=== PATIENT | female | born 1960 | race American Indian/Alaskan Native ===

== ENCOUNTER 2025-01-03 07:22 | Inpatient (IN) | payer MEDICARE, SELFPAY ==
[2025-01-03] VITALS (51 sets, daily range): BP systolic 116–164; BP diastolic 73–123; PULSE 60–128; RESP 6–26; TEMP 36.2–37.1; O2SAT 88–99; BMI 26.9; BMI 38.5
--- OUTSIDE RECORDS SUMMARY | 2025-01-03 07:29 | XMS_ITS | Encounter Summary ---
Author Organization [facility] Address [address] [place] [address] Care Team Providers Care Community Services Manager Name Role Phone Chema Padilla MD Primary Care Provider [phone] Encounter Details Date Type Department Care Team (Latest Contact Info) Description 09/11/2005 Outpatient Historical [facility] [address] [place] [address] Alexandro Cm MD [address] [place] [address] Pain in Joint, Lower Leg (Primary Dx); Pain in Joint, Upper Arm; Chondromalacia Patellae; Lateral Epicondylitis Social History Tobacco Use Types Packs/Day Years Used Date Smoking Tobacco: Never Assessed Comments Unknown Sex and Gender Information Value Date Recorded Sex Assigned at Not on file Legal Sex Female 3:22 AM SPINNER FRAME Gender Identity Not on file Sexual Orientation Not on file documented as of this encounter Plan of Treatment Not on file documented as of this encounter Visit Diagnoses Diagnosis Pain in joint, lower leg- Primary Pain in joint, upper arm Chondromalacia patellae Chondromalacia of patella Lateral epicondylitis Lateral epicondylitis of elbow documented in this encounter Care Teams Community Services Manager Relationship Specialty Start Date End Date Chema Padilla MD [address] [place] [phone] PCP - General Family Practice 03/24/19 documented as of this encounter
--- OUTSIDE RECORDS SUMMARY | 2025-01-03 07:29 | XMS_ITS | Encounter Summary ---
Author Organization [facility] Address [address] [place] [address] Care Team Providers Care Business Development Specialist Name Role Phone Chema Padilla MD Primary Care Provider [phone] Reason for Referral * Radiology Services (Routine) - Closed Specialty Diagnoses / Procedures Referred By Beau antony Referred To Contact Diagnoses Visit for screening mammogram Procedures MAMMO 3D SCREEN BILATERAL MOBILE Jazzy Zimmerman FNP Referral ID Status Reason Start Date Expiration Date Visits Re quested Visits Authorized [id number] Closed 09/03/2019 10/03/2020 1 1 Encounter Details Date Type Department Care Team (Latest Contact Info) Description 09/03/2019 [facility] [address] [facility] [address] [place] [id number] Jazzy Zimmerman FNP NO ADDRESS ON FILE Visit for screening mammogram Social History Tobacco Use Types Packs/Day Years Used Date Smoking Tobacco: Former Cigarettes 1 22 0 05/26/1976 - 05/26/1998 Smokeless Tobacco: Never Alcohol Use Standard Drinks/Week Comments No 0 (1 standard drink = 0.6 oz pur e alcohol) Comments No Sex and Gender Information Value Date Recorded Sex Assigned at Not on file Legal Sex Female 3:22 AM MEMBER OF PARLIAMENT Gender Identity Not on file Sexual Orientation Not on file Occupation Industry Job Start Date Job End Date Not on file Not on file Not on file Not on file Not on file Not on file Not on file Not on file documented as of this encounter Plan of Treatment Not on file documented as of this encounter Results * MAMMO 3D SCREEN BILATERAL MOBILE (03/31/2020 9:04 AM MEMBER OF PARLIAMENT) Anatomical Region Laterality Modality Breast Bilateral Mammography 03/31/2020 9:04 AM MEMBER OF PARLIAMENT Narrative 04/01/2020 3:47 PM MEMBER OF PARLIAMENT BILATERAL SCREENING MAMMOGRAM 03/31/2020 PATIENT COMPLAINT: No Concerns TISSUE DENSITY: Breast Density: The breasts are almost entirely fatty. COMPARISON EXAM(S): 08/31/2015 which is the most recent prior exam. Comparison is also made with prior exams of 04/11/2013, 03/21/2013, and 03/24/2011. IMAGES OBTAINED: Standard 4-view mammogram bilateral craniocaudal and oblique views. 2-D right craniocaudal and bilateral MLO views were obtained as well. FINDINGS: RIGHT BREAST: Prominent right axillary lymph nodes are identified which are stable. No suspicious calcifications are seen. However, a new mass is identified deep in the central aspect of the right breast. This will require further evaluation. LEFT BREAST: A surgical clip is identified in the left axilla. Two prominent left axillary lymph nodes are identified. A small nodular asymmetry is identified anteriorly on the left in the upper outer quadrant. 3D MLO and CC digital tomosynthesis images were acquired and synthesized 2D images (C view) were generated. This digital mammogram was also analyzed by the Computer Aided Detection System CAD). CONCLUSION: Patient needs to return for further evaluation. I would recommend the patient return for bilateral additional views and possible ultrasound. I would recommend a left 3-D axillary tail view as well. I would also recommend that the patient make an appointment with her physician for bilateral clinical breast examination as the patient states her last exam was five years ago. Patient will be contacted by the [facility] to schedule the recommended follow-up appointment. [id number] Jazzy Zimmerman PREFORMS LAMINATOR MAMMO ORDERABLES Final Res ult documented in this encounter Visit Diagnoses Diagnosis Visit for screening mammogram Other screening mammogram documented in this encounter Additional Health Concerns Assessment Noted Time PHQ-9 Depression Total Score: 1 06/04/19 20 1:00 PM MEMBER OF PARLIAMENT documented as of this encounter Care Teams Business Development Specialist Relationship Specialty Start Date End Date Chema Padilla MD [address] [place] [phone] PCP - General Family Practice 03/24/19 documented as of this encounter
--- OUTSIDE RECORDS SUMMARY | 2025-01-03 07:29 | XMS_ITS | Encounter Summary ---
Author Organization [facility] Address [address] [place] [address] Care Team Providers Care Rim Buster Name Role Phone Chema Padilla MD Primary Care Provider [phone] Reason for Referral * Outpatient Services (Routine) - Closed Specialty Diagnoses / Procedures Referred By Contac t Referred To Contact Radiology Diagnoses Other (abnormal) findings on radiological examination of breast Procedures MAMMO BREAST US RT Kayla Sung DO NO ADDRESS ON FILE [facility] [address] [place] [phone] Phone: tel: fax: Referral ID Status Reason Start Date Expiration Date Visits Requested Visits Authorized [id number] Closed Performing Department To Schedule (SGF) 03/27/2013 04/27/2014 1 1 LIANCE ANALYST * Outpatient Services (Routine) - Closed Specialty Diagnoses / Procedures Referred By Contac t Referred To Contact Radiology Diagnoses Other (abnormal) findings on radiological examination of breast Procedures MAMMO DIGITAL DIAG UNI RIGHT Kayla Sung DO NO ADDRESS ON FILE [facility] [address] [address] Phone: tel: fax: Referral ID Status Reason Start Date Expiration Date Visits Requested Visits Authorized [id number] Closed Ordering Department To Schedule 03/27/2013 04/27/2014 1 1 LIANCE ANALYST Encounter Details Date Type Department Care Team (Latest Contact Info) Description 03/27/2013 Ancillary Orders [facility] [place] [address] [place] [address] Kayla Sung DO NO ADDRESS ON FILE Other (abnormal) findings on radiological examination of breast (Primary Dx) Social History Tobacco Use Types Packs/Day Years Used Date Smoking Tobacco: Former Cigarettes 1 22 0 05/26/1976 - 05/26/1998 Smokeless Tobacco: Never Alcohol Use Standard Drinks/Week Comments No 0 (1 standard drink = 0.6 oz pur e alcohol) Comments No Sex and Gender Information Value Date Recorded Sex Assigned at Not on file Legal Sex Female 3:22 AM COMPLIANCE ANALYST Gender Identity Not on file Sexual Orientation Not on file Occupation Industry Job Start Date Job End Date Not on file Not on file Not on file Not on file Not on file Not on file Not on file Not on file documented as of this encounter Plan of Treatment Not on file documented as of this encounter Results * MAMMO DIGITAL DIAG UNI RIGHT (04/11/2013 9:59 AM COMPLIANCE ANALYST) Anatomical Region Laterality Modality Breast Right Mammography 04/11/2013 9:16 AM COMPLIANCE ANALYST Impressions 04/11/2013 12:10 PM COMPLIANCE ANALYST IMPRESSION: Large lymph node on the right is confirmed on additional images, and ultrasound reveals what appears to be a benign lymph node. This should be of no clinical significance. I would recommend routine annual screening mammogram. Patient received a result/recommendation letter. CASSI/lanny 0956 AM - uploaded from [employer] - Narrative 04/11/2013 12:10 PM COMPLIANCE ANALYST Right Digital Diagnostic Mammogram and Right Breast Ultrasound: Multiple additional digital mammographic images are presented, to better visualize the axillary area, because of possible large lymph node or nodes on recent screening mammogram 03/21/2013 compared with multiple previous dating back to 1998. The additional images show this large suspected lymph node, but there are other nodes superimposed, and I cannot actually evaluate whether the architecture appears benign, although I suspect it is. This digital mammogram was also analyzed by the Computer Aided Detection System (CAD), R2 ImageChecker, Version 8.3. Ultrasound shows this area to good advantage. There are several benign-appearing small lymph nodes noted. There is one larger lymph node 33 mm in greatest dimension, which should represent the nodule in question. This has a thin cortex which appears unremarkable. The fatty nidus is occupying most of the lymph node. This is a benign ultrasound appearance. Procedure Note Kenan Liao MD - 04/11/2013 Right Digital Diagnostic Mammogram and Right Breast Ultrasound: Multiple additional digital mammographic images are presented, to better visualize the axillary area, because of possible large lymph node or nodes on recent screening mammogram 03/21/2013 compared with multiple previous dating back to 1998. The additional images show this large suspected lymph node, but there are other nodes superimposed, and I cannot actually evaluate whether the architecture appears benign, although I suspect it is. This digital mammogram was also analyzed by the Computer Aided Detection System (CAD), R2 ImageChecker, Version 8.3. Ultrasound shows this area to good advantage. There are several benign-appearing small lymph nodes noted. There is one larger lymph node 33 mm in greatest dimension, which should represent the nodule in question. This has a thin cortex which appears unremarkable. The fatty nidus is occupying most of the lymph node. This is a benign ultrasound appearance. IMPRESSION IMPRESSION: Large lymph node on the right is confirmed on additional images, and ultrasound reveals what appears to be a benign lymph node. This should be of no clinical significance. I would recommend routine annual screening mammogram. Patient received a result/recommendation letter. CASSI/lanny 0956 AM - uploaded from [employer] - us Kayla Sung DO MAMMO ORDERABLES Kellie corral Result * MAMMO BREAST US RT (04/11/2013 9:58 AM COMPLIANCE ANALYST) Anatomical Region Laterality Modality Breast Right Ultrasound 04/11/2013 9:40 AM COMPLIANCE ANALYST Impressions 04/11/2013 12:10 PM COMPLIANCE ANALYST IMPRESSION: Large lymph node on the right is confirmed on additional images, and ultrasound reveals what appears to be a benign lymph node. This should be of no clinical significance. I would recommend routine annual screening mammogram. Patient received a result/recommendation letter. CASSI/lanny 0956 AM - uploaded from [employer] - Narrative 04/11/2013 12:10 PM COMPLIANCE ANALYST Right Digital Diagnostic Mammogram and Right Breast Ultrasound: Multiple additional digital mammographic images are presented, to better visualize the axillary area, because of possible large lymph node or nodes on recent screening mammogram 03/21/2013 compared with multiple previous dating back to 1998. The additional images show this large suspected lymph node, but there are other nodes superimposed, and I cannot actually evaluate whether the architecture appears benign, although I suspect it is. This digital mammogram was also analyzed by the Computer Aided Detection System (CAD), R2 ImageChecker, Version 8.3. Ultrasound shows this area to good advantage. There are several benign-appearing small lymph nodes noted. There is one larger lymph node 33 mm in greatest dimension, which should represent the nodule in question. This has a thin cortex which appears unremarkable. The fatty nidus is occupying most of the lymph node. This is a benign ultrasound appearance. Procedure Note Kenan Liao MD - 04/11/2013 Right Digital Diagnostic Mammogram and Right Breast Ultrasound: Multiple additional digital mammographic images are presented, to better visualize the axillary area, because of possible large lymph node or nodes on recent screening mammogram 03/21/2013 compared with multiple previous dating back to 1998. The additional images show this large suspected lymph node, but there are other nodes superimposed, and I cannot actually evaluate whether the architecture appears benign, although I suspect it is. This digital mammogram was also analyzed by the Computer Aided Detection System (CAD), R2 ImageChecker, Version 8.3. Ultrasound shows this area to good advantage. There are several benign-appearing small lymph nodes noted. There is one larger lymph node 33 mm in greatest dimension, which should represent the nodule in question. This has a thin cortex which appears unremarkable. The fatty nidus is occupying most of the lymph node. This is a benign ultrasound appearance. IMPRESSION IMPRESSION: Large lymph node on the right is confirmed on additional images, and ultrasound reveals what appears to be a benign lymph node. This should be of no clinical significance. I would recommend routine annual screening mammogram. Patient received a result/recommendation letter. CASSI/lanny 0956 AM - uploaded from [employer] - us Kayla Sung DO MAMMO ORDERABLES Kellie l Result documented in this encounter Visit Diagnoses Diagnosis Other (abnormal) findings on radiological examination of breast- Primary Other (abnormal) findings on radiological examination of breast Other (abnormal) findings on radiological examination of breast documented in this encounter Additional Health Concerns Assessment Noted Time PHQ-9 Depression Total Score: 2 03/05/20 13 8:00 AM COMPLIANCE ANALYST documented as of this encounter Care Teams Rim Buster Relationship Specialty Start Date End Date Chema Padilla MD [address] [place] [phone] PCP - General Family Practice 03/24/19 documented as of this encounter
--- OUTSIDE RECORDS SUMMARY | 2025-01-03 07:29 | XMS_ITS | Clinical Summary ---
Author Organization [facility] Address [address] [place] [address] Care Team Providers Care Hospital Coder Name Role Phone Chema Padilla MD Primary Care Provider [phone] Allergies Active Allergy Reactions Criticality Noted Date Comments Morphine Nausea and Vomiting Low 11/26/2009 Medications simvastatin (ZOCOR) 10 mg tabletIndications: Hyperlipidemia, unspecified hyperlipidemia type TAKE 1 TABLET BY MOUTH IN THE EVENING 90 Tablet 3 0 Active cyclobenzaprine (FLEXERIL) 10 mg tabletIndications: Fibromyalgia Take 1 Tablet (10 mg) by mouth 3 times daily as needed for Spasm. 270 Tablet 3 0 Active carvediloL (COREG) 25 mg tabletIndications: Essential hypertension Take 1 Tablet (25 mg) by mouth 2 times daily with meals. 180 Tablet 3 0 Active omeprazole (PriLOSEC) 20 mg Capsule, Delayed Release(E.C.)Indic ations:Gastroesoph ageal reflux disease, unspecified whether esophagitis present TAKE ONE CAPSULE BY MOUTH DAILY 90 Capsule 3 0 Active albuterol HFA 90 mcg inhalerIndications :Chronic obstructive pulmonary disease, unspecified COPD type (CMS/HCC) INHALE 2 PUFFS BY MOUTH EVERY 6 HOURS NEEDED FOR SHORTNESS OF BREATH 18 Gram 3 0 Active ipratropium-albute roL (DUONEB) 0.5 mg-3 mg(2.5 mg base)/3 mL Solution for NebulizationIndica tions:Chronic obstructive pulmonary disease, unspecified COPD type (CMS/HCC) USE 3 ML VIA NEBULIZER EVERY 6 HOURS NEEDED FOR SHORTNESS OF BREATH 30 Each 5 0 Active levothyroxine 75 mcg tabletIndications: Primary hypothyroidism Take 1 Tablet (75 mcg) by mouth daily in the morning. 90 Tablet 3 0 Active zolpidem (AMBIEN) 10 mg tabletIndications: Psychophysiologica l insomnia Take 1 Tablet (10 mg) by mouth daily at bedtime. 90 Tablet 1 1 Active sertraline (ZOLOFT) 50 mg tabletIndications: CAROL ANN (generalized anxiety disorder) Take 1 Tablet (50 mg) by mouth daily. TAKE 1 TABLET(50 MG) BY MOUTH DAILY 90 Tablet 3 1 Active meloxicam (MOBIC) 15 mg tabletIndications: Chronic pain of left knee Take 1 Tablet (15 mg) by mouth daily at bedtime. 90 Tablet 3 1 Active ergocalciferol (VITAMIN D2) 50,000 unit capsuleIndications :Vitamin D deficiency TAKE 1 CAPSULE BY MOUTH EVERY 2 WEEKS 6 Capsule 1 Active Hospital, Clinic, or Other Facility Administered Medication Ordered Dose Route Frequency Start Date End Date Status triamcinolone acetonide (KENALOG-40) injectable suspension 40 mgIndications:Chron ic pain of left knee 40 mg Intra-arTICu ONE TIME ONLY 08/15/2018 Active Active Problems Problem Noted Date Diagnosed Date Prediabetes 06/04/2019 Primary hypothyroidism 06/04/2019 Vitamin D deficiency 08/15/2018 Family history of breast cancer 01/29/2018 Chronic obstructive pulmonary disease 01/29/2018 Situational depression 03/01/2016 ARELLANO (nonalcoholic steatohepatitis) 10/25/2015 Obesity (BMI 30.0-34.9) 10/07/2015 Family history of chronic congestive heart failu re 08/17/2015 GERD (gastroesophageal reflux disease) 4 Former smoker 03/05/2013 History of hiatal hernia 03/05/2013 Hyperlipidemia 01/02/2012 Insomnia 12/21/2011 Chronic knee pain 02/14/2011 Left knee pain 02/14/2011 Right knee pain 02/14/2011 Essential hypertension 10/06/2009 Fibromyalgia 10/06/2009 CAROL ANN (generalized anxiety disorder) 10/06/2009 Resolved Problems Problem Noted Date Diagnosed Date Resolved Date Morbid (severe) obesity due to excess calories 08/15/2018 08/11/2020 Elevated LFTs 10/11/2015 11/16/2015 Axillary adenopathy 11/04/2013 12/10/19 14 Sleep disturbance 10/16/2013 04/05/2015 BMI 33.0-33.9,adult 03/05/2013 10/07/19 16 Heartburn 03/05/2013 10/16/2013 Elevated liver enzymes 01/02/201210/16 Obesity 06/20/2011 11/16/2015 Lipoma of other skin and subcutaneous tissue 0 03/05/2013 Escamilla cyst 03/05/2013 Immunizations Immunization Administration Dates Next Due (PNEUMOVAX 23)(50 YRS UP) PN EUMOCOCCAL POLYSACCHARIDE (PPV23) 0.5 ML, IM 06/04/2019 (PREVNAR 13)(6 WKS UP) PNEUM OCOCCAL CONJUGATE (PCV13) 0.5 ML, IM 11/27/2018 INFLUENZA VACCINE QUADRIVALE NT 3 YR UP PF IM 01/29/2018 INFLUENZA VACCINE QUADRIVALE NT 6 MOS UP IM 02/07/2019 INFLUENZA VACCINE QUADRIVALE NT 6 MOS UP PF IM 12/07/2012 Influenza Seasonal Unspecifi ed Formulation IM 01/01/2020,02/09/2017,11/13/2015,11/20,12/18/2013,12/07/2012,12/01/2010 Influenza Vaccine Quad Split 18 Yrs+ Im 02/07/2019 Influenza Vaccine Split 3+ Yrs IM 12/21/2011 Influenza Vaccine Tri Split 4+ Im 2016,11/13/2015,11/20/2014,12/18,12/07/2012,12/01/2010,01/06/2010 Influenza Vaccine Tri Split 4+ Pf Im 02/09/2017 Family History Medical History Relation Name Comments Heart Disease Father High Cholesterol Father Hypertension Father Heart Disease Mother High Cholesterol Mother Hypertension Mother Kidney Disease Mother Osteoporosis Mother Breast Cancer Sister 59 Colon Cancer Neg Hx Relation Name Status Comments Father Alive Mother Alive Sister Social History Tobacco Use Types Packs/Day Years Used Date Smoking Tobacco: Former Cigarettes 1 22 0 05/26/1976 - 05/26/1998 Smokeless Tobacco: Never Tobacco Cessation:Counseling Given: No Alcohol Use Standard Drinks/Week Comments No 0 (1 standard drink = 0.6 oz pur e alcohol) Social Connections Answer Date Recorded In a typical week, how many times do you talk on the phone with family, friends, or neighbors? More than three times a week 02/12/2020 How often do you get togethe r with friends or relatives? Never 02/12/2020 How often do you attend chur ch or religion services? Never 02/12/2020 Do you belong to any clubs o r organizations such as yazdanism groups, unions, fraternal or athletic groups, or school groups? Yes 02/12/2020 Attends Club or Organization Meetings Not on yo e 02/12/2020 Marital Status Not on file 02/12/2020 Financial Resource Strain Answer Date R ecorded How hard is it for you to pa y for the very basics like food, housing, medical care, and heating? Somewhat hard 08/11/2020 Food Insecurity Answer Date Recorded In the past 12 months, have you worried that your food would run out before you had money to buy more? Sometimes true 2020 In the past 12 months, did y ou run out of food and didn't have money to buy more? Never true 08/11/2020 Transportation Needs Answer Date Record ed In the past 12 months, has l ack of transportation kept you from medical appointments or from getting medications? Yes 08/11/2020 Lack of Transportation (Non-Medical) Not on file 08/11/2020 Education Answer Date Recorded What is the highest level of school you have completed or the highest degree you have received? 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 [employer] Gender Identity Not on file Sexual Orientation Not on file Occupation Industry Job Start Date Job End Date Not on file Not on file Not on file Not on file Not on file Not on file Not on file Not on file Last Filed Vital Signs Vital Sign Reading Time Taken Comments Blood Pressure 130/74 08/11/2020 8:59 AM CDT Pulse 87 08/11/2020 8:59 AM CDT Temperature 36.1 C (97 F) 08/11/2020 8:59 AM CDT Respiratory Rate 18 08/11/2020 8:59 AM CDT Oxygen Saturation 94% 08/11/2020 8:59 AM CDT Inhaled Oxygen Concentration - - Weight 84.8 kg (187 lb) 08/11/2020 8:59 AM CDT Height 157.5 cm (5' 2 ) 08/11/2020 8:59 AM CDT Body Mass Index 34.2 08/11/2020 8:59 AM CDT Plan of Treatment Health Maintenance Due Date Last Done Comments DTAP/TDAP/TD VACCINES (1 - Tdap) 1977 FIT/FOBT Q 1 year 06/26/2003 Flex Sig/CT Colonography Q 5 years 06/26/2003 ZOSTER VACCINE (1 of 2) 2008 COLORECTAL SCREENING 03/15/2016 03/15/2011, 03/15/20 11 RSV VACCINE (60+ or ) (1 - Risk 60-74 years 1-dose series) 2018 Colorectal Cancer Screening 09/23/2020 BREAST CANCER SCREENING 03/31/2021 03/31/20 20, 08/31/2015, 04/11/2013, Additional history exists OSTEOPOROSIS SCREENING 06/26/2023 Pre-Diabetes and Diabetes Screening 08/07/2023 08/06/2020, 01/14/2020, 05/26/2019, Additional history exists FIT-DNA Q 3 years 09/23/2023 09/22/2020 Medicare Advantage [place]) Preventative Visit/Annual Wellness Visit 04/02/2024 08/11/2020, 02/12/2020 PNEUMOCOCCAL VACCINE 50+ YEA RS (3 of 3 - PCV20 or PCV21) 06/03/2024 06/04/2019, 11/27/2018 INFLUENZA VACCINE (#1) 2024 0, 02/07/2019, 02/07/2019, Additional history exists Procedures Procedure Name Priority Date/Time Associated Diagnosis Comments COLON CANCER SCREEN, STOOL DNA Routine 09/22/2020 5:08 PM CDT Screening for colon cancer HEMOGLOBIN A1C Routine 08/06/2020 8:53 AM CDT Prediabetes MAMMO 3D TONY SCREEN BILATERAL MOBILE Routine 03/31/2020 9:04 AM 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 A negative Cologuard result indicates a low likelihood that a colorectal cancer (CRC) or advanced adenoma (adenomatous polyps with more advanced pre-malignant features) is present. The chance that a person with a negative Cologuard test has a colorectal cancer is less than 1 in 1500 (negative predictive value >99.9%) or has an advanced adenoma is less than 5.3% (negative predictive value 94.7%). These data are based on a prospective cross-sectional study of 10,000 individuals at average risk for colorectal cancer who were screened with both Cologuard and colonoscopy. (Christine Chang et al, N Engl J Med 2014;370(14):0441-5880) The normal value (reference range) for this assay is negative. COLOGUARD RE-SCREENING RECOMMENDATION: Periodic colorectal cancer screening is an important part of preventive healthcare for asymptomatic individuals at average risk for colorectal cancer. Following a negative Cologuard result, the [place] [employer] and U.S. Multi-Society Task Force screening guidelines recommend a Cologuard re-screening interval of 3 years. References: [place] [employer] Guideline for Colorectal Cancer Screening: https://www.cancer.org/cancer/veuwo-ncbbrk-dnjpns/ezdsgkvgs-pcxpmhikd-tornjof/ac s-rec ommendations.html.; Billy TRAN, Edwin CR, Alfa CotaK, Colorectal Cancer Screening: Recommendations for Physicians and Patients from the U.S. Multi-Society Task Force on Colorectal Cancer Screening , Am J Gastroenterology 2017; 112:9288-8739. TEST DESCRIPTION: Composite algorithmic analysis of stool DNA-biomarkers with hemoglobin immunoassay. Quantitative values of individual biomarkers are not reportable and are not associated with individual biomarker result reference ranges. Cologuard is intended for colorectal cancer screening of adults of either sex, 45 years or older, who are at average-risk for colorectal cancer (CRC). Cologuard has been approved for use by the U.S. FDA. The performance of Cologuard was established in a cross sectional study of average-risk adults aged 50-84. Cologuard performance in patients ages 45 to 49 years was estimated by sub-group analysis of near-age groups. Colonoscopies performed for a positive result may find as the most clinically significant lesion: colorectal cancer [4.0%], advanced adenoma (including sessile serrated polyps greater than or equal to 1cm diameter) [20%] or non- advanced adenoma [31%]; or no colorectal neoplasia [45%]. These estimates are derived from a prospective cross-sectional screening study of 10,000 individuals at average risk for colorectal cancer who were screened with both Cologuard and colonoscopy. (Christine Morris. et al, N Engl J Med 2014;370(14):3210-0997.) Cologuard may produce a false negative or false positive result (no colorectal cancer or precancerous polyp present at colonoscopy follow up). A negative Cologuard test result does not guarantee the absence of CRC or advanced adenoma (pre-cancer). The current Cologuard screening interval is every 3 years. ([place] [employer] and U.S. Multi-Society Task Force). Cologuard performance data in a 10,000 patient pivotal study using colonoscopy as the reference method can be accessed at the following location: www.[employer]results. Additional description of the Cologuard test process, warnings and precautions can be found at www.[employer].com. Stool STOOL SPECIMEN / Unknown 09/22/2020 5:08 PM CDT 09/24/2020 7:08 PM CDT us Jazzy Zimmerman SPORTS EQUIPMENT REPAIRER BODY FLUIDS AND STOOLS Fin al Result [employer] CLIA # [id number] [address], [address] [place] [address] * (ABNORMAL) HEMOGLOBIN A1C (08/06/2020 8:53 AM CDT) HEMOGLOBIN A1C 5.9(H) See Comment % 08/06/2020 8:31 PM CDT [facility] EST. AVG GLUCOSE, A1C 123 mg/dL 08/06/2020 8:31 PM CDT [facility] Blood Venipuncture / Unknown 08/06/2020 8:53 AM CDT 08/06/2020 7:58 PM CDT Narrative [facility] - 08/06/2020 8:31 PM CDT HGB A1C INTERPRETATION NORMAL: <5.7% PRE-DIABETES: 5.7 - 6.4% DIABETES: 6.5% OR GREATER Falsely low A1C measurements can occur when: 1. Anemia and/or hemolytic anemia is present. 2. Hemoglobin variants present. 3. Renal failure. 4. Transfusion of blood product in the last 120 days. We recommend ordering a fructosamine test([id number]) to more accurately assess glycemic status if any of the above conditions are present. Jazzy Zimmerman SPORTS EQUIPMENT REPAIRER CHEMISTRY ORDERABLES Final Result [facility] CLIA# [id number] [facility] [place] [address] * MAMMO 3D SCREEN BILATERAL MOBILE (03/31/2020 9:04 AM ASSISTANT PROFESSOR OF [employer]IN[employer]) Anatomical Region Laterality Modality Breast Bilateral Mammography 03/31/2020 9:04 AM ASSISTANT PROFESSOR [employer]IN[employer] Narrative 04/01/2020 3:47 PM ASSISTANT PROFESSOR OF [employer]INAL [employer]ICE BILATERAL SCREENING MAMMOGRAM 03/31/2020 PATIENT COMPLAINT: No [...] Center to schedule the recommended follow-up appointment. [id number] Jazzy Chapacayetano SPORTS EQUIPMENT REPAIRER MAMMO ORDERABLES Final Res ult from Last 3 Months or Most Recently Relevant to Health Maintenance Insurance [facility] Advance Directives For more information, please contact: [phone] * Full Code (Latest Code Status on File) Date Activated Date Inactivated Comments 11/24/2013 1:00 PM 11/24/2013 6:57 PM * Full Code Date Activated Date Inactivated Comments 11/24/2013 12:18 PM 11/24/2013 1:00 PM * Full Code Date Activated Date Inactivated Comments 03/15/2011 10:04 AM 03/15/2011 1:31 PM * Full Code Date Activated Date Inactivated Comments 11/26/2009 9:33 AM 11/26/2009 7:02 PM Care Teams Hospital Coder Relationship Specialty Start Date End Date Chema Padilla MD [address] [place] [phone] PCP - General Family Practice 03/24/19
--- OUTSIDE RECORDS SUMMARY | 2025-01-03 07:29 | XMS_ITS | Clinical Summary ---
Author Organization [facility] Address [address] [place] [address] Care Team Providers Care Automotive Machinist Name Role Phone Dennis Vines MD Primary Care Provider Allergies Active Allergy Reactions Criticality Noted Date Comments Morphine Nausea and Vomiting Low 11/26/2009 Medications triamcinolone acetonide (KENALOG-40) 40 mg/mL Suspension 40 mg by Intra-arTICular route one time only. 08/16/19 19 Active Nebulizer Accessories Kit Use 3-4 times daily with nebulized solution. Change tubing/mask every 2 weeks. 7 Kit 4 12/15/19 23 Active estradioL (ESTRACE) 0.01% (0.1 mg/g) vaginal cream Apply pea sized amount daily at bedtime intravaginally for 2 weeks. After that, apply a pea sized amount at bedtime every Sun, Sun and Sunday. 85 Gram 3 12/15/19 23 Active Additional Information Patient not taking.Reported on 10/29/2024 carvediloL (COREG) 25 mg tabletIndications: Essential hypertension Take 1 Tablet (25 mg) by mouth 2 times daily with meals. 200 Tablet 3 06/04/19 25 Active sertraline (ZOLOFT) 50 mg tabletIndications: CAROL ANN (generalized anxiety disorder) Take 1 Tablet (50 mg) by mouth daily. 100 Tablet 2 06/07/19 25 Active cyclobenzaprine (FLEXERIL) 10 mg tabletIndications: Fibromyalgia Take 1 Tablet (10 mg) by mouth 3 times daily as needed for Spasm. 270 Tablet 2 06/11/19 25 Active meloxicam (MOBIC) 15 mg tabletIndications: Chronic pain of left knee Take 1 Tablet (15 mg) by mouth daily at bedtime. PATIENT NEEDS AN APPOINTMENT FOR FUTURE REFILLS 100 Tablet 2 06/12/19 25 Active simvastatin (ZOCOR) 10 mg tabletIndications: Hyperlipidemia, unspecified hyperlipidemia type Take 1 Tablet (10 mg) by mouth daily at bedtime. PATIENT NEEDS AN APPOINTMENT FOR FUTURE REFILLS 100 Tablet 2 06/14/19 25 Active levothyroxine 75 mcg tabletIndications: Primary hypothyroidism Take 1 Tablet (75 mcg) by mouth daily. PATIENT NEEDS AN APPOINTMENT FOR FUTURE REFILLS. 100 Tablet 2 07/02/19 25 Active zolpidem (AMBIEN) 10 mg tabletIndications: Psychophysiologica l insomnia Take 1 Tablet (10 mg) by mouth daily at bedtime. 90 Tablet 08/22/19 25 Active albuterol sulfate HFA 90 mcg/actuation aerosol inhalerIndications :Chronic obstructive pulmonary disease, unspecified COPD type (CMS/HCC) Take 2 Puffs by inhalation every 6 hours as needed for Shortness of Breath. 18 Gram 08/22/19 25 Active ipratropium-albute roL (DUONEB) 0.5 mg-3 mg(2.5 mg base)/3 mL Solution for NebulizationIndica tions:Chronic obstructive pulmonary disease, unspecified COPD type (CMS/HCC) Take 3 mL by inhalation every 6 hours as needed for Shortness of Breath. 120 Each 09/19/19 25 Active omeprazole (PriLOSEC) 20 mg Capsule, Delayed Release(E.C.)Indic ations:Gastroesoph ageal reflux disease, unspecified whether esophagitis present Take 1 Capsule (20 mg) by mouth daily. PATIENT NEEDS AN APPOINTMENT FOR FUTURE REFILLS 100 Capsule 11/07/19 25 Active Active Problems Problem Noted Date Diagnosed Date Hip pain, chronic, left 02/17/2021 Prediabetes 06/04/2019 Primary hypothyroidism 06/04/2019 Vitamin D deficiency 08/15/2018 Family history of breast cancer 01/29/2018 Chronic obstructive pulmonary disease 01/29/2018 Situational depression 03/01/2016 ARELLANO (nonalcoholic steatohepatitis) 10/25/2015 Obesity (BMI 30.0-34.9) 10/07/2015 Family history of chronic congestive heart failu re 08/17/2015 GERD (gastroesophageal reflux disease) 4 Former smoker 03/05/2013 History of hiatal hernia 03/05/2013 Hypercholesterolemia 01/02/2012 Insomnia 12/21/2011 Chronic knee pain 02/14/2011 Left knee pain 02/14/2011 Right knee pain 02/14/2011 Fibromyalgia 10/06/2009 Essential hypertension 10/06/2009 CAROL ANN (generalized anxiety disorder) 10/06/2009 [...] subcutaneous tissue 0 03/05/2013 Escamilla cyst 03/05/2013 Encounters Date Type Department Care Team Description 12/16/2024 External Device Data [facility] ABSTRACTION Provider, Abstract 12/16/2024 External Device Data [facility] ABSTRACTION Provider, Abstract 11/06/[address] [phone] Dennis Vines MD Gastroesophageal reflux disease, unspecified whether esophagitis present 11/02/2024 Results Follow-Up [place] [address] [place] [address] Dennis Vines MD MICROALBUMIN/CREATININE RATIO, RANDOM UR, CBC WITH DIFFERENTIAL, COMPREHENSIVE METABOLIC PANEL, Additional followed-up results: 2 10/29/2024 4:00 PM CDT Office Visit [address] [place] [phone] Dennis Vines MD Medicare annual wellness visit, subsequent (Primary Dx); Essential hypertension; Hypercholesterolemia; Primary hypothyroidism; 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); Encounter for colorectal cancer screening; Screening mammogram, encounter for; Encounter for immunization 10/15/2024 External Device Data [facility] ABSTRACTION Provider, Abstract 10/14/2024 External Device Data [facility] ABSTRACTION Provider, Abstract from Last 3 Months Immunizations Immunization Administration Dates Next Due (PNEUMOVAX 23)(50 YRS UP) PN EUMOCOCCAL POLYSACCHARIDE (PPV23) 0.5 ML, IM 06/04/2019 (PREVNAR 13)(6 WKS UP) PNEUM OCOCCAL CONJUGATE (PCV13) 0.5 ML, IM 11/27/2018 (PREVNAR 20)(6 WKS UP) PNEUM OCOCCAL CONJUGATE VACCINE 20-VALENT (PCV20), POLYSACCHARIDE [id number] CONJUGATE, ADJUVANT 0.5 ML (PF) IM 10/29/2024 INFLUENZA VACCINE HIGH DOSE TRIVALENT SPLIT VIRUS, (65 YR UP), 0.5ML (PF), IM 01/21/2024 INFLUENZA VACCINE QUADRIVALE NT 3 YR UP PF IM 01/29/2018 INFLUENZA VACCINE QUADRIVALE NT 6 MOS UP IM 02/07/2019 INFLUENZA VACCINE QUADRIVALE NT 6 MOS UP PF IM 02/17/2021,12/07/2012 Influenza Seasonal Unspecifi ed Formulation IM 01/01/2020,02/09/2017,11/13/2015,11/20,12/18/2013,12/07/2012,12/01/2010 Influenza Vaccine Quad Split 18 Yrs+ Im 02/07/2019 Influenza Vaccine Split 3+ Yrs IM 12/21/2011 Influenza Vaccine Tri Split 4+ Im 2016,11/13/2015,11/20/2014,12/18,12/07/2012,12/01/2010,01/06/2010 Influenza Vaccine Tri Split 4+ Pf Im 02/09/2017 Novel [id number], All Formulations 02/12/2009 Family History Medical History Relation Name Comments Heart Disease Father High Cholesterol Father Hypertension Father Heart Disease Mother High Cholesterol Mother Hypertension Mother Kidney Disease Mother Osteoporosis Mother Breast Cancer Sister 59 Colon Cancer Neg Hx Relation Name Status Comments Father Alive Mother Alive Sister Social History Tobacco Use Types Packs/Day Years Used Date Smoking Tobacco: Former Cigarettes Q uit: 05/26/1998 Passive Smoke Exposure: Past Smokeless Tobacco: Never Tobacco Cessation:Counseling Given: Not Answered Alcohol Use Standard Drinks/Week Comments No 0 (1 standard drink = 0.6 oz pur e alcohol) Financial Resource Strain Answer Date R ecorded [...] of Transportation (Non-Medical) Not on file 08/11/2020 Comments No Sex and Gender Information Value Date Recorded Sex Assigned at Not on file Legal Sex 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 Gender Identity Not on file Sexual Orientation Not on file Last Filed Vital Signs Vital Sign Reading Time Taken Comments Blood Pressure 136/86 10/29/2024 4:02 PM CDT Pulse 111 10/29/2024 4:02 PM CDT Temperature 36.3 C (97.3 F) 10/29/2024 4:02 PM CDT Respiratory Rate 16 01/21/2024 3:09 PM CDT Oxygen Saturation 95% 10/29/2024 4:02 PM CDT Inhaled Oxygen Concentration - - Weight 71.7 kg (158 lb) 10/29/2024 4:02 PM CDT Height 157.5 cm (5' 2 ) 10/29/2024 4:02 PM CDT Body Mass Index 28.9 10/29/2024 4:02 PM CDT Plan of Treatment Health Maintenance Due Date Last Done Comments DTAP/TDAP/TD VACCINES (1 - Tdap) 1977 Flex Sig/CT Colonography Q 5 years 06/26/2003 ZOSTER VACCINE (1 of 2) 2008 COLORECTAL SCREENING 03/15/2016 03/15/2011 RSV VACCINE (60+ or ) (1 - Risk 60-74 years 1-dose series) 2018 BREAST CANCER SCREENING 03/31/2021 03/31/20 20, 03/31/2020, 08/31/2015, Additional history exists OSTEOPOROSIS SCREENING 06/26/2023 Colorectal Cancer Screening 07/24/2023 FIT-DNA Q 3 years 09/23/2023 09/22/2020 FIT/FOBT Q 1 year 07/22/2024 07/23/2023 Pre-Diabetes and Diabetes Screening 10/06/2024 10/06/2021, 02/14/2021, 08/06/2020, Additional history exists INFLUENZA VACCINE (#1) 2024 , 02/17/2021, 01/01/2020, Additional history exists Medicare Ad[place]age ([place]) Preventative Visit/Annual Wellness Visit Completed 10/29/2024, 06/21/2023, 12/14/2022 PNEUMOCOCCAL VACCINE 50+ YEARS Completed 0 10/29/2024, 06/04/2019, 11/27/2018 Procedures Procedure Name Priority Date/Time Associated Diagnosis Comments TSH REFLEXIVE Routine 10/29/2024 4:29 PM CDT Primary hypothyroidism LIPID PANEL Routine 10/29/2024 4:29 PM CDT Hypercholesterolemia COMPREHENSIVE METABOLIC PANEL Routine 10/29/2024 4:29 PM CDT Essential hypertension CBC WITH DIFFERENTIAL Routine 10/29/2024 4:29 PM CDT Essential hypertension MICROALBUMIN/CREATINI NE RATIO, RANDOM UR Routine 10/29/2024 4:29 PM CDT Essential hypertension OCCULT BLOOD IMMUNOASSAY, COLORECTAL SCREEN Routine 07/23/2023 12:00 AM CDT Encounter for colorectal cancer screening HEMOGLOBIN A1C Routine 10/06/2021 9:24 AM CDT Prediabetes COLON CANCER SCREEN, STOOL DNA Routine 09/22/2020 5:08 PM CDT MAMMO 3D TONY SCREEN BILATERAL MOBILE Routine 03/31/2020 9:04 AM DRAY TRUCK DRIVER Encounter for screening mammogram for malignant neoplasm of breast from Last 3 Months or Most Recently Relevant to Health Maintenance Results * TSH REFLEXIVE (10/29/2024 4:29 PM CDT) TSH 2.59 0.40 - 4.50 mIU/L [facility] Comment: Test Performed at: [facility] [place] [address] Hallie Peres MD Blood 10/29/2024 4:29 PM CDT 10/30/2024 2:40 AM CDT Dennis Vines MD CHEMISTRY ORDERABLES Final Resul t Performing Organization Address [facility]/ZIP Co de Phone Number [facility] [phone] [facility] [address] * (ABNORMAL) MICROALBUMIN/CREATININE RATIO, RANDOM UR (10/29/2024 4:29 PM CDT) CREATININE, URINE 149 20 - 275 mg/dL [facility] ALBUMIN, URINE 21.9 See Note: mg/dL [facility] Comment: Reference Range: Reference Range Not established ALB/CREAT RATIO, URINE 147(H) <30 mg/g creat [facility] Comment: The ADA defines abnormalities in albumin excretion as follows: Albuminuria Category Result (mg/g creatinine) Normal to Mildly increased <30 Moderately increased 30-299 Severely increased > OR = 300 The ADA recommends that at least two of three specimens collected within a 3-6 month period be abnormal before considering a patient to be within a diagnostic category. Test Performed at: [facility] [place] [address] Hallie Prees MD Urine URINE SPECIMEN OBTAINED BY CLEAN CATCH PROCEDURE / Unknown 10/29/2024 4:29 PM CDT 10/30/2024 2:40 AM CDT us Dennis Vines MD URINE ORDERABLES Final Result Performing Organization Address City/[facility]/ZIP Co de Phone Number [facility] [phone] [facility] [place] [address] * (ABNORMAL) CBC WITH DIFFERENTIAL (10/29/2024 4:29 PM CDT) WBC 11.3(H) 3.8 - 10.8 Thousand/u L [facility] RBC 4.97 3.80 - 5.10 Million/uL [facility] HEMOGLOBIN 12.5 11.7 - 15.5 g/dL [facility] HEMATOCRIT 42.4 35.0 - 45.0 % [facility] MCV 85.3 80.0 - 100.0 fL [facility] MCH 25.2(L) 27.0 - 33.0 pg [facility] MCHC 29.5(L) 32.0 - 36.0 g/dL [facility] Comment: For adults, a slight decrease in the calculated MCHC value (in the range of 30 to 32 g/dL) is most likely not clinically significant; however, it should be interpreted with caution in correlation with other red cell parameters and the patient's clinical condition. RDW 16.0(H) 11.0 - 15.0 % [facility] PLATELETS 266 140 - 400 Thousand/u L [facility] MPV 11.3 7.5 - 12.5 fL [facility] NEUTROPHIL ABSOLUTE 7,899(H) 1,500 - 7,800 cells/uL [facility] LYMPHOCYTE ABSOLUTE 2,396 850 - 3,900 cells/uL [facility] MONOCYTE ABSOLUTE 746 200 - 950 cells/uL [facility] EOSINOPHIL ABSOLUTE 192 15 - 500 cells/uL [facility] BASOPHILS ABSOLUTE 68 0 - 200 cells/uL [facility] NEUTROPHIL 69.9 % [facility] LYMPHOCYTES 21.2 % [facility] MONOCYTE 6.6 % [facility] EOSINOPHILS 1.7 % [facility] BASOPHILS 0.6 % [facility] Comment: Test Performed at: [facility] [address] [place] [address] Hallie Peres MD Blood 10/29/2024 4:29 PM CDT 10/30/2024 2:40 AM CDT us Dennis Vines MD HEMATOLOGY ORDERABLES Final Resu lt Performing Organization Address City/[facility]/ZIP Co de Phone Number [facility] [phone] [facility] [address] [place] [address] * (ABNORMAL) LIPID PANEL (10/29/2024 4:29 PM CDT) CHOLESTEROL 105 <200 mg/dL [facility] HDL 40(L) > OR = 50 mg/dL [facility] TRIGLYCERIDE 73 <150 mg/dL [facility] LDL CALCULATED 50 mg/dL (calc) [facility] Comment: Reference range: <100 Desirable range <100 mg/dL for primary prevention; <70 mg/dL for patients with CHD or diabetic patients with > or = 2 CHD risk factors. LDL-C is now calculated using the Waylon-Alisia calculation, which is a validated novel method providing better accuracy than the Friedewald equation in the estimation of LDL-C. Waylon SS et al. JOAO. 2013;310(19): 4508-4780 (http://education.AM Technology/faq/NUB274) CHOL/HDL RATIO 2.6 <5.0 (calc) [facility] NON-HDL CHOLESTEROL 65 <130 mg/dL (calc) [facility] Comment: For patients with diabetes plus 1 major ASCVD risk factor, treating to a non-HDL-C goal of <100 mg/dL (LDL-C of <70 mg/dL) is considered a therapeutic option. Test Performed at: [facility] [address] [facility] [place] [address] Hallie Peres MD Blood 10/29/2024 4:29 PM CDT 10/30/2024 2:40 AM CDT us Dennis Vines MD CHEMISTRY ORDERABLES Final Resul t Performing Organization Address City/[facility]/ZIP Co de Phone Number [facility] [phone] [facility] [address] [place] [address] * (ABNORMAL) COMPREHENSIVE METABOLIC PANEL (10/29/2024 4:29 PM CDT) GLUCOSE 98 65 - 99 mg/dL [facility] Comment: Fasting reference interval BUN 19 7 - 25 mg/dL [facility] CREATININE 1.04 0.50 - 1.05 mg/dL [facility] GFR 59(L) > OR = 60 mL/min/1. 73m2 [facility] BUN/CREAT RATIO SEE NOTE: 6 - 22 (calc) [facility] Comment: Not Reported: BUN and Creatinine are within reference range. SODIUM 138 135 - 146 mmol/L [facility] POTASSIUM 4.5 3.5 - 5.3 mmol/L [facility] CHLORIDE 99 98 - 110 mmol/L [facility] CO2 29 20 - 32 mmol/L [facility] CALCIUM 9.5 8.6 - 10.4 mg/dL [facility] TOTAL PROTEIN 7.5 6.1 - 8.1 g/dL [facility] ALBUMIN 4.1 3.6 - 5.1 g/dL [facility] GLOBULIN 3.4 1.9 - 3.7 g/dL (calc) [facility] ALBUMIN/GLOBULIN RATIO 1.2 1.0 - 2.5 (calc) [facility] BILIRUBIN TOTAL 0.7 0.2 - 1.2 mg/dL [facility] ALKALINE PHOSPHATASE 70 37 - 153 U/L [facility] AST 21 10 - 35 U/L [facility] ALT 17 6 - 29 U/L [facility] Comment: Test Performed at: [facility] [address] [address] [place], [place] [address] Hallie Peres MD Blood 10/29/2024 4:29 PM CDT 10/30/2024 2:40 AM CDT Dennis Vines MD CHEMISTRY ORDERABLES Final Resul t [facility] [phone] [facility] [address] [place] [address] * OCCULT BLOOD IMMUNOASSAY, COLORECTAL SCREEN (07/23/2023 12:00 AM CDT) FECAL GLOBIN SEE NOTE [facility] Comment: FECAL GLOBIN BY IMMUNOCHEMISTRY Micro Number: [id number] Test Status: Final Specimen Source: Stool Specimen Quality: Adequate Fecal Globin: Not Detected Test Performed at: [facility] [address] [place] [address] Hallie Peres MD Stool STOOL SPECIMEN / Unknown 07/23/2023 07/26/2023 11:19 AM CDT Jazzy Zimmerman [employer] STOOLS Fin al Result Performing Organization Address City/[facility]/ZIP Co de Phone Number [facility] [phone] [facility] [address] [place] [address] * HEMOGLOBIN A1C (10/06/2021 9:24 AM CDT) HEMOGLOBIN A1C 5.6 <5.7 % of total Hgb [facility] Comment: For the purpose of screening for the presence of diabetes: <5.7% Consistent with the absence of diabetes 5.7-6.4% Consistent with increased risk for diabetes (prediabetes) > or =6.5% Consistent with diabetes This assay result is consistent with a decreased risk of diabetes. Currently, no consensus exists regarding use of hemoglobin A1c for diagnosis of diabetes in children. According to [place] Diabetes Association (ADA) guidelines, hemoglobin A1c <7.0% represents optimal control in non- diabetic patients. Different metrics may apply to specific patient populations. Standards of Medical Care in Diabetes(ADA). ESTIMATED AVERAGE GLUCOSE (MG/DL) 114 mg/dL [facility] ESTIMATED AVERAGE GLUCOSE (MMOL/L) 6.3 mmol/L [facility] Comment: Test Performed at: [facility] [address] [address] [place] [address] Landry Pelayo D.O., MPH Blood 10/06/2021 9:24 AM CDT 10/07/2021 1:21 AM CDT Jazzy Zimmerman [facility] CHEMISTRY ORDERABLES Final Result [facility] [phone] [facility] [address] [facility] [place] [address] * COLON CANCER SCREEN, STOOL DNA (09/22/2020 5:08 PM CDT) COLOGUARD RESULT Negative Negative 09/29/19 9:35 AM CDT [facility] Comment: NEGATIVE TEST RESULT. A negative Cologuard [...] Chang et al, N Engl J Med 2014;370(14):1435-1393) The normal value (reference range) for this assay is negative. COLOGUARD RE-SCREENING RECOMMENDATION: Periodic colorectal cancer screening is an important part of preventive healthcare for asymptomatic individuals at average risk for colorectal cancer. Following a negative Cologuard result, the [place] Cancer Society and U.S. Multi-Society Task Force screening guidelines recommend a Cologuard re-screening interval of 3 years. References: [place] Cancer Society Guideline for Colorectal Cancer Screening: https://www.cancer.org/cancer/iwmxc-iaztsu-rsehas/axtfltvsc-tsnbdikoy-zpjgvrh/ac s-rec ommendations.html.; Billy DK, Edwin SAMUEL, Alfa JEONG, Colorectal Cancer Screening: Recommendations for Physicians and Patients from the U.S. Multi-Society Task Force on Colorectal Cancer Screening , Am J Gastroenterology 2017; 112:1841-6964. TEST DESCRIPTION: Composite algorithmic analysis of stool [...] Morris. et al, N Engl J Med 2014;370(14):1047-3481.) Cologuard may produce a false negative or false positive result (no colorectal cancer or precancerous polyp present at colonoscopy follow up). A negative Cologuard test result does not guarantee the absence of CRC or advanced adenoma (pre-cancer). The current Cologuard screening interval is every 3 years. ([place] Cancer Society and U.S. Multi-Society Task Force). Cologuard performance data in a 10,000 patient pivotal study using colonoscopy as the reference method can be accessed at the following location: www.Ch[employer].Knowrom/results. Additional description of the Cologuard test process, warnings and precautions can be found at www.FinancialForce.comogCorePower Yogard.com. Stool STOOL SPECIMEN / Unknown 09/22/2020 5:08 PM CDT 09/24/2020 7:08 PM CDT Jazzy Murphy Elsie [employer] STOOL[employer] Fin al Result [facility] CLIA # [id number] [address] , [address] [place] [address] * MAMMO 3D SCREEN BILATERAL MOBILE (03/31/2020 9:04 AM DRAY TRUCK DRIVER) Anatomical Region Laterality Modality Breast Bilateral Other Narrative 04/01/2020 3:47 PM DRAY TRUCK DRIVER BILATERAL SCREENING MAMMOGRAM 03/31/2020 PATIENT COMPLAINT: No [...] Center to schedule the recommended follow-up appointment. [id number] Procedure Note Nikia Escamilla MD - 09/01/2020 BILATERAL SCREENING MAMMOGRAM 03/31/2020 PATIENT COMPLAINT: No [...] Center to schedule the recommended follow-up appointment. [id number] Jazzy Zimmerman [facility] MAMMO ORDERABLES Final Res ult from Last 3 Months or Most Recently Relevant to Health Maintenance Insurance [facility] MEDICARE HMO Care Teams Automotive Machinist Relationship Specialty Start Date End Date Dennis Vines MD [address] [place] [phone] PCP - General Family Practice 10/23/24
--- OUTSIDE RECORDS SUMMARY | 2025-01-03 07:29 | XMS_ITS | Encounter Summary ---
Author Organization [facility] Address [address] [place] [address] Care Team Providers Care Head Of Mobile Name Role Phone Chema Padilla MD Primary Care Provider [phone] Encounter Details Date Type Department Care Team (Latest Contact Info) Description 05/09/2005 Outpatient [facility] Breast Center [facility] [address] [place] [address] Dewayne Fagan Jr., MD [address] [place] [address] [address] [place] [address] SCREENING MAMM-MAILG NEOPL NEC (Primary Dx) Social History Tobacco Use Types Packs/Day Years Used Date Smoking Tobacco: Never Assessed Comments Unknown Sex and Gender Information Value Date Recorded Sex Assigned at Not on file 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
--- OUTSIDE RECORDS SUMMARY | 2025-01-03 07:30 | XMS_ITS | Encounter Summary ---
Author Organization [facility] Address [address] [place] [address] Care Team Providers Care Serology Technician Name Role Phone Chema Padilla MD Primary Care Provider [phone] Encounter Details Date Type Department Care Team (Latest Contact Info) Description 08/09/2015 Ancillary Orders [facility] [address] [facility] [address] [place] [address] Kayla Sung DO NO ADDRESS ON FILE Encounter for screening mammogram for high-risk patient (Primary Dx) Social History Tobacco Use Types Packs/Day Years Used Date Smoking Tobacco: Former Cigarettes 1 22 0 05/26/1976 - 05/26/1998 Smokeless Tobacco: Never Alcohol Use Standard Drinks/Week Comments No 0 (1 standard drink = 0.6 oz pur e alcohol) Comments No Sex and Gender Information Value Date Recorded Sex Assigned at Not on file Legal Sex Female 3:22 AM KAIWHAKAHAERE Gender Identity Not on file Sexual Orientation Not on file Occupation Industry Job Start Date Job End Date Not on file Not on file Not on file Not on file Not on file Not on file Not on file Not on file documented as of this encounter Plan of Treatment Not on file documented as of this encounter Visit Diagnoses Diagnosis Encounter for screening mammogram for high-risk patient- Primary documented in this encounter Additional Health Concerns Assessment Noted Time PHQ-9 Depression Total Score: 2 03/05/20 13 8:00 AM KAIWHAKAHAERE documented as of this encounter Care Teams Serology Technician Relationship Specialty Start Date End Date Chema Padilla MD [address] [place] [address], [place] [phone] PCP - General Family Practice 03/24/19 documented as of this encounter
--- OUTSIDE RECORDS SUMMARY | 2025-01-03 07:30 | XMS_ITS | Encounter Summary ---
Author Organization [facility] Address [address] [place] [address] Care Team Providers Care Booth Manager Name Role Phone Chema Padilla MD Primary Care Provider [phone] Reason for Referral * Radiology Services (Routine) - Closed Specialty Diagnoses / Procedures Referred By Beau t Referred To Contact Diagnoses Visit for screening mammogram Procedures MAMMO SCRN BILAT 3D TONY W OR WO CAD MOBILE CHG SCREENING MAMMOGRAPHY BI 2-VIEW BREAST INC CAD CHG SCREENING DIGITAL BREAST TOMOSYNTHESIS BI Kayla Sung DO Referral ID Status Reason Start Date Expiration Date Visits Re quested Visits Authorized [id number] Closed 03/05/2018 04/05/2019 1 1 RMEDIATE DESIGNER Encounter Details Date Type Department Care Team (Latest Contact Info) Description 03/05/2018 Ancillary Orders [facility] [address] [facility] [address] [place] [phone] Kayla Sung DO NO ADDRESS ON FILE Visit for screening [...] on file Legal Sex Female 3:22 AM INTERMEDIATE DESIGNER Gender Identity Not on file Sexual Orientation Not on file Occupation Industry Job Start Date Job End Date Not on file Not on file Not on file Not on file Not on file Not on file Not on file Not on file documented as of this encounter Plan of Treatment Scheduled Orders Name Type Priority Associated Diagnoses Orde r Schedule MAMMO SCRN BILAT 3D TONY W OR WO CAD MOBILE Imaging Routine Visit for screening mammogram 1 Occurrences starting 03/05/2018 until 09/04/2019 documented as of this encounter Visit Diagnoses Diagnosis Visit for screening mammogram Other screening mammogram documented in this encounter Additional Health Concerns Assessment Noted Time PHQ-9 Depression Total Score: 2 03/05/20 13 8:00 AM INTERMEDIATE DESIGNER documented as of this encounter Care Teams Booth Manager Relationship Specialty Start Date End Date Chema Padilla MD [address] [place] [phone] PCP - General Family Practice 03/24/19 documented as of this encounter
--- OUTSIDE RECORDS SUMMARY | 2025-01-03 07:30 | XMS_ITS | Encounter Summary ---
Author Organization [facility] Address [address] [place] [address] Care Team Providers Care Mathematics Academic Chair Name Role Phone Chema Padilla MD Primary Care Provider [phone] Encounter Details Date Type Department Care Team (Late st Contact Info) Description 05/18/2004 Emergency 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
--- OUTSIDE RECORDS SUMMARY | 2025-01-03 07:30 | XMS_ITS | Encounter Summary ---
Author Organization [facility] Address [address] [place] [address] Care Team Providers Care Application Support Consultant Name Role Phone Chema Padilla MD Primary Care Provider [phone] Encounter Details Date Type Department Care Team (Late st Contact Info) Description 06/14/2010 Ancillary Orders [facility] [address] [facility] [address] [place] [phone] Kayla Sung DO NO ADDRESS ON FILE Other screening mammogram Social History Tobacco Use Types Packs/Day Years Used Date Smoking Tobacco: Former Cigarettes 22 Comments:quit 1998 Alcohol Use Standard Drinks/Week Comments No 0 (1 standard drink = 0.6 oz pur e alcohol) Comments No Sex and Gender Information Value Date Recorded Sex Assigned at Not on file 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
--- OUTSIDE RECORDS SUMMARY | 2025-01-03 07:30 | XMS_ITS | Encounter Summary ---
Author Organization [facility] Address [address] [place] [address] Care Team Providers Care Supervisor Counseling And Guidance Name Role Phone Chema Padilla MD Primary Care Provider [phone] Encounter Details Date Type Department Care Team (Latest Contact Info) Description 09/06/2005 Outpatient [facility] Family Medicine [place] [facility] [address] [phone] Dewayne Fagan Jr., MD [address] [place] [address] 248 [facility] [address] [place] [address] Benign Hypertension (Primary Dx) Social History Tobacco Use Types Packs/Day Years Used Date Smoking Tobacco: Never Assessed Comments Unknown Sex and Gender Information Value Date Recorded Sex Assigned at Not on file 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
--- OUTSIDE RECORDS SUMMARY | 2025-01-03 07:30 | XMS_ITS | Encounter Summary ---
Author Organization [facility] Address [address] [place] [address] Care Team Providers Care Hydroponics Worker Name Role Phone Chema Padilla MD Primary Care Provider [phone] Encounter Details Date Type Department Care Team (Late st Contact Info) Description 07/29/2005 Emergency [facility] Emergency Department [address] [place] [phone] Beata Gonzalez MD Headache (Primary Dx) Social History Tobacco Use Types Packs/Day Years Used Date Smoking Tobacco: Never Assessed Comments Unknown Sex and Gender Information Value Date Recorded Sex Assigned at Not on file 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 Gender Identity Not on file Sexual Orientation Not on file documented as of this encounter Plan of Treatment Not on file documented as of this encounter Procedures Procedure Name Priority Date/Time Associated Diagnosis Comments CBC WITH DIFFERENTIAL Routine 07/30/2005 12:25 AM CDT BASIC METABOLIC PANEL Routine 07/30/2005 12:[address] HEAD WO CONTRAST Routine 07/29/2005 1 0:00 PM CDT documented in this encounter Results * (ABNORMAL) BASIC METABOLIC PANEL (07/30/2005 12:25 AM CDT) GLUCOSE 103 70 - 110 mg/dL INTERFACE SYSTEM BUN 14 7 - 17 mg/dL INTERFACE SYSTEM CREATININE 0.8 0.7 - 1.2 mg/dL INTERFACE SYSTEM SODIUM 140 136 - 145 mEq/L INTERFACE SYSTEM POTASSIUM 4.1 3.5 - 5.0 mEq/L INTERFACE SYSTEM CHLORIDE 104 95 - 110 mEq/L INTERFACE SYSTEM CO2 32 22 - 32 mmol/l INTERFACE SYSTEM ANION GAP 8(L) 9 - 20 mEq/L INTERFACE SYSTEM OSMOLALITY, CALCULATED 289 275 - 295 mOsm/Kg INTERFACE SYSTEM CALCIUM 9.5 8.4 - 10.5 mg/dL INTERFACE SYSTEM 07/30/2005 12:2 5 AM CDT us J Finesse Gonzalez MD CHEMISTRY ORDERABLES Final Resu lt INTERFACE SYSTEM Refer to clinic/hospital department * CBC WITH DIFFERENTIAL (07/30/2005 12:25 AM CDT) WBC 7.7 4.5 - 11.0 K/ul INTERFACE SYSTEM RBC 4.44 4.20 - 5.40 Mil/ul INTERFACE SYSTEM HEMOGLOBIN 12.9 12.0 - 16.0 g/dL INTERFACE SYSTEM HEMATOCRIT 38.2 36.0 - 46.0 % INTERFACE SYSTEM MCV 86.0 84.0 - 103.0 Fl INTERFACE SYSTEM MCH 29.1 27.0 - 34.0 pg INTERFACE SYSTEM MCHC 33.8 30.0 - 35.0 g/dL INTERFACE SYSTEM RDW 14.5 11.0 - 14.5 % INTERFACE SYSTEM PLATELETS 245 140 - 440 K/ul INTERFACE SYSTEM MPV 11.5 8.9 - 12.8 Fl INTERFACE SYSTEM NEUTROPHILS 50.5 42.2 - 75.2 % INTERFACE SYSTEM LYMPHOCYTES 38.0 24.0 - 44.0 % INTERFACE SYSTEM MONOCYTES 7.0 2.0 - 10.0 % INTERFACE SYSTEM EOSINOPHILS 4.2 0.0 - 7.0 % INTERFACE SYSTEM BASOPHILS 0.3 0.0 - 1.0 % INTERFACE SYSTEM NEUTROPHIL ABSOLUTE 3.9 2.0 - 8.0 K/uL INTERFACE SYSTEM LYMPHOCYTE ABSOLUTE 2.9 1.2 - 4.0 K/ul INTERFACE SYSTEM MONOCYTE ABSOLUTE 0.5 0.1 - 0.6 K/ul INTERFACE SYSTEM EOSINOPHIL ABSOLUTE 0.3 0.0 - 0.7 K/ul INTERFACE SYSTEM BASOPHILS ABSOLUTE 0.0 0.0 - 0.2 K/ul INTERFACE SYSTEM 07/30/2005 12:2 5 AM CDT us Beata Gonzalez MD HEMATOLOGY ORDERABLES Final Res ult INTERFACE SYSTEM Refer to clinic/hospital department * CT HEAD WO CONTRAST (07/29/2005 10:00 PM CDT) Anatomical Region Laterality Modality Head Other 07/29/2005 10:0 0 PM CDT Narrative 12/24/2008 7:[address] HEAD WITHOUT CONTRAST DATE: 07/29/05. HISTORY: Dizziness and headache. Noncontrast axial images were obtained through the brain. No comparison study is available. Ventricles are normal in size. No mass, hemorrhage, or abnormal extra-axial fluid collection is seen. Mild bilateral ethmoid sinus disease is present. IMPRESSION: Mild bilateral ethmoid sinus disease. No intracranial abnormality seen. gb Dictated By: Cody Rod M.D. Electronically Signed By: Cody Rod M.D. Date Signed: 07/30/05 [facility] Procedure Note Provider, Historical - 02/17/2009 CT HEAD WITHOUT CONTRAST DATE: 07/29/05. HISTORY: Dizziness and headache. Noncontrast axial images were obtained through the brain. No comparisonstudy is available. Ventricles are normal in size. No mass, hemorrhage, or abnormalextra-axial fluid collection is seen. Mild bilateral ethmoid sinus disease is present. IMPRESSION: Mild bilateral ethmoid sinus disease. No intracranial abnormality seen. gb Dictated By: Cody Rod M.D. Electronically Signed By: Cody Rod M.D. Date Signed: 07/30/05 GRB us Beata Gonzalez MD CT ORDERABLES Final Result documented in this encounter Visit Diagnoses Diagnosis Headache(784.0)- Primary Headache documented in this encounter Care Teams Hydroponics Worker Relationship Specialty Start Date End Date Chema Padilla MD [address] [address] [place] [phone] PCP - General Family Practice 03/24/19 documented as of this encounter
--- OUTSIDE RECORDS SUMMARY | 2025-01-03 07:30 | XMS_ITS | Encounter Summary ---
Author Organization [facility] Address [address] [place] [address] Care Team Providers Care Apprentice Architect Name Role Phone Chema Padilla MD Primary Care Provider [phone] Encounter Details Date Type Department Care Team (Latest Contact Info) Description 05/10/2005 Outpatient [facility] Family Medicine [place] [facility] [address] [phone] Dewayne Fagan Jr., MD [address] [place] [address] 248 [facility] [address] [place] [address] Benign hypertension (Primary Dx) Social History Tobacco Use Types Packs/Day Years Used Date Smoking Tobacco: Never Assessed Comments Unknown Sex and Gender Information Value Date Recorded Sex Assigned at Not on file 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
--- OUTSIDE RECORDS SUMMARY | 2025-01-03 07:30 | XMS_ITS | Encounter Summary ---
Author Organization [facility] Address [address] [place] [address] Care Team Providers Care Air Moving Technician Name Role Phone Chema Padilla MD Primary Care Provider [phone] Encounter Details Date Type Department Care Team (Latest Contact Info) Description 04/06/2020 Ancillary Orders [facility] [address] [facility] [address] [place] [address] Jazzy Zimmerman FNP NO ADDRESS ON FILE Inconclusive mammography Social History Tobacco Use Types Packs/Day Years [...] often do you attend chur ch or episcopalian services? Never 02/12/2020 Do you belong to any clubs o r organizations such as adventist groups, unions, fraternal or athletic groups, or school groups? Yes 02/12/2020 Attends Club or Organization Meetings Not on yo e 02/12/2020 Marital Status Not on file 02/12/2020 Financial Resource Strain Answer Date R ecorded How hard is it for you to pa y for the very basics like food, housing, medical care, and heating? Hard 02/12/2020 Food Insecurity Answer Date Recorded Within the past 12 months, y ou worried that your food would run out before you got the money to buy more. Often true 02/12/20 20 Within the past 12 months, t he food you bought just didn't last and you didn't have money to get more. Often true 02/12/2020 Transportation Needs Answer Date Record ed In the past 12 months, has l ack of transportation kept you from medical appointments or from getting medications? Yes 01/31 In the past 12 months, has l ack of transportation kept you from meetings, work, or from getting things needed for daily living? Yes 02/12/2020 Education Answer Date Recorded What is the highest level of school you have completed or the highest degree you have received? 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 No / Unsure 03/31/2020 8:58 AM FOREST ECOLOGIST documented as of this encounter Plan of Treatment Not on file documented as of this encounter Visit Diagnoses Diagnosis Inconclusive mammography Inconclusive mammogram documented in this encounter Care Teams Air Moving Technician Relationship Specialty Start Date End Date Chema Padilla MD [address] [place] [phone] PCP - General Family Practice 03/24/19 documented as of this encounter
--- OUTSIDE RECORDS SUMMARY | 2025-01-03 07:30 | XMS_ITS | Encounter Summary ---
Author Organization [facility] Address [address] [place] [address] Care Team Providers Care Contribution Solicitor Name Role Phone Chema Padilla MD Primary Care Provider [phone] Encounter Details Date Type Department Care Team (Latest Contact Info) Description 04/19/2005 Outpatient [facility] Family Medicine [place] [id number] [address] Dewayne Fagan Jr., MD [address] [place] [address] 248 [facility] [address] [place] [address] MYALGIA AND MYOSITIS NOS (Primary Dx); Benign hypertension; SYNOVIAL CYST NOS Social History Tobacco Use Types Packs/Day Years Used Date Smoking Tobacco: Never Assessed Comments Unknown Sex and Gender Information Value Date Recorded Sex Assigned at Not on file 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
--- NOTE | 2025-01-03 07:34 | CTR_ITS ---
PROCEDURE INFORMATION: Exam: CT Head Without Contrast Exam date and time: 01/03/2025 8:04 AM Age: 64 years old Clinical indication: Injury or trauma; Fall; Blunt trauma (contusions or hematomas) and concussion/head injury; Consciousness not specified TECHNIQUE: Imaging protocol: Computed tomography of the head without contrast. Radiation optimization: All CT scans at this facility use at least one of these dose optimization techniques: automated exposure control; mA and/or kV adjustment per patient size (includes targeted exams where dose is matched to clinical indication); or iterative reconstruction. COMPARISON: No relevant prior studies available. RADIATION DOSE METRICS: Total DLP (mGy-cm): 996.08 FINDINGS: Brain: No acute intracranial hemorrhage or abnormal intracranial mass effect is seen. Chronic appearing small-vessel ischemic changes are present in bilateral cerebral white matter. No subdural collections are identified. Cerebral ventricles: Size within normal range for age. No midline shift. Paranasal sinuses: Visualized portions of paranasal sinuses are well aerated. Mastoid air cells: Visualized portions of mastoid sinuses are not opacified. Bones: No fracture of the cranium identified. Soft tissues: Right frontal scalp hematoma and soft tissue gas compatible with penetrating injury/laceration are present. CT/CT head wo con* [id number] IMPRESSION: No acute intracranial hemorrhage or mass effect.
--- NOTE | 2025-01-03 07:34 | XRR_ITS ---
PROCEDURE INFORMATION: Exam: XR Chest Exam date and time: 01/03/2025 7:37 AM Age: 64 years old Clinical indication: Shortness of breath; Additional info: SOB TECHNIQUE: Imaging protocol: Radiologic exam of the chest. Views: 1 view. COMPARISON: No relevant prior studies available. FINDINGS: Patient is moderately rotated towards the right. [id number] right pleural effusion could obscure atelectasis or other pathology in the right lower lobe. Possibility of right hilar mass is not excluded, though this could represent accentuation of hilar pulmonary vessels by patient rotation. No pulmonary vascular congestion is seen. Pleural-based density at the left base laterally versus superimposed soft tissue artifact related to the patient's arm. CTA chest is currently pending. Please refer to that report for additional details. XR/XR chest 1V portable [id number] IMPRESSION: As above.
--- NOTE | 2025-01-03 07:44 | W.ED.FALL ---
HPI - Fall General: Chief Complaint: Fall Stated Complaint: Fall (large lac forehead) Time Seen by Provider: 01/03/25 07:32 Source: patient Mode of arrival: ambulatory Limitations: no limitations History of Present Illness: 64-year-old female who has a history of COPD states that she had fell this morning at 3 AM tripped and fell. She states that she did hit her head she does have a laceration to her forehead. She states she been also having some increased weakness along with shortness of breath over the last week. States she has been using her nebulizer more she denies any chest pain cough or fever. Patient is hypoxic here. She denies any other pain currently besides her head denies any neck pain Associated symptoms-after fall: Reports headache(s) Related Data Home Medications ?Medication ?Instructions ?Recorded ?Confirmed albuterol sulfate 90 mcg/actuation 1 puff inhalation Q6H PRN 01/03/25 01/03/25 aerosol inhaler Shortness Of Breath carvedilol 25 mg tablet 25 mg PO BID 01/03/25 01/03/25 cyclobenzaprine 10 mg tablet 10 mg PO TID PRN muscle spasms 01/03/25 01/03/25 ipratropium 0.5 mg-albuterol 3 mg 3 ml inhalation QID PRN Shortness 01/03/25 01/03/25 (2.5 mg base)/3 mL nebulization Of Breath soln levothyroxine 75 mcg tablet 75 mcg PO QAM 01/03/25 01/03/25 (Synthroid) meloxicam 15 mg tablet 15 mg PO DAILY 01/03/25 01/03/25 omeprazole 20 mg capsule,delayed 20 mg PO DAILY 01/03/25 01/03/25 release sertraline 50 mg tablet 50 mg PO DAILY 01/03/25 01/03/25 simvastatin 10 mg tablet 10 mg PO QPM 01/03/25 01/03/25 zolpidem 10 mg tablet 10 mg PO BEDTIME 01/03/25 01/03/25 Review of Systems Resp: Reports: dyspnea Neuro: Reports: headache(s) Physical Exam Const: COMMON NORMALS: patient oriented x3 HENMT: COMMON NORMALS: normocephalic HEAD & SCALP: normocephalic OTHER: 7 cm lacertion to forehead Eye: COMMON NORMALS: Equal, round and reactive pupils present and EOMs intact bilaterally PUPIL: Yes Equal, round and reactive pupils present Neck/C-Spine: COMMON NORMALS: full ROM and supple CERVICAL SPINE: No pain with cervical ROM and No Cervical spine tenderness Chest: COMMONS NORMALS: normal inspection of the chest and normal palpation of entire chest wall Resp: COMMON NORMALS: No retractions and No use of accessory muscles EFFORT & INSPECTION: Yes audible wheezes Cardio: COMMON NORMALS: regular rhythm and No murmurs present (Cardio) RATE: tachycardic RHYTHM: regular rhythm GI: COMMON NORMALS: Normal to inspection, nondistended, normoactive bowel sounds present, Soft to palpation, non-tender and no masses PALPATION: Yes Soft to palpation Extremity: COMMON NORMALS: normal to inspection and full ROM Neuro: COMMON NORMALS: patient oriented x3, moves all extremities and no focal motor deficits Psych: COMMON NORMALS: mental status grossly normal, Normal thought process present and cooperative THOUGHT PROCESS: Normal thought process present Skin: COMMON NORMALS: no rashes or lesions noted and no wounds GENERAL SKIN EXAM: no rashes or lesions noted Procedures Laceration Laceration 1: Site: other (forehead) Side (If applicable): right Size (cm): 7 Description: linear Depth: simple, single layer Local Anesthetic: lidocaine 1% Amount of anesthesia used (mL): 10 Pre-repair: wound explored, irrigated extensively and deep structures intact Skin layer closed with: nylon Size (cm): 5-0 Number of sutures: 7 Technique: running Course Vital Signs: Vital signs: Vital Signs Temperature 98.7 F 01/03/25 07:36 Pulse Rate 128 H 01/03/25 08:10 Respiratory Rate 18 01/03/25 07:44 Blood Pressure 157/123 01/03/25 08:10 Pulse Oximetry 98 01/03/25 08:10 Oxygen Delivery Me thod Nasal Cannula 01/03/25 08:10 Oxygen Flow Rate 3 01/03/25 08:10 MDM - Fall Medical Decision Making Patient presents after a fall with head laceration patient also was found to have new onset A-fib with RVR along with hypoxia. Patient was started on Cardizem here for her A-fib her heart rate has improved did repair her laceration her head CT showed no signs of any head injury she had no neck pain or any other injuries from the fall I did evaluate her chest x-ray was concerning for lung mass did do a CTA of her chest that showed a mass versus pneumonia on the CT. Patient is requiring 3 L of oxygen here as well did give her breathing treatment as well. She is a longtime smoker. I did review labs with no significant abnormalities besides an elevated BNP. I did speak to the hospitalist and will admit to cardiac stepdown on the Cardizem drip at this time and oxygen. Patient's diagnosis is pneumonia versus lung mass new onset A-fib with RVR fall with a head laceration along with respiratory failure with hypoxia. I went over patient's imaging and labs finding with her and her and informed and has and admit them and they agreed with the plan Medical Records I reviewed the patient's medical records. Lab Data I reviewed the patient's lab results. 01/03/25 07:47 01/03/25 07:47 Radiology Impressions Chest X-Ray 01/03/25 07:34 IMPRESSION: As above. Head CT 01/03/25 07:34 IMPRESSION: No acute intracranial hemorrhage or mass effect. Chest CTA 01/03/25 07:48 IMPRESSION: 1. No detectable pulmonary embolus. 2a. Diffuse but heterogeneous pulmonary ground-glass attenuation is nonspecific. More common diagnostic considerations are mentioned above. 2b. There also a few more confluent opacities in the right middle lobe, lingula, and posterior left lower lobe that could represent organizing pneumonia, neoplasm, or a combination. 3. Mediastinal and bilateral hilar adenopathy and mild axillary adenopathy. Tissue sampling would be required for definitive diagnosis. 4. Pymt-ju-uwcoyojm right pleural effusion. 5. Nonspecific asymmetric breast density; see above comments. 6. Additional findings that are incidental and/or nonacute as reported above. Laboratory Results WBC 9.56 10^3/uL (3.29-11.43) 01/03/25 07:47 RBC 5.16 10^6/uL (3.85-5.65) 01/03/25 07:47 Hgb 11.40 g/dL (11.27-16.99) 01/03/25 07:47 Hct 38.8 % (36-47) 01/03/25 07:47 MCV 75.2 fl (85-98) L 01/03/25 07:47 MCH 22.1 pg (27-33) L 01/03/25 07:47 MCHC 29.4 g/dL (30-55) L 01/03/25 07:47 RDW 18.5 % (12.1-15.1) H 01/03/25 07:47 Plt Count 206 10^3/cmm (157-399) 01/03/25 07:47 MPV 10.3 fL (7.4-10.4) 01/03/25 07:47 Neut % (Auto) 84.9 % 01/03/25 07:47 Lymph % (Auto) 9.3 % 01/03/25 07:47 [place] % (Auto) 4.6 % 01/03/25 07:47 Eos % (Auto) 0.3 % 01/03/25 07:47 Baso % (Auto) 0.4 % 01/03/25 07:47 Neut # (Auto) 8.11 10^3/uL (1.8-7.7) H 01/03/25 07:47 Lymph # (Auto) 0.9 10^3/uL (0.8-4.8) 01/03/25 07:47 [place] # (Auto) 0.4 10^3/uL (0.2-0.9) 01/03/25 07:47 Eos # (Auto) 0.0 10^3/uL (0.0-0.8) 01/03/25 07:47 Baso # (Auto) 0.0 10^3/uL (0.0-0.1) 01/03/25 07:47 Nucleated RBC % (auto) 0 % 01/03/25 07:47 Nucleated RBCs # 0.0 /100WBC 01/03/25 07:47 Specimen Type Arterial 01/03/25 07:41 Sample Site Radial, left 01/03/25 07:41 ABG pH 7.40 (7.35-7.45) 01/03/25 07:41 ABG pCO2 49.5 mmHg (35-45) H 01/03/25 07:41 ABG pO2 108.0 mmHg (80.0-100.0) H 01/03/25 07:41 ABG HCO3 30.2 mmol/L (22-26) H 01/03/25 07:41 ABG Base Excess 4.5 mmol/L (-2.0-2.0) H 01/03/25 07:41 Garret Test Pos 01/03/25 07:41 Hematocrit 34.7 % (37-47) L 01/03/25 07:41 Hgb O2 Saturation 95.8 % (95-100) 01/03/25 07:41 Carboxyhemoglobin 2.1 %THgb (0.4-20.1) 01/03/25 07:41 Methemoglobin 0.8 % (0.4-1.5) 01/03/25 07:41 Total Hemoglobin 11.3 g/dL (12-16) L 01/03/25 07:41 O2 Delivery Device Nc 01/03/25 07:41 O2 Liters/Min 3.0 % 01/03/25 07:41 Transport Truck Driver ID Walci 01/03/25 07:41 Sodium 133 mmol/L (136-145) L 01/03/25 07:47 Potassium 3.7 mmol/L (3.5-5.1) 01/03/25 07:47 Chloride 94 mmol/L (98-107) L 01/03/25 07:47 Carbon Dioxide 30 mmol/L (22-29) H 01/03/25 07:47 Anion Gap 12.7 (5-19) 01/03/25 07:47 BUN 22 mg/dL (8-23) 01/03/25 07:47 Creatinine 1.0 mg/dL (0.5-0.9) H 01/03/25 07:47 GFR Calculation 55.5 mL/min (90-130) L 01/03/25 07:47 Glucose 140 mg/dL (65-115) H 01/03/25 07:47 Calculated Osmolality 282 mOsm/kg (285-295) L 01/03/25 07:47 Calcium 9.0 mg/dL (8.5-10.5) 01/03/25 07:47 Total Bilirubin 1.8 mg/dL (0.15-1.2) H 01/03/25 07:47 AST 24 U/L (0-32) 01/03/25 07:47 ALT 37 U/L (0-33) H 01/03/25 07:47 Alkaline Phosphatase 90 U/L (35-105) 01/03/25 07:47 NT-Pro-B Natriuret Pep 49839 pg/mL (0-125) H 01/03/25 07:47 Total Protein 7.4 g/dL (6.6-8.7) 01/03/25 07:47 Albumin 3.7 g/dL (3.5-5.2) 01/03/25 07:47 Globulin 3.7 g/dL (1.3-4.6) 01/03/25 07:47 All radiology interpretation(s) finalized by discharge EKG Data EKG 1: I personally reviewed and interpreted this EKG as follows: EKG interpretation date: 01/03/25 EKG interpretation time: 07:51 Interpretation: afib hr [address] elevation qrs 87 qtc 359 Critical Care Time Critical Care Time: Critical Care Time: Yes Total Critical Care Time: 45 Attestation: The high probability of a clinically significant, sudden or life threatening deterioration of the patient's cv/resp system(s) required my full and direct attention, intervention and personal management. The critical care time is as shown. This time is in addition to time spent performing any reported procedures but includes the following: [x] Data and vital sign review and interpretation [x] Patient assessment, examination and intervention [x] Documentation [x] Medication orders and management Discharge Plan Discharge Patient Disposition: Admitted As Inpatient Clinical Impression: Atrial fibrillation with RVR, Fall, Laceration of head, Acute respiratory failure with hypoxia, Lung mass, Pneumonia Condition: Stable Coding Level of Care Code ED K[employer] Picker [employer] for Deven Sanders
--- NOTE | 2025-01-03 07:48 | CTR_ITS ---
PROCEDURE INFORMATION: Exam: CTA Chest With Contrast Exam date and time: 01/03/2025 8:09 AM Age: 64 years old Clinical indication: Injury or trauma and abnormal findings; Fall; Abnormal radiologic exam of lung or chest; Shortness of breath; Blunt trauma (contusions or hematomas); Additional info: Sob/mass. A history of cancer is not reported. TECHNIQUE: Imaging protocol: Computed tomographic angiography of the chest with contrast. Exam focused on the arteries. 3D rendering (Not supervised by radiologist): MIP and/or 3D reconstructed images were created by the technologist. Radiation optimization: All CT scans at this facility use at least one of these dose optimization techniques: automated exposure control; mA and/or kV adjustment per patient size (includes targeted exams where dose is matched to clinical indication); or iterative reconstruction. Contrast material: OMNIPAQUE 350; Contrast volume: 79 ml; Contrast route: INTRAVENOUS (IV); COMPARISON: CR (CHEST, ) 01/03/2025 7:37 AM RADIATION DOSE METRICS: Total DLP (mGy-cm): 386.47 FINDINGS: Pulmonary arteries: No detectable pulmonary embolus. Aorta: Thoracic aorta has normal caliber. Lungs: Multifocal regions of ground-glass attenuation in both lungs are nonspecific. Diagnostic considerations include patchy alveolar edema, viral or atypical infection, or noninfectious inflammation, etc.. Parenchymal opacity in the subpleural right middle lobe could relate solid atelectasis. Organizing pneumonia or other pathology not excluded. Small opacities in the lingula (series 4, image 39) appear more masslike, but are nonspecific. Pleural spaces: Hoie-us-wkqvgxal right pleural effusion. Trace pleural fluid on the left. Heart: Mild cardiomegaly. No significant pericardial fluid. No evidence of right heart strain. Lymph nodes: Mild bilateral axillary, mediastinal, and bilateral hilar lymphadenopathy. Adrenal glands: Diffuse low attenuation enlargement of left adrenal gland may represent diffuse hyperplasia. Bones/joints: No aggressive osseous destructive lesions are identified. Lucency in the proximal left humeral shaft, incompletely imaged, has benign appearance. Soft tissues: There is asymmetric greater parenchymal density in the left breast as compared to the right, but a discrete mass is not apparent on this exam. However, deference is made to clinical breast exam and mammography. CT/CT angio chest PE protcl [id number] IMPRESSION: 1. No detectable pulmonary embolus. 2a. Diffuse but heterogeneous pulmonary ground-glass attenuation is nonspecific. More common diagnostic considerations are mentioned above. 2b. There also a few more confluent opacities in the right middle lobe, lingula, and posterior left lower lobe that could represent organizing pneumonia, neoplasm, or a combination. 3. Mediastinal and bilateral hilar adenopathy and mild axillary adenopathy. Tissue sampling would be required for definitive diagnosis. 4. Owbg-dr-uhmcbfzw right pleural effusion. 5. Nonspecific asymmetric breast density; see above comments. 6. Additional findings that are incidental and/or nonacute as reported above.
--- NOTE | 2025-01-03 07:51 | ECG_ITS ---
[facility] Test Date: 2025-01-03 Pat Name: Marie Vann Department: Room: Gender: Female Professor Of Architecture: : 1960 Requested By: Giuseppe Toussaint Order Number: [id number] Grazyna MD: Mary Cam M.D. Measurements Intervals [place] Rate: 127 P: 0 [place]: 0 QRS: 72 QRSD: 87 T: 0 QT: 284 QTc: 414 Interpretive Statements ATRIAL FIBRILLATION WITH RAPID VENTRICULAR RESPONSE NONSPECIFIC ST & T-WAVE ABNORMALITY ABNORMAL RHYTHM ECG No previous ECG available for comparison Electronically Signed On 01-03-2025 14:25:47 CDT by Mary Cam M.D. [email or web address] [id number]
[2025-01-03 07:52] LABS: Hematocrit 38.8 % (36-47); Hemoglobin 11.40 g/dL (11.27-16.99); Mean Corpuscular HGB Conc 29.4 g/dL (30-55); Mean Corpuscular Hemoglobin 22.1 pg (27-33); Mean Corpuscular Volume 75.2 fl (85-98); Nucleated Red Blood Cells % 0 %; Platelet Count 206 10^3/cmm (157-399); Red Blood Count 5.16 10^6/uL (3.85-5.65); White Blood Count 9.56 10^3/uL (3.29-11.43)
[2025-01-03 07:52] LABS: ABG PCO2 49.5 mmHg (35-45); ABG PH Result 7.40 (7.35-7.45); Arterial Blood Gas Hematocrit 34.7 % (37-47); Blood Gas Allen Test Pos; Blood Gas LPM 3.0 %; Blood Gas Operator Identificat WALCI; Blood Gas Sample Site Radial, left; Blood Gas Sample Type Arterial; Carboxyhemoglobin 2.1 %THgb (0.4-20.1); HCO3 ABG 30.2 mmol/L (22-26); Methemoglobin 0.8 % (0.4-1.5); PO2 ABG 108.0 mmHg (80.0-100.0)
[2025-01-03] MEDS: dilTIAZem 5 mg/mL SDV 5 mL 10 MG IVP (08:09)
[2025-01-03] MEDS: iohexol 350 mg/mL 500 mL Btl (per mL) IV (08:13)
[2025-01-03 08:17] LABS: Alanine Aminotransferase 37 U/L (0-33); Albumin Level 3.7 g/dL (3.5-5.2); Alkaline Phosphatase 90 U/L (35-105); Anion Gap 12.7 (5-19); Aspartate Amino Transferase 24 U/L (0-32); Blood Urea Nitrogen 22 mg/dL (8-23); Calcium 9.0 mg/dL (8.5-10.5); Carbon Dioxide 30 mmol/L (22-29); Chloride 94 mmol/L (98-107); Creatinine Clr Calc Pharmacy 51.5591; Globulin 3.7 g/dL (1.3-4.6); Glucose 140 mg/dL (65-115); NT Pro B Type Natriuretic Pept 10014 pg/mL (0-125); Osmolality Calculated 282 mOsm/kg (285-295); Potassium 3.7 mmol/L (3.5-5.1); Sodium 133 mmol/L (136-145); Total Protein 7.4 g/dL (6.6-8.7)
--- NOTE | 2025-01-03 08:42 | PC.PHAR ---
pt gets her medications through [facility] mail order. Immediate use medications need sent to [facility]
[2025-01-03] MEDS: DILTIAZEM HCL/D5W 125 MG/125 ML BAG IV (08:44)
[2025-01-03 09:22] LABS: Respiratory Syncytial Virus Ce NEGATIVE (Negative); SARS-CoV-2 PCR NEGATIVE (Negative)
[2025-01-03] MEDS: cefTRIAXone 1,000 mg SDV 1000 MG IVP ×2 (09:37→13:02)
--- NOTE | 2025-01-03 12:26 | ECG_ITS ---
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 Measurements Intervals [place] Rate: 90 P: 0 [place]: 0 QRS: 67 QRSD: 88 T: 156 QT: 371 QTc: 456 Interpretive Statements ATRIAL FIBRILLATION ST DEVIATION AND MODERATE T-WAVE ABNORMALITY, CONSIDER LATERAL ISCHEMIA [-0.1+ mV T-WAVE IN I/aVL/V5/V6] Compared to ECG 01/03/2025 07:51:17 Possible ischemia now present T-wave abnormality still present Electronically Signed On 01-03-2025 14:25:26 CDT by Mary Cam M.D. [email or web address] [id number]
--- NOTE | 2025-01-03 12:32 | PM.HP ---
Providers/Chief Complaint Admitting Physician: Selena Santiago MD Primary Care Provider: Pino Gutiérrez MD Chief Complaint: Fall (large lac forehead) History of Present Illness Marie Vann is a 64 year old female with PMH COPD who presneted to the ER today after having sustained a fall last night and suffering a lacertaion which was sutured in the ER. She has a hematoma over this site. She was additionally complaining of ALVAREZ over the past week and was found to be hypoxic with new onset A fib with HR 130s, started on cardizem drip. CT Anegative for PE however showing diffuse B/L GGOs with differentials including atypical infection vs malignancy. She denies any hemoptysis. Review of Systems General: Reports: 10 or more systems reviewed and unremarkable except in HPI and below Const: Denies: fever(s), chills or body aches Eyes: Denies: change in vision, blurry vision or photophobia ENMT: Reports: hoarseness; Denies: throat pain, enlarged tonsils, odynophagia or nasal congestion Card: Denies: chest pain, palpitations, irregular heart rhythm, edema, swelling of feet/ankles, lightheadedness, pre-syncope, dyspnea on exertion or orthopnea Resp: Denies: dyspnea, productive cough, non-productive cough, wheezing, stridor, pain on inspiration, change in phlegm color, hemoptysis or chest congestion GI: Denies: abdominal pain, nausea, vomiting, hematemesis, coffee ground emesis, dysphagia, heartburn, diarrhea, constipation, GI cramping, change in stool character, hematochezia or melena : Denies: flank pain, difficulty voiding, dysuria, urinary frequency, urinary urgency, urinary hesitancy or hematuria Musc: Denies: neck pain, back pain, extremity pain, joint swelling, joint warmth or deformity Neuro: Denies: headache(s), numbness in extremities, weakness in extremities, sensory changes, difficulty walking, frequent falls, dizziness, vertigo, behavioral changes, Slurred speech present or seizure-like activity Psych: Denies: anxiety, depression, suicidal ideation or homicidal ideation Endo: Denies: polyuria, polydipsia, tired all the time, cold intolerance or hot flashes Kvng/Lymph: Denies: easy bruising or easy bleeding Medications/Allergies Home Medications ?Medication ?Instructions ?Recorded ?Confirmed ?Last Taken ?Type albuterol sulfate 90 mcg/actuation 1 puff inhalation Q6H PRN 01/03/25 01/03/25 Unknown History aerosol inhaler Shortness Of Breath carvedilol 25 mg tablet 25 mg PO BID 01/03/25 01/03/25 01/02/25 History cyclobenzaprine 10 mg tablet 10 mg PO TID PRN muscle spasms 01/03/25 01/03/25 Unknown History ipratropium 0.5 mg-albuterol 3 mg 3 ml inhalation QID PRN Shortness 01/03/25 01/03/25 Unknown History (2.5 mg base)/3 mL nebulization Of Breath soln levothyroxine 75 mcg tablet 75 mcg PO QAM 01/03/25 01/03/25 01/02/25 History (Synthroid) meloxicam 15 mg tablet 15 mg PO DAILY 01/03/25 01/03/25 01/02/25 History omeprazole 20 mg capsule,delayed 20 mg PO DAILY 01/03/25 01/03/25 01/02/25 History release sertraline 50 mg tablet 50 mg PO DAILY 01/03/25 01/03/25 01/02/25 History simvastatin 10 mg tablet 10 mg PO QPM 01/03/25 01/03/25 01/02/25 History zolpidem 10 mg tablet 10 mg PO BEDTIME 01/03/25 01/03/25 01/02/25 History Vitals/I&O/Wt Last Vital Signs Temp 97.1 F L 01/03/25 10:45 Pulse 75 01/03/25 11:23 Resp 10 L 01/03/25 11:15 BP 137/86 01/03/25 11:15 Pulse Ox 93 01/03/25 11:23 O2 Del Method Nasal Cannula 01/03/25 11:23 O2 Flow Rate 2 01/03/25 11:23 01/02/25 01/03/25 01/03/25 22:59 06:59 14:59 Intake Total 1000 / 1000 Balance 1000 / 1000 Weight last 48 hrs Weight 98.5 kg Weight 68.946 kg Physical Exam Narrative: General: No acute distress, AO x3 HEENT: PERRLA, pupils bilaterally equal and reactive, pallors not present Chest: Normal vesicular breath sounds, no added sounds, equal good air entry bilaterally CVS: S1-S2 regular, no murmurs, no tachycardia, no gallops, no rubs Abdomen: Soft, nontender, no organomegaly, bowel sounds present Neuro: No focal deficits, no facial deformity, AO x3, power 5/5 in all limbs Data 01/03/25 07:47 01/03/25 07:47 Micro: Microbiology 01/03/25 09:18 Blood Culture - Preliminary Blood SPECIMEN COLLECTED 01/03/25 09:19 Blood Culture - Preliminary Blood SPECIMEN COLLECTED Other data: Radiology Impressions Chest X-Ray 01/03/25 07:34 IMPRESSION: As above. Head CT 01/03/25 07:34 IMPRESSION: No acute intracranial hemorrhage or mass effect. Chest CTA 01/03/25 07:48 IMPRESSION: 1. No detectable pulmonary embolus. 2a. Diffuse but heterogeneous pulmonary ground-glass attenuation is nonspecific. More common diagnostic considerations are mentioned above. 2b. There also a few more confluent opacities in the right middle lobe, lingula, and posterior left lower lobe that could represent organizing pneumonia, neoplasm, or a combination. 3. Mediastinal and bilateral hilar adenopathy and mild axillary adenopathy. Tissue sampling would be required for definitive diagnosis. 4. Rpdv-cm-etxmfrhr right pleural effusion. 5. Nonspecific asymmetric breast density; see above comments. 6. Additional findings that are incidental and/or nonacute as reported above. Laboratory Results WBC 9.56 10^3/uL (3.29-11.43) 01/03/25 07:47 RBC 5.16 10^6/uL (3.85-5.65) 01/03/25 07:47 Hgb 11.40 g/dL (11.27-16.99) 01/03/25 07:47 Hct 38.8 % (36-47) 01/03/25 07:47 MCV 75.2 fl (85-98) L 01/03/25 07:47 MCH 22.1 pg (27-33) L 01/03/25 07:47 MCHC 29.4 g/dL (30-55) L 01/03/25 07:47 RDW 18.5 % (12.1-15.1) H 01/03/25 07:47 Plt Count 206 10^3/cmm (157-399) 01/03/25 07:47 MPV 10.3 fL (7.4-10.4) 01/03/25 07:47 Neut % (Auto) 84.9 % 01/03/25 07:47 Lymph % (Auto) 9.3 % 01/03/25 07:47 [place] % (Auto) 4.6 % 01/03/25 07:47 Eos % (Auto) 0.3 % 01/03/25 07:47 Baso % (Auto) 0.4 % 01/03/25 07:47 Neut # (Auto) 8.11 10^3/uL (1.8-7.7) H 01/03/25 07:47 Lymph # (Auto) 0.9 10^3/uL (0.8-4.8) 01/03/25 07:47 [place] # (Auto) 0.4 10^3/uL (0.2-0.9) 01/03/25 07:47 Eos # (Auto) 0.0 10^3/uL (0.0-0.8) 01/03/25 07:47 Baso # (Auto) 0.0 10^3/uL (0.0-0.1) 01/03/25 07:47 Nucleated RBC % (auto) 0 % 01/03/25 07:47 Nucleated RBCs # 0.0 /100WBC 01/03/25 07:47 Specimen Type Arterial 01/03/25 07:41 Sample Site Radial, left 01/03/25 07:41 ABG pH 7.40 (7.35-7.45) 01/03/25 07:41 ABG pCO2 49.5 mmHg (35-45) H 01/03/25 07:41 ABG pO2 108.0 mmHg (80.0-100.0) H 01/03/25 07:41 ABG HCO3 30.2 mmol/L (22-26) H 01/03/25 07:41 ABG Base Excess 4.5 mmol/L (-2.0-2.0) H 01/03/25 07:41 Garret Test Pos 01/03/25 07:41 Hematocrit 34.7 % (37-47) L 01/03/25 07:41 Hgb O2 Saturation 95.8 % (95-100) 01/03/25 07:41 Carboxyhemoglobin 2.1 %THgb (0.4-20.1) 01/03/25 07:41 Methemoglobin 0.8 % (0.4-1.5) 01/03/25 07:41 Total Hemoglobin 11.3 g/dL (12-16) L 01/03/25 07:41 O2 Delivery Device Nc 01/03/25 07:41 O2 Liters/Min 3.0 % 01/03/25 07:41 Art Supervisor ID [place]ci 01/03/25 07:41 Sodium 133 mmol/L (136-145) L 01/03/25 07:47 Potassium 3.7 mmol/L (3.5-5.1) 01/03/25 07:47 Chloride 94 mmol/L (98-107) L 01/03/25 07:47 Carbon Dioxide 30 mmol/L (22-29) H 01/03/25 07:47 Anion Gap 12.7 (5-19) 01/03/25 07:47 BUN 22 mg/dL (8-23) 01/03/25 07:47 Creatinine 1.0 mg/dL (0.5-0.9) H 01/03/25 07:47 GFR Calculation 55.5 mL/min (90-130) L 01/03/25 07:47 Glucose 140 mg/dL (65-115) H 01/03/25 07:47 Calculated Osmolality 282 mOsm/kg (285-295) L 01/03/25 07:47 Calcium 9.0 mg/dL (8.5-10.5) 01/03/25 07:47 Total Bilirubin 1.8 mg/dL (0.15-1.2) H 01/03/25 07:47 AST 24 U/L (0-32) 01/03/25 07:47 ALT 37 U/L (0-33) H 01/03/25 07:47 Alkaline Phosphatase 90 U/L (35-105) 01/03/25 07:47 NT-Pro-B Natriuret Pep 42803 pg/mL (0-125) H 01/03/25 07:47 Total Protein 7.4 g/dL (6.6-8.7) 01/03/25 07:47 Albumin 3.7 g/dL (3.5-5.2) 01/03/25 07:47 Globulin 3.7 g/dL (1.3-4.6) 01/03/25 07:47 Influenza A (PCR) Negative (Negative) 01/03/25 08:29 Influenza Type B (PCR) Negative (Negative) 01/03/25 08:29 RSV (PCR) Negative (Negative) 01/03/25 08:29 SARS-CoV-2 (PCR) Negative (Negative) 01/03/25 08:29 ;;kj A&P Assessment and plan 1. Atrial fibrillation with RVR: new onset on cardizem drip start po metoprolol 25mg BID and attempt to titare off the cardizem gtt Holding off a/c for now pending resolution of scalp hematoma after recent trauma check EKG and trop series 2. Fall: fall precautions resulted in lacertaion 3. Laceration of head: sutured in ER hold off a/c for now while hematoma associated with resolution resolved 4. Acute respiratory failure with hypoxia: under evlautaion b/L diffuse infiltrates noted, undergoing evaluation for pulm edema vs atypical infection 5. Lung mass: with LAD - may obtain lymph node biopsy if accessible on sunday 6. Pneumonia: suspected diagnosis atypical PNA resp panel negative for FLu, RSV, COVID check procal ceftriaxone and levaquin for empiric therapy check MRSA nasal screen 7. Pulmonary edema: per personal interpretation of CTA + clinical picture with elevated BNP check echocardiogram to asess for CHF Plan: dvt ppx: to start full dose a/c once laceration and hematoma stop bleeding Full code PDMP PDMP Reviewed: Not Reviewed Attestations Medical Necessity Statement*: > 2 mindight stay anticipated Coding Level of Care Code Acute Code for Chg Fwd High MDM includes number and complexity of problems actively addressed during encounter, amount and/or complexity of data reviewed/ordered and described risk of complication, morbidity or mortality of management as documented Diagnoses Atrial fibrillation with RVR I48.91 Fall W19.XXXA Laceration of head S01.91XA Acute respiratory failure with hypoxia J96.01 Lung mass R91.8 Pneumonia J18.9 Pulmonary edema J81.1
[2025-01-03] MEDS: FUROsemide 10 mg/mL SDV 4mL 40 MG IVP (13:01)
[2025-01-03] MEDS: methylPREDNISolone sod succ 40 mg/mL INJ IVP ×2 (13:01→19:34)
[2025-01-03] MEDS: heparin 5,000 unit/mL INJ 1 mL 5000 UNIT SUBCUT ×2 (13:02→19:33)
[2025-01-03] MEDS: water for injection-sterile 10 ML 1000 ML (13:03)
[2025-01-03 13:21] LABS: Troponin(5th) Baseline 17 ng/L (0-10)
[2025-01-03 13:26] LABS: Alcohol Level < 10 mg/dL (0-10)
[2025-01-03 14:09] LABS: PCP Screen Urine Negative (Negative)
[2025-01-03 15:23] LABS: Troponin 5 2HR 13.20 ng/L (0-10)
[2025-01-03 15:24] LABS: Troponin 5 2HR Delta -3.80 ABS# (0-10)
--- NOTE | 2025-01-03 15:29 | ECG_ITS ---
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 Measurements Intervals [place] Rate: 71 P: 0 ID: 0 QRS: 69 QRSD: 89 T: 181 QT: 419 QTc: 456 Interpretive Statements ATRIAL FIBRILLATION ST DEVIATION AND MODERATE T-WAVE ABNORMALITY, CONSIDER ANTEROLATERAL ISCHEMIA [-0.1+ mV T-WAVE IN V3-V6] Compared to ECG 01/03/2025 13:21:42 No significant changes Electronically Signed On 01-04-2025 21:31:19 CDT by Mary Cam M.D. [email or web address]
[2025-01-03 16:04] LABS: MRSA PCR OZH (swab) NOT DETECTED (Not Detecte)
[2025-01-03] MEDS: ATORVASTATIN 20 MG TABLET PO (17:17)
--- NOTE | 2025-01-03 17:57 | ECG_ITS ---
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 Measurements Intervals [place] Rate: 83 P: 0 WI: 0 QRS: 65 QRSD: 92 T: 164 QT: 411 QTc: 485 Interpretive Statements ATRIAL FIBRILLATION ST DEVIATION AND MODERATE T-WAVE ABNORMALITY, CONSIDER ANTEROLATERAL ISCHEMIA [-0.1+ mV T-WAVE IN V3-V6] Compared to ECG 01/03/2025 15:29:00 No significant changes Electronically Signed On 01-04-2025 21:31:13 CDT by Mary Cam M.D. [email or web address]
--- NOTE | 2025-01-03 18:18 | PC.NURSE ---
very impulsive refusing to wait on staff attempt to get out of bed by self , up out chair by self almost fell, at bedside remains on cardizem gtt monitor afib
[2025-01-03 18:25] LABS: Troponin 5 6HR 12.72 ng/L (0-10)
[2025-01-03 18:31] LABS: Troponin 5 6HR Delta -4.28 ng/L (0-12)
--- NOTE | 2025-01-03 20:16 | PC.NURSE ---
Cardizem running at 10 mg/hr at start of shift. Cardizem titrated in MAR to reflect this. New bag hung at 2009.
[2025-01-04] VITALS (38 sets, daily range): BP systolic 107–184; BP diastolic 73–126; PULSE 75–115; RESP 15–32; TEMP 36.6–37; O2SAT 85–96
--- NOTE | 2025-01-04 04:00 | XRR_ITS ---
PROCEDURE INFORMATION: Exam: XR Chest Exam date and time: 01/04/2025 06:25 AM Age: 64 years old Clinical indication: Other: F/u edema/pneumonia; F/u for pulmonary edema/pneumonia; Additional info: F/up pulm edema TECHNIQUE: Imaging protocol: Radiologic exam of the chest. Views: 1 view. COMPARISON: CT angio chest PE protcl [id number] 01/03/2025 08:09 AM FINDINGS: Lungs: Right confluence basilar airspace disease with right pleural effusion. Pleural spaces: See Lungs finding. Heart/Mediastinum: Prominent cardiac size and configuration is stable. Bones/joints: Degenerative changes of the spine. Other findings: Patient rotation to the right. XR/XR chest 1V portable [id number] IMPRESSION: Right confluent basilar airspace disease with right pleural effusion.
[2025-01-04 04:31] LABS: Hematocrit 36.7 % (36-47); Hemoglobin 10.90 g/dL (11.27-16.99); Mean Corpuscular HGB Conc 29.7 g/dL (30-55); Mean Corpuscular Hemoglobin 22.0 pg (27-33); Mean Corpuscular Volume 74.1 fl (85-98); Nucleated Red Blood Cells % 0 %; Platelet Count 208 10^3/cmm (157-399); Red Blood Count 4.95 10^6/uL (3.85-5.65); White Blood Count 7.87 10^3/uL (3.29-11.43)
[2025-01-04 04:58] LABS: Alanine Aminotransferase 33 U/L (0-33); Albumin Level 3.4 g/dL (3.5-5.2); Alkaline Phosphatase 76 U/L (35-105); Anion Gap 14.3 (5-19); Aspartate Amino Transferase 22 U/L (0-32); Blood Urea Nitrogen 19 mg/dL (8-23); Calcium 8.6 mg/dL (8.5-10.5); Carbon Dioxide 32 mmol/L (22-29); Chloride 97 mmol/L (98-107); Creatinine Clr Calc Pharmacy 68.7629; Globulin 3.1 g/dL (1.3-4.6); Glucose 138 mg/dL (65-115); Magnesium 1.6 mg/dL (1.7-2.3); Osmolality Calculated 294 mOsm/kg (285-295); Potassium 3.3 mmol/L (3.5-5.1); Sodium 140 mmol/L (136-145); Total Protein 6.5 g/dL (6.6-8.7)
[2025-01-04 05:01] LABS: Add RBC Morph Yes; RBC Morph Comp No; Slide Review Slide Review Perform
[2025-01-04 05:02] LABS: Hypochromasia 2+; Procalcitonin 0.12 ng/mL (0-0.5); Thyroid Stimulating Hormone 1.01 uIU/mL (0.27-4.20)
[2025-01-04 05:03] LABS: Anisocytosis 1+; Microcytosis 2+; Ovalocytes Trace; Target Cells Trace
[2025-01-04] MEDS: heparin 5,000 unit/mL INJ 1 mL 5000 UNIT SUBCUT ×2 (05:05→12:06)
[2025-01-04] MEDS: methylPREDNISolone sod succ 40 mg/mL INJ IVP ×3 (05:06→19:46)
[2025-01-04] MEDS: cefTRIAXone 1,000 mg SDV 1000 MG IVP (12:03)
[2025-01-04] MEDS: FUROsemide 10 mg/mL SDV 4mL 40 MG IVP (12:06)
--- NOTE | 2025-01-04 12:23 | USCV_ITS ---
Marie Vann Age: 64 Gender: F : 1960 Exam Date: 01/04/2025 07:28 Ordering Phys: Selena Santiago MD Technologist: Darian Bailey Exam Location: [facility] [place] Indication: new onset afib BP: 137 / 86 HR: 86 Rhythm: Atrial fibrillation Technical Quality: Adequate MEASUREMENTS (Male / Female) Normal Values 2D ECHO LV Diastolic Diameter PLAX 4.2 cm 4.2 - 5.9 / 3.9 - 5.3 cm IVS Diastolic Thickness 1.1 cm 0.6 - 1.0 / 0.6 - 0.9 cm IVS Systolic Thickness 1.6 cm LVPW Diastolic Thickness 1.2 cm 0.6 - 1.0 / 0.6 - 0.9 cm LVPW Systolic Thickness 1.8 cm LVOT Diameter 2.0 cm LV Ejection Fraction 2D Teich 63.7 % LV Ejection Fraction MOD 4C 56.7 % LV Ejection Fraction MOD 2C 60.4 % LV Ejection Fraction 2C AL 61.1 % LA Diameter 4.1 cm RA Systolic Volume 4C AL 51.2 ml RA Systolic Volume 4C MOD 48.8 ml LA Sys Volume AL 51.9 cm cubed LA Sys Volume Index AL 24.3 cm cubed/m squared Aorta at Sinotubular Diameter 2.1 cm IVC Diameter 1.6 cm M-MODE LA Ao Ratio MM 1.7 AV Cusp Separation MM 1.6 cm DOPPLER AV Peak Velocity 110.7 cm/s LVOT Peak Velocity 70.0 cm/s AV Area Cont Eq vti 1.6 cm squared AV Area Cont Eq pk 2.1 cm squared MV Area PHT 6.2 cm squared Mitral E to A Ratio 3.2 TR Peak Velocity 395.0 cm/s TR Peak Gradient 62.4 mmHg TR Mean Velocity 293.0 cm/s TR Mean Gradient 37.7 mmHg TR Velocity Time Integral 101.7 cm PV Peak Velocity 84.3 cm/s RV Ejection Time 0.3 s FINDINGS Left Ventricle Mild diffuse hypokinesis of the left ventricle with an ejection fraction of around 50% (visual) Right Ventricle Possible normal right ventricular size and systolic function. Right Atrium Linear mobile echodensity in the right atrium, suggesting prominent eustachian valve or chiari network.moderately increased right atrial size. Left Atrium Moderately increased left atrial size. IA Septum Normal appearance of the interatrial septum. Mitral Valve Trace mitral valve regurgitation. Aortic Valve No gross abnormalities noted Tricuspid Valve Mild tricuspid valve regurgitation. Estimated pulmonary artery peak systolic pressure 65 mmHg the mean PA pressure was 41 mmHg Pulmonic Valve Trace pulmonary valve regurgitation. Pericardium No pericardial effusion. Aorta Normal aortic annulus size. IVC Normal inferior vena cava. CONCLUSIONS Mild diffuse hypokinesis of the left ventricle with an ejection fraction of around 50% (visual). Possible normal right ventricular size and systolic function. Moderate biatrial enlargementL Linear mobile echodensity in the right atrium, suggesting prominent eustachian valve or chiari network. Mild tricuspid valve regurgitation. Moderate pulmonary hypertension. Estimated pulmonary artery peak systolic pressure 65 mmHg the mean PA pressure was 41 mmHg. Trace pulmonary valve regurgitation. There is no pericardial effusion. No similar previous studies are available for comparison Dr Mary Cam MD [facility] (Electronically Signed) Final Date: 04 January 2025 10:16 S
[2025-01-04 12:54] LABS: Add Urine Microscopic? YES; Glucose Urine UA Trace (Normal); Nitrate Urine Negative (Negative); Specific Gravity, Urine 1.020 (1.005-1.030); UA Manual Slide Review YES
--- NOTE | 2025-01-04 16:22 | PM.PN ---
Subjective Subjective: Continues to be in A-fib with heart rate 90-100. Currently on Cardizem at 5 mg/h. Supplemental O2 at 1 L/min today. Medications: Reviewed: Yes Vitals/I&O/Wt Last Vital Signs Temp 97.8 F 01/04/25 16:00 Pulse 99 01/04/25 16:00 Resp 18 01/04/25 16:00 BP 162/93 01/04/25 16:00 Pulse Ox 94 01/04/25 16:00 O2 Del Method Nasal Cannula 01/04/25 16:00 O2 Flow Rate 1 01/04/25 16:00 01/04/25 01/04/25 01/04/25 06:59 14:59 22:59 Intake Total 0 / 1925.333 600 / 600 600 / 1200 Output Total 1000 / 1000 550 / 1550 Balance 0 / 900.333 -400 / -400 50 / -350 Weight last 48 hrs Weight 78.5 kg Weight 98.5 kg Weight 68.946 kg Physical Exam Narrative: General: No acute distress, AO x3 HEENT: PERRLA, pupils bilaterally equal and reactive, pallors not present Chest: Normal vesicular breath sounds, no added sounds, equal good air entry bilaterally CVS: S1-S2 regular, no murmurs, no tachycardia, no gallops, no rubs Abdomen: Soft, nontender, no organomegaly, bowel sounds present Neuro: No focal deficits, no facial deformity, AO x3, power 5/5 in all limbs Data 01/04/25 04:04 01/04/25 04:04 Micro: Microbiology 01/03/25 09:18 Blood Culture - Preliminary Blood Micrococcus species 01/03/25 09:19 Blood Culture - Preliminary Blood NEGATIVE TO DATE 01/03/25 13:30 Bacterial Antigens - Final Urine,Voided 01/03/25 13:30 Legionella Urinary Antigen - Final Urine,Voided A&P Assessment and plan 1. Atrial fibrillation with RVR: new onset on cardizem drip start po metoprolol 25mg BID and attempt to titare off the cardizem gtt Holding off a/c for now pending resolution of scalp hematoma after recent trauma check EKG and trop series 2. Fall: fall precautions resulted in lacertaion 3. Laceration of head: sutured in ER hold off a/c for now while hematoma associated with resolution resolved 4. Acute respiratory failure with hypoxia: under evlautaion b/L diffuse infiltrates noted, undergoing evaluation for pulm edema vs atypical infection 5. Lung mass: with LAD - may obtain lymph node biopsy if accessible on sunday 6. Pneumonia: suspected diagnosis atypical PNA resp panel negative for FLu, RSV, COVID check procal ceftriaxone and levaquin for empiric therapy check MRSA nasal screen 7. Pulmonary edema: per personal interpretation of CTA + clinical picture with elevated BNP check echocardiogram to [facility] for CHF Plan: dvt ppx: to start full dose a/c once laceration and hematoma stop bleeding Full code January 04, 2025 Continues to be in A-fib. Heart rate between 90-100. Currently on Cardizem 5 mg/h. Increase metoprolol today to 50 mg p.o. every 12 hours. Ordered p.o. Cardizem 30 mg every 6 hours. Echocardiogram shows an LVEF of 50%. Mild diffuse hypokinesia of the left ventricle. Moderate biatrial enlargement. Linear mobile echodensity in the right atrium suggestive of a prominent eustachian valve or chiari network. Estimated pulmonary artery pressure 65 mmHg. Chest x-ray taken this morning appearing to be unchanged overall. 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 Blood culture positive for micrococcus species. Typically would consider this to be a contaminant, however with pulmonary disease, may be the true pathogen. Ceftriaxone will adequately cover. Continue ceftriaxone and levofloxacin for treatment of community-acquired pneumonia. Noted to have lymphadenopathy affecting the hilar, mediastinal and axillary regions. Will attempt for lymph node needle biopsy tomorrow with radiology. Holding off on starting full dose anticoagulation as anticipate needle biopsy tomorrow. Additionally will need outpatient mammogram pulmonology follow-up, likely as outpatient dependent on clinical course. PDMP PDMP Reviewed: Not Reviewed Attestations Medical Necessity Statement*: IV antibiotic, IV diuretics, ongoing Cardizem drip waiting to be weaned off planned needle biopsy tomorrow. Transfer from ICU to CSU Coding Level of Care Code Acute Code for Chg Fwd High MDM includes number and complexity of problems actively addressed during encounter, amount and/or complexity of data reviewed/ordered and described risk of complication, morbidity or mortality of management as documented Diagnoses Atrial fibrillation with RVR I48.91 Fall W19.XXXA Encounter type: initial encounter Laceration of head S01.91XA Encounter type: initial encounter Acute respiratory failure with hypoxia J96.01 Lung mass R91.8 Pneumonia J18.9 Laterality: right Pneumonia type: due to unspecified organism Pulmonary edema J81.1
[2025-01-04] MEDS: ATORVASTATIN 20 MG TABLET PO (16:29)
[2025-01-04] MEDS: magnesium sulfate premix 1 GM/100 ML PIGGYBACK IV (16:30)
--- NOTE | 2025-01-04 17:54 | PC.NURSE ---
Attempted to call patients Deniz Vann at home phone number and the phone was answered by someone who states that he was . Obtained patients husbands cell phone number from patient. Called number to notify of patients room number, no answer.
--- NOTE | 2025-01-04 18:39 | PC.NURSE ---
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
--- NOTE | 2025-01-04 21:47 | PC.NURSE ---
Report called to [facility] on [facility].
--- NOTE | 2025-01-04 22:33 | PC.NURSE ---
Patient transfered via bed with all belongings. Handed over to Ainla
[2025-01-05] VITALS (10 sets, daily range): BP systolic 140–169; BP diastolic 89–116; PULSE 104–125; RESP 14–23; TEMP 36.4–37.1; O2SAT 90–98
[2025-01-05 03:10] LABS: Hematocrit 36.7 % (36-47); Hemoglobin 10.90 g/dL (11.27-16.99); Mean Corpuscular HGB Conc 29.7 g/dL (30-55); Mean Corpuscular Hemoglobin 22.2 pg (27-33); Mean Corpuscular Volume 74.9 fl (85-98); Nucleated Red Blood Cells % 0 %; Platelet Count 257 10^3/cmm (157-399); Red Blood Count 4.90 10^6/uL (3.85-5.65); White Blood Count 19.08 10^3/uL (3.29-11.43)
[2025-01-05 03:33] LABS: INR 1.13 (0.8-1.2); Prothrombin Time 15.30 SECONDS (12.1-14.9)
[2025-01-05 03:37] LABS: Alanine Aminotransferase 41 U/L (0-33); Albumin Level 3.3 g/dL (3.5-5.2); Alkaline Phosphatase 73 U/L (35-105); Anion Gap 14.3 (5-19); Aspartate Amino Transferase 27 U/L (0-32); Blood Urea Nitrogen 20 mg/dL (8-23); Calcium 8.9 mg/dL (8.5-10.5); Carbon Dioxide 33 mmol/L (22-29); Chloride 94 mmol/L (98-107); Creatinine Clr Calc Pharmacy 60.9975; Globulin 3.5 g/dL (1.3-4.6); Glucose 151 mg/dL (65-115); Osmolality Calculated 292 mOsm/kg (285-295); Potassium 3.3 mmol/L (3.5-5.1); Sodium 138 mmol/L (136-145); Total Protein 6.8 g/dL (6.6-8.7)
[2025-01-05] MEDS: methylPREDNISolone sod succ 40 mg/mL INJ IVP ×3 (04:53→20:49)
--- NOTE | 2025-01-05 07:31 | PC.NURSE ---
Nurse notified of high bp.
[2025-01-05] MEDS: cefTRIAXone 1,000 mg SDV 1000 MG IVP (11:52)
[2025-01-05] MEDS: FUROsemide 10 mg/mL SDV 4mL 40 MG IVP (11:53)
--- NOTE | 2025-01-05 17:14 | P.PN_ITS ---
Subjective 2 Subjective: Feeling better Vitals/I&O/Wt Last Vital Signs Temp 98.7 F 01/05/25 15:32 Pulse 108 H 01/05/25 15:32 Resp 14 01/05/25 15:32 BP 146/106 01/05/25 15:32 Pulse Ox 90 01/05/25 15:32 O2 Del Method Nasal Cannula 01/05/25 15:32 O2 Flow Rate 2 01/05/25 15:32 01/05/25 01/05/25 01/05/25 06:59 14:59 22:59 Intake Total 240 / 240 Output Total 400 / 2250 200 / 200 Balance -400 / -510.333 40 / 40 Weight last 48 hrs Weight 80 kg Weight 78.5 kg Physical Exam 2 Narrative: General: No acute distress, AO x3 HEENT: forehead lac with stitches, no bleeding or discharge. Eyes: PERRLA Chest: Clear to auscultation bilaterally CVS: S1-S2 regular, no murmurs, no tachycardia, no gallops, no rubs Abdomen: Soft, nontender, no organomegaly, bowel sounds present Neuro: No focal deficits, no facial deformity, AO x3, power 5/5 in all limbs Data 01/05/25 01:10 01/05/25 01:10 Micro: Microbiology 01/04/25 12:30 Urine Culture - Preliminary Urine,Clean Catch 01/03/25 09:18 Blood Culture - Preliminary Blood Micrococcus species A&P Assessment and plan 1. Atrial fibrillation with RVR: 2. Pulmonary edema: 3. Pneumonia: Plan: 1. Atrial fibrillation with RVR: new onset - wean off cardizem drip, start oral cardizem, increase to 60 q6h - cont. po metoprolol 25mg BID and attempt to titare off the cardizem gtt Holding off a/c for now pending resolution of scalp hematoma after recent trauma check EKG - troponins mildly elevated, decreasing. Not indicative of ACS 2. Fall: fall precautions resulted in lacertaion 3. Laceration of head: sutured in ER hold off a/c for now while hematoma associated with resolution resolved - will need outpatient follow up after discharge in about 2 weeks for removal of sutures. 4. Acute respiratory failure with hypoxia: under evlautaion b/L diffuse infiltrates noted, undergoing evaluation for pulm edema vs atypical infection 5. Lung mass: - she had excisional biopsy about 5 years ago that was bening - now s/p bening-appearing lymph node biopsy of right axilla 6. Pneumonia: suspected diagnosis atypical PNA resp panel negative for FLu, RSV, COVID check procal ceftriaxone and levaquin for empiric therapy check MRSA nasal screen - wean off O2. 7. Pulmonary edema: per personal interpretation of CTA + clinical picture with elevated BNP [facility] Plan: dvt ppx: to start full dose a/c once laceration and hematoma stop bleeding Full code PDMP PDMP Reviewed: Not Reviewed Attestations 2 Medical Necessity Statement*: ongoing inpatient for pneumonia, fall with laceration Time Spent in Patient Care: 16 - 35 minutes (>than 50% of time sp ent in counselling and/or direct pt care on unit) . Coding Level of Care Code Acute Code for [facility] Fwd Diagnoses Atrial fibrillation with RVR I48.91 Pulmonary edema J81.1 Pneumonia J18.9
[2025-01-05] MEDS: ATORVASTATIN 20 MG TABLET PO (18:17)
--- NOTE | 2025-01-05 18:35 | US_ITS ---
NOTE: Report was unsigned for reason: Order was edited. Original Signature date and time was: 01/05/25 @ 1234 WS: [id number] Ultrasound RIGHT axilla. Evaluate RIGHT axilla for lymphadenopathy. Small lymph nodes were noted on the CT chest from 01/03/2025. Ultrasound is performed of the RIGHT axilla. There are several benign-appearing lymph nodes. Normal fatty hilum with a thin cortical rim. There is one lymph node with cortex measuring up to 3 mm but no displacement of the fatty hilum. Indeterminate for neoplastic. This is a very small lymph node. [facility]extrem[facility] [id number] IMPRESSION: 1. Benign-appearing lymph nodes in the RIGHT axilla. None of the lymph nodes ar e definitely abnormal. There is one lymph node with very mild thickening of the cortex but indeterminate. This is a very small lymph node.
[2025-01-05] MEDS: dilTIAZem 5 mg/mL SDV 5 mL 10 MG IVP (20:49)
[2025-01-06] VITALS (7 sets, daily range): BP systolic 153–165; BP diastolic 80–111; PULSE 96–101; RESP 16–26; TEMP 36.4; O2SAT 90–95
--- NOTE | 2025-01-06 00:03 | PC.NURSE ---
At shift change patient HR sustaining in the 120-140's. Per day shift team cardizem PO was increased from 30 to 60 mg and she received a dose at 1800. At 1999 patient still sustaining in 120-140's, notified Dr. Gayle and received orders for 10 mg IVP cardizem once. Follow up with MD after 30 minutes of administration.
[2025-01-06 03:23] LABS: Hematocrit 34.9 % (36-47); Hemoglobin 10.30 g/dL (11.27-16.99); Mean Corpuscular HGB Conc 29.5 g/dL (30-55); Mean Corpuscular Hemoglobin 22.0 pg (27-33); Mean Corpuscular Volume 74.4 fl (85-98); Nucleated Red Blood Cells % 0 %; Platelet Count 218 10^3/cmm (157-399); Red Blood Count 4.69 10^6/uL (3.85-5.65); White Blood Count 14.55 10^3/uL (3.29-11.43)
[2025-01-06 03:51] LABS: Anion Gap 12.1 (5-19); Blood Urea Nitrogen 25 mg/dL (8-23); Calcium 8.5 mg/dL (8.5-10.5); Carbon Dioxide 36 mmol/L (22-29); Chloride 94 mmol/L (98-107); Creatinine Clr Calc Pharmacy 61.5799; Glucose 153 mg/dL (65-115); Osmolality Calculated 295 mOsm/kg (285-295); Potassium 3.1 mmol/L (3.5-5.1); Sodium 139 mmol/L (136-145)
[2025-01-06] MEDS: methylPREDNISolone sod succ 40 mg/mL INJ IVP ×2 (05:14→11:54)
--- NOTE | 2025-01-06 06:21 | PC.NURSE ---
Notified Dr. Gayle that patient BP has been in the 160/100 the last couple hours even after cardizem administration. Current BP is 165/104. Discussed patient BP since admission and medications. Received orders for hydralazine 50mg PO once.
[2025-01-06] MEDS: FUROsemide 10 mg/mL SDV 4mL 40 MG IVP (11:54)
[2025-01-06] MEDS: cefTRIAXone 1,000 mg SDV 1000 MG IVP (11:54)
--- NOTE | 2025-01-06 12:07 | PM.DCS ---
Discharge Providers Date of Admission: 01/03/25 09:15 Date of Discharge: January 06, 2025 Attending Provider at Admission: Selena Santiago MD Attending Provider at Discharge: Hill Hurd MD Primary Care Provider: Pino Gutiérrez MD Diagnoses at Discharge Discharge Diagnosis 1. Atrial fibrillation with RVR: 2. Pulmonary edema: 3. Pneumonia: Reason for Visit Reason for Visit: Fall (large lac forehead) Brief History: 64 year old female with PMH COPD who presneted to the ER after having sustained a fall the night before and suffering a lacertaion which was sutured in the ER. She was additionally complaining of ALVAREZ over the past week and was found to be hypoxic with new onset A fib with HR 130s. Hospital Course Hospital Course 1. Atrial fibrillation with RVR: new onset - wean off cardizem drip, start oral cardizem, increase to 60 q6h - transition to long acting prior to discharge. - cont. po metoprolol 25mg BID, titrate off the cardizem gtt Holding off a/c for now pending resolution of scalp hematoma after recent trauma, restart on D/C - troponins mildly elevated, decreasing. Not indicative of ACS 2. Fall: fall precautions resulted in lacertaion 3. Laceration of head: sutured in ER hold off a/c for now while hematoma associated with resolution resolved - will need outpatient follow up after discharge in about 2 weeks for removal of sutures. 4. Acute respiratory failure with hypoxia: under evlautaion b/L diffuse infiltrates noted, undergoing evaluation for pulm edema vs atypical infection 5. Lung mass: - she had excisional biopsy about 5 years ago that was benign - now s/p benign-appearing lymph node biopsy of right axilla 6. Pneumonia: suspected diagnosis atypical PNA resp panel negative for FLu, RSV, COVID - procal not elevated. ceftriaxone and levaquin for empiric therapy - complete oral abx on discharge - burst dose steroids. check MRSA nasal screen - wean off O2, exercise oximetry prior to discharge. - blood cultures on admission with micrococcus species in one vial, likely contaminant. 7. Pulmonary edema: - CTA negative for PE, GG attentuation noted diffusely. - echocardiogram with normal EF, normal RV function. Hypokalemia - given 40 meq this AM. Plan: dvt ppx: to start full dose a/c on D/C Disposition - Full code - discharge planning for today. - will need follow up with PCP in 1-2 weeks for suture removal. Physical Exam Narrative: Physical Exam Narrative: General: No acute distress, AO x3 H EENT: forehead lac with stitches, no bleeding, edema o r discharge. Eyes: PERRLA Chest: Scott ar to auscultation bilaterally CVS: S1-S2 regular, no murmurs, no tachyc ardia, no gallops, no rubs Abdomen: Soft, nontender, n o organomegaly, abner wel sounds present Neuro: No focal d eficits, no facial deformity, AO x3, power 5/5 in all limbs Discharge Data Studies Completed and Pending Completed Studies During Hospitalization Category Date Time Status CT head wo con* [id number] Stat Cat Scan 01/03/25 07:34 Completed CTA chest [CT angio chest PE protcl [id number]] Stat Cat Scan 01/03/25 07:48 Completed XR chest 1V portable [id number] AM LABS Exams 01/04/25 04:00 Completed XR chest 1V portable [id number] Stat Exams 01/03/25 07:34 Completed CV. echo complete* [id number] Routine Ultrasound 01/04/25 12:23 Completed US soft tissue/extremity [id number] Routine Ultrasound 01/05/25 18:35 Completed Pending at discharge Category Date Time Status Blood Culture Stat Lab 01/03/25 09:18 Results Sputum Culture and Gram Stain Routine Lab 01/03/25 12:28 Ordered Radiology Impressions Head CT 01/03/25 07:34 IMPRESSION: No acute intracranial hemorrhage or mass effect. Chest CTA 01/03/25 07:48 IMPRESSION: 1. No detectable pulmonary embolus. 2a. Diffuse but heterogeneous pulmonary ground-glass attenuation is nonspecific. More common diagnostic considerations are mentioned above. 2b. There also a few more confluent opacities in the right middle lobe, lingula, and posterior left lower lobe that could represent organizing pneumonia, neoplasm, or a combination. 3. Mediastinal and bilateral hilar adenopathy and mild axillary adenopathy. Tissue sampling would be required for definitive diagnosis. 4. Zsqk-if-exixgmhc right pleural effusion. 5. Nonspecific asymmetric breast density; see above comments. 6. Additional findings that are incidental and/or nonacute as reported above. Chest X-Ray 01/04/25 04:00 IMPRESSION: Right confluent basilar airspace disease with right pleural effusion. Soft Tissue Ultrasound 01/05/25 18:35 IMPRESSION: 1. Benign-appearing lymph nodes in the RIGHT axilla. None of the lymph nodes are definitely abnormal. There is one lymph node with very mild thickening of the cortex but indeterminate. This is a very small lymph node. Laboratory Results WBC 14.55 10^3/uL (3.29-11.43) H 01/06/25 03:15 RBC 4.69 10^6/uL (3.85-5.65) 01/06/25 03:15 Hgb 10.30 g/dL (11.27-16.99) L 01/06/25 03:15 Hct 34.9 % (36-47) L 01/06/25 03:15 MCV 74.4 fl (85-98) L 01/06/25 03:15 MCH 22.0 pg (27-33) L 01/06/25 03:15 MCHC 29.5 g/dL (30-55) L 01/06/25 03:15 RDW 18.4 % (12.1-15.1) H 01/06/25 03:15 Plt Count 218 10^3/cmm (157-399) 01/06/25 03:15 MPV 11.2 fL (7.4-10.4) H 01/06/25 03:15 Neut % (Auto) 91.4 % 01/06/25 03:15 Lymph % (Auto) 3.2 % 01/06/25 03:15 [place] % (Auto) 4.7 % 01/06/25 03:15 Eos % (Auto) 0.0 % 01/06/25 03:15 Baso % (Auto) 0.1 % 01/06/25 03:15 Neut # (Auto) 13.29 10^3/uL (1.8-7.7) H 01/06/25 03:15 Lymph # (Auto) 0.5 10^3/uL (0.8-4.8) L 01/06/25 03:15 [place] # (Auto) 0.7 10^3/uL (0.2-0.9) 01/06/25 03:15 Eos # (Auto) 0.0 10^3/uL (0.0-0.8) 01/06/25 03:15 Baso # (Auto) 0.0 10^3/uL (0.0-0.1) 01/06/25 03:15 Nucleated RBC % (auto) 0 % 01/06/25 03:15 Nucleated RBCs # 0.0 /100WBC 01/06/25 03:15 Hypochromasia 2+ H 01/04/25 04:04 Anisocytosis 1+ H 01/04/25 04:04 Microcytosis 2+ H 01/04/25 04:04 Target Cells Trace 01/04/25 04:04 Ovalocytes Trace 01/04/25 04:04 PT 15.30 SECONDS (12.1-14.9) H 01/05/25 01:10 INR 1.13 (0.8-1.2) 01/05/25 01:10 Specimen Type Arterial 01/03/25 07:41 Sample Site Radial, left 01/03/25 07:41 ABG pH 7.40 (7.35-7.45) 01/03/25 07:41 ABG pCO2 49.5 mmHg (35-45) H 01/03/25 07:41 ABG pO2 108.0 mmHg (80.0-100.0) H 01/03/25 07:41 ABG HCO3 30.2 mmol/L (22-26) H 01/03/25 07:41 ABG Base Excess 4.5 mmol/L (-2.0-2.0) H 01/03/25 07:41 Garret Test Pos 01/03/25 07:41 Hematocrit 34.7 % (37-47) L 01/03/25 07:41 Hgb O2 Saturation 95.8 % (95-100) 01/03/25 07:41 Carboxyhemoglobin 2.1 %THgb (0.4-20.1) 01/03/25 07:41 Methemoglobin 0.8 % (0.4-1.5) 01/03/25 07:41 Total Hemoglobin 11.3 g/dL (12-16) L 01/03/25 07:41 O2 Delivery Device Nc 01/03/25 07:41 O2 Liters/Min 3.0 % 01/03/25 07:41 Central Processing Tech ID Walci 01/03/25 07:41 Sodium 139 mmol/L (136-145) 01/06/25 03:15 Potassium 3.1 mmol/L (3.5-5.1) L 01/06/25 03:15 Chloride 94 mmol/L (98-107) L 01/06/25 03:15 Carbon Dioxide 36 mmol/L (22-29) H 01/06/25 03:15 Anion Gap 12.1 (5-19) 01/06/25 03:15 BUN 25 mg/dL (8-23) H 01/06/25 03:15 Creatinine 0.9 mg/dL (0.5-0.9) 01/06/25 03:15 GFR Calculation 62.6 mL/min (90-130) L 01/06/25 03:15 Glucose 153 mg/dL (65-115) H 01/06/25 03:15 Calculated Osmolality 295 mOsm/kg (285-295) 01/06/25 03:15 Calcium 8.5 mg/dL (8.5-10.5) 01/06/25 03:15 Magnesium 1.6 mg/dL (1.7-2.3) L 01/04/25 04:04 Total Bilirubin 0.8 mg/dL (0.15-1.2) 01/05/25 01:10 AST 27 U/L (0-32) 01/05/25 01:10 ALT 41 U/L (0-33) H 01/05/25 01:10 Alkaline Phosphatase 73 U/L (35-105) 01/05/25 01:10 Lactate Dehydrogenase 361 U/L (135-214) H 01/04/25 04:04 Troponin T Baseline 17 ng/L (0-10) H 01/03/25 12:46 Troponin T 120 Minute 13.20 ng/L (0-10) H 01/03/25 14:37 Delta Troponin T -3.80 ABS# (0-10) L 01/03/25 14:37 Troponin T Hi Sens 6Hr 12.72 ng/L (0-10) H 01/03/25 18:00 Troponin T Hi Sens 6Hr Delta -4.28 ng/L (0-12) L 01/03/25 18:00 NT-Pro-B Natriuret Pep 87475 pg/mL (0-125) H 01/03/25 07:47 Total Protein 6.8 g/dL (6.6-8.7) 01/05/25 01:10 Albumin 3.3 g/dL (3.5-5.2) L 01/05/25 01:10 Globulin 3.5 g/dL (1.3-4.6) 01/05/25 01:10 Procalcitonin 0.12 ng/mL (0-0.5) 01/04/25 04:04 TSH 1.01 uIU/mL (0.27-4.20) 01/04/25 04:04 Urine Color Yellow (Yellow) 01/04/25 12:30 Urine Appearance Cloudy (CLEAR) A 01/04/25 12:30 Urine pH 6 (5-7) 01/04/25 12:30 Ur Specific Motley 1.020 (1.005-1.030) 01/04/25 12:30 Urine Protein Trace (Negative) 01/04/25 12:30 Urine Glucose (UA) Trace (Normal) H 01/04/25 12:30 Urine Ketones Negative (Negative) 01/04/25 12:30 Urine Blood Neg (Negative) 01/04/25 12:30 Urine Nitrate Negative (Negative) 01/04/25 12:30 Urine Bilirubin Neg (Negative) 01/04/25 12:30 Urine Urobilinogen 1 mg/dL (Negative) H 01/04/25 12:30 Ur Leukocyte Esterase Trace (Negative) H 01/04/25 12:30 Urine RBC 0-4 /hpf (0-2) H 01/04/25 12:30 Urine WBC 10-15 /hpf (0-5) H 01/04/25 12:30 Ur Squamous Epith Cells 5-10 /hpf (0-5) H 01/04/25 12:30 Calcium Oxalate Crystal 0-4 /hpf H 01/04/25 12:30 Amorphous Sediment Not Reportable 01/04/25 12:30 Urine Bacteria 2+ /hpf (NONE) H 01/04/25 12:30 Hyaline Casts 5-10 /lpf H 01/04/25 12:30 Nasal MRSA (PCR) Not detected (Not Detecte) 01/03/25 14:15 Urine Opiates Screen Negative ng/mL (Negative) 01/03/25 13:30 Ur Barbiturates Screen Negative ng/mL (Negative) 01/03/25 13:30 Ur Phencyclidine Scrn Negative ng/mL (Negative) 01/03/25 13:30 Ur Amphetamines Screen Negative ng/mL (Negative) 01/03/25 13:30 U Benzodiazepines Scrn Negative ng/mL (Negative) 01/03/25 13:30 Urine Cocaine Screen Negative ng/mL (Negative) 01/03/25 13:30 U Marijuana (THC) Screen Positive ng/mL (Negative) H 01/03/25 13:30 Ethyl Alcohol < 10 mg/dL (0-10) 01/03/25 12:46 Influenza A (PCR) Negative (Negative) 01/03/25 08:29 Influenza Type B (PCR) Negative (Negative) 01/03/25 08:29 RSV (PCR) Negative (Negative) 01/03/25 08:29 SARS-CoV-2 (PCR) Negative (Negative) 01/03/25 08:29 Vitals Last Vital Signs Temp 97.6 F 01/06/25 07:44 Pulse 97 01/06/25 08:29 Resp 16 01/06/25 08:29 BP 153/80 01/06/25 07:44 Pulse Ox 93 01/06/25 08:29 O2 Del Method Room Air 01/06/25 08:29 O2 Flow Rate 2 01/05/25 23:56 Discharge Plan Discharge Patient Disposition: Home Condition: Stable Prescriptions: New levofloxacin 750 mg Tablet 750 mg PO DAILY Qty: 7 0RF cefdinir 300 mg capsule 300 mg PO BID 5 Days Qty: 10 0RF diltiazem HCl [Cardizem CD] 240 mg capsule,extended release 24hr 240 mg PO Q24H Qty: 30 2RF prednisone 50 mg tablet 25 mg PO DAILY 5 Days Qty: 5 0RF Continued cyclobenzaprine 10 mg tablet 10 mg PO TID PRN (Reason: muscle spasms) carvedilol 25 mg tablet 25 mg PO BID ipratropium-albuterol 0.5 mg-3 mg(2.5 mg base)/3 mL solution for nebulization 3 ml INHALATION QID PRN (Reason: Shortness Of Breath) meloxicam 15 mg tablet 15 mg PO DAILY simvastatin 10 mg tablet 10 mg PO QPM levothyroxine [Synthroid] 75 mcg tablet 75 mcg PO QAM omeprazole 20 mg capsule,delayed release(DR/EC) 20 mg PO DAILY zolpidem 10 mg tablet 10 mg PO BEDTIME albuterol sulfate 90 mcg/actuation HFA aerosol inhaler 1 puff INHALATION Q6H PRN (Reason: Shortness Of Breath) sertraline 50 mg tablet 50 mg PO DAILY Discharge Order = DC NOW: Discharge Order (Routine); Ordered 01/06/25 Ordered By: Hill Hurd Referrals: Pino Gutiérrez MD [Primary Care Provider, [facility]] - 01/08/25 10:20 am Referral Note: This appointment is scheduled with Racquel Cunningham, thank you! Discharge Diet: Advance as tolerated Discharge Activity: Increase activity as tolerated Patient Instructions: Pulmonary Edema (DC), Fall Prevention (DC), Acute Respiratory Failure (GEN), Opioid Safety, Pneumonia Stoplight, Patient Portal & Nestor Instructions Discharge Attestations Time Spent in Discharge Care*: greater than 30 min Specific Discharge Activities: educating patient, educating and/or supporting family/caregiver, discussing with pcp/other providers, discussing with therapeutic case manager/social workers/dc planners, documenting/other paperwork and evaluating patient/reviewing data Quality Metrics Clinical Quality Measures [ No reported AMI, CVA or VTE this stay] Coding Level of Care Code Acute Code for Chg Fwd Diagnoses Atrial fibrillation with RVR I48.91 Pulmonary edema J81.1 Pneumonia J18.9 Laterality: right Pneumonia type: due to unspecified organism
[2025-01-06 13:54] LABS: Lymphoma Profile (BBPL) See Report
== END 2025-01-06 14:53 | disposition home or self-care (01) | DRG 987 ==
LOC: ER 09:49 → ICU 10:04 → CSU 01-04 22:27
PROVIDERS: Admitting Provider Student in an Organized Health Care Education/Training Program; Emergency Provider Emergency Medicine; Visit Provider Internal Medicine
DX: J18.9 Pneumonia, unspecified organism (principal); J96.01 Acute respiratory failure with hypoxia; J91.8 Pleural effusion in other conditions classified elsewhere; S01.81XA Laceration without foreign body of other part of head, initial encounter; W19.XXXA Unspecified fall, initial encounter; I48.91 Unspecified atrial fibrillation; J44.9 Chronic obstructive pulmonary disease, unspecified; R59.0 Localized enlarged lymph nodes; E87.6 Hypokalemia
CPT/HCPCS: 36415; 36600; 38505; 70450; 71045; 71275; 76882; 76942; 80048; 80053; 80306; 80307; 81001; 82805; 83615; 83735; 83880; 84145; 84443; 84484; 85025; 85610; 86403; 87040; 87086; 87150; 87205; 87449; 87637; 88184; 88185; 93005; 93306; 94640; 96365; 96366; 96367; 96372; 96375; 99285; J0456; J0696; J1644; J1938; J2919; J3475; J3490; J7030; J7050; J7613; J7614; J7626; J7644; J9999

== ENCOUNTER 2025-02-07 20:53 | Inpatient (IN) | payer MEDICARE, SELFPAY ==
--- NOTE | 2025-02-07 20:59 | ECG_ITS ---
[facility] Date: 2025-02-07 Pat Name: Marie Vann Department: Room: 104 Gender: Female District Wildlife Manager: : 1960 Requested By: Jaret Rubio Order Number: [id number] Grazyna MD: Mary Cam M.D. Measurements Intervals [place] Rate: 126 P: 0 MI: 0 QRS: 90 QRSD: 81 T: 0 QT: 301 QTc: 437 Interpretive Statements ATRIAL FIBRILLATION WITH RAPID VENTRICULAR RESPONSE NONSPECIFIC ST & T-WAVE ABNORMALITY ABNORMAL RHYTHM ECG Compared to ECG 01/03/2025 17:57:06 Possible ischemia no longer present T-wave abnormality still present Electronically Signed On 02-08-2025 20:20:30 [employer]UTE [employer] WINDER by Mary Cam M.D. [id number]
[2025-02-07 21:02] VITALS: BP 129/99; PULSE 142; RESP 18; TEMP 37.1; O2SAT 95; BMI 24.7
--- OUTSIDE RECORDS SUMMARY | 2025-02-07 21:03 | XMS_ITS | Clinical Summary ---
Author Organization [facility] Address [address] [place] [address] Care Team Providers Care Sports Management Intern Name Role Phone Chema Padilla MD Primary Care Provider [phone] Allergies Active Allergy Reactions Criticality Noted Date [...] often do you attend chur ch or zoroastrian services? 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 Gender Identity Not on file Sexual Orientation [...] Flex Sig/CT Colonography Q 5 years 06/26/2003 RSV VACCINE (60+ or ) (1 - Risk 50-74 years 1-dose series) 2008 ZOSTER VACCINE (1 of 2) 2008 COLORECTAL SCREENING 03/15/2016 03/15/2011, 03/15/20 11 Colorectal Cancer Screening 09/23/2020 BREAST CANCER SCREENING 03/31/2021 03/31/20 20, 08/31/2015, 04/11/2013, Additional history exists OSTEOPOROSIS SCREENING 06/26/2023 Pre-Diabetes and Diabetes Screening 08/07/2023 08/06/2020, 01/14/2020, 05/26/2019, Additional history exists FIT-DNA Q 3 years 09/23/2023 09/22/2020 Medicare Advantage ([place]) Preventative Visit/Annual Wellness Visit 04/02/2024 08/11/2020, 02/12/2020 [...] SCREEN BILATERAL MOBILE Routine 03/31/2020 9:04 AM INSURANCE UNDERWRITER SALES Visit for screening mammogram ENDOSCOPY, COLON, SCREENING Routine 03/15/2011 10:04 AM INSURANCE UNDERWRITER SALES Screen for colon cancer from Last 3 Months or Most Recently Relevant to Health Maintenance Results * COLON CANCER SCREEN, STOOL DNA (09/22/2020 5:08 PM CDT) COLOGUARD RESULT Negative Negative [employer] Comment: NEGATIVE TEST RESULT. A negative Cologuard [...] Chang et al, N Engl J Med 2014;370(14):1259-3256) The normal value (reference range) for this assay is negative. COLOGUARD RE-SCREENING RECOMMENDATION: Periodic colorectal cancer screening is an important part of preventive healthcare for asymptomatic individuals at average risk for colorectal cancer. Following a negative Cologuard result, the [place] Cancer Society and U.S. Multi-Society Task Force screening guidelines recommend a Cologuard re-screening interval of 3 years. References: [place] [employer] Society Guideline for Colorectal Cancer Screening: https://www.cancer.org/cancer/cjcqi-nqgudt-hqtayo/buhileumb-kxgytnnbz-znjmuzc/ac s-rec ommendations.html.; Billy TRAN, Edwin CR, Alfa CotaK, Colorectal Cancer Screening: Recommendations for Physicians and Patients from the U.S. Multi-Society Task Force on Colorectal Cancer Screening , Am J Gastroenterology 2017; 112:9912-4561. TEST DESCRIPTION: Composite algorithmic analysis of stool [...] Morris. et al, N Engl J Med 2014;370(14):4289-2303.) Cologuard may produce a false negative or false positive result (no colorectal cancer or precancerous polyp present at colonoscopy follow up). A negative Cologuard test result does not guarantee the absence of CRC or advanced adenoma (pre-cancer). The current Cologuard screening interval is every 3 years. ([place] Cancer Society and U.S. Multi-Society Task Force). Cologuard performance data in a 10,000 patient pivotal study using colonoscopy as the reference method can be accessed at the following location: www.Mechio/results. Additional description of the Cologuard test process, warnings and precautions can be found at www.[employer]X Technologiesoguard.com. Stool STOOL SPECIMEN / Unknown 09/22/2020 5:08 PM CDT 09/24/2020 7:08 PM CDT us Jazzy Zimmerman CARDBOARD INSERTER BODY FLUIDS AND STOOLS Fin al Result [employer] CLIA # [id number] [address], [address] [place] [address] * (ABNORMAL) HEMOGLOBIN A1C (08/06/2020 8:53 AM CDT) HEMOGLOBIN A1C 5.9(H) See Comment % 08/06/2020 8:[address] [facility] EST. AVG GLUCOSE, A1C 123 mg/dL 08/06/2020 8:[address] [facility] Blood Venipuncture / Unknown 08/06/2020 8:53 AM CDT 08/06/2020 7:[address] [facility] - 08/06/2020 8:31 PM CDT HGB A1C INTERPRETATION NORMAL: <5.7% PRE-DIABETES: 5.7 - 6.4% DIABETES: 6.5% OR GREATER Falsely low A1C measurements can occur when: 1. Anemia and/or hemolytic anemia is present. 2. Hemoglobin variants present. 3. Renal failure. 4. Transfusion of blood product in the last 120 days. We recommend ordering a fructosamine test([id number]) to more accurately assess glycemic status if any of the above conditions are present. Jazzy Zimmerman CARDBOARD INSERTER CHEMISTRY ORDERABLES Final Result [facility] CLIA# [id number] [facility] [place] [address] * MAMMO 3D SCREEN BILATERAL MOBILE (03/31/2020 9:04 AM INSURANCE UNDERWRITER SALES) Anatomical Region Laterality Modality Breast Bilateral Mammography 03/31/2020 9:04 AM INSURANCE UNDERWRITER SALES Narrative 04/01/2020 3:47 PM INSURANCE UNDERWRITER SALES BILATERAL SCREENING MAMMOGRAM 03/31/2020 PATIENT COMPLAINT: No [...] Center to schedule the recommended follow-up appointment. [id number] Jazzy Chapacayetano CARDBOARD INSERTER MAMMO ORDERABLES Final Res ult from Last 3 Months or Most Recently Relevant to Health Maintenance Insurance [facility] Advance Directives For more information, please contact: [phone] * Full Code (Latest Code Status on File) Date Activated Date Inactivated Comments 11/24/2013 1:00 PM 11/24/2013 6:57 PM * Full Code Date Activated Date Inactivated Comments 11/24/2013 12:18 PM 11/24/2013 1:00 PM * Full Code Date Activated Date Inactivated Comments 03/15/2011 10:04 AM 03/15/2011 1:31 PM * Full Code Date Activated Date Inactivated Comments 11/26/2009 9:33 AM 11/26/2009 7:02 PM Care Teams Sports Management Intern Relationship Specialty Start Date End Date Chema Padilla MD [address] [place] [phone] PCP - General Family Practice 03/24/19
--- OUTSIDE RECORDS SUMMARY | 2025-02-07 21:03 | XMS_ITS | Encounter Summary ---
Author Organization [facility] Address [address] [place] [address] Care Team Providers Care Chief Data Officer Name Role Phone Chema Padilla MD Primary Care Provider [phone] Encounter Details Date Type Department Care Team (Latest Contact Info) Description 05/09/[address] 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
--- OUTSIDE RECORDS SUMMARY | 2025-02-07 21:03 | XMS_ITS | Encounter Summary ---
Author Organization [facility] Address [address] [place] [address] Care Team Providers Care Furniture Associate Name Role Phone Chema Padilla MD Primary Care Provider [phone] Encounter Details Date Type Department Care Team (Latest Contact Info) Description 04/19/2005 Outpatient [facility] Family Medicine [place] [id number] [phone] Dweayne Fagan Jr., MD [address] [place] [address] 248 [facility] 140 [place] [address] MYALGIA AND MYOSITIS NOS (Primary Dx); Benign hypertension; SYNOVIAL CYST NOS Social History Tobacco Use Types Packs/Day Years Used Date Smoking Tobacco: Never Assessed Comments Unknown Sex and Gender Information Value Date Recorded Sex Assigned at Not on file 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
--- OUTSIDE RECORDS SUMMARY | 2025-02-07 21:03 | XMS_ITS | Encounter Summary ---
Author Organization [employer] Address [address] [place] [address] Care Team Providers Care Excel Analyst Name Role Phone Chema Padilla MD Primary Care Provider [phone] Reason for Referral * Radiology Services (Routine) - Closed Specialty Diagnoses / Procedures Referred By Beau antony Referred To Contact Diagnoses Visit for screening mammogram Procedures MAMMO 3D SCREEN BILATERAL MOBILE Jazzy Zimmerman FNP Referral ID Status Reason Start Date Expiration Date Visits Re quested Visits Authorized [id number] Closed 09/03/2019 10/03/2020 1 1 Encounter Details Date Type Department Care Team (Latest Contact Info) Description 09/03[facility] [place] [address] [facility] [address] [place] [phone] Jazzy Zimmerman FNP NO ADDRESS ON FILE [...] on file Legal Sex Female 3:22 AM MEDICAL 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 [id number] Jazzy Zimmerman FORGESMITH MAMMO ORDERABLES Final Res ult documented in this encounter Visit Diagnoses Diagnosis Visit for screening mammogram Other screening mammogram documented in this encounter Additional Health Concerns Assessment Noted Time PHQ-9 Depression Total Score: 1 06/04/19 20 1:00 PM MEDICAL SECRETARY documented as of this encounter Care Teams Excel Analyst Relationship Specialty Start Date End Date Chema Padilla MD [address] [place] [phone] PCP - General Family Practice 03/24/19 documented as of this encounter
--- OUTSIDE RECORDS SUMMARY | 2025-02-07 21:03 | XMS_ITS | Encounter Summary ---
Author Organization [facility] Address [address] [place] [address] Care Team Providers Care Bridge Rigger Name Role Phone Chema Padilla MD Primary Care Provider [phone] Reason for Referral * Outpatient Services (Routine) - Closed Specialty Diagnoses / Procedures Referred By Contac t Referred To Contact Radiology Diagnoses Other (abnormal) findings on radiological examination of breast Procedures MAMMO BREAST US RT Kayla Sung DO NO ADDRESS ON FILE [facility] [address] [place] [phone] Phone: tel: fax: Referral ID Status Reason Start Date Expiration Date Visits Requested Visits Authorized [id number] Closed Performing Department To Schedule (SGF) 03/27/2013 04/27/2014 1 1 COAT SPRAYER * Outpatient Services (Routine) - Closed Specialty Diagnoses / Procedures Referred By Contac t Referred To Contact Radiology Diagnoses Other (abnormal) findings on radiological examination of breast Procedures MAMMO DIGITAL DIAG UNI RIGHT Kayla Sung DO NO ADDRESS ON FILE [facility] [address] [address] Phone: tel: fax: Referral ID Status Reason Start Date Expiration Date Visits Requested Visits Authorized [id number] Closed Ordering Department To Schedule 03/27/2013 04/27/2014 1 1 COAT SPRAYER Encounter Details Date Type Department Care Team (Latest Contact Info) Description 03/27/2013 Ancillary Orders [facility] [place] [address] [facility] [address] [place] [address] Kayla Sung DO NO ADDRESS ON FILE [...] on file Legal Sex Female 3:22 AM GEL COAT SPRAYER Gender Identity Not on file Sexual Orientation [...] DIGITAL DIAG UNI RIGHT (04/11/2013 9:59 AM GEL COAT SPRAYER) Anatomical Region Laterality Modality Breast Right Mammography 04/11/2013 9:16 AM GEL COAT SPRAYER Impressions 04/11/2013 12:10 PM GEL COAT SPRAYER IMPRESSION: Large lymph node on the right is confirmed on additional images, and ultrasound reveals what appears to be a benign lymph node. This should be of no clinical significance. I would recommend routine annual screening mammogram. Patient received a result/recommendation letter. CASSI/lanny 0956 AM - uploaded from [employer] - Narrative 04/11/2013 12:10 PM GEL COAT SPRAYER Right Digital Diagnostic Mammogram and Right Breast [...] letter. CASSI/lanny 0956 AM - uploaded from [employer] - us Kayla Sung DO MAMMO ORDERABLES Kellie corral Result * MAMMO BREAST US RT (04/11/2013 9:58 AM GEL COAT SPRAYER) Anatomical Region Laterality Modality Breast Right Ultrasound 04/11/2013 9:40 AM GEL COAT SPRAYER Impressions 04/11/2013 12:10 PM GEL COAT SPRAYER IMPRESSION: Large lymph node on the right is confirmed on additional images, and ultrasound reveals what appears to be a benign lymph node. This should be of no clinical significance. I would recommend routine annual screening mammogram. Patient received a result/recommendation letter. CASSI/lanny 0956 AM - uploaded from [employer] - Narrative 04/11/2013 12:10 PM GEL COAT SPRAYER Right Digital Diagnostic Mammogram and Right Breast [...] letter. CASSI/lanny 0956 AM - uploaded from [employer] - us Kayla Sung DO MAMMO ORDERABLES Kellie l Result documented in this encounter Visit Diagnoses Diagnosis Other (abnormal) findings on radiological examination of breast- Primary Other (abnormal) findings on radiological examination of breast Other (abnormal) findings on radiological examination of breast documented in this encounter Additional Health Concerns Assessment Noted Time PHQ-9 Depression Total Score: 2 03/05/20 13 8:00 AM GEL COAT SPRAYER documented as of this encounter Care Teams Bridge Rigger Relationship Specialty Start Date End Date Chema Padilla MD [address] [place] [phone] PCP - General Family Practice 03/24/19 documented as of this encounter
--- OUTSIDE RECORDS SUMMARY | 2025-02-07 21:03 | XMS_ITS | Encounter Summary ---
Author Organization [facility] Address [address] [place] [address] Care Team Providers Care Ui Developer Designer Name Role Phone Chema Padilla MD Primary Care Provider [phone] Encounter Details Date Type Department Care Team (Late st Contact Info) Description 07/29/2005 Emergency [facility] Emergency Department [address] [place] [phone] Beata Gonzalez MD Headache (Primary Dx) Social History Tobacco Use Types Packs/Day Years Used Date Smoking Tobacco: Never Assessed Comments Unknown Sex and Gender Information Value Date Recorded Sex Assigned at Not on file 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
--- OUTSIDE RECORDS SUMMARY | 2025-02-07 21:03 | XMS_ITS | Encounter Summary ---
Author Organization [facility] Address [address] [place] [address] Care Team Providers Care Bridge Tender Name Role Phone Chema Padilla MD Primary Care Provider [phone] Reason for Referral * Radiology Services (Routine) [...] Expiration Date Visits Re quested Visits Authorized [id number] Closed 03/05/2018 04/05/2019 1 1 ICAL ADMINISTRATIVE ASSISTANT Encounter Details Date Type Department Care Team (Latest Contact Info) Description 03/05/2018 Ancillary Orders [facility] [address] [facility] [address] [place] [phone] Kayla Sung DO NO ADDRESS ON FILE [...] on file Legal Sex Female 3:22 AM CLERICAL ADMINISTRATIVE ASSISTANT Gender Identity Not on file Sexual [...] Total Score: 2 03/05/20 13 8:00 AM CLERICAL ADMINISTRATIVE ASSISTANT documented as of this encounter Care Teams Bridge Tender Relationship Specialty Start Date End Date Chema Padilla MD [address] [place] [phone] PCP - General Family Practice 03/24/19 documented as of this encounter
--- OUTSIDE RECORDS SUMMARY | 2025-02-07 21:03 | XMS_ITS | Encounter Summary ---
Author Organization [facility] Address [address] [place] [address] Care Team Providers Care Public Health Clinical Nurse Specialist Name Role Phone Chema Padilla MD Primary Care Provider [phone] Encounter Details Date Type Department Care Team (Latest Contact Info) Description 05/10/2005 Outpatient [facility] Family Medicine [place] [facility] [address] [phone] Dewayne Fagan Jr., MD [address] [place] [address] 248 [facility] [address] [place] [address] Benign hypertension (Primary Dx) Social History Tobacco Use Types Packs/Day Years Used Date Smoking Tobacco: Never Assessed Comments Unknown Sex and Gender Information Value Date Recorded Sex Assigned at Not on file Legal Sex Female 3:22 AM SOCIAL WORKER CLINICAL Gender Identity Not on file Sexual Orientation Not on file documented as of this encounter Plan of Treatment Not on file documented as of this encounter Visit Diagnoses Diagnosis Benign hypertension- Primary Essential hypertension, benign documented in this encounter Care Teams Public Health Clinical Nurse Specialist Relationship Specialty Start Date End Date Chema Padilla MD [address] [place] [phone] PCP - General Family Practice 03/24/19 documented as of this encounter
--- OUTSIDE RECORDS SUMMARY | 2025-02-07 21:03 | XMS_ITS | Encounter Summary ---
Author Organization [facility] Address [address] [place] [address] Care Team Providers Care Controller Instructor Name Role Phone Chema Padilla MD Primary Care Provider [phone] Encounter Details Date Type Department Care Team (Latest Contact Info) Description 09/06/2005 Outpatient [facility] Family Medicine [place] [facility] [address] [phone] Dewayne Fagan Jr., MD [address] [place] [address] 248 [facility] [address] [place] [address] Benign Hypertension (Primary Dx) Social History Tobacco Use Types Packs/Day Years Used Date Smoking Tobacco: Never Assessed Comments Unknown Sex and Gender Information Value Date Recorded Sex Assigned at Not on file 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
--- OUTSIDE RECORDS SUMMARY | 2025-02-07 21:03 | XMS_ITS | Encounter Summary ---
Author Organization [facility] Address [address] [place] [address] Care Team Providers Care Jewel Stringer Name Role Phone Chema Padilla MD Primary Care Provider Encounter Details Date Type Department Care Team (Late st Contact Info) Description 05/18/2004 Emergency [facility] Emergency Department [address] [place] [phone] Senia Angel NP NO ADDRESS ON FILE SPR[place] THORAC[place] REGION (Primary Dx) Social History Tobacco Use Types Packs/Day Years Used Date Smoking Tobacco: Never Assessed Comments Unknown Sex and Gender Information Value Date Recorded Sex Assigned at Not on file 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
--- OUTSIDE RECORDS SUMMARY | 2025-02-07 21:03 | XMS_ITS | Clinical Summary ---
Author Organization [facility] Address [address] [place] [address] Care Team Providers Care Home Planning Consultant Salesperson Name Role Phone Dennis Vines MD Primary Care Provider [phone] Allergies Active Allergy Reactions Criticality Noted Date Comments Morphine Nausea and Vomiting Low 11/26/2009 Medications triamcinolone acetonide (KENALOG-40) 40 mg/mL Suspension 40 mg by Intra-arTICula r route one time only. 019 Active Nebulizer Accessories Kit Use 3-4 times daily with nebulized solution. Change tubing/mask every 2 weeks. 7 Kit 4 023 Active carvediloL (COREG) 25 mg tabletIndications :Essential hypertension Take 1 Tablet (25 mg) by mouth 2 times daily with meals. 200 Tablet 3 025 Active cyclobenzaprine (FLEXERIL) 10 mg tabletIndications :Fibromyalgia Take 1 Tablet (10 mg) by mouth 3 times daily as needed for Spasm. 270 Tablet 2 025 Active meloxicam (MOBIC) 15 mg tabletIndications :Chronic pain of left knee Take 1 Tablet (15 mg) by mouth daily at bedtime. PATIENT NEEDS AN APPOINTMENT FOR FUTURE REFILLS 100 Tablet 2 025 Active simvastatin (ZOCOR) 10 mg tabletIndications :Hyperlipidemia, unspecified hyperlipidemia type Take 1 Tablet (10 mg) by mouth daily at bedtime. PATIENT NEEDS AN APPOINTMENT FOR FUTURE REFILLS 100 Tablet 2 025 Active levothyroxine 75 mcg tabletIndications :Primary hypothyroidism Take 1 Tablet (75 mcg) by mouth daily. PATIENT NEEDS AN APPOINTMENT FOR FUTURE REFILLS. 100 Tablet 2 025 Active albuterol sulfate HFA 90 mcg/actuation aerosol inhalerIndication s:Chronic obstructive pulmonary disease, unspecified COPD type (CMS/HCC) Take 2 Puffs by inhalation every 6 hours as needed for Shortness of Breath. 18 Gram 025 Active ipratropium-albut Ranulfo (DUONEB) 0.5 mg-3 mg(2.5 mg base)/3 mL Solution for NebulizationIndic ations:Chronic obstructive pulmonary disease, unspecified COPD type (CMS/HCC) Take 3 mL by inhalation every 6 hours as needed for Shortness of Breath. 120 Each 025 Active omeprazole (PriLOSEC) 20 mg Capsule, Delayed Release(E.C.)Margarita cations:Gastroeso phageal reflux disease, unspecified whether esophagitis present Take 1 Capsule (20 mg) by mouth daily. PATIENT NEEDS AN APPOINTMENT FOR FUTURE REFILLS 100 Capsule 025 Active cefdinir (OMNICEF) 300 mg capsule Take 300 mg by mouth every 12 hours. Active levoFLOXacin (LEVAQUIN) 750 mg tablet Take 750 mg by mouth daily. Take daily for 7 days Active predniSONE (DELTASONE) 50 mg tablet Take 50 mg by mouth daily with breakfast. Take 1/2 tablet by mouth daily for 5 days Active dilTIAZem (CARDIZEM CD, CARTIA XT) 240 mg Controlled Delivery 24 hour capsule Take 240 mg by mouth daily. 025 Active traZODone (DESYREL) 50 mg tabletIndications :Primary insomnia Take 1 Tablet (50 mg) by mouth daily at bedtime. 30 Tablet 025 Active sertraline (ZOLOFT) 50 mg tabletIndications :CAROL ANN (generalized anxiety disorder) Take 1 Tablet (50 mg) by mouth daily. 100 Tablet 1 025 Active sertraline (ZOLOFT) 50 mg tabletIndications :CAROL ANN (generalized anxiety disorder) Take 1 Tablet (50 mg) by mouth daily. 100 Tablet 2 025 2024 Discontinued Active Problems Problem Noted Date Diagnosed Date [...] Encounters Date Type Department Care Team Description 01/26/2025 Refill [facility] Medicine [place] [address] [facility] [address] [place] [phone] Krishna Padilla DO CAROL ANN (generalized anxiety disorder) 01/19/2025 1:00 PM CDT Office Visit [facility] Medicine [place] [address] [facility] [address] [place] [phone] Racquel Reynolds FNP Laceration of other part of head without foreign body, sequela (Primary Dx); Visit for suture removal; Primary insomnia 01/16/2025 Orders Only [facility] Medicine [place] [address] [facility] [address] [place] [phone] Racquel Reynolds FNP Primary insomnia (Primary Dx) 01/16/2025 Telephone [facility] [place] [address] [address] [place] [phone] Racquel Reynolds FNP Remote Monitoring 01/10/2025 Refill [facility] [place] [address] [facility] [address] [place] [phone] Krishna Padilla DO Fibromyalgia 01/08/2025 10:20 AM CDT Office Visit [facility] [place] [address] [address] [place] [phone] Racquel Reynolds FNP Hospital discharge follow-up (Primary Dx); New onset a-fib (CMS/HCC); Pneumonia of left lower lobe due to infectious organism; Laceration of other part of head without foreign body, sequela; ACP (advance care planning); Encounter for colorectal cancer screening; Full code status 01/08/2025 Abstract [facility] [address] [address] Dennis Vines MD 01/08/2025 Orders Only [facility] [address] [place] [address] Provider, Abstract 12/16/2024 External Device Data STL ABSTRACTION Provider, Abstract 12/16/2024 External Device Data STL ABSTRACTION Provider, Abstract from Last 3 Months Immunizations Immunization Administration Dates Next Due (PNEUMOVAX 23)(50 YRS UP) PN EUMOCOCCAL POLYSACCHARIDE (PPV23) 0.5 ML, IM 06/04/2019 (PREVNAR 13)(6 WKS UP) PNEUM OCOCCAL CONJUGATE (PCV13) 0.5 ML, IM 11/27/2018 (PREVNAR 20)(6 WKS UP) PNEUM OCOCCAL CONJUGATE VACCINE 20-VALENT (PCV20), POLYSACCHARIDE [id number] CONJUGATE, ADJUVANT 0.5 ML (PF) IM 10/29/2024 [...] Tri Split 4+ Pf Im 02/09/2017 Novel [id number], All Formulations 02/12/2009 Family History Medical History [...] on file Legal Sex Female 10:01 AM ORACLE ANALYST Gender Identity Not on file Sexual Orientation Not on file Last Filed Vital Signs Vital Sign Reading Time Taken Comments Blood Pressure 134/78 01/19/2025 1:06 PM CDT Pulse 70 01/19/2025 1:06 PM CDT Temperature 36.4 C (97.5 F) 01/19/2025 1:06 PM CDT Respiratory Rate 18 01/19/2025 1:06 PM CDT Oxygen Saturation 96% 01/19/2025 1:06 PM CDT Inhaled Oxygen Concentration - - Weight 66 kg (145 lb 9.6 oz) 01/19/2025 1:06 PM CDT Height 157.5 cm (5' 2 ) 01/19/2025 1:06 PM CDT Body Mass Index 26.63 01/19/2025 1:06 PM CDT Plan of Treatment Upcoming Encounters Date Type Department Care Team (Late st Contact Info) Description 05/01/2025 9:20 AM ORACLE ANALYST Office Visit [address] [phone] Racquel Reynolds [address] [address] 07/09/2025 10:40 AM CDT Office Visit [address] [address] Dennis Vines MD [address] [place] [phone] Health Maintenance Due Date Last Done Comments DTAP/TDAP/TD VACCINES (1 - Tdap) 1977 Flex Sig/CT Colonography Q 5 years 06/26/2003 RSV VACCINE (60+ or ) (1 - Risk 50-74 years 1-dose series) 2008 ZOSTER VACCINE (1 of 2) 2008 COLORECTAL SCREENING 03/15/2016 03/15/2011 BREAST CANCER SCREENING 03/31/2021 03/31/20 20, 03/31/2020, [...] Procedure Name Priority Date/Time Associated Diagnosis Comments [place] REMOVAL OF SUTURES Routine 01/19/2025 1:00 PM CDT Laceration of other part of head without foreign body, sequela Visit for suture removal COMPREHENSIVE METABOLIC PANEL Routine 01/06/2025 3:56 PM CDT PROTIME-INR Routine 01/05/2025 ECHO COMPLETE Routine 01/04/2025 3:57 PM CDT COMPREHENSIVE METABOLIC PANEL Routine 01/03/2025 3:54 PM CDT OCCULT BLOOD IMMUNOASSAY, COLORECTAL SCREEN Routine 07/23/2023 12:00 AM CDT Encounter for colorectal cancer screening HEMOGLOBIN A1C Routine 10/06/2021 9:24 AM CDT Prediabetes COLON CANCER SCREEN, STOOL DNA Routine 09/22/2020 5:08 PM CDT MAMMO 3D TONY SCREEN BILATERAL MOBILE Routine 03/31/2020 9:04 AM ORACLE ANALYST Encounter for screening mammogram for malignant neoplasm of breast from Last 3 Months or Most Recently Relevant to Health Maintenance Results * W[place] REMOVAL OF SUTURES (01/19/2025 1:00 PM CDT) [facility] MEDICINE- [place] - 01/19/2025 1:00 PM CDT Racquel Reynolds FNP 01/20/2025 1:06 PM Suture Removal Date/Time: 01/19/2025 1:00 PM Performed by: Racquel Reynolds FNP Authorized by: Racquel Reynolds FNP Body area: head/neck Location details: forehead Wound Appearance: clean Sutures Removed: 4 Post-removal: antibiotic ointment applied Patient tolerance: patient tolerated the procedure well with no immediate complications Comments: Suture removal. Objective: Appears well. Injury exam: Wound is healing well, without evidence of infection. Assessment: Wound healing well, ready for suture removal. Plan: Sutures removed. Use triple antibiotic ointment. Discussed scaring. Discussed activity. Discussed safety. Return PRN. us Racquel CONTRERAS PROCEDURE/MINOR SURGI CLARISSA ORDERABLES Final Result [facility] CLIA# [id number] [address] [place] [address] * COMPREHENSIVE METABOLIC PANEL (01/06/2025 3:56 PM CDT) Only the most recent of2 resultswithin the time period is included. Blood us Abstract Provider CHEMISTRY ORDERABLES Final Res ult * PROTIME-INR (01/05/2025) ABSTRACTED PROTIME 15.3 ABSTRACTED INR 1.13 Blood 01/05/2025 us Abstract Provider HEMATOLOGY ORDERABLES Final Re sult * ECHO COMPLETE - CONTRAST AND STRAIN IF INDICATED (01/04/2025 3:57 PM CDT) us Abstract Provider US ORDERABLES Final Result * OCCULT BLOOD IMMUNOASSAY, COLORECTAL SCREEN (07/23/2023 12:00 AM CDT) FECAL GLOBIN SEE NOTE [facility] [place] Comment: FECAL GLOBIN BY IMMUNOCHEMISTRY Micro Number: [id number] Test Status: Final Specimen Source: Stool Specimen Quality: Adequate Fecal Globin: Not Detected Test Performed at: [facility] [place] [address] Hallie Peres MD Stool STOOL SPECIMEN / Unknown 07/23/2023 07/26/2023 11:19 AM CDT Jazzy DILLARDP BODY FLUIDS AND STOOLS Fin al Result [facility] [phone] [place] [address] * HEMOGLOBIN A1C (10/06/2021 9:24 AM CDT) Pathologist [facility] HEMOGLOBIN A1C 5.6 <5.7 % of total Hgb [facility] Comment: For the purpose of screening for the presence of diabetes: <5.7% Consistent with the absence of diabetes 5.7-6.4% Consistent with increased risk for diabetes (prediabetes) > or =6.5% Consistent with diabetes This assay result is consistent with a decreased risk of diabetes. Currently, no consensus exists regarding use of hemoglobin A1c for diagnosis of diabetes in children. According to [place] Diabetes Association (ADA) guidelines, hemoglobin A1c <7.0% represents optimal control in non- diabetic patients. Different metrics may apply to specific patient populations. Standards of Medical Care in Diabetes(ADA). ESTIMATED AVERAGE GLUCOSE (MG/DL) 114 mg/dL [facility] ESTIMATED AVERAGE GLUCOSE (MMOL/L) 6.3 mmol/L [facility] Comment: Test Performed at: [facility] [address] [facility] [place] [address] Landry Pelayo D.O., MPH Blood 10/06/2021 9:24 AM CDT 10/07/2021 1:21 AM CDT Jazzy Murphy Lundell FURNACE HAND CHEMISTRY ORDERABLES Final Result [facility] [phone] [facility] [address] [place] [address] * COLON CANCER SCREEN, STOOL DNA (09/22/2020 5:08 PM CDT) COLOGUARD RESULT Negative Negative 09/29/19 9:35 AM CDT [facility] Comment: NEGATIVE TEST RESULT. A negative Cologuard [...] Chang et al, N Engl J Med 2014;370(14):8947-8790) The normal value (reference range) for this assay is negative. COLOGUARD RE-SCREENING RECOMMENDATION: Periodic colorectal cancer screening is an important part of preventive healthcare for asymptomatic individuals at average risk for colorectal cancer. Following a negative Cologuard result, the [place] Cancer Society and U.S. Multi-Society Task Force screening guidelines recommend a Cologuard re-screening interval of 3 years. References: [place] Cancer Society Guideline for Colorectal Cancer Screening: https://www.cancer.org/cancer/quppk-zrnesw-pmvglj/hkwqyztcz-cnemzowhn-pzjaxvl/ac s-rec ommendations.html.; Billy DK, Edwin CR, Alfa CotaK, Colorectal Cancer Screening: Recommendations for Physicians and Patients from the U.S. Multi-Society Task Force on Colorectal Cancer Screening , Am J Gastroenterology 2017; 112:8173-4454. TEST DESCRIPTION: Composite algorithmic analysis of stool [...] screened with both Cologuard and colonoscopy. (Christine Dennis al, N Engl J Med 2014;370(14):8738-2377.) Cologuard may produce a false negative or false positive result (no colorectal cancer or precancerous polyp present at colonoscopy follow up). A negative Cologuard test result does not guarantee the absence of CRC or advanced adenoma (pre-cancer). The current Cologuard screening interval is every 3 years. ([place] Cancer Society and U.S. Multi-Society Task Force). Cologuard performance data in a 10,000 patient pivotal study using colonoscopy as the reference method can be accessed at the following location: [email or web address].NearVerse/results. Additional description of the Cologuard test process, warnings and precautions can be found at [email or web address]. Stool STOOL SPECIMEN / Unknown 09/22/2020 5:08 PM CDT 09/24/2020 7:08 PM CDT us Jazzy Zimmerman FURNACE HAND BODY FLUIDS AND STOOLS Fin al Result [facility] CLIA # [id number] [address] , [address] [place] [address] * MAMMO 3D SCREEN BILATERAL MOBILE (03/31/2020 9:04 AM ORACLE ANALYST) Anatomical Region Laterality Modality Breast Bilateral Other Narrative 04/01/2020 3:47 PM ORACLE ANALYST BILATERAL SCREENING MAMMOGRAM 03/31/2020 PATIENT COMPLAINT: No [...] Center to schedule the recommended follow-up appointment. [id number] Procedure Note Nikia Escamilla MD - 09/01/2020 [...] Center to schedule the recommended follow-up appointment. [id number] Jazzy Murphy Elsie FURNACE HAND MAMMO ORDERABLES Final Res ult from Last 3 Months or Most Recently Relevant to Health Maintenance Insurance BCBS MEDICARE HMO Advance Directives For more information, please contact: [phone] * Full Code (Latest Code Status on File) Date Activated Date Inactivated Comments 01/08/2025 10:52 AM Care Teams Home Planning Consultant Salesperson Relationship Specialty Start Date End Date Dennis Vines MD [address] [phone] PCP - General Family Practice 10/23/24
--- OUTSIDE RECORDS SUMMARY | 2025-02-07 21:03 | XMS_ITS | Encounter Summary ---
Author Organization [facility] Address [address] [place] [address] Care Team Providers Care Hydraulic Lift Operator Name Role Phone Chema Padilla MD Primary Care Provider [phone] Encounter Details Date Type Department Care Team (Latest Contact Info) Description 04/06/2020 Ancillary Orders [facility] [address] [facility] [address] [place] [address] Jazzy Zimmerman FNP NO ADDRESS [...] often do you attend chur ch or jain services? 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 No / Unsure 03/31/2020 8:58 AM BOAT FINISHER documented as of this encounter Plan of Treatment Not on file documented as of this encounter Visit Diagnoses Diagnosis Inconclusive mammography Inconclusive mammogram documented in this encounter Care Teams Hydraulic Lift Operator Relationship Specialty Start Date End Date Chema Padilla MD [address] [place] [phone] PCP - General Family Practice 03/24/19 documented as of this encounter
--- OUTSIDE RECORDS SUMMARY | 2025-02-07 21:03 | XMS_ITS | Encounter Summary ---
Author Organization [facility] Address [address] [place] [address] Care Team Providers Care Care Program Director Name Role Phone Chema Padilla MD Primary Care Provider [phone] Encounter Details Date Type Department Care Team (Latest Contact Info) Description 09/11/2005 Outpatient Historical [facility] Orthopedics- 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
--- OUTSIDE RECORDS SUMMARY | 2025-02-07 21:04 | XMS_ITS | Encounter Summary ---
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
--- OUTSIDE RECORDS SUMMARY | 2025-02-07 21:04 | XMS_ITS | Encounter Summary ---
Author Organization [facility] Address [address] [place] [address] Care Team Providers Care Tank Truck Mechanic Name Role Phone Chema Padilla MD Primary Care Provider [phone] Encounter Details Date Type Department Care Team (Late st Contact Info) Description 06/14/2010 Ancillary Orders [facility] [address] [facility] [address] [place] [phone] Kayla Sung DO NO ADDRESS ON FILE Other screening mammogram Social History Tobacco Use Types Packs/Day Years Used Date Smoking Tobacco: Former Cigarettes 22 Comments:quit 1998 Alcohol Use Standard Drinks/Week Comments No 0 (1 standard drink = 0.6 oz pur e alcohol) Comments No Sex and Gender Information Value Date Recorded Sex Assigned at Not on file Legal Sex Female 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
--- NOTE | 2025-02-07 21:25 | XRR_ITS ---
PROCEDURE INFORMATION: Exam: XR Chest Exam date and time: 02/07/2025 9:50 PM Age: 64 years old Clinical indication: Shortness of breath; Additional info: SOB TECHNIQUE: Imaging protocol: Radiologic exam of the chest. Views: 1 view. COMPARISON: CR (CHEST, ) 01/04/2025 6:25 AM FINDINGS: Lungs: There is some partial atelectasis or consolidation of the right lung base. There is no pulmonary venous congestion. Visualized portions of the left lung are clear. Pleural spaces: There is moderate right pleural effusion. Pleural effusion is larger than on 01/04/2025. Heart/Mediastinum: Heart is upper limits of normal in size. Bones/joints: Unremarkable. XR/XR chest 1V portable [id number] IMPRESSION: Increasing right pleural effusion.
--- NOTE | 2025-02-07 21:25 | ECG_ITS ---
[facility] Test Date: 2025-02-07 Pat Name: Marie Vann Department: Room: 104 Gender: Female Hospice Care Consultant: : 1960 Requested By: Jaret Rubio Order Number: [id number] Grazyna MD: Mary Cam M.D. Measurements Intervals [place] Rate: 126 P: 0 UT: 0 QRS: 90 QRSD: 81 T: 0 QT: 301 QTc: 437 Interpretive Statements ATRIAL FIBRILLATION WITH RAPID VENTRICULAR RESPONSE NONSPECIFIC ST & T-WAVE ABNORMALITY ABNORMAL RHYTHM ECG Compared to ECG 01/03/2025 17:57:06 Possible ischemia no longer present T-wave abnormality still present Electronically Signed On 02-08-2025 20:15:45 PROOF TECHNICIAN by Mary Cam M.D. [email or web address]
[2025-02-07 21:40] LABS: Hematocrit 38.4 % (36-47); Hemoglobin 11.40 g/dL (11.27-16.99); Mean Corpuscular HGB Conc 29.7 g/dL (30-55); Mean Corpuscular Hemoglobin 21.4 pg (27-33); Mean Corpuscular Volume 72.2 fl (85-98); Nucleated Red Blood Cells % 0 %; Platelet Count 217 10^3/cmm (157-399); Red Blood Count 5.32 10^6/uL (3.85-5.65); White Blood Count 9.68 10^3/uL (3.29-11.43)
[2025-02-07 22:00] VITALS: PULSE 126; RESP 16; O2SAT 96
[2025-02-07 22:04] LABS: Troponin(5th) Baseline 16 ng/L (0-10)
[2025-02-07 22:09] LABS: INR 1.14 (0.8-1.2); Prothrombin Time 15.40 SECONDS (12.1-14.9)
[2025-02-07 22:10] LABS: Partial Thromboplastin Time 29.6 SECONDS (23.9-36.7)
[2025-02-07 22:14] LABS: Alanine Aminotransferase 22 U/L (0-33); Albumin Level 3.8 g/dL (3.5-5.2); Alkaline Phosphatase 106 U/L (35-105); Anion Gap 12.6 (5-19); Aspartate Amino Transferase 19 U/L (0-32); Blood Urea Nitrogen 20 mg/dL (8-23); Calcium 8.9 mg/dL (8.5-10.5); Carbon Dioxide 28 mmol/L (22-29); Chloride 99 mmol/L (98-107); Creatinine Clr Calc Pharmacy 62.0714; Globulin 2.5 g/dL (1.3-4.6); Glucose 127 mg/dL (65-115); NT Pro B Type Natriuretic Pept 7316 pg/mL (0-125); Osmolality Calculated 284 mOsm/kg (285-295); Potassium 4.6 mmol/L (3.5-5.1); Sodium 135 mmol/L (136-145); Thyroid Stimulating Hormone 3.03 uIU/mL (0.27-4.20); Total Protein 6.3 g/dL (6.6-8.7)
[2025-02-07] MEDS: digoxin 250 mcg/ml INJ 2 mL 125 MCG IVP (22:16)
[2025-02-07] MEDS: FUROsemide 10 mg/mL SDV 10mL 60 MG IVP (22:16)
[2025-02-07] MEDS: DILTIAZEM HCL/D5W 125 MG/125 ML BAG IV (22:24)
[2025-02-07 22:25] VITALS: BP 151/122; PULSE 122; RESP 16; O2SAT 94
[2025-02-07 22:46] VITALS: BP 168/124; PULSE 120; RESP 18; O2SAT 90
[2025-02-07 23:01] LABS: Glucose Urine UA Negative (Normal); Nitrate Urine Negative (Negative); Specific Gravity, Urine 1.016 (1.005-1.030)
[2025-02-07 23:06] LABS: Add Urine Microscopic? YES; Universal Test for UA Present (0)
[2025-02-07 23:45] VITALS: BP 180/135; PULSE 108; RESP 16; O2SAT 91
[2025-02-08] VITALS (16 sets, daily range): BP systolic 120–175; BP diastolic 57–131; PULSE 77–124; RESP 16–28; TEMP 36.4–36.6; O2SAT 85–95; BMI 30.4; BMI 29.5
[2025-02-08 00:09] LABS: Troponin 5 2HR 14.56 ng/L (0-10); Troponin 5 2HR Delta -1.44 ABS# (0-10)
--- NOTE | 2025-02-08 00:22 | CTR_ITS ---
PROCEDURE INFORMATION: Exam: CTA Chest With Contrast Exam date and time: 02/08/2025 12:50 AM Age: 64 years old Clinical indication: Shortness of breath and other: Tachycardia; SOB with hypoxia and tachycardia; Additional info: SOB tachycardia TECHNIQUE: Imaging protocol: Computed tomographic angiography of the chest with contrast. Exam focused on the arteries. 3D rendering (Not supervised by radiologist): MIP and/or 3D reconstructed images were created by the technologist. Radiation optimization: All CT scans at this facility use at least one of these dose optimization techniques: automated exposure control; mA and/or kV adjustment per patient size (includes targeted exams where dose is matched to clinical indication); or iterative reconstruction. Contrast material: OMNI 350; Contrast volume: 74 ml; Contrast route: INTRAVENOUS (IV); COMPARISON: CT angio chest PE protcl [id number] 01/03/2025 8:09 AM RADIATION DOSE METRICS: Total DLP (mGy-cm): 869.18 FINDINGS: Pulmonary arteries: There is no evidence of filling defects within the pulmonary arterial circulation to suggest pulmonary embolism. Aorta: There is no thoracic aortic aneurysm or dissection. Trachea: Ground-glass opacity in both lungs could represent infectious or inflammatory disease or could be due to mosaic perfusion pattern such as from gas trapping due to small airways disease. Lungs are better aerated than on the prior examination. Lungs: There is compressive atelectasis of portions of the right lower lobe and middle lobe. There are bronchograms in those regions and consolidation or pneumonia in the atelectatic regions not entirely excluded. Peripheral nodules in the lingula not significantly changed. There is also a similar 5 mm nodule left upper lobe image number 18. Follow-up CT scan of the chest in 3-6 months is suggested according to Fleischner society guidelines. Pleural spaces: There is moderate right and small left pleural effusion. Pleural effusions are larger than on 01/03/2025. Heart: Heart is mildly enlarged. Lymph nodes: There is some mildly prominent prevascular lymph nodes measuring up to 7 x 20 mm, also prominent AP window lymph nodes measuring up to 11 x 15 mm a mildly prominent subcarinal lymph nodes. These are not changed from the previous examination. There is also mild bilateral hilar adenopathy measuring up to 14 mm on the right. Bones/joints: Unremarkable. No acute fracture. Soft tissues: Unremarkable. CT/CT angio chest PE protcl [id number] IMPRESSION: 1. Increasing right pleural effusion 2. Pulmonary ground-glass opacities which could represent infectious disease or mosaic perfusion pattern not significantly changed. 3. Lingular nodules not significantly changed. Suggest follow-up CT scan in 3-6 months per Fleischner society guidelines. 4. No evidence of pulmonary embolism. 5. Mild hilar and mediastinal adenopathy not significantly changed.
[2025-02-08] MEDS: metoprolol tartrate 1 mg/1 mL SDV 5 mL 5 MG IVP (00:29)
[2025-02-08] MEDS: iohexol 350 mg/mL 500 mL Btl (per mL) IV (00:52)
--- NOTE | 2025-02-08 01:20 | PM.HP ---
Providers/Chief Complaint Admitting Physician: Shyann Rodriguez MD Chief Complaint: SWOLLEN LEGS History of Present Illness As per the previous notes and the patient: Marie Vann is a 64 year old female 64 year old female with PMH COPD and not on home oxygen, at fibrillation, who presented to the ER due to sob associated with increase in LLE and mild in her resp rate in the last 3 to 4 days. there was no fever or chills and no significant orthopnea or PND. no chest pain or pressure, no dizziness, presyncope or syncope. no diarrhea or abd pain. Patient does not recall any sick contact or recent travels. she was found to have at fib with RVR and in the ER she recieved dignoxin, and metoprolol IV. She was having features of fluid overload based on clinical assessment and diagnostics and given lasix 60mg iv stat. there was no anticoagulation in her home medications therefore CTA was done considering her worsening SOB to rule out PE. Previous chart review mention that since the patient was diagnosed with atrial fibrillation after having a fall in December and having contusion on the head, she was supposedly to start on anticoagulation after 2 to 3 weeks postdischarge however she does not remember or recall and there was no postdischarge follow-up for this particular plan of care. Review of Systems General: Reports: 10 or more systems reviewed and unremarkable except in HPI and below Medications/Allergies Home Medications ?Medication ?Instructions ?Recorded ?Confirmed ?Last Taken ?Type albuterol sulfate 90 mcg/actuation 1 puff inhalation Q6H PRN 01/03/25 01/03/25 Unknown History aerosol inhaler Shortness Of Breath carvedilol 25 mg tablet 25 mg PO BID 01/03/25 01/03/25 01/02/25 History cyclobenzaprine 10 mg tablet 10 mg PO TID PRN muscle spasms 01/03/25 01/03/25 Unknown History ipratropium 0.5 mg-albuterol 3 mg 3 ml inhalation QID PRN Shortness 01/03/25 01/03/25 Unknown History (2.5 mg base)/3 mL nebulization Of Breath soln levothyroxine 75 mcg tablet 75 mcg PO QAM 01/03/25 01/03/25 01/02/25 History (Synthroid) meloxicam 15 mg tablet 15 mg PO DAILY 10/07/2501/03/25 01/02/25 History omeprazole 20 mg capsule,delayed 20 mg PO DAILY 01/03/25 01/03/25 01/02/25 History release sertraline 50 mg tablet 50 mg PO DAILY 01/03/25 01/03/25 01/02/25 History simvastatin 10 mg tablet 10 mg PO QPM 01/03/25 01/03/25 01/02/25 History zolpidem 10 mg tablet 10 mg PO BEDTIME 01/03/25 01/03/25 01/02/25 History diltiazem HCl 240 mg 240 mg PO Q24H #30 caps 01/06/25 Unknown Rx capsule,extended release 24 hr (Cardizem CD) levofloxacin 750 mg tablet 750 mg PO DAILY #7 tabs 01/06/25 Unknown Rx Allergies Allergy/AdvReac Type Severity Reaction Status Date / Time morphine Allergy Intermediate ADR-Agitate Verified 01/03/25 13:28 d Vitals/I&O/Wt Last Vital Signs Temp 98.8 F 02/07/25 21:02 Pulse 100 02/08/25 00:30 Resp 18 02/08/25 00:30 BP 148/116 02/08/25 00:30 Pulse Ox 90 02/08/25 00:30 02/07/25 02/07/25 02/08/25 14:59 22:59 06:59 Intake Total 1.25 / 1.25 8.875 / 10.125 Balance 1.25 / 1.25 8.875 / 10.125 Weight last 48 hrs Weight 63.503 kg Physical Exam Narrative: General: Alert and oriented, able to speak in full sentences with 2 to 3 L nasal cannula HEENT: Normocephalic, atraumatic, grossly unremarkable exam Cardio: Irregularly irregular rhythm, normal S1-S2 without any murmurs, JVD cannot be appreciated due to patient's short neck and respiratory rate Respiratory: Equal air entry on both sides with reduced air entry at bases relative more on the right side with inspiratory crackles heard up to mid zone. GI: Abdomen soft, nontender, nondistended, normoactive bowel sounds present all 4 quadrants, Neuro: intact cranial nerves motor and sensory and cerebellar/coordination function without any focal neurological deficit Behavior: Appropriate and cooperative Extremities: Adequate palpable pulses, significant bilateral edema up to knees and above Skin: Having skin rash possible fungal in nature below her breasts, near umbilicus and groin area, no papules or pustules or any discharge Data 02/07/25 21:34 02/07/25 21:34 A&P Assessment and plan 1. Acute respiratory failure with hypoxia: - Likely secondary to fluid overload with high proBNP recent echo showed biatrial enlargement with EF of 50% and mild diffuse hypokinesia - Possible element of congestive heart failure? - Diuresis with furosemide 40 mg IV twice daily and later to increase the dose according to the tolerability. - Monitoring of intake and output and daily weight analysis - Telemetry monitoring - Resume home medication after reconciliation, patient on carvedilol 25 twice daily and Cardizem to 40 mg daily - Patient was admitted in the first week of December and was not started on anticoagulation for atrial fibrillation considering she had a fall and scalp hematoma and awaited resolution as outpatient to start anticoagulation. - CTA to rule out any PE - If no contraindication to start anticoagulation as planned in Dec, start 5mg bid eliquis, no recent falls and no h/o any surgeries and any bleeding diathesis reported - Serial EKGs 2. Atrial fibrillation with RVR: - Patient having acute hypoxemic respiratory failure and increased proBNP - Repeat echo, although echo was done 1 month ago and showed reduced ejection close and to look for if there is any further reduction or any significant/concerning changes on echo - To resume home medication with carvedilol 25 mg twice daily and diltiazem to 40 mg twice daily after reconciliation. - TSH normal - Telemetry monitoring. 3. Pulmonary edema: Lasix 40 mg IV twice daily Repeat echo Intake and output monitoring Daily weight base analysis Consider BiPAP if worsening shortness of breath with repeat chest x-ray and ABGs to guide. 4. COPD (chronic obstructive pulmonary disease): Not in exacerbation, continue DuoNebs and monitor oxygen patient PDMP PDMP Reviewed: Not Reviewed Attestations Medical Necessity Statement*: Patient will stay more than 2 midnights for the management of her acute hypoxemic respiratory failure, atrial fibrillation with RVR requiring inpatient admission. Time Spent in Patient Care: 16 - 35 minutes (>than 50% of time spent in counselling and/or direct pt care on unit). Other Attestations: Patient condition has been discussed at length with the patient/family, I have independently reviewed the chart labs imaging/diagnostics/EKG. the goals of care and code status with the patient/family/NOK/legal patient relations representative, and documented accordingly. The management has been done according to the current clinical condition with respect to patient goals of care and based on recommendations/guidelines. The patient/family has been informed about the current condition and further plan of care. Agreed with the plan of care and understood without any language barrier. Every effort was made to ensure accuracy of welding teacher. Any obvious errors or omissions should be clarified with the author of the document. Coding Level of Care Code 86708 Diagnoses Acute respiratory failure with hypoxia J96.01 Atrial fibrillation with RVR I48.91 Pulmonary edema J81.1 COPD (chronic obstructive pulmonary disease) J44.9
--- NOTE | 2025-02-08 01:30 | ECG_ITS ---
[facility] Test Date: 2025-02-08 Pat Name: Marie Vann Department: Room: 104 Gender: Female Alumni Secretary: : 1960 Requested By: Shyann Rodriguez Order Number: [id number] Grazyna MD: Mary Cam M.D. Measurements Intervals [place] Rate: 85 P: 0 [place]: 0 QRS: 73 QRSD: 83 T: 143 QT: 342 QTc: 408 Interpretive Statements ATRIAL FIBRILLATION NONSPECIFIC ST & T-WAVE ABNORMALITY Compared to ECG 01/03/2025 17:57:06 Possible ischemia no longer present T-wave abnormality still present Electronically Signed On 02-08-2025 20:19:41 BULL FIDDLE PLAYER by Mary Cam M.D. [email or web address]
--- NOTE | 2025-02-08 01:35 | W.ED.SOB ---
HPI - SOB/Dyspnea General: Chief Complaint: Extremity Problem,Nontraumatic Stated Complaint: SWOLLEN LEGS Time Seen by Provider: 02/07/25 20:55 History of Present Illness: HPI Narrative: Patient is a 64-year-old female who presents with a 3-day history of progressive lower extremity edema, described as blowing up like a balloon. She reports associated shortness of breath that occurs occasionally, including episodes that wake her from sleep. The edema began mildly 3 days ago and has progressively worsened each day. Patient denies chest pain. She uses a nebulizer at home for respiratory symptoms but is not on home oxygen. The patient was diagnosed with pneumonia approximately one month ago (around December 31, 2024). Related Data Home Medications ?Medication ?Instructions ?Recorded ?Confirmed albuterol sulfate 90 mcg/actuation 1 puff inhalation Q6H PRN 01/03/25 01/03/25 aerosol inhaler Shortness Of Breath carvedilol 25 mg tablet 25 mg PO BID 01/03/25 01/03/25 cyclobenzaprine 10 mg tablet 10 mg PO TID PRN muscle spasms 01/03/25 01/03/25 ipratropium 0.5 mg-albuterol 3 mg 3 ml inhalation QID PRN Shortness 01/03/25 01/03/25 (2.5 mg base)/3 mL nebulization Of Breath soln levothyroxine 75 mcg tablet 75 mcg PO QAM 01/03/25 01/03/25 (Synthroid) meloxicam 15 mg tablet 15 mg PO DAILY 01/03/25 01/03/25 omeprazole 20 mg capsule,delayed 20 mg PO DAILY 01/03/25 01/03/25 release sertraline 50 mg tablet 50 mg PO DAILY 01/03/25 01/03/25 simvastatin 10 mg tablet 10 mg PO QPM 01/03/25 01/03/25 zolpidem 10 mg tablet 10 mg PO BEDTIME 01/03/25 01/03/25 Previous Rx's ?Medication ?Instructions ?Recorded diltiazem HCl 240 mg 240 mg PO Q24H #30 caps 01/06/25 capsule,extended release 24 hr (Cardizem CD) levofloxacin 750 mg tablet 750 mg PO DAILY #7 tabs 01/06/25 Allergies Allergy/AdvReac Type Severity Reaction Status Date / Time morphine Allergy Intermediate ADR-Agitate Verified 01/03/25 13:28 d Physical Exam Const: COMMON NORMALS: no acute distress GENERAL APPEARANCE: cooperative, ill appearing (Mildly) and frail appearing HENMT: COMMON NORMALS: normocephalic, atraumatic and Normal external nose present HEAD & SCALP: normocephalic and atraumatic FACE & SINUS: normal facial exam and face symmetric NOSE: Normal external nose present Eye: COMMON NORMALS: Equal, round and reactive pupils present and EOMs intact bilaterally PUPIL: Yes Equal, round and reactive pupils present Neck/C-Spine: GENERAL: Yes trachea midline Chest: CHEST: Yes Symmetrical chest wall rise Resp: COMMON NORMALS: normal respiratory effort, No retractions, No use of accessory muscles and clear to auscultation bilaterally AUSCULTATION: clear to auscultation bilaterally Cardio: RATE: tachycardic RHYTHM: abnormal rhythm irregularly irregular GI: COMMON NORMALS: Normal to inspection, nondistended, normoactive bowel sounds present Extremity: COMMON NORMALS: no pedal edema Neuro: JERAMIE COMA SCALE: document GCS findings [place] coma scale eye opening: Spontaneous [place] coma scale verbal response: Orientated [place] coma scale motor response: Obey commands [place] coma scale total score: 15 SENSORY EXAM: Yes extremities (intact) Psych: COMMON NORMALS: speech normal SPEECH: Yes normal speech Skin: COMMON NORMALS: no rashes or lesions noted GENERAL SKIN EXAM: no rashes or lesions noted Course Vital Signs: Vital signs: Vital Signs Temperature 98.8 F 02/07/25 21:02 Pulse Rate 104 H 02/08/25 04:00 Respiratory Rate 20 H 02/08/25 04:00 Blood Pressure 157/131 02/08/25 04:00 Pulse Oximetry 93 02/08/25 04:00 Oxygen Delivery Me thod Nasal Cannula 02/08/25 02:52 MDM - SOB/Dyspnea Medical Decision Making Patient presents in rapid atrial fibrillation with a rate in the 140s. She is visibly short of breath. She is on oxygen currently to maintain saturations. She does not use oxygen at home. Chest x-ray shows a moderate right-sided pleural effusion. CBC is normal. BMP is not remarkable. Troponin did not change significantly at 2 hours. BNP is 7300. She is given Lasix, nitroglycerin paste, and placed on diltiazem drip. She is given digoxin as well. She is quite hypertensive, and is given IV metoprolol for this with improvement in her blood pressures. She will be admitted for A-fib with RVR, pleural effusion hypoxic respiratory failure. Hospitalist agrees, and will admit and see the patient. Lab Data 02/07/25 21:34 02/07/25 21:34 Labs/Radiology: Radiology Impressions Chest X-Ray 02/07/25 21:25 IMPRESSION: Increasing right pleural effusion. Chest CTA 02/08/25 00:22 IMPRESSION: 1. Increasing right pleural effusion 2. Pulmonary ground-glass opacities which could represent infectious disease or mosaic perfusion pattern not significantly changed. 3. Lingular nodules not significantly changed. Suggest follow-up CT scan in 3-6 months per Fleischner society guidelines. 4. No evidence of pulmonary embolism. 5. Mild hilar and mediastinal adenopathy not significantly changed. Laboratory Results WBC 9.68 10^3/uL (3.29-11.43) 02/07/25 21:34 RBC 5.32 10^6/uL (3.85-5.65) 02/07/25 21:34 Hgb 11.40 g/dL (11.27-16.99) 02/07/25 21:34 Hct 38.4 % (36-47) 02/07/25 21:34 MCV 72.2 fl (85-98) L 02/07/25 21:34 MCH 21.4 pg (27-33) L 02/07/25 21:34 MCHC 29.7 g/dL (30-55) L 02/07/25 21:34 RDW 21.6 % (12.1-15.1) H 02/07/25 21:34 Plt Count 217 10^3/cmm (157-399) 02/07/25 21:34 MPV 10.5 fL (7.4-10.4) H 02/07/25 21:34 Neut % (Auto) 76.2 % 02/07/25 21:34 Lymph % (Auto) 11.1 % 02/07/25 21:34 [place] % (Auto) 10.2 % 02/07/25 21:34 Eos % (Auto) 1.3 % 02/07/25 21:34 Baso % (Auto) 0.3 % 02/07/25 21:34 Neut # (Auto) 7.37 10^3/uL (1.8-7.7) 02/07/25 21:34 Lymph # (Auto) 1.1 10^3/uL (0.8-4.8) 02/07/25 21:34 [place] # (Auto) 1.0 10^3/uL (0.2-0.9) H 02/07/25 21:34 Eos # (Auto) 0.1 10^3/uL (0.0-0.8) 02/07/25 21:34 Baso # (Auto) 0.0 10^3/uL (0.0-0.1) 02/07/25 21:34 Nucleated RBC % (auto) 0 % 02/07/25: Nucleated RBCs # 0.0 /100WBC 02/07/25 21:34 PT 15.40 SECONDS (12.1-14.9) H 02/07/25 21:34 INR 1.14 (0.8-1.2) 02/07/25 21:34 APTT 29.6 SECONDS (23.9-36.7) 02/07/25 21:34 Sodium 135 mmol/L (136-145) L 02/07/25 21:34 Potassium 4.6 mmol/L (3.5-5.1) 02/07/25 21:34 Chloride 99 mmol/L (98-107) 02/07/25 21:34 Carbon Dioxide 28 mmol/L (22-29) 02/07/25 21:34 Anion Gap 12.6 (5-19) 02/07/25 21:34 BUN 20 mg/dL (8-23) 02/07/25 21:34 Creatinine 0.8 mg/dL (0.5-0.9) 02/07/25 21:34 GFR Calculation 71.8 mL/min (90-130) L 02/07/25 21:34 Glucose 127 mg/dL (65-115) H 02/07/25 21:34 Calculated Osmolality 284 mOsm/kg (285-295) L 02/07/25 21:34 Calcium 8.9 mg/dL (8.5-10.5) 02/07/25 21:34 Phosphorus 3.7 mg/dL (2.5-4.5) 02/07/25 23:37 Magnesium 1.7 mg/dL (1.7-2.3) 02/07/25 23:37 Total Bilirubin 1.0 mg/dL (0.15-1.2) 02/07/25 21:34 AST 19 U/L (0-32) 02/07/25 21:34 ALT 22 U/L (0-33) 02/07/25 21:34 Alkaline Phosphatase 106 U/L (35-105) H 02/07/25 21:34 Troponin T Baseline 16 ng/L (0-10) H 02/07/25 21:34 Troponin T 120 Minute 14.56 ng/L (0-10) H 02/07/25 23:37 Delta Troponin T -1.44 ABS# (0-10) L 02/07/25 23:37 NT-Pro-B Natriuret Pep 7316 pg/mL (0-125) H 02/07/25 21:34 Total Protein 6.3 g/dL (6.6-8.7) L 02/07/25 21:34 Albumin 3.8 g/dL (3.5-5.2) 02/07/25 21:34 Globulin 2.5 g/dL (1.3-4.6) 02/07/25 21:34 TSH 2.49 uIU/mL (0.27-4.20) 02/07/25 23:37 Urine Color Yellow (Yellow) 02/07/25 22:46 Urine Appearance Clear (CLEAR) 02/07/25 22:46 Urine pH 5.5 (5-7) 02/07/25 22:46 Ur Specific [place] 1.016 (1.005-1.030) 02/07/25 22:46 Urine Protein 1+ (Negative) A 02/07/25 22:46 Urine Glucose (UA) Negative (Normal) 02/07/25 22:46 Urine Ketones Negative (Negative) 02/07/25 22:46 Urine Blood Negative (Negative) 02/07/25 22:46 Urine Nitrate Negative (Negative) 02/07/25 22:46 Urine Bilirubin Negative (Negative) 02/07/25 22:46 Urine Urobilinogen 1.0 mg/dL (Negative) 02/07/25 22:46 Ur Leukocyte Esterase Trace (Negative) A 02/07/25 22:46 Urine RBC 0-2 /hpf (0-2) 02/07/25 22:46 Urine WBC 0-5 /hpf (0-5) 02/07/25 22:46 Ur Squamous Epith Cells 0-5 /hpf (0-5) 02/07/25 22:46 Amorphous Sediment Not Reportable 02/07/25 22:46 Urine Bacteria None seen /hpf (NONE) 02/07/25 22:46 Hyaline Casts 6.61 /lpf 02/07/25 22:46 All radiology interpretation(s) finalized by discharge Critical Care Time Critical Care Time: Critical Care Time: Yes Total Critical Care Time: 35 Attestation: This case had a high probability of a clinically significant, sudden, or life threatening deterioration of this patient's condition which required my full and direct attention, intervention and personal management. Time is independent of any procedures performed. Discharge Plan Discharge Patient Disposition: Admitted As Inpatient Admit Provider: Shyann Rodriguez Clinical Impression: Atrial fibrillation with RVR, Acute respiratory failure with hypoxia, Pulmonary edema, Pleural effusion Condition: Serious Coding Level of Care Code ED Supervisor Water Softener Service for Deven Sanders
[2025-02-08 02:31] LABS: Magnesium 1.7 mg/dL (1.7-2.3); Thyroid Stimulating Hormone 2.49 uIU/mL (0.27-4.20)
[2025-02-08] MEDS: alum-mag-hydroxide-sime 30 mL UDC 15 ML PO ×4 (03:01→21:19)
[2025-02-08] MEDS: heparin 5,000 unit/mL INJ 1 mL 5000 UNIT SUBCUT (03:01)
[2025-02-08] MEDS: FUROsemide 10 mg/mL SDV 4mL 40 MG IVP ×2 (03:02→13:04)
[2025-02-08] MEDS: pantoprazole 40 mg SDV IVP (03:02)
[2025-02-08] MEDS: dilTIAZem ER (24HR) 240 mg Capsule PO (03:03)
--- NOTE | 2025-02-08 03:49 | USCV_ITS ---
Marie Vann Age: 64 Gender: F : 1960 Exam Date: 02/08/2025 07:14 Ordering Phys: Shyann Rodriguez MD Technologist: Darian Bailey Exam Location: [facility] [place] Indication: sob, history of a fib BP: 109 / 86 HR: 77 Rhythm: Atrial fibrillation Technical Quality: Adequate MEASUREMENTS (Male / Female) Normal Values 2D ECHO LV Diastolic Diameter PLAX 3.5 cm 4.2 - 5.9 / 3.9 - 5.3 cm IVS Diastolic Thickness 1.3 cm 0.6 - 1.0 / 0.6 - 0.9 cm IVS Systolic Thickness 1.3 cm LVPW Diastolic Thickness 1.0 cm 0.6 - 1.0 / 0.6 - 0.9 cm LVPW Systolic Thickness 1.6 cm LVOT Diameter 2.0 cm LV Ejection Fraction 2D Teich 66.2 % LV Ejection Fraction MOD 4C 67.2 % LV Ejection Fraction MOD 2C 62.9 % LV Ejection Fraction 2C AL 61.6 % LA Diameter 4.1 cm RA Systolic Volume 4C AL 75.9 ml RA Systolic Volume 4C MOD 72.7 ml LA Sys Volume AL 76.1 cm cubed LA Sys Volume Index AL 42.0 cm cubed/m squared Aorta at Sinotubular Diameter 2.3 cm IVC Diameter 1.9 cm M-MODE LA Ao Ratio MM 2.1 AV Cusp Separation MM 1.4 cm DOPPLER AV Peak Velocity 127.0 cm/s LVOT Peak Velocity 85.0 cm/s AV Area Cont Eq vti 1.8 cm squared AV Area Cont Eq pk 2.1 cm squared MV Peak Velocity 105.0 cm/s MV Area PHT 6.7 cm squared Mitral E to A Ratio 3.0 TV Peak Velocity 295.0 cm/s TR Peak Gradient 30.2 mmHg TR Mean Velocity 220.0 cm/s TR Mean Gradient 20.5 mmHg TR Velocity Time Integral 76.2 cm PV Peak Velocity 87.7 cm/s RV Ejection Time 0.2 s FINDINGS Left Ventricle Normal left ventricular size and systolic function, EF 61%.. Mild left ventricular hypertrophy. Abnormal septal motion consistent with conduction abnormality. Right Ventricle Normal right ventricular size and systolic function. Right Atrium Moderately increased right atrial size. Left Atrium Moderately increased left atrial size. IA Septum Normal appearance of the interatrial septum. Mitral Valve Thickened mitral valve. Trace mitral valve regurgitation. Aortic Valve No gross abnormalities noted Tricuspid Valve Brwn-fm-ktciplvt tricuspid valve regurgitation. Estimated pulmonary artery peak systolic pressure 40 mm of Hg Pulmonic Valve Normal pulmonic valve structure. Pericardium No pericardial effusion. Aorta Normal diameter of the aortic root and ascending thoracic aorta. IVC Normal IVC dimension with <50% respiratory change of the inferior vena cava. CONCLUSIONS Normal left ventricular size and systolic function, EF 61%.. Mild left ventricular hypertrophy. Abnormal septal motion consistent with conduction abnormality. Moderate biatrial enlargement Thickened mitral valve. Trace mitral valve regurgitation. Iido-fp-egwdoqno tricuspid valve regurgitation. Estimated pulmonary artery peak systolic pressure 40 mm of Hg. There is no pericardial effusion. There are no intracardiac masses. Compared to the study from 01/04/2025, there is slight improvement LV ejection fraction Dr Mary Cam MD FACC (Electronically Signed) Final Date: 08 February 2025 10:07 S
[2025-02-08 04:42] LABS: Troponin 5 6HR 19.75 ng/L (0-10); Troponin 5 6HR Delta 3.75 ng/L (0-12)
--- NOTE | 2025-02-08 04:46 | ECG_ITS ---
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 Measurements Intervals [place] Rate: 89 P: 0 [place]: 0 QRS: 73 QRSD: 89 T: 196 QT: 357 QTc: 434 Interpretive Statements ATRIAL FIBRILLATION NONSPECIFIC ST & T-WAVE ABNORMALITY Compared to ECG 02/08/2025 02:17:13 No significant changes Electronically Signed On 02-08-2025 20:19:18 NEW VEHICLE SALES CONSULTANT by Mary Cam M.D. [email or web address] [id number]
[2025-02-08 08:58] LABS: Procalcitonin 0.11 ng/mL (0-0.5)
[2025-02-08 09:10] LABS: Alanine Aminotransferase 22 U/L (0-33); Albumin Level 3.7 g/dL (3.5-5.2); Alkaline Phosphatase 104 U/L (35-105); Anion Gap 13.1 (5-19); Aspartate Amino Transferase 22 U/L (0-32); Blood Urea Nitrogen 16 mg/dL (8-23); Calcium 8.8 mg/dL (8.5-10.5); Carbon Dioxide 34 mmol/L (22-29); Chloride 95 mmol/L (98-107); Globulin 3.0 g/dL (1.3-4.6); Glucose 122 mg/dL (65-115); Osmolality Calculated 290 mOsm/kg (285-295); Potassium 3.1 mmol/L (3.5-5.1); Sodium 139 mmol/L (136-145); Total Protein 6.7 g/dL (6.6-8.7)
[2025-02-08 09:31] LABS: Respiratory Syncytial Virus Ce NEGATIVE (Negative); SARS-CoV-2 PCR NEGATIVE (Negative)
--- NOTE | 2025-02-08 13:13 | P.PN_ITS ---
Subjective 2 Subjective: Patient was seen this morning, she is alert and oriented x 3, following all commands, denies any fevers, chills, no cough, no lightheadedness, no dizziness Vitals/I&O/Wt Last Vital Signs Temp 97.8 F 02/08/25 08:00 Pulse 77 02/08/25 12:00 Resp 18 02/08/25 12:00 BP 127/73 02/08/25 12:00 Pulse Ox 93 02/08/25 12:00 O2 Del Method Nasal Cannula 02/08/25 07:38 O2 Flow Rate 2 02/08/25 07:38 02/07/25 02/08/25 02/08/25 22:59 06:59 14:59 Intake Total . / . 39.833 / 41.083 289.333 / 289.333 Output Total 2300 / 2300 1250 / 1250 Balance 1.25 / .25 -2260.167 / -2258.917 -960.667 / -960.667 Weight last 48 hrs Weight 73.2 kg Weight 75.495 kg Weight 63.503 kg Physical Exam 2 Const: COMMON NORMALS: no acute distress and patient oriented x3 Resp: COMMON NORMALS: normal respiratory effort, No retractions, No use of accessory muscles and clear to auscultation bilaterally AUSCULTATION: clear to auscultation bilaterally Cardio: COMMON NORMALS: regular rate, regular rhythm, S1 normal heart sound present and S2 normal heart sound present RATE: regular rate RHYTHM: r egular rhythm HEART SOUNDS: S1 normal heart sound present and S2 normal heart sound present GI: COMMON NORMALS: Normal to inspection, nondistended, normoactive bowel sounds present and non-tender Extremity: COMMON NORMALS: no pedal edema Neuro: COMMON NORMALS: patient oriented x3 Psych: COMMON NORMALS: mental status grossly normal Urinary Catheter Management: Giraldo: Cath Placed During This Visit: yes Reason for Continuing Indwelling Catheter: Accurate Measurement of Urinary Output in Critically Ill Patients Urinary Catheter Date of Insertion: 02/08/25 Urinary Catheter Time of Insertion: 03:25 Data 02/07/25 21:34 02/08/25 08:19 A&P Assessment and plan 1. Acute respiratory failure with hypoxia: - Likely secondary to fluid overload with high proBNP recent echo showed biatrial enlargement with EF of 50% and mild diffuse hypokinesia - Possible element of congestive heart failure? - Diuresis with furosemide 40 mg IV twice daily and later to increase the dose according to the tolerability. - Monitoring of intake and output and daily weight analysis - Telemetry monitoring - Resume home medication after reconciliation, patient on carvedilol 25 twice daily and Cardizem to 40 mg daily - Patient was admitted in the first week of December and was not started on anticoagulation for atrial fibrillation considering she had a fall and scalp hematoma and awaited resolution as outpatient to start anticoagulation. - CTA to rule out any PE - If no contraindication to start anticoagulation as planned in Dec, start 5mg bid eliquis, no recent falls and no h/o any surgeries and any bleeding diathesis reported - Serial EKGs 2. Atrial fibrillation with RVR: - Patient having acute hypoxemic respiratory failure and increased proBNP - Repeat echo, although echo was done 1 month ago and showed reduced ejection close and to look for if there is any further reduction or any significant/concerning changes on echo - To resume home medication with carvedilol 25 mg twice daily and diltiazem to 40 mg twice daily after reconciliation. - TSH normal - Telemetry monitoring. 3. Pulmonary edema: Lasix 40 mg IV twice daily Repeat echo Intake and output monitoring Daily weight base analysis Consider BiPAP if worsening shortness of breath with repeat chest x-ray and ABGs to guide. 4. COPD (chronic obstructive pulmonary disease): Not in exacerbation, continue DuoNebs and monitor oxygen patient Plan: Acute hypoxic respiratory failure CT/CT angio chest PE protcl [id number] IMPRESSION: 1. Increasing right pleural effusion 2. Pulmonary ground-glass opacities which could represent infectious disease or mosaic perfusion pattern not significantly changed. 3. Lingular nodules not significantly changed. Suggest follow-up CT scan in 3-6 months per Fleischner society guidelines. 4. No evidence of pulmonary embolism. 5. Mild hilar and mediastinal adenopathy not significantly changed. - Secondary systolic and diastolic CHF - Continue Lasix 40 IV twice daily -CRP, Pro-Scout within normal limits - Monitor urine output, monitor creatinine, monitor potassium Atrial fibrillation with rapid response CONCLUSIONS Normal left ventricular size and systolic function, EF 61%.. Mild left ventricular hypertrophy. Abnormal septal motion consistent with conduction abnormality. Moderate biatrial enlargement Thickened mitral valve. Trace mitral valve regurgitation. Ayhi-sr-zayxtoic tricuspid valve regurgitation. Estimated pulmonary artery peak systolic pressure 40 mm of Hg. There is no pericardial effusion. There are no intracardiac masses. Compared to the study from 01/04/2025, there is slight improvement LV ejection fraction -On Cardizem drip, transition to p.o. Cardizem - P.o. carvedilol - Eliquis therapy COPD not in exacerbation Full code Eliquis for DVT prophylaxis PDMP PDMP Reviewed: Not Reviewed Attestations 2 Medical Necessity Statement*: Patient requires hospitalization for acute hypoxic respiratory failure secondary to CHF, atrial fibrillation Diagnoses Acute respiratory failure with hypoxia J96.01 Atrial fibrillation with RVR I48.91 Pulmonary edema J81.1 COPD (chronic obstructive pulmonary disease) J44.9
[2025-02-08] MEDS: ATORVASTATIN 10 MG TABLET PO (16:42)
[2025-02-08 17:51] LABS: Anion Gap 13.1 (5-19); Blood Urea Nitrogen 19 mg/dL (8-23); Calcium 8.3 mg/dL (8.5-10.5); Carbon Dioxide 34 mmol/L (22-29); Chloride 94 mmol/L (98-107); Glucose 136 mg/dL (65-115); Osmolality Calculated 290 mOsm/kg (285-295); Potassium 3.1 mmol/L (3.5-5.1); Sodium 138 mmol/L (136-145)
[2025-02-09] VITALS (13 sets, daily range): BP systolic 111–144; BP diastolic 66–96; PULSE 67–103; RESP 16–26; TEMP 36.4–36.7; O2SAT 86–95
[2025-02-09] MEDS: FUROsemide 10 mg/mL SDV 4mL 40 MG IVP ×2 (01:33→14:20)
[2025-02-09] MEDS: pantoprazole 40 mg SDV IVP (01:33)
--- NOTE | 2025-02-09 02:48 | PC.NURSE ---
During rounding lab was in this room. Patient difficult to arouse. She will briefly open her eyes and does follow commands. Patient did received 10mg ambien last night. Dr. Rodriguez notified and requested if dose could be decreased or changed to her home med trazadone. Per Dr. rodriguez pass along in report and let her sleep.
[2025-02-09 03:55] LABS: Alanine Aminotransferase 21 U/L (0-33); Albumin Level 3.3 g/dL (3.5-5.2); Alkaline Phosphatase 96 U/L (35-105); Anion Gap 13.6 (5-19); Aspartate Amino Transferase 20 U/L (0-32); Blood Urea Nitrogen 19 mg/dL (8-23); Calcium 8.8 mg/dL (8.5-10.5); Carbon Dioxide 37 mmol/L (22-29); Chloride 96 mmol/L (98-107); Globulin 2.5 g/dL (1.3-4.6); Glucose 113 mg/dL (65-115); Magnesium 1.5 mg/dL (1.7-2.3); Osmolality Calculated 299 mOsm/kg (285-295); Potassium 3.6 mmol/L (3.5-5.1); Sodium 143 mmol/L (136-145); Total Protein 5.8 g/dL (6.6-8.7)
[2025-02-09] MEDS: dilTIAZem ER (24HR) 240 mg Capsule PO (06:03)
--- NOTE | 2025-02-09 08:09 | P.PN_ITS ---
Subjective 2 Subjective: No patient is a very pleasant 64-year-old female seen and examined at bedside on hospital rounds this morning. Patient sitting up in bed stating that she was ready to go home, she thought that somebody had come into her room and told her she could be discharged. Educated the patient that given her presentation continued medical necessity patient would need to at least stay 1 more day in the hospital. Patient does not have home oxygen at home at her baseline, currently awaiting home O2 evaluation. Given patient's right pleural effusion we will continue conservative management with diuresing. Greatly appreciate cardiology consultation and recommendations. Vital signs remained stable, mildly elevated respirations, patient is breathing normally/unlabored. Patient denies any new or worsening symptoms, and O x 3 with mild confusion. Vitals/I&O/Wt Last Vital Signs Temp 98.1 F 02/09/25 07:55 Pulse 92 02/09/25 07:55 Resp 21 H 02/09/25 07:55 BP 144/79 02/09/25 07:55 Pulse Ox 90 02/09/25 07:55 O2 Del Method Nasal Cannula 02/09/25 07:30 O2 Flow Rate 2 02/09/25 07:30 02/08/25 02/09/25 02/09/25 22:59 06:59 14:59 Intake Total 360 / 1009.333 Output Total 1900 / 3150 1850 / 5000 Balance -1540 / -2140.667 -1850 / -3990.667 Weight last 48 hrs Weight 70.9 kg Weight 70.9 kg Weight 73.2 kg Weight 75.495 kg Weight 63.503 kg Physical Exam 2 Const: COMMON NORMALS: no acute distress and patient oriented x3 Chest: COMMONS NORMALS: normal inspection of the chest and normal palpation of entire chest wall CHEST: Yes Symmetrical chest wall rise Resp: COMMON NORMALS: normal respiratory effort, No retractions and No use of accessory muscles EFFORT & INSPECTION: Yes symmetric chest movement A USCULTATION: crackles Laterality: bilateral and posterior Cardio: COMMON NORMALS: S1 normal heart sound present, S2 normal heart sound present, No gallops present (Cardio), No clicks present (Cardio), No murmurs present (Cardio) and No rub (Cardio) RHYTHM: abnormal rhythm irregularly irregular HEART SOUNDS: S1 normal heart sound present and S2 normal heart sound present PERIPHERAL PULSES: radial pulses present, posterior tibial pulses present and dorsalis pedis present Extremity: GENERAL: No edema Neuro: COMMON NORMALS: patient oriented x3 and moves all extremities Psych: COMMON NORMALS: mental status grossly normal and cooperative Urinary Catheter Management: Giraldo: Cath Placed During This Visit: yes Reason for Continuing Indwelling Catheter: Accurate Measurement of Urinary Output in Critically Ill Patients Urinary Catheter Date of Insertion: 02/08/25 Urinary Catheter Time of Insertion: 03:25 Data 02/09/25 08:16 02/09/25 02:44 A&P Assessment and plan 1. Atrial fibrillation with RVR: 2. COPD (chronic obstructive pulmonary disease): 3. Pleural effusion: 4. Anemia: 5. Hypothyroid: 6. Hyperlipidemia: 7. Anxiety and depression: 8. Insomnia: Plan: Atrial fibrillation, RVR - No longer in RVR, gtt discontinued - Eliquis 5mg PO BID - Continue carvedilol 25 mg p.o. twice daily, Cardizem 240 mg daily - Greatly appreciate cardiology consultation and management COPD Community acquired pneumonia, POA - Continue supportive care - Breathing treatments - Pending blood culture x 2, MRSA PCR - IV Rocephin 1 g every 24 hours, doxycycline 100 mg p.o. twice daily Pleural effusion - Continue to diurese with IV Lasix 40 mg twice daily - Repeat CXR tomorrow - Consider outpatient follow-up with interventional radiology if warranted Anemia - Hemoglobin 10.70 - Pending occult - Monitor and transfuse for hemoglobin less than 7 Hypothyroidism - TSH 2.49 - Continue home dose levothyroxine 75 mcg daily Hyperlipidemia - Continue Lipitor 10 mg nightly Anxiety/depression - Continue Zoloft 50 mg daily Insomnia - Continue Ambien 10 mg nightly Per Cardiology: She has good ventricular rate control on long acting diltiazem and carvedilol. Pleural effusion noted, some crackles still, may be related to resolving pneumonia vs improving pulmonary edema. Continue Lasix, can switch to oral Lasix tomorrow, 40 mg daily. She has anemia, will check hemoccult stool to determine if she has any blood in stool related to anticoagulation with Eliquis. Will plan for GREGORIA guided cardioversion as an outpatient, once she has been anticoagulated for at least 4 weeks. PDMP PDMP Reviewed: Not Reviewed Attestations 2 Medical Necessity Statement*: Patient requires hospitalization for acute hypoxic respiratory failure secondary to CHF, atrial fibrillation Coding Level of Care Code Acute Code for [facility] Diagnoses Atrial fibrillation with RVR I48.91 COPD (chronic obstructive pulmonary disease) J44.9 Pleural effusion J90 Anemia D64.9 Hypothyroid E03.9 Hyperlipidemia E78.5 Anxiety and depression F41.9; F32.A Insomnia G47.00
[2025-02-09 08:26] LABS: Hematocrit 36.7 % (36-47); Hemoglobin 10.70 g/dL (11.27-16.99); Mean Corpuscular HGB Conc 29.2 g/dL (30-55); Mean Corpuscular Hemoglobin 20.9 pg (27-33); Mean Corpuscular Volume 71.8 fl (85-98); Nucleated Red Blood Cells % 0 %; Platelet Count 214 10^3/cmm (157-399); Red Blood Count 5.11 10^6/uL (3.85-5.65); White Blood Count 12.74 10^3/uL (3.29-11.43)
[2025-02-09 08:53] LABS: Slide Review Slide Review Perform
--- NOTE | 2025-02-09 08:59 | PC.CHAP ---
Pastoral Care Encounter/Spiritual Assessment Type of Contact [] Declined electrocardiograph repairer visit [] Patient/Family/Request visit [] Outpatient visit [] Follow-up visit [] Physician referral [] Code/Alert [x] Routine visit [] Staff referral [] Actively dying [] Patient sleeping [] Family support [] [] Out of room [] Palliative care [] [] Receiving care in room [] Pre-surgical visit [] Trauma [] Long length of stay [] ICU visit [] Other: Relational/Emotional Strength [] Patient feels connected with others/family/visitors/staff [] Distress [] Loneliness/isolation [] Abandonment Spirituality of Patient [x] Person of [place] [] Attends Adventism of their [place] [x] Believes in Prayer [] Reads Bible or Christianity materials [] There are Spiritual issues to be addressed Salvage Mend Worker Interventions [x] Prayer [x] Active listening [] Non-anxious presence [] Spiritual/emotional support [] Crisis/trauma care [] Spiritual counseling [] Bereavement support [] Provided bereavement packet [x] Provided Bible/devotional materials [] Provided toy/stuffed animal, coloring book to patient or family member [] Provided Communion [] Anointing/[place] [] Salvation [x] Completed spiritual assessment [] Other: Impact on Illness or Injury [] Angry [] Fearful [] Anxious [] Often cries [] Exhaustion [] Unable to work [] Unable to attend mu-ism [] Unable to walk/stand [] Unable to read [] Unable to drive [] Unable to eat/drink [] Unable to sleep [] Unable to be with family [] Patient intubated [] Other: Summary Time spent with patient 10 min
--- NOTE | 2025-02-09 11:06 | P.CONIM_ITS ---
<Statement entered by Dominic Holland M.D - 02/14/25 19:23> Patient was cared for in conjunction with an advanced practice practitioner. I reviewed the chart and all pertinent data including imaging, telemetry, and laboratory results. I discussed the patient in detail with the advanced practice practitioner. Please see their note for agreed upon plan of care and results for the patient. Providers/Reason For Consult 2 Consulting Physician/Specialty*: Dr Holland, interventional cardiology Reason for Consult*: atrial fibrillation with RVR Attending Physician: Marilyn Hutchinson NP History of Present Illness History of Present Illness Marie Vann is a 64 year old female with past medical history of COPD, new onset atrial fibrillation last month when she was admitted s/p fall and pneumonia. Her is at the bedside, he reports she started developing shortness of breath and lower extremity edema after she had been home from the hospital about a week. She has not had any previous ischemic workup. They moved here from [place] recently. Echocardiogram in December admission showed LVEF 50%, now improved to 61% with mild LVH, moderate biatrial enlargement, mild to moderate TR, PASP 40mmHg. Review of Systems 2 Card: Reports: palpitations, irregular heart rhythm and edema; Denies: chest pain, lightheadedness, syncope, pre-syncope, orthopnea or leg pain with exertion Resp: Reports: dyspnea; Denies: productive cough or wheezing GI: Denies: hematochezia : Denies: hematuria Kvng/Lymph: Denies: easy bleeding Medications/Allergies Home Medications ?Medication ?Instructions ?Recorded ?Confirmed ?Last Taken ?Type albuterol sulfate 90 mcg/actuation 1 puff inhalation Q 6H PRN 01/03/25 02/08/25 Unknown History aerosol inhaler Shortness Of Breath carvedilol 25 mg tablet 25 mg PO BID 01/03/2501/02/25 History cyclobenzaprine 10 mg tablet 10 mg PO TID PRN muscle s pasms 01/03/25 02/08/25 Unknown History ipratropium 0.5 mg-albuterol 3 mg 3 ml inhalation QID PRN Shortness 01/03/25 02/08/25 Unknown History (2.5 mg base)/3 mL nebulization Of Breath soln levothyroxine 75 mcg tablet 75 mcg PO QAM 01/03/2512/2502/07/25 History (Synthroid) meloxicam 15 mg tablet 15 mg PO DAILY 01/03/2512/2502/07/25 History omeprazole 20 mg capsule,delayed 20 mg PO DAILY 02/08/25 02/07/25 History release sertraline 50 mg tablet 50 mg PO DAILY 01/03/2512/2501/02/25 History simvastatin 10 mg tablet 10 mg PO QPM 01/03/2502/06/25 20:00 History diltiazem HCl 240 mg 240 mg PO Q24H #30 caps 10/2402/08/25 Unknown Rx capsule,extended release 24 hr (Cardizem CD) trazodone 50 mg tablet 1 mg PO BEDTIME 02/08/2512/25 Unknown History Allergies Allergy/AdvReac Type Severity Reaction Status Date / Time morphine Allergy Intermediate ADR-Agitate Verified 01/03/25 13:28 d Current Medications Generic Name Dose Route Start Last Admin Trade Name Freq PRN Reason Stop Dose Admin Al Hydrox/Mg Hydrox/Simethicone 15 ml 02/08/25 01:15 02/09/25 06:26 Ycjr-All-Kdohbhfwe-Vincent 30 Ml Udc PO Not Given Q6H KIM Apixaban 5 mg 02/08/25 04:00 02/09/25 08:31 Apixaban 5 Mg Tablet PO 5 mg BID@0900,2100 KIM Administration Atorvastatin Calcium 10 mg 02/08/25 17:00 02/08/25 16:42 Atorvastatin 10 Mg Tablet PO 10 mg QPM KIM Administration Carvedilol 25 mg 02/08/25 05:00 02/09/25 06:03 Carvedilol 25 Mg Tablet PO 25 mg BID KIM Administration Diltiazem HCl 240 mg 02/08/25 01:56 02/09/25 06:03 Diltiazem Er (24hr) 240 Mg Capsule PO 240 mg Q24H KIM Administration Furosemide 40 mg 02/08/25 01:30 02/09/25 01:33 Furosemide 10 Mg/Ml Sdv 4ml IVP 40 mg Q12H KIM Administration DILTIAZEM HCL/D5W 125 mg in 125 mls @ 0 mls/hr 02/07/25 21:30 02/08/25 12:52 Cardizem IV Infused .Q0M KIM Titration Protocol Per Protocol Ipratropium [place] 0.5 mg 02/08/25 08:00 02/09/25 07:28 Ipratropium 0.5 Mg/2.5 Ml Neb INHALATION 0.5 mg Q6H.RESP KIM Administration Levalbuterol HCl 1.25 mg 02/08/25 08:00 02/09/25 07:28 Levalbuterol 1.25 Mg/3 Ml Neb INHALATION 1.25 mg Q6H.RESP KIM Administration Levothyroxine Sodium 75 mcg 02/08/25 05:00 02/09/25 06:04 Levothyroxine 75 Mcg Tablet PO 75 mcg QAM KIM Administration Nystatin 1 applic 02/08/25 05:00 02/09/25 06:04 Nystatin Powder 15 Gm Btl TOPICAL 1 applic BID KIM Administration Pantoprazole Sodium 40 mg 02/08/25 01:15 02/09/25 01:33 Pantoprazole 40 Mg Sdv IVP 40 mg Q24H KIM Administration Senna 17.2 mg 02/08/25 21:00 02/08/25 21:18 Sennosides 8.6 Mg Tablet PO Not Given BEDTIME KIM Sertraline HCl 50 mg 02/08/25 05:00 02/09/25 06:04 Sertraline 50 Mg Tablet PO 50 mg DAILY KIM Administration Zolpidem Tartrate 10 mg 02/08/25 21:00 02/08/25 21:18 Zolpidem 5 Mg Tablet PO 10 mg BEDTIME KIM Administration Vitals/I&O/Wt Last Vital Signs Temp 98.1 F 02/09/25 07:55 Pulse 92 02/09/25 07:55 Resp 21 H 02/09/25 07:55 BP 144/79 02/09/25 07:55 Pulse Ox 90 02/09/25 07:55 O2 Del Method Nasal Cannula 02/09/25 07:30 O2 Flow Rate 2 02/09/25 07:30 02/08/25 02/09/25 02/09/25 22:59 06:59 14:59 Intake Total 360 / 1009.333 Output Total 1900 / 5000 1850 / 5000 550 / 550 Balance -1540 / -3990.667 -1850 / -3990.667 -550 / -550 Weight last 48 hrs Weight 156 lb 4.924 oz Weight 156 lb 4.924 oz Weight 161 lb 6.054 oz Weight 166 lb 7 oz Weight 140 lb Physical Exam 2 Const: COMMON NORMALS: no acute distress and patient oriented x3 Chest: COMMONS NORMALS: normal inspection of the chest and normal palpation of entire chest wall CHEST: Yes Symmetrical chest wall rise Resp: COMMON NORMALS: normal respiratory effort, No retractions and No use of accessory muscles EFFORT & INSPECTION: Yes symmetric chest movement A USCULTATION: crackles Laterality: bilateral and posterior Cardio: COMMON NORMALS: S1 normal heart sound present, S2 normal heart sound present, No gallops present (Cardio), No clicks present (Cardio), No murmurs present (Cardio) and No rub (Cardio) RHYTHM: abnormal rhythm irregularly irregular HEART SOUNDS: S1 normal heart sound present and S2 normal heart sound present PERIPHERAL PULSES: radial pulses present, posterior tibial pulses present and dorsalis pedis present Extremity: GENERAL: No edema Neuro: COMMON NORMALS: patient oriented x3 and moves all extremities Psych: COMMON NORMALS: mental status grossly normal and cooperative Urinary Catheter Management: Giraldo: Cath Placed During This Visit: yes Reason for Continuing Indwelling Catheter: Accurate Measurement of Urinary Output in Critically Ill Patients Urinary Catheter Date of Insertion: 02/08/25 Urinary Catheter Time of Insertion: 03:25 Data 02/09/25 08:16 02/09/25 02:44 A&P Assessment and plan 1. Atrial fibrillation with RVR: 2. COPD (chronic obstructive pulmonary disease): 3. Pleural effusion: Plan: She has good ventricular rate control on long acting diltiazem and carvedilol. Pleural effusion noted, some crackles still, may be related to resolving pneumonia vs improving pulmonary edema. Continue Lasix, can switch to oral Lasix tomorrow, 40 mg daily. She has anemia, will check hemoccult stool to determine if she has any blood in stool related to anticoagulation with Eliquis. Will plan for GREGORIA guided cardioversion as an outpatient, once she has been anticoagulated for at least 4 weeks. PDMP PDMP Reviewed: Not Reviewed Coding Level of Care Code Acute Code for [facility] Diagnoses Atrial fibrillation with RVR I48.91 COPD (chronic obstructive pulmonary disease) J44.9 Pleural effusion J90
[2025-02-09] MEDS: cefTRIAXone 1,000 mg SDV 1000 MG IVP (14:20)
[2025-02-09 16:11] LABS: MRSA PCR OZH (swab) NOT DETECTED (Not Detecte)
[2025-02-09] MEDS: ATORVASTATIN 10 MG TABLET PO (16:27)
[2025-02-10] VITALS: BP 140/88; PULSE 87; RESP 21; TEMP 36.7; O2SAT 95
[2025-02-10 02:35] VITALS: PULSE 82; RESP 16; O2SAT 94
[2025-02-10 04:00] VITALS: BP 133/75; PULSE 83; RESP 21; TEMP 36.8; O2SAT 91
[2025-02-10 05:55] LABS: Hematocrit 38.6 % (36-47); Hemoglobin 11.10 g/dL (11.27-16.99); Mean Corpuscular HGB Conc 28.8 g/dL (30-55); Mean Corpuscular Hemoglobin 20.9 pg (27-33); Mean Corpuscular Volume 72.8 fl (85-98); Nucleated Red Blood Cells % 0 %; Platelet Count 219 10^3/cmm (157-399); Red Blood Count 5.30 10^6/uL (3.85-5.65); White Blood Count 10.71 10^3/uL (3.29-11.43)
[2025-02-10] MEDS: pantoprazole 40 mg SDV IVP (06:04)
[2025-02-10] MEDS: FUROsemide 10 mg/mL SDV 4mL 40 MG IVP (06:04)
[2025-02-10] MEDS: dilTIAZem ER (24HR) 240 mg Capsule PO (06:05)
[2025-02-10 06:14] LABS: Anion Gap 15.3 (5-19); Blood Urea Nitrogen 17 mg/dL (8-23); Calcium 8.4 mg/dL (8.5-10.5); Carbon Dioxide 39 mmol/L (22-29); Chloride 92 mmol/L (98-107); Glucose 134 mg/dL (65-115); Osmolality Calculated 300 mOsm/kg (285-295); Potassium 3.3 mmol/L (3.5-5.1); Sodium 143 mmol/L (136-145)
[2025-02-10 07:22] VITALS: PULSE 77; RESP 18; O2SAT 95
[2025-02-10 07:29] VITALS: BP 123/82; PULSE 86; RESP 18; TEMP 36.6; O2SAT 95
[2025-02-10] MEDS: magnesium sulfate premix 2 GM/50 ML PIGGYBACK IV (08:15)
--- NOTE | 2025-02-10 08:55 | PC.NURSE ---
IV magnesium not given due to IV loss. FIRE PATROL was in room and will order PO to replace.
--- NOTE | 2025-02-10 09:11 | P.DS_ITS ---
Discharge Providers Date of Admission: 02/08/25 00:27 Date of Discharge: February 10, 2025 Attending Provider at Admission: Shyann Rodriguez MD Attending Provider at Discharge: Marilyn Hutchinson NP Diagnoses at Discharge Discharge Diagnosis 1. Atrial fibrillation with RVR: 2. COPD (chronic obstructive pulmonary disease): 3. Pleural effusion: 4. Anemia: 5. Hypothyroid: 6. Hyperlipidemia: 7. Anxiety and depression: 8. Insomnia: Reason for Visit Reason for Visit: SWOLLEN LEGS Brief History: Admission: Marie Vann is a 64 year old female 64 year old female with PMH COPD and not on home oxygen, at fibrillation, who presented to the ER due to sob associated with increase in LLE and mild in her resp rate in the last 3 to 4 days. there was no fever or chills and no significant orthopnea or PND. no chest pain or pressure, no dizziness, presyncope or syncope. no diarrhea or abd pain. Patient does not recall any sick contact or recent travels. she was found to have at fib with RVR and in the ER she recieved dignoxin, and metoprolol IV. She was having features of fluid overload based on clinical assessment and diagnostics and given lasix 60mg iv stat. there was no anticoagulation in her home medications therefore CTA was done considering her worsening SOB to rule out PE. Previous chart review mention that since the patient was diagnosed with atrial fibrillation after having a fall in December and having contusion on the head, she was supposedly to start on anticoagulation after 2 to 3 weeks postdischarge however she does not remember or recall and there was no postdischarge follow-up for this particular plan of care. Hospital Course Hospital Course Interventions: Patient treated for atrial fibrillation, RVR Cardizem drip, was able to be weaned off Cardizem continues on p.o. Eliquis, oral carvedilol, Cardizem-rate controlled at discharge. Patient will follow-up outpatient with cardiology for GREGORIA cardioversion in 4 weeks. COPD with community-acquired pneumonia treated with IV Rocephin, oral doxycycline, DuoNeb, transition to oral antibiotics with continued nebs outpatient. Hypoxic respiratory failure with oxygen requirements, discharges with home oxygen and nebulizer. Echo completed with normal left ventricular size and systolic function, preserved ejection fraction 61%, no pericardial effusion noted. Will continue outpatient management with primary care provider. Pleural effusion, treated conservatively with IV Lasix, improved respirations repeat chest x-ray with consistent effusion. Referral to pulmonolgy sent. Patient had urinary retention, Giraldo catheter placed and removed prior to discharge, no difficulty in urinating. Positive occult stool, however hemoglobin stable at discharge, will continue prophylactic treatment with oral Protonix. This could be secondary to hemorrhoid, but advised follow- up with primary care 1 to 3 days with repeat hemoglobin/hematocrit. Patient discharge is in stable condition, recommended to make and keep follow-ups as previously stated with primary care, cardiology, pulmonology. All questions and concerns addressed prior to discharge. Referral sent for home health of choice, greatly appreciate case management and discharge planning. Physical Exam Const: COMMON NORMALS: no acute distress and patient oriented x3 Chest: COMMONS NORMALS: normal inspection of the chest and normal palpation of entire chest wall CHEST: Yes Symmetrical chest wall rise Resp: COMMON NORMALS: normal respiratory effort, No retractions and No use of accessory muscles EFFORT & INSPECTION: Yes symmetric chest movement AUSCULTATION: other (Diminished at the bases) Cardio: COMMON NORMALS: S1 normal heart sound present, S2 normal heart sound present, No gallops present (Cardio), No clicks present (Cardio), No murmurs present (Cardio) and No rub (Cardio) RHYTHM: abnormal rhythm irregularly irregular HEART SOUNDS: S1 normal heart sound present and S2 normal heart sound present PERIPHERAL PULSES: radial pulses present, posterior tibial pulses present and dorsalis pedis present Extremity: GENERAL: No edema Neuro: COMMON NORMALS: patient oriented x3 and moves all extremities Psych: COMMON NORMALS: mental status grossly normal and cooperative Urinary Catheter Management: Giraldo: Cath Placed During This Visit: yes Reason for Continuing Indwelling Catheter: Acute Urinary Retention or Obstruction Urinary Catheter Date of Insertion: 02/08/25 Urinary Catheter Time of Insertion: 03:25 Discharge Data Studies Completed and Pending Completed Studies During Hospitalization Category Date Time Status CT angio chest PE protcl [id number] Urgent Cat Scan 02/08/25 00:22 Completed XR chest 1V portable [id number] Stat Exams 02/07/25 21:25 Completed CV. echo complete* [id number] Routine Ultrasound 02/08/25 03:49 Completed Pending at discharge Category Date Time Status Blood Culture Stat Lab 02/09/25 14:11 Received Radiology Impressions Chest X-Ray 02/07/25 21:25 IMPRESSION: Increasing right pleural effusion. Chest CTA 02/08/25 00:22 IMPRESSION: 1. Increasing right pleural effusion 2. Pulmonary ground-glass opacities which could represent infectious disease or mosaic perfusion pattern not significantly changed. 3. Lingular nodules not significantly changed. Suggest follow-up CT scan in 3-6 months per Fleischner society guidelines. 4. No evidence of pulmonary embolism. 5. Mild hilar and mediastinal adenopathy not significantly changed. Laboratory Results WBC 10.71 10^3/uL (3.29-11.43) 02/10/25 05:13 RBC 5.30 10^6/uL (3.85-5.65) 02/10/25 05:13 Hgb 11.10 g/dL (11.27-16.99) L 02/10/25 05:13 Hct 38.6 % (36-47) 02/10/25 05:13 MCV 72.8 fl (85-98) L 02/10/25 05:13 MCH 20.9 pg (27-33) L 02/10/25 05:13 MCHC 28.8 g/dL (30-55) L 02/10/25 05:13 RDW 21.7 % (12.1-15.1) H 02/10/25 05:13 Plt Count 219 10^3/cmm (157-399) 02/10/25 05:13 MPV Not Reportable 02/10/25 05:13 Neut % (Auto) 71.7 % 02/10/25 05:13 Lymph % (Auto) 13.4 % 02/10/25 05:13 [place] % (Auto) 11.5 % 02/10/25 05:13 Eos % (Auto) 2.1 % 02/10/25 05:13 Baso % (Auto) 0.4 % 02/10/25 05:13 Neut # (Auto) 7.69 10^3/uL (1.8-7.7) 02/10/25 05:13 Lymph # (Auto) 1.4 10^3/uL (0.8-4.8) 02/10/25 05:13 [place] # (Auto) 1.2 10^3/uL (0.2-0.9) H 02/10/25 05:13 Eos # (Auto) 0.2 10^3/uL (0.0-0.8) 02/10/25 05:13 Baso # (Auto) 0.0 10^3/uL (0.0-0.1) 02/10/25 05:13 Nucleated RBC % (auto) 0 % 02/10/25 05:13 Nucleated RBCs # 0.0 /100WBC 02/10/25 05:13 PT 15.40 SECONDS (12.1-14.9) H 02/07/25 21:34 INR 1.14 (0.8-1.2) 02/07/25 21:34 APTT 29.6 SECONDS (23.9-36.7) 02/07/25 21:34 Sodium 143 mmol/L (136-145) 02/10/25 05:13 Potassium 3.3 mmol/L (3.5-5.1) L 02/10/25 05:13 Chloride 92 mmol/L (98-107) L 02/10/25 05:13 Carbon Dioxide 39 mmol/L (22-29) H 02/10/25 05:13 Anion Gap 15.3 (5-19) 02/10/25 05:13 BUN 17 mg/dL (8-23) 02/10/25 05:13 Creatinine 0.8 mg/dL (0.5-0.9) 02/10/25 05:13 GFR Calculation 71.8 mL/min (90-130) L 02/10/25 05:13 Glucose 134 mg/dL (65-115) H 02/10/25 05:13 Calculated Osmolality 300 mOsm/kg (285-295) H 02/10/25 05:13 Calcium 8.4 mg/dL (8.5-10.5) L 02/10/25 05:13 Phosphorus 3.7 mg/dL (2.5-4.5) 02/07/25 23:37 Magnesium 1.5 mg/dL (1.7-2.3) L 02/09/25 02:44 Total Bilirubin 0.8 mg/dL (0.15-1.2) 02/09/25 02:44 Total Bilirubin Cancelled 02/09/25 02:44 AST 20 U/L (0-32) 02/09/25 02:44 AST Cancelled 02/09/25 02:44 ALT 21 U/L (0-33) 02/09/25 02:44 ALT Cancelled 02/09/25 02:44 Alkaline Phosphatase 96 U/L (35-105) 02/09/25 02:44 Alkaline Phosphatase Cancelled 02/09/25 02:44 Troponin T Baseline 16 ng/L (0-10) H 02/07/25 21:34 Troponin T 120 Minute 14.56 ng/L (0-10) H 02/07/25 23:37 Delta Troponin T -1.44 ABS# (0-10) L 02/07/25 23:37 Troponin T Hi Sens 6Hr 19.75 ng/L (0-10) H 02/08/25 03:40 Troponin T Hi Sens 6Hr Delta 3.75 ng/L (0-12) 02/08/25 03:40 C-Reactive Protein 9.0 mg/L (0.0-4.9) H 02/08/25 08:19 NT-Pro-B Natriuret Pep 7316 pg/mL (0-125) H 02/07/25 21:34 Total Protein 5.8 g/dL (6.6-8.7) L 02/09/25 02:44 Total Protein Cancelled 02/09/25 02:44 Albumin 3.3 g/dL (3.5-5.2) L 02/09/25 02:44 Albumin Cancelled 02/09/25 02:44 Globulin 2.5 g/dL (1.3-4.6) 02/09/25 02:44 Globulin Cancelled 02/09/25 02:44 Procalcitonin 0.11 ng/mL (0-0.5) 02/08/25 08:19 TSH 2.49 uIU/mL (0.27-4.20) 02/07/25 23:37 Urine Color Yellow (Yellow) 02/07/25 22:46 Urine Appearance Clear (CLEAR) 02/07/25 22:46 Urine pH 5.5 (5-7) 02/07/25 22:46 Ur Specific [place] 1.016 (1.005-1.030) 02/07/25 22:46 Urine Protein 1+ (Negative) A 02/07/25 22:46 Urine Glucose (UA) Negative (Normal) 02/07/25 22:46 Urine Ketones Negative (Negative) 02/07/25 22:46 Urine Blood Negative (Negative) 02/07/25 22:46 Urine Nitrate Negative (Negative) 02/07/25 22:46 Urine Bilirubin Negative (Negative) 02/07/25 22:46 Urine Urobilinogen 1.0 mg/dL (Negative) 02/07/25 22:46 Ur Leukocyte Esterase Trace (Negative) A 02/07/25 22:46 Urine RBC 0-2 /hpf (0-2) 02/07/25 22:46 Urine WBC 0-5 /hpf (0-5) 02/07/25 22:46 Ur Squamous Epith Cells 0-5 /hpf (0-5) 02/07/25 22:46 Amorphous Sediment Not Reportable 02/07/25 22:46 Urine Bacteria None seen /hpf (NONE) 02/07/25 22:46 Hyaline Casts 6.61 /lpf 02/07/25 22:46 Nasal MRSA (PCR) Not detected (Not Detecte) 02/09/25 14:45 Influenza A (PCR) Negative (Negative) 02/08/25 08:38 Influenza Type B (PCR) Negative (Negative) 02/08/25 08:38 RSV (PCR) Negative (Negative) 02/08/25 08:38 SARS-CoV-2 (PCR) Negative (Negative) 02/08/25 08:38 Vitals Last Vital Signs Temp 97.8 F 02/10/25 07:29 Pulse 86 02/10/25 07:29 Resp 18 02/10/25 07:29 BP 123/82 02/10/25 07:29 Pulse Ox 95 02/10/25 07:29 O2 Del Method Nasal Cannula 02/10/25 07:22 O2 Flow Rate 2 02/10/25 07:22 Discharge Plan Discharge Patient Disposition: Home Health Service Condition: Good Prescriptions: New furosemide 40 mg Tablet 40 mg PO DAILY@0800 Qty: 30 0RF doxycycline monohydrate 100 mg Tablet 100 mg PO BID 7 Days Qty: 14 0RF potassium chloride [Klor-Con M20] 20 mEq Tablet,Er Particles/Crystals 40 meq PO DAILY 30 Days Qty: 30 0RF magnesium oxide 400 mg (241.3 mg magnesium) Tablet 400 mg PO BID 14 Days Qty: 28 0RF nystatin [Nystop] 100,000 unit/gram Powder 1 applic topical BID 7 Days Qty: 2 0RF levalbuterol HCl 1.25 mg/3 mL Solution For Nebulization 1.25 mg inhalation Q6H.RESP 14 Days Qty: 168 0RF ipratropium bromide 0.02 % Solution 0.5 mg inhalation Q6H.RESP 14 Days Qty: 140 0RF Eliquis 5 mg Tablet 5 mg PO BID@0900,2100 30 Days Qty: 60 0RF cefdinir 300 mg capsule 300 mg PO BID 7 Days Qty: 14 0RF pantoprazole [Protonix] 40 mg tablet,delayed release (DR/EC) 40 mg PO BID 30 Days Qty: 60 0RF Continued cyclobenzaprine 10 mg tablet 10 mg PO TID PRN (Reason: muscle spasms) carvedilol 25 mg tablet 25 mg PO BID simvastatin 10 mg tablet 10 mg PO QPM levothyroxine [Synthroid] 75 mcg tablet 75 mcg PO QAM sertraline 50 mg tablet 50 mg PO DAILY diltiazem HCl [Cardizem CD] 240 mg capsule,extended release 24hr 240 mg PO Q24H Qty: 30 2RF Held ipratropium-albuterol 0.5 mg-3 mg(2.5 mg base)/3 mL solution for nebulization 3 ml INHALATION QID PRN (Reason: Shortness Of Breath) Hold Instructions: Resume on 02/16/25. Resume when no longer using prescribed nebs meloxicam 15 mg tablet 15 mg PO DAILY Hold Instructions: Resume on 02/16/25. Resume under direction of PCP albuterol sulfate 90 mcg/actuation HFA aerosol inhaler 1 puff INHALATION Q6H PRN (Reason: Shortness Of Breath) Hold Instructions: Resume on 02/16/25. Resume when no longer using nebulizer trazodone 50 mg tablet 1 mg PO BEDTIME Hold Instructions: Resume on 03/02/25. Resume by direction of PCP Discontinued omeprazole 20 mg capsule,delayed release(DR/EC) 20 mg PO DAILY Discharge Order = DC NOW: Discharge Order (Routine); Ordered 02/10/25 Ordered By: Marilyn Hutchinson Other Ambulatory Orders: DME: Nebulizer with Neb Kit (Order) Location: None Selected Ordered By: Marilyn Hutchinson DME: Oxygen (Order) Location: None Selected Ordered By: Marilyn Hutchinson DME: Dallin (Order) Location: None Selected Ordered By: Marilyn Hutchinson Referrals: [facility] [Outside] Sonam Canales MD [Physician, Pulmonology] - 02/17/25 1:30 pm Referral Note: Resp failure, ling nodule Yas Segura FNP [Nurse Practitioner, Cardiology] - 03/05/25 3:30 pm Dennis Vines MD [Referring, Family Practice] - 02/12/25 10:20 am Referral Note: Will need to review CBC, monitor for drop in Hgb. Positive occult stool, but with stable Hgb. Problems: Acute respiratory failure with hypoxia Discharge Diet: Cardiac Discharge Activity: Resume usual activity Patient Instructions: Opioid Safety, Patient Portal & Nestor Instructions Discharge Attestations Time Spent in Discharge Care*: greater than 30 min Quality Metrics Clinical Quality Measures [ No reported AMI, CVA or VTE this stay] Coding Level of Care Code Acute Code for Chg Fwd Diagnoses Atrial fibrillation with RVR I48.91 COPD (chronic obstructive pulmonary disease) J44.9 Pleural effusion J90 Anemia D64.9 Hypothyroid E03.9 Hyperlipidemia E78.5 Anxiety and depression F41.9; F32.A Insomnia G47.00
--- NOTE | 2025-02-10 09:16 | XRR_ITS ---
PROCEDURE INFORMATION: Exam: XR Chest Exam date and time: 02/10/2025 10:51 AM Age: 64 years old Clinical indication: Dyspnea TECHNIQUE: Imaging protocol: Radiologic exam of the chest. Views: 1 view. COMPARISON: CT angio chest PE protcl [id number] 02/08/2025 12:50 AM FINDINGS: Lungs: See Heart/Mediastinum finding. Pleural spaces: There is persistent right pleural effusion. Heart/Mediastinum: A radiopacity has developed adjacent to the left heart border in the left lung base. This appears to have developed in an area of ground-glass opacity seen on prior chest CT. The nodular density in the inferior lingula is not visible on today's chest x-ray. Heart and mediastinal structures are stable in appearance as compared with prior chest x-ray from 02/07/2025. Bones/joints: Unremarkable. XR/XR chest 1V portable [id number] IMPRESSION: 1. Interval increase in probable focal consolidation, mid left lung base, suspicious for pneumonia. 2. Persistent right pleural effusion. 3. CT apparent lingular nodule is not clearly seen on concurrent chest x-ray.
[2025-02-10 12:31] VITALS: BP 123/82; PULSE 74; RESP 19; O2SAT 95
--- NOTE | 2025-02-10 12:36 | PC.NURSE ---
Patient discharged to home. Patient left without paperwork. Patient taken by wheelchair by student CRISTÓBAL Segundo. Paperwork mailed to patient and phone call with message left on home phone. Medications transmitted to [facility]. 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
== END 2025-02-10 12:39 | disposition home health service (06) | DRG 189 ==
LOC: ER 02-08 00:31 → CSU 02-08 01:10
PROVIDERS: Family Medicine; Admitting Provider Student in an Organized Health Care Education/Training Program; Emergency Provider Emergency Medicine; Visit Provider Registered Nurse
DX: J96.01 Acute respiratory failure with hypoxia (principal); J18.9 Pneumonia, unspecified organism; I50.43 Acute on chronic combined systolic (congestive) and diastolic (congestive) heart failure; I50.42 Chronic combined systolic (congestive) and diastolic (congestive) heart failure; J81.1 Chronic pulmonary edema; I48.91 Unspecified atrial fibrillation; E03.9 Hypothyroidism, unspecified; E78.5 Hyperlipidemia, unspecified; D64.9 Anemia, unspecified; F41.9 Anxiety disorder, unspecified; F32.A Depression, unspecified; G47.00 Insomnia, unspecified; Z79.890 Hormone replacement therapy; Z79.899 Other long term (current) drug therapy; Z88.5 Allergy status to narcotic agent; Z11.52 Encounter for screening for COVID-19
CPT/HCPCS: 36415; 51702; 71045; 71275; 80048; 80053; 81001; 82274; 83735; 83880; 84100; 84145; 84443; 84484; 85025; 85610; 85730; 86140; 87040; 87637; 93005; 93306; 94640; 94760; 96365; 96372; 96375; 97116; 97161; 97166; 97530; 99285; J0696; J1160; J1644; J1938; J2470; J3475; J3490; J7614; J7644; J9999

== ENCOUNTER 2025-02-24 20:44 | Inpatient (IN) | payer MEDICARE, SELFPAY ==
--- OUTSIDE RECORDS SUMMARY | 2025-02-24 20:52 | XMS_ITS | Encounter Summary ---
Author Organization [facility] Address [address] [place] [address] Care Team Providers Care Claims Associate Name Role Phone Dennis Vines MD Primary Care Provider [phone] Encounter Details Date Type Department Care Team (Late st Contact Info) Description 02/11/2025 Orders Only [facility] Health Information Management [place] [address] [place] [address] Provider, Abstract NO ADDRESS ON FILE Social History Tobacco Use Types Packs/Day Years Used Date Smoking Tobacco: Former Cigarettes 1 Q uit: 05/26/1998 Passive Smoke Exposure: Past Smokeless Tobacco: Never Alcohol Use Standard Drinks/Week [...] on file Legal Sex Female 10:01 AM CLINICAL INFORMATICS STRATEGIST Gender Identity Not on file Sexual Orientation Not on file documented as of this encounter Plan of Treatment Upcoming Encounters Date Type Department Care Team (Late st Contact Info) Description 05/01/2025 9:20 AM CLINICAL INFORMATICS STRATEGIST Office Visit [facility] [place] [address] [address] [place] [address] Racquel Reynolds, PUBLIC UTILITIES SALES REPRESENTATIVE [address] [facility] [address] [place] [address] 07/09/2025 10:40 AM CDT Office Visit [facility] [place] [address] [facility] [address] [place] [address] Dennis Vines MD [address] [place] [phone] documented as of this encounter Procedures Procedure Name Priority Date/Time Associated Diagnosis Comments BASIC METABOLIC PANEL Routine 02/10/2025 3:19 PM CLINICAL INFORMATICS STRATEGIST COMPREHENSIVE METABOLIC PANEL Routine 02/09/2025 3:21 PM CLINICAL INFORMATICS STRATEGIST COMPREHENSIVE METABOLIC PANEL Routine 02/08/2025 3:20 PM CLINICAL INFORMATICS STRATEGIST ECHO COMPLETE Routine 02/08/2025 3:18 PM CLINICAL INFORMATICS STRATEGIST COMPREHENSIVE METABOLIC PANEL Routine 02/07/2025 3:20 PM CLINICAL INFORMATICS STRATEGIST documented in this encounter Results * BASIC METABOLIC PANEL (02/10/2025 3:19 PM CLINICAL INFORMATICS STRATEGIST) Blood us Abstract Provider CHEMISTRY ORDERABLES Final Res ult * COMPREHENSIVE METABOLIC PANEL (02/09/2025 3:21 PM CLINICAL INFORMATICS STRATEGIST) Blood us Abstract Provider CHEMISTRY ORDERABLES Final Res ult * COMPREHENSIVE METABOLIC PANEL (02/08/2025 3:20 PM CLINICAL INFORMATICS STRATEGIST) Blood us Abstract Provider CHEMISTRY ORDERABLES Final Res ult * ECHO COMPLETE - CONTRAST AND STRAIN IF INDICATED (02/08/2025 3:18 PM CLINICAL INFORMATICS STRATEGIST) us Abstract Provider US ORDERABLES Final Result * COMPREHENSIVE METABOLIC PANEL (02/07/2025 3:20 PM CLINICAL INFORMATICS STRATEGIST) Blood us Abstract Provider CHEMISTRY ORDERABLES Final Res ult documented in this encounter Visit Diagnoses Not on filedocumented in this encounter Additional Health Concerns Assessment Noted Time PHQ-9 Depression Total Score: 2 10/30/19 3:56 PM CDT documented as of this encounter Care Teams Claims Associate Relationship Specialty Start Date End Date Dennis Vines MD [address] [place] [phone] PCP - General Family Practice 10/23/24 documented as of this encounter
--- OUTSIDE RECORDS SUMMARY | 2025-02-24 20:52 | XMS_ITS | Encounter Summary ---
Author Organization [facility] Address [address] [place] [address] Care Team Providers Care Internal Controls Manager Name Role Phone Chema Padilla MD Primary Care Provider [phone] Encounter Details Date Type Department Care Team (Latest Contact Info) Description 09/06/2005 Outpatient [facility] Family Medicine Kristin [facility] [address] [address] Dewayne Fagan Jr., MD [address] [place] [address] [address] [facility] [address] [place] [address] Benign Hypertension (Primary Dx) Social History Tobacco Use Types Packs/Day Years Used Date Smoking Tobacco: Never Assessed Comments Unknown Sex and Gender Information Value Date Recorded Sex Assigned at Not on file 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
--- OUTSIDE RECORDS SUMMARY | 2025-02-24 20:52 | XMS_ITS | Encounter Summary ---
Author Organization [facility] Address [address] [place] [address] Care Team Providers Care Corporate Concierge Name Role Phone Dennis Vines MD Primary Care Provider [phone] Encounter Details Date Type Department Care Team (Late st Contact Info) Description 02/13/2025 Results Follow-Up [facility] Medicine [place] [address] [address] Racquel Reynolds, [facility] [address] [address] CBC WITH DIFFERENTIAL Social History Tobacco Use Types Packs/Day Years [...] on file Legal Sex Female 10:01 AM SPORTS OFFICIAL Gender Identity Not on file Sexual Orientation Not on file documented as of this encounter Plan of Treatment Upcoming Encounters Date Type Department Care Team (Late st Contact Info) Description 05/01/2025 9:20 AM SPORTS OFFICIAL Office Visit [address] [address] Racquel Reynolds FNP [address] [place] [phone] 07/09/2025 10:40 AM CDT Office Visit [address] [phone] Dennis Vines MD [address] [place] [phone] documented as of this encounter Visit Diagnoses Not on filedocumented in this encounter Additional Health Concerns Assessment Noted Time PHQ-9 Depression Total Score: 2 10/30/19 25 3:56 PM CDT documented as of this encounter Care Teams Corporate Concierge Relationship Specialty Start Date End Date Dennis Vines MD [address] [place] [phone] PCP - General Family Practice 10/23/24 documented as of this encounter
--- OUTSIDE RECORDS SUMMARY | 2025-02-24 20:52 | XMS_ITS | Encounter Summary ---
Author Organization [facility] Address [address] [facility] [place] [address] Care Team Providers Care Supervisor Slitting And Shipping Name Role Phone Chema Padilla MD Primary Care Provider [phone] Encounter Details Date Type Department Care Team (Latest Contact Info) Description 04/06/2020 Ancillary Orders [facility] [address] [facility] [address] [place] [address] Jazzy Zimmerman FNP NO ADDRESS [...] often do you attend chur ch or nondenominational services? Never 02/12/2020 Do you belong to any clubs o r organizations such as baptist groups, unions, fraternal or athletic groups, or [...] on file Legal Sex Female 3:22 AM REINFORCING ROD LAYER Gender Identity Not on file Sexual Orientation [...] COVID-19? No / Unsure 03/31/2020 8:58 AM REINFORCING ROD LAYER documented as of this encounter Plan of Treatment Not on file documented as of this encounter Visit Diagnoses Diagnosis Inconclusive mammography Inconclusive mammogram documented in this encounter Care Teams Supervisor Slitting And Shipping Relationship Specialty Start Date End Date Chema Padilla MD [address] [place] [phone] PCP - General Family Practice 03/24/19 documented as of this encounter
--- OUTSIDE RECORDS SUMMARY | 2025-02-24 20:52 | XMS_ITS | Encounter Summary ---
Author Organization [facility] Address [address] [place] [address] Care Team Providers Care Recreation Leader Name Role Phone Chema Padilla MD Primary Care Provider Encounter Details Date Type Department Care Team (Late st Contact Info) Description 06/14/2010 Ancillary Orders [facility] [address] [facility] [address] [place] [phone] Kayla Sung DO NO ADDRESS ON FILE Other screening mammogram Social History Tobacco Use Types Packs/Day Years Used Date Smoking Tobacco: Former Cigarettes 22 Comments:quit 1998 Alcohol Use Standard Drinks/Week Comments No 0 (1 standard drink = 0.6 oz pur e alcohol) Comments No Sex and Gender Information Value Date Recorded Sex Assigned at Not on file Legal Sex Female 3:22 AM MEAT PROCESS WORKER Gender Identity Not on file Sexual Orientation Not on file documented as of this encounter Plan of Treatment Not on file documented as of this encounter Visit Diagnoses Diagnosis Other screening mammogram documented in this encounter Care Teams Recreation Leader Relationship Specialty Start Date End Date Chema Padilla MD [address] [place] [address] [place] [phone] PCP - General Family Practice 03/24/19 documented as of this encounter
--- OUTSIDE RECORDS SUMMARY | 2025-02-24 20:52 | XMS_ITS | Encounter Summary ---
Author Organization [facility] Address [address] [place] [address] [address] Team Prov[address] Care [address] Patcher Name Role Phone Chema Padilla MD Primary Care Provider [phone] Encounter Details Date Type Department Care Team (Latest Contact Info) Description 05/09/2005 Outpatient [facility] Breast Center [facility] [address] [place] [address] Dewayne Fagan Jr., MD [address] [place] [address] 248 [facility] [address] [place] [address] SCREENING MAMM-MAILG NEOPL NEC (Primary Dx) Social History Tobacco Use Types Packs/Day Years Used Date Smoking Tobacco: Never Assessed Comments Unknown Sex and Gender Information Value Date Recorded Sex Assigned at Not on file Legal Sex Female 3:22 AM DIVINE HEALER Gender Identity Not on file Sexual Orientation Not on file documented as of this encounter Plan of Treatment Not on file documented as of this encounter Visit Diagnoses Diagnosis Other screening mammogram- Primary documented in this encounter Care Teams Road Patcher Relationship Specialty Start Date End Date Chema Padilla MD [address] [place] [phone] PCP - General Family Practice 03/24/19 documented as of this encounter
--- OUTSIDE RECORDS SUMMARY | 2025-02-24 20:52 | XMS_ITS | Encounter Summary ---
Author Organization [facility] Address [address] [place] [address] Care Team Providers Care Denial Management Representative Name Role Phone Chema Padilla MD Primary Care Provider Reason for Referral * Outpatient Services (Routine) - Closed Specialty Diagnoses / Procedures Referred By Contac t Referred To Contact Radiology Diagnoses Other (abnormal) findings on radiological examination of breast Procedures MAMMO BREAST US RT Kayla Sung DO NO ADDRESS ON FILE [facility] [address] [place] [phone] Phone: tel: fax: Referral ID Status Reason Start Date Expiration Date Visits Requested Visits Authorized [id number] Closed Performing Department To Schedule (SGF) 03/27/2013 04/27/2014 1 1 RVENTIONAL CARDIOLOGIST * Outpatient Services (Routine) - Closed Specialty Diagnoses / Procedures Referred By Contac t Referred To Contact Radiology Diagnoses Other (abnormal) findings on radiological examination of breast Procedures MAMMO DIGITAL DIAG UNI RIGHT Kayla Sung DO NO ADDRESS ON FILE [facility] [address] [address] Phone: tel: fax: Referral ID Status Reason Start Date Expiration Date Visits Requested Visits Authorized [id number] Closed Ordering Department To Schedule 03/27/2013 04/27/2014 1 1 RVENTIONAL CARDIOLOGIST Encounter Details Date Type Department Care Team (Latest Contact Info) Description 03/27/2013 [address]illary Orders [facility] Breast [place] [address] [facility] [address] [place] [address] Kayla Sung DO NO ADDRESS ON FILE [...] on file Legal Sex Female 3:22 AM INTERVENTIONAL CARDIOLOGIST Gender Identity Not on file Sexual Orientation [...] DIGITAL DIAG UNI RIGHT (04/11/2013 9:59 AM INTERVENTIONAL CARDIOLOGIST) Anatomical Region Laterality Modality Breast Right Mammography 04/11/2013 9:16 AM INTERVENTIONAL CARDIOLOGIST Impressions 04/11/2013 12:10 PM INTERVENTIONAL CARDIOLOGIST IMPRESSION: Large lymph node on the right is confirmed on additional images, and ultrasound reveals what appears to be a benign lymph node. This should be of no clinical significance. I would recommend routine annual screening mammogram. Patient received a result/recommendation letter. CASSI/lanny 0956 AM - uploaded from [employer] - Narrative 04/11/2013 12:10 PM INTERVENTIONAL CARDIOLOGIST Right Digital Diagnostic Mammogram and Right Breast [...] letter. CASSI/lanny 0956 AM - uploaded from [employer] - us Kayla Sung DO MAMMO ORDERABLES Kellie corral Result * MAMMO BREAST US RT (04/11/2013 9:58 AM INTERVENTIONAL CARDIOLOGIST) Anatomical Region Laterality Modality Breast Right Ultrasound 04/11/2013 9:40 AM INTERVENTIONAL CARDIOLOGIST Impressions 04/11/2013 12:10 PM INTERVENTIONAL CARDIOLOGIST IMPRESSION: Large lymph node on the right is confirmed on additional images, and ultrasound reveals what appears to be a benign lymph node. This should be of no clinical significance. I would recommend routine annual screening mammogram. Patient received a result/recommendation letter. CASSI/lanny 0956 AM - uploaded from [employer] - Narrative 04/11/2013 12:10 PM INTERVENTIONAL CARDIOLOGIST Right Digital Diagnostic Mammogram and Right Breast [...] letter. CASSI/lanny 0956 AM - uploaded from [employer] - us Kayla Sung DO MAMMO ORDERABLES Kellie l Result documented in this encounter Visit Diagnoses Diagnosis Other (abnormal) findings on radiological examination of breast- Primary Other (abnormal) findings on radiological examination of breast Other (abnormal) findings on radiological examination of breast documented in this encounter Additional Health Concerns Assessment Noted Time PHQ-9 Depression Total Score: 2 03/05/20 13 8:00 AM INTERVENTIONAL CARDIOLOGIST documented as of this encounter Care Teams Denial Management Representative Relationship Specialty Start Date End Date Chema Padilla MD [address] [place] [phone] PCP - General Family Practice 03/24/19 documented as of this encounter
--- OUTSIDE RECORDS SUMMARY | 2025-02-24 20:52 | XMS_ITS | Encounter Summary ---
Author Organization [employer] [facility] Address [address] [place] [address] Care Team Providers Care Paper Cap Machine Operator Name Role Phone Chema Padilla MD Primary Care Provider [phone] Encounter Details Date Type Department Care Team (Latest Contact Info) Description 08/09/2015 Ancillary Orders [facility] [employer] [facility] [address] [facility] [address] [place] [address] Kayla Sung DO NO ADDRESS [...] on file Legal Sex Female 3:22 AM VICE PRINCIPAL Gender Identity Not on file Sexual Orientation [...] Total Score: 2 03/05/20 13 8:00 AM VICE PRINCIPAL documented as of this encounter Care Teams Paper Cap Machine Operator Relationship Specialty Start Date End Date Chema Padilla MD [address] [place] [address], [place] [phone] PCP - General Family Practice 03/24/19 documented as of this encounter
--- OUTSIDE RECORDS SUMMARY | 2025-02-24 20:52 | XMS_ITS | Encounter Summary ---
Author Organization [facility] Address [address] [place] [address] Care Team Providers Care Caul Fat Puller Name Role Phone Chema Padilla MD Primary Care Provider [phone] Reason for Referral * Radiology Services (Routine) - Closed Specialty Diagnoses / Procedures Referred By Beau t Referred To Contact Diagnoses Visit for screening mammogram Procedures MAMMO 3D SCREEN BILATERAL MOBILE Jazzy Zimmerman FNP Referral ID Status Reason Start Date Expiration Date Visits Re quested Visits Authorized [id number] Closed 09/03/2019 10/03/2020 1 1 Encounter Details Date Type Department Care Team (Latest Contact Info) Description 09/03/2019 [facility] [place] [address] [facility] [address] [place] [phone] Jazzy Zimmerman FNP NO ADDRESS ON FILE [...] on file Legal Sex Female 3:22 AM VENDING MACHINE COLLECTOR Gender Identity Not on file Sexual Orientation [...] 3D SCREEN BILATERAL MOBILE (03/31/2020 9:04 AM VENDING MACHINE COLLECTOR) Anatomical Region Laterality Modality Breast Bilateral Mammography 03/31/2020 9:04 AM VENDING MACHINE COLLECTOR Narrative 04/01/2020 3:47 PM VENDING MACHINE COLLECTOR BILATERAL SCREENING MAMMOGRAM 03/31/2020 PATIENT COMPLAINT: No [...] Center to schedule the recommended follow-up appointment. [id number] Jazzy Zimmerman MOBILE THERAPIST MAMMO ORDERABLES Final Res ult documented in this encounter Visit Diagnoses Diagnosis Visit for screening mammogram Other screening mammogram documented in this encounter Additional Health Concerns Assessment Noted Time PHQ-9 Depression Total Score: 1 06/04/19 20 1:00 PM VENDING MACHINE COLLECTOR documented as of this encounter Care Teams Caul Fat Puller Relationship Specialty Start Date End Date Chema Padilla MD [address] [place] [phone] PCP - General Family Practice 03/24/19 documented as of this encounter
--- OUTSIDE RECORDS SUMMARY | 2025-02-24 20:52 | XMS_ITS | Encounter Summary ---
Author Organization [facility] Address [address] [place] [address] Care Team Providers Care French Translator Name Role Phone Chema Padilal MD Primary Care Provider [phone] Encounter Details Date Type Department Care Team (Latest Contact Info) Description 04/19/2005 Outpatient [facility] [place] [id number] [phone] Dewayne Fagan Jr., MD [address] [place] [address] [address] [facility] [address] [place] [address] MYALGIA AND MYOSITIS NOS (Primary Dx); Benign hypertension; SYNOVIAL CYST NOS Social History Tobacco Use Types Packs/Day Years Used Date Smoking Tobacco: Never Assessed Comments Unknown Sex and Gender Information Value Date Recorded Sex Assigned at Not on file Legal Sex Female 3:22 AM WATCHER [employer] Gender Identity Not on file Sexual Orientation Not on file documented as of this encounter Plan of Treatment Not on file documented as of this encounter Visit Diagnoses Diagnosis Myalgia and myositis, unspecified- Primary Mylagia and myositis, unspecified Benign hypertension Essential hypertension, benign Synovial cyst, unspecified documented in this encounter Care Teams French Translator Relationship Specialty Start Date End Date Chema Padilla MD [facility] [address] [phone] PCP - General Family Practice 03/24/19 documented as of this encounter
--- OUTSIDE RECORDS SUMMARY | 2025-02-24 20:52 | XMS_ITS | Clinical Summary ---
Author Organization [facility] Address [address] [place] [address] Care Team Providers Care Daycare Assistant Name Role Phone Dennis Vines MD Primary Care Provider [phone] Allergies Active Allergy Reactions Criticality Noted Date Comments Morphine Nausea and Vomiting Low 11/26/2009 Medications triamcinolone acetonide (KENALOG-40) 40 mg/mL Suspension 40 mg by Intra-arTICular route one time only. 019 Active Nebulizer Accessories Kit Use 3-4 times daily with nebulized solution. Change tubing/mask every 2 weeks. 7 Kit 4 023 Active carvediloL (COREG) 25 mg tabletIndication s:Essential hypertension Take 1 Tablet (25 mg) by mouth 2 times daily with meals. 200 Tablet 3 025 Active cyclobenzaprine (FLEXERIL) 10 mg tabletIndication s:Fibromyalgia Take 1 Tablet (10 mg) by mouth 3 times daily as needed for Spasm. 270 Tablet 2 025 Active simvastatin (ZOCOR) 10 mg tabletIndication s:Hyperlipidemia , unspecified hyperlipidemia type Take 1 Tablet (10 mg) by mouth daily at bedtime. PATIENT NEEDS AN APPOINTMENT FOR FUTURE REFILLS 100 Tablet 2 025 Active levothyroxine 75 mcg tabletIndication s:Primary hypothyroidism Take 1 Tablet (75 mcg) by mouth daily. PATIENT NEEDS AN APPOINTMENT FOR FUTURE REFILLS. 100 Tablet 2 025 Active albuterol sulfate HFA 90 mcg/actuation aerosol inhalerIndicatio ns:Chronic obstructive pulmonary disease, unspecified COPD type (CMS/HCC) Take 2 Puffs by inhalation every 6 hours as needed for Shortness of Breath. 18 Gram Active ipratropium-albu teroL (DUONEB) 0.5 mg-3 mg(2.5 mg base)/3 mL Solution for NebulizationIndi cations:Chronic obstructive pulmonary disease, unspecified COPD type ([facility]) Take 3 mL by inhalation every 6 hours as needed for Shortness of Breath. 120 Each Active omeprazole (PriLOSEC) 20 mg Capsule, Delayed Release(E.C.)Ind ications:Gastroe sophageal reflux disease, unspecified whether esophagitis present Take 1 Capsule (20 mg) by mouth daily. PATIENT NEEDS AN APPOINTMENT FOR FUTURE REFILLS 100 Capsule Active cefdinir (OMNICEF) 300 mg capsule Take [...] capsule Take 240 mg by mouth daily. Active traZODone (DESYREL) 50 mg tabletIndication s:Primary insomnia Take 1 Tablet (50 mg) by mouth daily at bedtime. 30 Tablet Active sertraline (ZOLOFT) 50 mg tabletIndication s:CAROL ANN (generalized anxiety disorder) Take 1 Tablet (50 mg) by mouth daily. 100 Tablet 1 Active Eliquis 5 mg tablet Take 5 mg by mouth 2 times daily. Active nystatin (NYSTOP) 100,000 unit/gram powder Apply to affected area see administration instructions. Active pantoprazole (PROTONIX) 40 mg Tablet, Delayed Release (E.C.) Take 40 mg by mouth daily. Active budesonide-glyco pyrrolate-formot nora 160-9-4.8 mcg/actuation HFA Aerosol InhalerIndicatio ns:Chronic obstructive pulmonary disease, unspecified COPD type ([facility]/HCC) Take 2 Puffs by inhalation 2 times daily. 10.7 Gram 11 025 Active meloxicam (MOBIC) 15 mg tabletIndication s:Chronic pain of left knee Take 1 Tablet (15 mg) by mouth daily at bedtime. 100 Tablet 2 025 Active sertraline (ZOLOFT) 50 mg tabletIndication s:CAROL ANN (generalized anxiety disorder) Take 1 Tablet (50 mg) by mouth daily. 100 Tablet 2 025 2024 Discontinued meloxicam (MOBIC) 15 mg tabletIndication s:Chronic pain of left knee Take 1 Tablet (15 mg) by mouth daily at bedtime. PATIENT NEEDS AN APPOINTMENT FOR FUTURE REFILLS 100 Tablet 2 025 2024 Discontinued(R eorder) Active Problems Problem Noted Date Diagnosed Date Hip pain, chronic, left 02/17/2021 Prediabetes 06/04/2019 Primary hypothyroidism 06/04/2019 Vitamin D deficiency 08/15/2018 Family history of breast cancer 01/29/2018 Chronic obstructive pulmonary disease 01/29/2018 Assessment & Plan (02/13/2025 11:51 AM SPECIAL FORCES SPECIALIST): Partly controlled. Addition of Breztri for maintenance and referral to pulmonology per hospital records. - She experienced an exacerbation of COPD, leading to acute respiratory failure with hypoxia. - Home oxygen therapy and a new nebulizer have been provided. - A referral to pulmonology has been initiated for further management of her respiratory condition and lung nodules. - A maintenance inhaler will be prescribed and sent to the pharmacy. If the cost is prohibitive, she should inform us so alternative options can be explored. Orders: AMB REFERRAL TO PULMONARY [id number]-nptyyzoulv 160-9-4.8 mcg/actuation HFA Aerosol Inhaler; Take 2 Puffs by inhalation 2 times daily. Situational depression 03/01/2016 ARELLANO (nonalcoholic steatohepatitis) 10/25/2015 [...] Encounters Date Type Department Care Team Description 02/13/2025 Results Follow-Up [address] [phone] Racquel Reynolds FNP CBC WITH DIFFERENTIAL 02/13/[address] [phone] Dennis Vines MD Chronic pain of left knee 02/12/2025 10:20 AM SPECIAL FORCES SPECIALIST Office Visit [address] [phone] Racquel Reynolds FNP Hospital discharge follow-up (Primary Dx); New onset a-fib (CMS/HCC); Paroxysmal atrial fibrillation with rapid ventricular response (CMS/HCC); Chronic obstructive pulmonary disease, unspecified COPD type (CMS/HCC); Multiple lung nodules; Acute respiratory failure with hypoxia (CMS/HCC); ACP (advance care planning) 02/12/[address] [phone] Dennis Vines MD 02/11/2025 Orders Only [facility] Health Information Management [place] [address] [place] [address] Provider, Abstract 02/10/2025 Nurse Triage [facility] [address] [place] [address] Agnes Sandoval RN 01/26/2025 Refill [facility] [address] [place] [phone] Krishna Padilla DO CAROL ANN (generalized anxiety disorder) 01/19/2025 1:00 PM CDT Office Visit [facility] [address] [place] [phone] Racquel Reynolds FNP Laceration of other part of head without foreign body, sequela (Primary Dx); Visit for suture removal; Primary insomnia 01/16/2025 Orders Only [address] [phone] Racquel Reynolds FNP Primary insomnia (Primary Dx) 01/16/2025 Telephone [facility] [address] [place] [phone] Racquel Reynolds FNP Remote Monitoring 01/10/[address] [phone] Krishna Padilla DO Fibromyalgia 01/08/2025 10:20 AM CDT Office Visit [facility] [address] [place] [phone] Racquel Reynolds FNP Hospital discharge follow-up (Primary Dx); New onset a-fib (CMS/HCC); Pneumonia of left lower lobe due to infectious organism; Laceration of other part of head without foreign body, sequela; ACP (advance care planning); Encounter for colorectal cancer screening; Full code status 01/08/2025 Abstract [facility] [address] [phone] Dennis Vines MD 01/08/2025 Orders Only [facility] [address] [place] [phone] Provider, Abstract 12/16/2024 External Device Data STL ABSTRACTION Provider, Abstract 12/16/2024 External Device Data STL ABSTRACTION Provider, Abstract from Last 3 Months Immunizations Immunization Administration Dates Next Due (PNEUMOVAX 23)(50 YRS UP) PN EUMOCOCCAL POLYSACCHARIDE (PPV23) 0.5 ML, IM 06/04/2019 (PREVNAR 13)(6 WKS UP) PNEUM OCOCCAL CONJUGATE (PCV13) 0.5 ML, IM 11/27/2018 (PREVNAR 20)(6 WKS UP) PNEUM OCOCCAL CONJUGATE VACCINE 20-VALENT (PCV20), POLYSACCHARIDE [id number] CONJUGATE, ADJUVANT 0.5 ML (PF) IM 10/29/2024 [...] Tri Split 4+ Pf Im 02/09/2017 Novel [id number], All Formulations 02/12/2009 Family History Medical History [...] on file Legal Sex Female 10:01 AM SPECIAL FORCES SPECIALIST Gender Identity Not on file Sexual Orientation Not on file Last Filed Vital Signs Vital Sign Reading Time Taken Comments Blood Pressure 128/88 02/12/2025 10:36 AM SPECIAL FORCES SPECIALIST Pulse 100 02/12/2025 10:36 AM SPECIAL FORCES SPECIALIST Temperature 36.3 C (97.4 F) 02/12/2025 10:36 AM SPECIAL FORCES SPECIALIST Respiratory Rate 19 02/12/2025 10:36 AM SPECIAL FORCES SPECIALIST Oxygen Saturation 90% 02/12/2025 10:36 AM [employer] FORCES SPECIALIST Inhaled Oxygen Concentration - - Weight 69.1 kg (152 lb 6.4 oz) 02/12/2025 10:36 AM SPECIAL FORCES SPECIALIST Height 157.5 cm (5' 2 ) 02/12/2025 10:36 AM SPECIAL FORCES SPECIALIST Body Mass Index 27.87 02/12/2025 10:36 AM SPECIAL FORCES SPECIALIST Plan of Treatment Upcoming Encounters Date Type Department Care Team (Late st Contact Info) Description 05/01/2025 9:20 AM SPECIAL FORCES SPECIALIST Office Visit [facility] Medicine [place] [address] [phone] Racquel Reynolds POLICE COMMUNICATIONS DISPATCHER [address] [phone] 07/09/2025 10:40 AM CDT Office Visit [facility] Medicine [place] [address] [place] [address] AMRIK CUADRA [phone] Dennis Vines MD [address] [phone] Health Maintenance Due Date Last Done Comments [...] Associated Diagnosis Comments CBC WITH DIFFERENTIAL Routine 02/12/2025 11:10 AM SPECIAL FORCES SPECIALIST Paroxysmal atrial fibrillation with rapid ventricular response (CMS/HCC) BASIC METABOLIC PANEL Routine 02/10/2025 3:19 PM SPECIAL FORCES SPECIALIST COMPREHENSIVE METABOLIC PANEL Routine 02/09/2025 3:21 PM SPECIAL FORCES SPECIALIST COMPREHENSIVE METABOLIC PANEL Routine 02/08/2025 3:20 PM SPECIAL FORCES SPECIALIST ECHO COMPLETE Routine 02/08/2025 3:18 PM SPECIAL FORCES SPECIALIST COMPREHENSIVE METABOLIC PANEL Routine 02/07/2025 3:20 PM SPECIAL FORCES SPECIALIST PROTIME-INR Routine 02/07/2025 MA REMOVAL OF SUTURES Routine 01/19/2025 1:00 PM [...] SCREEN BILATERAL MOBILE Routine 03/31/2020 9:04 AM SPECIAL FORCES SPECIALIST Encounter for screening mammogram for malignant neoplasm of breast from Last 3 Months or Most Recently Relevant to Health Maintenance Results * (ABNORMAL) CBC WITH DIFFERENTIAL (02/12/2025 11:10 AM SPECIAL FORCES SPECIALIST) WBC 11.0(H) 3.8 - 10.8 Thousand/u L [facility] RBC 5.56(H) 3.80 - 5.10 Million/uL [facility] HEMOGLOBIN 12.0 11.7 - 15.5 g/dL [facility] HEMATOCRIT 42.6 35.0 - 45.0 % [facility] MCV 76.6(L) 80.0 - 100.0 fL [facility] MCH 21.6(L) 27.0 - 33.0 pg [facility] MCHC 28.2(L) 32.0 - 36.0 g/dL [facility] Comment: For adults, a slight decrease in the calculated MCHC value (in the range of 30 to 32 g/dL) is most likely not clinically significant; however, it should be interpreted with caution in correlation with other red cell parameters and the patient's clinical condition. RDW 19.7(H) 11.0 - 15.0 % [facility] PLATELETS 261 140 - 400 Thousand/u L [facility] MPV 11.8 7.5 - 12.5 fL [facility] NEUTROPHIL ABSOLUTE 8,052(H) 1,500 - 7,800 cells/uL [facility] LYMPHOCYTE ABSOLUTE 1,573 850 - 3,900 cells/uL [facility] MONOCYTE ABSOLUTE 1,078(H) 200 - 950 cells/uL [facility] EOSINOPHIL ABSOLUTE 242 15 - 500 cells/uL [facility] BASOPHILS ABSOLUTE 55 0 - 200 cells/uL [facility] NEUTROPHIL 73.2 % [facility] LYMPHOCYTES 14.3 % [facility] MONOCYTE 9.8 % [facility] EOSINOPHILS 2.2 % [facility] BASOPHILS 0.5 % [facility] Comment: Test Performed at: [facility] [address] [address] Hallie Peres MD Blood 02/12/2025 11:1 0 AM SPECIAL FORCES SPECIALIST 02/13/2025 2:55 AM SPECIAL FORCES SPECIALIST Racquel Reynolds POLICE COMMUNICATIONS DISPATCHER HEMATOLOGY ORDERABLES Final Result [facility] [phone] [facility] [address] [place] [address] * BASIC METABOLIC PANEL (02/10/2025 3:19 PM SPECIAL FORCES SPECIALIST) Blood us Abstract Provider CHEMISTRY ORDERABLES Final Res ult * COMPREHENSIVE METABOLIC PANEL (02/09/2025 3:21 PM SPECIAL FORCES SPECIALIST) Only the most recent of5 resultswithin the time period is included. Blood us Abstract Provider CHEMISTRY ORDERABLES Final Res ult * ECHO COMPLETE - CONTRAST AND STRAIN IF INDICATED (02/08/2025 3:18 PM SPECIAL FORCES SPECIALIST) Only the most recent of2 resultswithin the time period is included. us Abstract Provider US ORDERABLES Final Result * PROTIME-INR (02/07/2025) Only the most recent of2 resultswithin the time period is included. ABSTRACTED PROTIME 15.4 ABSTRACTED INR 1.14 Blood 02/07/2025 us Abstract Provider HEMATOLOGY ORDERABLES Final Re sult * MA REMOVAL OF SUTURES (01/19/2025 1:00 PM CDT) Narrative [facility] - 01/19/2025 1:00 PM CDT [...] scaring. Discussed activity. Discussed safety. Return PRN. Racquel Marci Reynolds POLICE COMMUNICATIONS DISPATCHER PROCEDURE/MINOR SURGI CLARISSA ORDERABLES Final Result [facility] CLIA# [id number] [address] [address] * OCCULT BLOOD IMMUNOASSAY, COLORECTAL SCREEN (07/23/2023 12:00 AM CDT) FECAL GLOBIN SEE NOTE [facility] Comment: FECAL GLOBIN BY IMMUNOCHEMISTRY Micro Number: [id number] Test Status: Final Specimen Source: Stool Specimen Quality: Adequate Fecal Globin: Not Detected Test Performed at: [facility] [address] [place] [address] Hallie Peres MD Stool STOOL SPECIMEN / Unknown 07/23/2023 07/26/2023 11:19 AM CDT Jazzy Zimmerman POLICE COMMUNICATIONS DISPATCHER BODY FLUIDS AND STOOLS Fin al Result [facility] [phone] [facility] [address] [place] [address] * HEMOGLOBIN A1C (10/06/2021 9:24 AM CDT) HEMOGLOBIN A1C 5.6 <5.7 % of total Hgb [facility] Comment: For the purpose of screening for the presence of diabetes: <5.7% Consistent with the absence of diabetes 5.7-6.4% Consistent with increased risk for diabetes (prediabetes) > or =6.5% Consistent with diabetes This assay result is consistent with a decreased risk of diabetes. Currently, no consensus exists regarding use of hemoglobin A1c for diagnosis of diabetes in children. According to [place] Diabetes Association (ADA) guidelines, hemoglobin A1c <7.0% represents optimal control in non- diabetic patients. Different metrics may apply to specific patient populations. Standards of Medical Care in Diabetes(ADA). ESTIMATED AVERAGE GLUCOSE (MG/DL) 114 mg/dL [facility] ESTIMATED AVERAGE GLUCOSE (MMOL/L) 6.3 mmol/L [facility] Comment: Test Performed at: [facility] [address] [address] Landry Pelayo D.O., MPH Blood 10/06/2021 9:24 AM CDT 10/07/2021 1:21 AM CDT Jazzy Zimmerman [facility] CHEMISTRY ORDERABLES Final Result [facility] [phone] [facility] [address] [place] [address] * COLON CANCER SCREEN, STOOL DNA (09/22/2020 5:08 PM CDT) COLOGUARD RESULT Negative Negative 09/29/19 9:35 AM CDT [facility] Comment: NEGATIVE TEST RESULT. A negative Cologuard [...] (Christine Dennis al, N Engl J Med 2014;370(14):9595-5475) The normal value (reference range) for this [...] Cancer Society Guideline for Colorectal Cancer Screening: https://www.cancer.org/cancer/hcqwa-apltmv-stqmsq/prnwrybkl-eocuoyrlh-alxntsk/ac s-rec ommendations.html.; Billy DK, Edwin CR, Alfa CotaK, Colorectal Cancer Screening: Recommendations for Physicians and Patients from the U.S. Multi-Society Task Force on Colorectal Cancer Screening , Am J Gastroenterology 2017; 112:0089-4027. TEST DESCRIPTION: Composite algorithmic analysis of stool [...] Chang et al, N Engl J Med 2014;370(14):6893-7133.) Cologuard may produce a false negative or [...] can be accessed at the following location: www.[facility].Wavesat/results. Additional description of the Cologuard test process, warnings and precautions can be found at www.[facility].com. Stool STOOL SPECIMEN / Unknown 09/22/2020 5:08 PM CDT 09/24/2020 7:08 PM CDT Jazzy Zimmerman POLICE COMMUNICATIONS DISPATCHER BODY FLUIDS AND STOOLS Fin al Result [facility] CLIA # [id number] [address] , [address] [place] [address] * MAMMO 3D SCREEN BILATERAL MOBILE (03/31/2020 9:04 AM SPECIAL FORCES SPECIALIST) Anatomical Region Laterality Modality Breast Bilateral Other Narrative 04/01/2020 3:47 PM SPECIAL FORCES SPECIALIST BILATERAL SCREENING MAMMOGRAM 03/31/2020 PATIENT COMPLAINT: No [...] Center to schedule the recommended follow-up appointment. [id number] Procedure Note Nikia Escamilla MD - 09/01/2020 [...] Center to schedule the recommended follow-up appointment. [id number] Jazzy Zimmerman POLICE COMMUNICATIONS DISPATCHER MAMMO ORDERABLES Final Res ult from Last 3 Months or Most Recently Relevant to Health Maintenance Insurance [facility] MEDIC[employer] HMO Advance Directives For more information, please contact: [phone] * Full Code (Latest Code Status on File) Date Activated Date Inactivated Comments 01/08/2025 10:52 AM Care Teams Daycare Assistant Relationship Specialty Start Date End Date Dennis Vines MD [address] [place] [phone] PCP - General Family Practice 10/23/24
--- OUTSIDE RECORDS SUMMARY | 2025-02-24 20:52 | XMS_ITS | Encounter Summary ---
Author Organization [facility] Address [address] [place] [address] Care Team Providers Care Shag Truck Driver Name Role Phone Chema Padilla MD Primary Care Provider [phone] Encounter Details Date Type Department Care Team (Latest Contact Info) Description 09/11/2005 Outpatient Historical 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
--- OUTSIDE RECORDS SUMMARY | 2025-02-24 20:52 | XMS_ITS | Encounter Summary ---
Author Organization [facility] Address [address] [place] [address] Care Team Providers Care Manager Maritime Name Role Phone Chema Padilla MD Primary Care Provider [phone] Encounter Details Date Type Department Care Team (Latest Contact Info) Description 05/10/2005 Outpatient [facility] Family Medicine Kristin 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
--- OUTSIDE RECORDS SUMMARY | 2025-02-24 20:52 | XMS_ITS | Clinical Summary ---
Author Organization [facility] Address [address] [place] [address] Care Team Providers Care Operations Project Manager Name Role Phone Chema Padilla MD Primary Care Provider [phone] Allergies Active Allergy Reactions Criticality Noted Date [...] often do you attend chur ch or shinto services? Never 02/12/2020 Do you belong to any clubs o r organizations such as faith groups, unions, fraternal or athletic groups, or [...] on file Legal Sex Female 3:22 AM HOSPITAL CNA Gender Identity Not on file Sexual Orientation [...] Q 3 years 09/23/2023 09/22/2020 Medicare Advantage ([place]) Preventative Visit/Annual Wellness Visit 04/02/2024 08/11/2020, 02/12/2020 [...] SCREEN BILATERAL MOBILE Routine 03/31/2020 9:04 AM HOSPITAL CNA Visit for screening mammogram ENDOSCOPY, COLON, SCREENING Routine 03/15/2011 10:04 AM HOSPITAL CNA Screen for colon cancer from Last 3 Months or Most Recently Relevant to Health Maintenance Results * COLON CANCER SCREEN, STOOL DNA (09/22/2020 5:08 PM CDT) COLOGUARD RESULT Negative Negative H[employer]Points Comment: NEGATIVE TEST RESULT. A negative Cologuard [...] Chang et al, N Engl J Med 2014;370(14):7870-0871) The normal value (reference range) for this assay is negative. COLOGUARD RE-SCREENING RECOMMENDATION: Periodic colorectal cancer screening is an important part of preventive healthcare for asymptomatic individuals at average risk for colorectal cancer. Following a negative Cologuard result, the [employer] Cancer Society and U.S. Multi-Society Task Force screening guidelines recommend a Cologuard re-screening interval of 3 years. References: [employer] Guideline for Colorectal Cancer Screening: https://www.cancer.org/cancer/bpijn-irdyym-qgkigm/emnntgztc-yuwjjfvle-andnazi/ac s-rec ommendations.html.; Billy TRAN, Edwin CR, Alfa CotaK, Colorectal Cancer Screening: Recommendations for Physicians and Patients from the U.S. Multi-Society Task Force on Colorectal Cancer Screening , Am J Gastroenterology 2017; 112:1678-8847. TEST DESCRIPTION: Composite algorithmic analysis of stool [...] Morris. et al, N Engl J Med 2014;370(14):6344-9732.) Cologuard may produce a false negative or false positive result (no colorectal cancer or precancerous polyp present at colonoscopy follow up). A negative Cologuard test result does not guarantee the absence of CRC or advanced adenoma (pre-cancer). The current Cologuard screening interval is every 3 years. ([place] [employer] Society and U.S. Multi-Society Task Force). Cologuard performance data in a 10,000 patient pivotal study using colonoscopy as the reference method can be accessed at the following location: www.[employer]/results. Additional description of the Cologuard test process, warnings and precautions can be found at www.Justinmindoguard.com. Stool STOOL SPECIMEN / Unknown 09/22/2020 5:08 PM CDT 09/24/2020 7:08 PM CDT us Jazzy Zimmerman ACCOUNTS PAYABLE ANALYST BODY FLUIDS AND STOOLS Fin al Result [employer] CLIA # [id number] [address], [address] [place] [address] * (ABNORMAL) HEMOGLOBIN A1C (08/06/2020 8:53 AM CDT) HEMOGLOBIN A1C 5.9(H) See Comment % 08/06/2020 8:31 PM CDT [facility] EST. AVG GLUCOSE, A1C 123 mg/dL 08/06/2020 8:31 PM CDT [facility] Blood Venipuncture / Unknown 08/06/2020 8:53 AM CDT 08/06/2020 7:58 PM CDT Narrative [facility] - 08/06/2020 8:31 PM CDT HGB A1C INTERPRETATION NORMAL: <5.7% PRE-DIABETES: 5.7 - 6.4% DIABETES: 6.5% OR GREATER Falsely low A1C measurements can occur when: 1. Anemia and/or hemolytic anemia is present. 2. Hemoglobin variants present. 3. Renal failure. 4. Transfusion of blood product in the last 120 days. We recommend ordering a fructosamine test([id number]) to more accurately assess glycemic status if any of the above conditions are present. Jazzy Zimmerman ACCOUNTS PAYABLE ANALYST CHEMISTRY ORDERABLES Final Result [facility] CLIA# [id number] [facility]ly [facility] [place] [address] * MAMMO 3D SCREEN BILATERAL MOBILE (03/31/2020 9:04 AM HOSPITAL CNA) Anatomical Region Laterality Modality Breast Bilateral Mammography 03/31/2020 9:04 AM HOSPITAL CNA Narrative 04/01/2020 3:47 PM HOSPITAL CNA BILATERAL SCREENING MAMMOGRAM 03/31/2020 PATIENT COMPLAINT: No [...] Center to schedule the recommended follow-up appointment. [id number] Jazzy Chapacayetano ACCOUNTS PAYABLE ANALYST MAMMO ORDERABLES Final Res ult from Last 3 Months or Most Recently Relevant to Health Maintenance Insurance [facility] Advance Directives For more information, please contact: [phone] * Full Code (Latest Code Status on File) Date Activated Date Inactivated Comments 11/24/2013 1:00 PM 11/24/2013 6:57 PM * Full Code Date Activated Date Inactivated Comments 11/24/2013 12:18 PM 11/24/2013 1:00 PM * Full Code Date Activated Date Inactivated Comments 03/15/2011 10:04 AM 03/15/2011 1:31 PM * Full Code Date Activated Date Inactivated Comments 11/26/2009 9:33 AM 11/26/2009 7:02 PM Care Teams Operations Project Manager Relationship Specialty Start Date End Date Chema Padilla MD [address] [place] [phone] PCP - General Family Practice 03/24/19
--- OUTSIDE RECORDS SUMMARY | 2025-02-24 20:52 | XMS_ITS | Encounter Summary ---
Author Organization [facility] Address [address] [place] [address] Care Team Providers Care Sprinkler Fitter Apprentice Name Role Phone Dennis Vines MD Primary Care Provider [phone] Reason for Visit * Reason Onset Date Comments [facility] Primary Care After Hours 02/10/2025 Encounter Details Date Type Department Care Team (Late st Contact Info) Description 02/10/2025 Nurse Triage [facility] [address] [place] [address] Agnes Sandoval RN Social History Tobacco Use Types Packs/Day Years [...] on file Legal Sex Female 10:01 AM TREE EXPERT Gender Identity Not on file Sexual Orientation Not on file documented as of this encounter Miscellaneous Notes * Telephone Encounter - Agnes Sandoval RN - 02/10/2025 7:40 PM TREE EXPERT [facility] PRIMARY CARE AFTER HOURS DOCUMENTATION Chief Complaint: Prescription Questions PCP: Dennis Vines MD Patient Statement/HPI/Review of Systems: Patient reports she was discharged yesterday from [facility] and she was on the cardiac step down unit. Reports she was told that they changed her medications and they will take care of sending her new prescriptions to her pharmacy. Reports she was not discharged with any paper workso she is unsure of what medications she is suppose to be taking. Wanting to know what new medicatio ns she was suppose to be taking. Vitals and Assessment: Patient alert, able to answer questions appropriately, and speaks in complete sentences. Plan: Patient informed that admission is not noted in [facility]'s chart. Patient advised to call [facility] for paperwork. Patient provided with [facility]'s phone number. Patient verbalized understanding. Note routed to primary care office pool. Visit was completed by phone unless otherwise noted with video/screen capture within the note. Agnes Sandoval RN [facility] 365 EXPERT documented in this encounter Plan of Treatment Upcoming Encounters Date Type Department Care Team (Late st Contact Info) Description 05/01/2025 9:20 AM TREE EXPERT Office Visit [address] [phone] Racquel Reynolds FNP [address] [facility] [address] [place] [address] 07/09/2025 10:40 AM CDT Office Visit [address] [phone] Dennis Vines MD [address] [place] [phone] documented as of this encounter Visit Diagnoses Not on filedocumented in this encounter Additional Health Concerns Assessment Noted Time PHQ-9 Depression Total Score: 2 10/30/19 3:56 PM CDT documented as of this encounter Care Teams Sprinkler Fitter Apprentice Relationship Specialty Start Date End Date Dennis Vines MD [address] [place] [phone] PCP - General Family Practice 10/23/24 documented as of this encounter
--- OUTSIDE RECORDS SUMMARY | 2025-02-24 20:52 | XMS_ITS | Encounter Summary ---
Author Organization [facility] Address [address] [place] [address] Care Team Providers Care Machine Operator Replanter Name Role Phone Chema Padilla MD Primary Care Provider [phone] Encounter Details Date Type Department Care Team (Late st Contact Info) Description 05/18/2004 Emergency [facility] Emergency Department [address] [place] [phone] Senia Angel NP NO ADDRESS ON FILE SPRAIN THORACIC REGION (Primary Dx) Social History Tobacco Use Types Packs/Day Years Used Date Smoking Tobacco: Never Assessed Comments Unknown Sex and Gender Information Value Date Recorded Sex Assigned at Not on file 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
--- OUTSIDE RECORDS SUMMARY | 2025-02-24 20:52 | XMS_ITS | Encounter Summary ---
Author Organization [facility] Address [address] [place] [address] Care Team Providers Care Threader Name Role Phone Chema Padilla MD Primary Care Provider [phone] Reason for Referral * Radiology Services (Routine) [...] Expiration Date Visits Re quested Visits Authorized [id number] Closed 03/05/2018 04/05/2019 1 1 ELING RAMPMAN Encounter Details Date Type Department Care Team (Latest Contact Info) Description 03/05/2018 Ancillary Orders [facility] [address] [facility] [address] [place] [phone] Kayla Sung DO NO ADDRESS ON FILE [...] on file Legal Sex Female 3:22 AM REFUELING RAMPMAN Gender Identity Not on file Sexual Orientation [...] Total Score: 2 03/05/20 13 8:00 AM REFUELING RAMPMAN documented as of this encounter Care Teams Threader Relationship Specialty Start Date End Date Chema Padilla MD [address] [place] [phone] PCP - General Family Practice 03/24/19 documented as of this encounter
--- OUTSIDE RECORDS SUMMARY | 2025-02-24 20:52 | XMS_ITS | Encounter Summary ---
Author Organization [facility] Address [address] [place] [address] Care Team Providers Care El Teacher Name Role Phone Chema Padilla MD Primary Care Provider [phone] Encounter Details Date Type Department Care Team (Late st Contact Info) Description 07/29/2005 Emergency [facility] Emergency Department [address] [place] [phone] Beata Gonzalez MD Headache (Primary Dx) Social History Tobacco Use Types Packs/Day Years Used Date Smoking Tobacco: Never Assessed Comments Unknown Sex and Gender Information Value Date Recorded Sex Assigned at Not on file Legal Sex Female 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
[2025-02-24 20:55] VITALS: BP 148/116; PULSE 125; RESP 16; TEMP 36.3; O2SAT 92; BMI 27.1
[2025-02-24 21:02] VITALS: BP 148/116; PULSE 125; RESP 16; TEMP 36.3; O2SAT 92
--- NOTE | 2025-02-24 21:13 | W.ED.EXTPRO ---
HPI - Extremity Problem General: Chief complaint: Extremity Problem,Nontraumatic Stated complaint: RT Leg Swollen Time Seen by Provider: 02/24/25 21:13 History of Present Illness: 64-year-old female presents emergency room complaining of swelling in her lower extremities she also been somewhat short of breath. She is supposed to be on oxygen continuously at 2 L by nasal cannula family member who is her caregiver with the reports she frequently does not use it or takes it off she is requiring 2 L by nasal cannula now. She has a history of atrial fibrillation is on anticoagulation has not had her evening medications caregiver reports she has taken the anticoagulant regularly and did take her morning medications. She denies any chest pain at this time has had increasing orthopnea and exertional dyspnea. Has a history of COPD as well. No fever sweats or chills or productive cough. Patient denies chest pain Associated symptoms: Deny chest pain, fever(s) or rash Related Data Home Medications ?Medication ?Instructions ?Recorded ?Confirmed albuterol sulfate 90 mcg/actuation 1 puff inhalation Q6H PRN 01/03/25 02/08/25 aerosol inhaler Shortness Of Breath Held on 02/10/25. Instructions: Resume on 02/16/25. Resume when no longer using nebulizer carvedilol 25 mg tablet 25 mg PO BID 01/03/25 02/08/25 cyclobenzaprine 10 mg tablet 10 mg PO TID PRN muscle spasms 01/03/25 02/08/25 ipratropium 0.5 mg-albuterol 3 mg 3 ml inhalation QID PRN Shortness 01/03/25 02/08/25 (2.5 mg base)/3 mL nebulization Of Breath soln Held on 02/10/25. Instructions: Resume on 02/16/25. Resume when no longer using prescribed nebs levothyroxine 75 mcg tablet 75 mcg PO QAM 01/03/25 02/08/25 (Synthroid) meloxicam 15 mg tablet 15 mg PO DAILY 01/03/25 02/08/25 Held on 02/10/25. Instructions: Resume on 02/16/25. Resume under direction of PCP sertraline 50 mg tablet 50 mg PO DAILY 01/03/25 02/08/25 simvastatin 10 mg tablet 10 mg PO QPM 01/03/25 02/08/25 trazodone 50 mg tablet 1 mg PO BEDTIME 02/08/25 02/08/25 Held on 02/10/25. Instructions: Resume on 03/02/25. Resume by direction of PCP Previous Rx's ?Medication ?Instructions ?Recorded diltiazem HCl 240 mg 240 mg PO Q24H #30 caps 01/06/25 capsule,extended release 24 hr (Cardizem CD) apixaban 5 mg tablet (Eliquis) 5 mg PO BID@0900,2100 30 days #60 02/10/25 tabs furosemide 40 mg tablet 40 mg PO DAILY@0800 #30 tabs 02/10/25 pantoprazole 40 mg tablet,delayed 40 mg PO BID 30 days #60 tabs 02/10/25 release (Protonix) potassium chloride 20 mEq 40 meq (2 x 20 mEq) PO DAILY 30 02/10/25 tablet,extended days #30 tabs release(part/cryst) (Klor-Con M) Allergies Allergy/AdvReac Type Severity Reaction Status Date / Time morphine Allergy Intermediate ADR-Agitate Verified 01/03/25 13:28 d Review of Systems Const: Denies: fever(s) or chills Card: Reports: palpitations, irregular heart rhythm, edema, swelling of feet/ankles, dyspnea on exertion and orthopnea; Denies: chest pain Resp: Denies: dyspnea GI: Denies: abdominal pain : Denies: dysuria, urinary frequency or urinary urgency Musc: Denies: neck pain or back pain Skin/Breast: Denies: rash PFSH ED PFSH: Medical History (Updated 02/25/25 @ 03:29 by Gus Grijalva DO) Chronic hypoxic respiratory failure Chronic obstructive pulmonary disease, unspecified COPD type Pleural effusion Pulmonary edema Atrial fibrillation with RVR Physical Exam Const: GENERAL APPEARANCE: cooperative ORIENTATION/CONSCIOUSNESS: Yes awake, Yes oriented to person, Yes oriented to place and Yes oriented to time HENMT: COMMON NORMALS: normocephalic, atraumatic and hearing grossly normal bilaterally HEAD & SCALP: normocephalic and atraumatic Resp: COMMON NORMALS: normal respiratory effort, No retractions and No use of accessory muscles AUSCULTATION: crackles Cardio: COMMON NORMALS: No murmurs present (Cardio) RATE: tachycardic RHYTHM: abnormal rhythm irregularly irregular GI: COMMON NORMALS: Soft to palpation and No hepatosplenomegaly present AUSCULTATION: Yes normoactive bowel sounds PALPATION: Yes Soft to palpation, No Tenderness to palpation present (GI), No Guarding due to palpation present (GI) and Yes No hepatosplenomegaly present Extremity: COMMON NORMALS: normal to inspection, capillary refill normal, no clubbing, cyanosis or edema, no calf tenderness and no pedal edema Neuro: SENSORIUM/ORIENTATION: Yes oriented to person, Yes oriented to place and Yes oriented to time Skin: COMMON NORMALS: no rashes or lesions noted GENERAL SKIN EXAM: no rashes or lesions noted Course Vital Signs: Vital signs: Vital Signs Temperature 97.4 F L 02/24/25 21:02 Pulse Rate 91 02/25/25 01:57 Respiratory Rate 18 02/25/25 01:57 Blood Pressure 105/91 02/25/25 01:57 Pulse Oximetry 96 02/25/25 01:57 Oxygen Delivery Me thod Nasal Cannula 02/25/25 01:57 Oxygen Flow Rate 2 02/25/25 01:57 MDM - Extremity (Nontraumatic) Medical Decision Making Medical decision making Social determinants: main caregiver. He is present at the ER visit as well I reviewed the patient's medical record. I reviewed the patient's current home meds Alternate historians: added to history Differential diagnosis atrial fibrillation rapid ventricular sponsor congestive heart failure COPD exacerbation pleural effusion pulmonary embolism acute coronary syndrome Lab Review: Labs reviewed as found in the chart. BNP elevated liver functions also slightly elevated from baseline Imaging: Right pleural effusion increased vascular markings Assessment of risk: Level of risk: High Hospitalization considerations: Admit for A-fib with rapid ventricular response with CHF exacerbation Reexamination: Rate controlled on Cardizem IV still has crackles at lung bases Assessment and plan: Rate now controlled. Some signs of increased oxygen requirement usual baseline is 2 is now on 3. Is requiring continuous IV Cardizem to maintain rate control mild exacerbation of congestive heart failure as well. Patient given Lasix in the emergency room discussed with hospitalist placed on observation Lab Data I reviewed the patient's lab results. 02/24/25 22:40 02/24/25 22:40 Radiology Impressions Chest X-Ray 02/24/25 21:21 IMPRESSION: Moderate right pleural effusion. Laboratory Results WBC 11.91 10^3/uL (3.29-11.43) H 02/24/25 22:40 RBC 5.33 10^6/uL (3.85-5.65) 02/24/25 22:40 Hgb 11.30 g/dL (11.27-16.99) 02/24/25 22:40 Hct 38.7 % (36-47) 02/24/25 22:40 MCV 72.6 fl (85-98) L 02/24/25 22:40 MCH 21.2 pg (27-33) L 02/24/25 22:40 MCHC 29.2 g/dL (30-55) L 02/24/25 22: RDW 23.9 % (12.1-15.1) H 02/24/25:40 Plt Count 289 10^3/cmm (157-399) 02/24/25 22:40 MPV Not Reportable 02/24/25 22:40 Neut % (Auto) 80.2 % 02/24/25 22:40 Lymph % (Auto) 10.1 % 02/24/25 22:40 [place] % (Auto) 7.6 % 02/24/25 22:40 Eos % (Auto) 0.6 % 02/24/25 22:40 Baso % (Auto) 0.3 % 02/24/25:40 Neut # (Auto) 9.57 10^3/uL (1.8-7.7) H 02/24/25 22:40 Lymph # (Auto) 1.2 10^3/uL (0.8-4.8) 02/24/25 22:40 [place] # (Auto) 0.9 10^3/uL (0.2-0.9) 02/24/25 22:40 Eos # (Auto) 0.1 10^3/uL (0.0-0.8) 02/24/25 22:40 Baso # (Auto) 0.0 10^3/uL (0.0-0.1) 02/24/25:40 Nucleated RBC % (auto) 0.3 % 02/24/25: Nucleated RBCs # 0.0 /100WBC 02/24/25 22:40 Sodium 138 mmol/L (136-145) 02/24/25 22:40 Potassium 4.3 mmol/L (3.5-5.1) 02/24/25 22:40 Chloride 98 mmol/L (98-107) 02/24/25 22:40 Carbon Dioxide 30 mmol/L (22-29) H 02/24/25 22:40 Anion Gap 14.3 (5-19) 02/24/25 22:40 BUN 29 mg/dL (8-23) H 02/24/25 22:40 Creatinine 0.8 mg/dL (0.5-0.9) 02/24/25 22:40 GFR Calculation 71.8 mL/min (90-130) L 02/24/25 22:40 Glucose 124 mg/dL (65-115) H 02/24/25 22:40 Calculated Osmolality 293 mOsm/kg (285-295) 02/24/25 22:40 Calcium 9.2 mg/dL (8.5-10.5) 02/24/25 22:40 Total Bilirubin 1.6 mg/dL (0.15-1.2) H 02/24/25 22:40 AST 32 U/L (0-32) 02/24/25 22:40 ALT 37 U/L (0-33) H 02/24/25 22:40 Alkaline Phosphatase 122 U/L (35-105) H 02/24/25 22:40 NT-Pro-B Natriuret Pep 7331 pg/mL (0-125) H 02/24/25 22:40 Total Protein 7.1 g/dL (6.6-8.7) 02/24/25 22:40 Albumin 4.1 g/dL (3.5-5.2) 02/24/25 22:40 Globulin 3.0 g/dL (1.3-4.6) 02/24/25 22:40 All radiology interpretation(s) finalized by discharge EKG Data EKG 1: I personally reviewed and interpreted this EKG as follows: Interpretation: EKG 02/24/20252128 atrial fibrillation with rapid ventricular sponsor rate of 121. QTc [address] changes noted compared to EKG 02/08/2025 Now in rapid ventricular response previous EKG was controlled rate Discharge Plan Discharge Patient Disposition: Admitted As Inpatient Admit Provider: Toni Tam A Clinical Impression: Atrial fibrillation with RVR, Chronic hypoxic respiratory failure, Pleural effusion, Congestive heart failure (CHF) Chronic obstructive pulmonary disease, unspecified COPD type Qualifiers: COPD type: unspecified COPD Qualified Code(s): J44.9 - Chronic obstructive pulmonary disease, unspecified Condition: Stable Coding Level of Care Code ED Dock Operations Supervisor for Deven Sanders
--- NOTE | 2025-02-24 21:21 | XRR_ITS ---
PROCEDURE INFORMATION: Exam: XR Chest Exam date and time: 02/24/2025 9:28 PM Age: 64 years old Clinical indication: Other: Chf TECHNIQUE: Imaging protocol: Radiologic exam of the chest. Views: 1 view. COMPARISON: CR XR chest 1V portable [id number] 02/10/2025 10:51 AM FINDINGS: Lungs: Atelectasis at the right lung base. The left lung is clear. Pleural spaces: Moderate right pleural effusion with adjacent atelectasis. Heart/Mediastinum: Heart size can not be accurately assessed in this projection. Bones/joints: Unremarkable. XR/XR chest 1V portable [id number] IMPRESSION: Moderate right pleural effusion.
--- NOTE | 2025-02-24 21:29 | ECG_ITS ---
[facility] Test Date: 2025-02-24 Pat Name: Marie Vann Department: Room: Gender: Female Telephone Messenger: : 1960 Requested By: Gus Wallace Order Number: [id number] Grazyna MD: Gracia Francisco M.D. Measurements Intervals [place] Rate: 121 P: 0 VT: 0 QRS: 118 QRSD: 87 T: -1 QT: 312 QTc: 444 Interpretive Statements ATRIAL FIBRILLATION WITH RAPID VENTRICULAR RESPONSE POSSIBLE RIGHT VENTRICULAR HYPERTROPHY [SOME/ALL OF: PROMINENT R IN V1, LATE TRANSITION, RAD, SHRUTHI, SSS] NONSPECIFIC ST & T-WAVE ABNORMALITY Compared to ECG 02/08/2025 04:46:32 No significant changes Electronically Signed On 02-26-2025 17:44:27 CALCIMINER by Gracia Francisco M.D. [email or web address]
[2025-02-24 21:54] VITALS: BP 179/130; PULSE 126; O2SAT 96
[2025-02-24] MEDS: dilTIAZem ER (24HR) 180 mg Capsule PO (22:11)
[2025-02-24] MEDS: dilTIAZem 5 mg/mL SDV 5 mL 20 MG IVP (22:12)
[2025-02-24] MEDS: FUROsemide 10 mg/mL SDV 10mL 60 MG IVP (22:13)
[2025-02-24 22:53] LABS: Hematocrit 38.7 % (36-47); Hemoglobin 11.30 g/dL (11.27-16.99); Mean Corpuscular HGB Conc 29.2 g/dL (30-55); Mean Corpuscular Hemoglobin 21.2 pg (27-33); Mean Corpuscular Volume 72.6 fl (85-98); Nucleated Red Blood Cells % 0.3 %; Platelet Count 289 10^3/cmm (157-399); Red Blood Count 5.33 10^6/uL (3.85-5.65); White Blood Count 11.91 10^3/uL (3.29-11.43)
[2025-02-24 23:15] LABS: Alanine Aminotransferase 37 U/L (0-33); Albumin Level 4.1 g/dL (3.5-5.2); Alkaline Phosphatase 122 U/L (35-105); Anion Gap 14.3 (5-19); Aspartate Amino Transferase 32 U/L (0-32); Blood Urea Nitrogen 29 mg/dL (8-23); Calcium 9.2 mg/dL (8.5-10.5); Carbon Dioxide 30 mmol/L (22-29); Chloride 98 mmol/L (98-107); Globulin 3.0 g/dL (1.3-4.6); Glucose 124 mg/dL (65-115); NT Pro B Type Natriuretic Pept 7331 pg/mL (0-125); Osmolality Calculated 293 mOsm/kg (285-295); Potassium 4.3 mmol/L (3.5-5.1); Sodium 138 mmol/L (136-145); Total Protein 7.1 g/dL (6.6-8.7)
[2025-02-24] MEDS: DILTIAZEM HCL/D5W 125 MG/125 ML BAG IV (23:18)
[2025-02-24 23:37] VITALS: BP 159/101; PULSE 100; O2SAT 93
[2025-02-25] VITALS (38 sets, daily range): BP systolic 83–158; BP diastolic 52–126; PULSE 55–101; RESP 14–25; TEMP 521.6–971; O2SAT 92–100
--- NOTE | 2025-02-25 01:30 | USCV_ITS ---
Marie Vann Age: 64 Gender: F : 1960 Exam Date: 02/25/2025 02:13 Ordering Phys: Toni Tam MD Technologist: KANDI Exam Location: [facility] [place] Indication: Lower extremtiy swelling History of COPD, Atrial fibrillation, O2-dependent 2L BP: 148 / 116 HR: 80 Rhythm: Atrial fibrillation Technical Quality: Adequate MEASUREMENTS (Male / Female) Normal Values 2D ECHO LV Diastolic Diameter PLAX 3.5 cm 4.2 - 5.9 / 3.9 - 5.3 cm IVS Diastolic Thickness 1.6 cm 0.6 - 1.0 / 0.6 - 0.9 cm IVS Systolic Thickness 1.9 cm LVPW Diastolic Thickness 1.5 cm 0.6 - 1.0 / 0.6 - 0.9 cm LVPW Systolic Thickness 2.0 cm LVOT Diameter 1.6 cm LV Ejection Fraction 2D Teich 59.5 % LV Ejection Fraction MOD 4C 30.2 % LV Ejection Fraction MOD 2C 45.6 % LV Ejection Fraction 2C AL 48.6 % LA Diameter 4.4 cm LA Sys Volume AL 79.7 cm cubed LA Sys Volume Index AL 46.0 cm cubed/m squared Aorta at Sinotubular Diameter 2.8 cm IVC Diameter 2.3 cm M-MODE LA Ao Ratio MM 1.8 AV Cusp Separation MM 1.8 cm DOPPLER AV Peak Velocity 89.0 cm/s LVOT Peak Velocity 80.0 cm/s AV Area Cont Eq vti 2.1 cm squared AV Area Cont Eq pk 1.9 cm squared MV Peak Velocity 90.0 cm/s MV Area PHT 5.2 cm squared Mitral E to A Ratio 321.0 TV Peak Velocity 271.0 cm/s TR Peak Velocity 284.0 cm/s TR Peak Gradient 32.3 mmHg TV Peak E Velocity 46.0 cm/s PV Peak Velocity 63.0 cm/s FINDINGS Left Ventricle Mild concentric LVH. Moderate global hypokinesis. Estimated LVEF 40 to 45%. Right Ventricle Upper normal size RV with mildly reduced RV systolic function. Right Atrium Dilated right atrium Left Atrium Dilated left atrium. IA Septum Normal interatrial septum. Mitral Valve Mildly thickened mitral valve. Mild mitral annular calcification. Mild mitral regurgitation Aortic Valve Thickened aortic valve. No aortic valve stenosis. Tricuspid Valve Mildly thickened tricuspid valve. There is a moderately severe tricuspid regurgitation. TVPG = 35-40 mmHg. Moderately elevated right heart and pulmonary pressure 45-50 mmHg Pulmonic Valve Pulmonic valve not well visualized. Mild pulmonary valve regurgitation. Pericardium No pericardial effusion. Aorta Normal size aortic root and proximal ascending aorta. IVC Dilated IVC with decreased respiratory variation. CONCLUSIONS Patient is in atrial fibrillation at the time of this echo study. Mild concentric LVH. Moderately reduced LV systolic function with global hypokinesis. Estimated LVEF 40 to 45%. Mildly reduced RV systolic function. Dilated right and left atria. Mild mitral regurgitation and moderately severe tricuspid regurgitation Moderately elevated right heart and pulmonary pressures (45-50 mmHg). Gracia Francisco MD (Electronically Signed) Final Date: 25 February 2025 11:55 S
--- NOTE | 2025-02-25 01:31 | PM.HP ---
Providers/Chief Complaint Primary Care Provider: Dennis Vines Chief Complaint: RT Leg Swollen History of Present Illness Marie Vann is a 64 year old female with history significant for hypothyroidism, COPD with PRN O2 use, and atrial fibrillation, who presents with complaints of right leg swelling. In the ED she was found to have atrial fibrillation with RVR and hospitalist was contacted for admission. Patient states her delivered her to the ED due to the right foot swelling she noticed today. She has chronic shortness of breath and has not had recent changes to her breathing. No recent weight gain. Has been compliant with her medications. No recent dietary changes. She otherwise goes on to discuss recent falls she has endured and her less acute issues. Medications/Allergies Home Medications ?Medication ?Instructions ?Recorded ?Confirmed ?Last Taken ?Type albuterol sulfate 90 mcg/actuation 1 puff inhalation Q6H PRN 01/03/25 02/08/25 Unknown History aerosol inhaler Shortness Of Breath Held on 02/10/25. Instructions: Resume on 02/16/25. Resume when no longer using nebulizer carvedilol 25 mg tablet 25 mg PO BID 01/03/25 02/08/25 01/02/25 History cyclobenzaprine 10 mg tablet 10 mg PO TID PRN muscle spasms 01/03/25 02/08/25 Unknown History ipratropium 0.5 mg-albuterol 3 mg 3 ml inhalation QID PRN Shortness 01/03/25 02/08/25 Unknown History (2.5 mg base)/3 mL nebulization Of Breath soln Held on 02/10/25. Instructions: Resume on 02/16/25. Resume when no longer using prescribed nebs levothyroxine 75 mcg tablet 75 mcg PO QAM 01/03/25 02/08/25 02/07/25 History (Synthroid) meloxicam 15 mg tablet 15 mg PO DAILY 01/03/25 02/08/25 02/07/25 History Held on 02/10/25. Instructions: Resume on 02/16/25. Resume under direction of PCP sertraline 50 mg tablet 50 mg PO DAILY 01/03/25 02/08/25 01/02/25 History simvastatin 10 mg tablet 10 mg PO QPM 01/03/25 02/08/25 02/06/25 20:00 History diltiazem HCl 240 mg 240 mg PO Q24H #30 caps 01/06/25 02/08/25 Unknown Rx capsule,extended release 24 hr (Cardizem CD) trazodone 50 mg tablet 1 mg PO BEDTIME 02/08/25 02/08/25 Unknown History Held on 02/10/25. Instructions: Resume on 03/02/25. Resume by direction of PCP apixaban 5 mg tablet (Eliquis) 5 mg PO BID@0900,2100 30 days #60 02/10/25 Unknown Rx tabs furosemide 40 mg tablet 40 mg PO DAILY@0800 #30 tabs 02/10/25 Unknown Rx pantoprazole 40 mg tablet,delayed 40 mg PO BID 30 days #60 tabs 02/10/25 Unknown Rx release (Protonix) potassium chloride 20 mEq 40 meq (2 x 20 mEq) PO DAILY 30 02/10/25 Unknown Rx tablet,extended days #30 tabs release(part/cryst) (Klor-Con M) Allergies Allergy/AdvReac Type Severity Reaction Status Date / Time morphine Allergy Intermediate ADR-Agitate Verified 01/03/25 13:28 d Vitals/I&O/Wt Last Vital Signs Temp 97.4 F L 02/24/25 21:02 Pulse 101 H 02/25/25 00:12 Resp 16 02/24/25 21:02 BP 142/108 02/25/25 00:12 Pulse Ox 92 02/25/25 00:12 O2 Del Method Room Air 02/25/25 00:12 O2 Flow Rate 2 02/24/25 23:37 02/24/25 02/24/25 02/25/25 14:59 22:59 06:59 Intake Total 2.167 / 2.167 Balance 2.167 / 2.167 Weight last 48 hrs Weight 67.132 kg Physical Exam Const: COMMON NORMALS: no acute distress and patient oriented x3 Chest: COMMONS NORMALS: normal inspection of the chest and normal palpation of entire chest wall CHEST: Yes Symmetrical chest wall rise Resp: COMMON NORMALS: normal respiratory effort, No retractions and No use of accessory muscles EFFORT & INSPECTION: Yes symmetric chest movement AUSCULTATION: other (Diminished at the bases) Cardio: COMMON NORMALS: S1 normal heart sound present, S2 normal heart sound present, No gallops present (Cardio), No clicks present (Cardio), No murmurs present (Cardio) and No rub (Cardio) RHYTHM: abnormal rhythm irregularly irregular HEART SOUNDS: S1 normal heart sound present and S2 normal heart sound present Extremity: GENERAL: Yes edema (left dorsal foot) Neuro: COMMON NORMALS: patient oriented x3 and moves all extremities Psych: COMMON NORMALS: mental status grossly normal and cooperative Urinary Catheter Management: Giraldo: Cath Placed During This Visit: yes Reason for Continuing Indwelling Catheter: Acute Urinary Retention or Obstruction Urinary Catheter Date of Insertion: 02/08/25 Urinary Catheter Time of Insertion: 03:25 Data 02/24/25 22:40 02/24/25 22:40 A&P Assessment and plan 1. Swelling of right foot: - Noted with elevated BNP at 7331 - IV lasix provided in the ED. Continue this BID - Check echocardiogram - Daily weight, I/Os qShift 2. Atrial fibrillation with RVR: - Placed on diltiazem drip. Continue tonight - Can likely transition off gtt in the AM. Continue her oral diltiazem(scheduled for 2200) - Continue Coreg - Eliquis for stoke prophylaxis 3. Chronic hypoxic respiratory failure: - With know right pleural effusion - Continue PRN O2 4. Chronic obstructive pulmonary disease, unspecified COPD type: - Without acute exacerbation. Plan as above PDMP PDMP Reviewed: Not Reviewed Attestations Medical Necessity Statement*: Patient anticipated to require less than two midnights of inpatient care for evaluation and management of atrial fibrillation with RVR and RLE swelling Coding Level of Care Code Acute Code for [facility] Fwd Diagnoses Swelling of right foot M79.89 Atrial fibrillation with RVR I48.91 Chronic hypoxic respiratory failure J96.11 Chronic obstructive pulmonary disease, unspecified COPD type J44.9 COPD type: unspecified COPD
--- OUTSIDE RECORDS SUMMARY | 2025-02-25 03:28 | XMS_ITS | Encounter Summary ---
Author Organization [facility] Address [address] [place] [address] Care Team Providers Care Maintenance Superintendent Name Role Phone Chema Padilla MD Primary Care Provider [phone] Encounter Details Date Type Department Care Team (Late st Contact Info) Description 07/29/2005 Emergency [facility] Emergency Department [address] [place] [phone] Beata Gonzalez MD Headache (Primary Dx) Social History Tobacco Use Types Packs/Day Years Used Date Smoking Tobacco: Never Assessed Comments Unknown Sex and Gender Information Value Date Recorded Sex Assigned at Not on file Legal Sex Female 3:22 AM SAFETY RISK LEAD Gender Identity Not on file Sexual Orientation [...] Headache documented in this encounter Care Teams Maintenance Superintendent Relationship Specialty Start Date End Date Chema Padilla MD [address] [address] [place] [phone] PCP - General Family Practice 03/24/19 documented as of this encounter
--- OUTSIDE RECORDS SUMMARY | 2025-02-25 03:28 | XMS_ITS | Clinical Summary ---
Author Organization [facility] Address [address] [place] [address] Care Team Providers Care Manager E Learning Name Role Phone Chema Padilla MD Primary Care Provider [phone] Allergies Active Allergy Reactions Criticality Noted Date [...] often do you attend chur ch or mandaen services? Never 02/12/2020 Do you belong to any clubs o r organizations such as mormonism groups, unions, fraternal or athletic groups, or [...] on file Legal Sex Female 3:22 AM COMMUNICATION PROFESSOR Gender Identity Not on file Sexual Orientation [...] Q 3 years 09/23/2023 09/22/2020 [place]) Preventative Visit/Annual Wellness Visit 04/02/2024 08/11/2020, 02/12/2020 [...] SCREEN BILATERAL MOBILE Routine 03/31/2020 9:04 AM COMMUNICATION PROFESSOR Visit for screening mammogram ENDOSCOPY, COLON, SCREENING Routine 03/15/2011 10:04 AM COMMUNICATION PROFESSOR Screen for colon cancer from Last 3 Months or Most Recently Relevant to Health Maintenance Results * COLON CANCER SCREEN, STOOL DNA (09/22/2020 5:08 PM CDT) COLOGUARD RESULT Negative Negative AVIcode Comment: NEGATIVE TEST RESULT. A negative Cologuard [...] Chang et al, N Engl J Med 2014;370(14):1996-7116) The normal value (reference range) for this assay is negative. COLOGUARD RE-SCREENING RECOMMENDATION: Periodic colorectal cancer screening is an important part of preventive healthcare for asymptomatic individuals at average risk for colorectal cancer. Following a negative Cologuard result, the [place] Cancer Society and U.S. Multi-Society Task Force screening guidelines recommend a Cologuard re-screening interval of 3 years. References: [place] [employer] Society Guideline for Colorectal Cancer Screening: https://www.cancer.org/cancer/ttpnk-mbbxsb-ucgwmo/lmlfnrjvh-gwtpyisrj-nilwfyk/ac s-rec ommendations.html.; Billy TRAN, Edwin CR, Alfa CotaK, Colorectal Cancer Screening: Recommendations for Physicians and Patients from the U.S. Multi-Society Task Force on Colorectal Cancer Screening , Am J Gastroenterology 2017; 112:5780-7291. TEST DESCRIPTION: Composite algorithmic analysis of stool [...] Morris. et al, N Engl J Med 2014;370(14):8572-8994.) Cologuard may produce a false negative or false positive result (no colorectal cancer or precancerous polyp present at colonoscopy follow up). A negative Cologuard test result does not guarantee the absence of CRC or advanced adenoma (pre-cancer). The current Cologuard screening interval is every 3 years. ([place] Cancer Society and U.S. Multi-Society Task Force). Cologuard performance data in a 10,000 patient pivotal study using colonoscopy as the reference method can be accessed at the following location: www.WAKU WAKU ?/results. Additional description of the Cologuard test process, warnings and precautions can be found at www.ReDoc Softwareoguard.com. Stool STOOL SPECIMEN / Unknown 09/22/2020 5:08 PM CDT 09/24/2020 7:08 PM CDT us Jazzy Zimmerman BIG DATA DEVELOPER BODY FLUIDS AND STOOLS Fin al Result [facility] CLIA # [id number] [address], [address] [place] [address] * (ABNORMAL) HEMOGLOBIN A1C (08/06/2020 8:53 AM CDT) HEMOGLOBIN A1C 5.9(H) See Comment % 08/06/2020 8:31 PM CDT [facility] EST. AVG GLUCOSE, A1C 123 mg/dL 08/06/2020 8:31 PM CDT [facility] Blood Venipuncture / Unknown 08/06/2020 8:53 AM CDT 08/06/2020 7:58 PM CDT Narrative [facility] - 08/06/2020 8:31 PM CDT HGB A1C INTERPRETATION NORMAL: <5.7% PRE-DIABETES: 5.7 - 6.4% DIABETES: 6.5% OR GREATER Falsely low A1C measurements can occur when: 1. Anemia and/or hemolytic anemia is present. 2. Hemoglobin variants present. 3. Renal failure. 4. Transfusion of blood product in the last 120 days. We recommend ordering a fructosamine test([id number]) to more accurately assess glycemic status if any of the above conditions are present. Jazzy Zimmerman BIG DATA DEVELOPER CHEMISTRY ORDERABLES Final Result [facility] CLIA# [id number] [facility] [place] [address] * MAMMO 3D SCREEN BILATERAL MOBILE (03/31/2020 9:04 AM COMMUNICATION PROFESSOR) Anatomical Region Laterality Modality Breast Bilateral Mammography 03/31/2020 9:04 AM COMMUNICATION PROFESSOR Narrative 04/01/2020 3:47 PM COMMUNICATION PROFESSOR BILATERAL SCREENING MAMMOGRAM 03/31/2020 PATIENT COMPLAINT: No [...] Center to schedule the recommended follow-up appointment. [id number] Jazzy Chapacayetano BIG DATA DEVELOPER MAMMO ORDERABLES Final Res ult from Last 3 Months or Most Recently Relevant to Health Maintenance Insurance [facility] Advance Directives For more information, please contact: [phone] * Full Code (Latest Code Status on File) Date Activated Date Inactivated Comments 11/24/2013 1:00 PM 11/24/2013 6:57 PM * Full Code Date Activated Date Inactivated Comments 11/24/2013 12:18 PM 11/24/2013 1:00 PM * Full Code Date Activated Date Inactivated Comments 03/15/2011 10:04 AM 03/15/2011 1:31 PM * Full Code Date Activated Date Inactivated Comments 11/26/2009 9:33 AM 11/26/2009 7:02 PM Care Teams Manager E Learning Relationship Specialty Start Date End Date Chema Padilla MD [address] [place] [phone] PCP - General Family Practice 03/24/19
--- OUTSIDE RECORDS SUMMARY | 2025-02-25 03:28 | XMS_ITS | Encounter Summary ---
Author Organization [facility] Address [address] [place] [address] Care Team Providers Care Respiratory Care Program Director Name Role Phone Chema Padilla MD Primary Care Provider [phone] Encounter Details Date Type Department Care Team (Late st Contact Info) Description 06/14/2010 Ancillary Orders [facility] [address] [facility] [address] [place] [phone] Kayla Sung DO NO ADDRESS ON FILE Other screening mammogram Social History Tobacco Use Types Packs/Day Years Used Date Smoking Tobacco: Former Cigarettes 22 Comments:quit 1998 Alcohol Use Standard Drinks/Week Comments No 0 (1 standard drink = 0.6 oz pur e alcohol) Comments No Sex and Gender Information Value Date Recorded Sex Assigned at Not on file Legal Sex Female 3:22 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
--- OUTSIDE RECORDS SUMMARY | 2025-02-25 03:28 | XMS_ITS | Encounter Summary ---
Author Organization [facility] Address [address] [place] [address] Care Team Providers Care Senior Administrative Services Officer Name Role Phone Dennis Vines MD Primary Care Provider [phone] Encounter Details Date Type Department Care Team (Late st Contact Info) Description 02/13/2025 Results Follow-Up [facility] [place] [address] [phone] Racquel Reynolds, [facility] [address] [phone] CBC WITH DIFFERENTIAL Social History [...] on file Legal Sex Female 10:01 AM CAT DOG OR OTHER PET GROOMER Gender Identity Not on file Sexual Orientation Not on file documented as of this encounter Plan of Treatment Upcoming Encounters Date Type Department Care Team (Late st Contact Info) Description 05/01/2025 9:20 AM CAT DOG OR OTHER PET GROOMER Office Visit [address] [phone] Racquel Reynolds FNP [address] [place] [phone] 07/09/2025 10:40 AM CDT Office Visit [address] [phone] Dennis Vines MD [address] [place] [phone] documented as of this encounter Visit Diagnoses Not on filedocumented in this encounter Additional Health Concerns Assessment Noted Time PHQ-9 Depression Total Score: 2 10/30/19 25 3:56 PM CDT documented as of this encounter Care Teams Senior Administrative Services Officer Relationship Specialty Start Date End Date Dennis Vines MD [address] [place] [phone] PCP - General Family Practice 10/23/24 documented as of this encounter
--- OUTSIDE RECORDS SUMMARY | 2025-02-25 03:28 | XMS_ITS | Encounter Summary ---
Author Organization [facility] Address [address] [place] [address] Care Team Providers Care Benefits Analyst Name Role Phone Chema Padilla MD Primary Care Provider [phone] Reason for Referral * Radiology Services (Routine) - Closed Specialty Diagnoses / Procedures Referred By Beau t Referred To Contact Diagnoses Visit for screening mammogram Procedures MAMMO 3D SCREEN BILATERAL MOBILE Jazzy Zimmerman FNP Referral ID Status Reason Start Date Expiration Date Visits Re quested Visits Authorized [id number] Closed 09/03/2019 10/03/2020 1 1 Encounter Details Date Type Department Care Team (Latest Contact Info) Description 09/03/2019 [facility] [place] [address] [facility] [address] [place] [phone] Jazzy Zimmerman FNP NO ADDRESS ON FILE [...] on file Legal Sex Female 3:22 AM ENGAGEMENT LEAD Gender Identity Not on file Sexual [...] 3D SCREEN BILATERAL MOBILE (03/31/2020 9:04 AM ENGAGEMENT LEAD) Anatomical Region Laterality Modality Breast Bilateral Mammography 03/31/2020 9:04 AM ENGAGEMENT LEAD Narrative 04/01/2020 3:47 PM ENGAGEMENT LEAD BILATERAL SCREENING MAMMOGRAM 03/31/2020 PATIENT COMPLAINT: No [...] Center to schedule the recommended follow-up appointment. [id number] Jazzy Zimmerman MUTUEL MACHINE OPERATOR MAMMO ORDERABLES Final Res ult documented in this encounter Visit Diagnoses Diagnosis Visit for screening mammogram Other screening mammogram documented in this encounter Additional Health Concerns Assessment Noted Time PHQ-9 Depression Total Score: 1 06/04/19 20 1:00 PM ENGAGEMENT LEAD documented as of this encounter Care Teams Benefits Analyst Relationship Specialty Start Date End Date Chema Padilla MD [address] [place] [phone] PCP - General Family Practice 03/24/19 documented as of this encounter
--- OUTSIDE RECORDS SUMMARY | 2025-02-25 03:28 | XMS_ITS | Encounter Summary ---
Author Organization [facility] Address [address] [place] [address] Care Team Providers Care Water Attendant Name Role Phone Chema Padilla MD Primary Care Provider [phone] Encounter Details Date Type Department Care Team (Latest Contact Info) Description 09/06/2005 Outpatient [facility] Family Medicine [place] [facility] [address] [phone] Dewayne Fagan Jr., MD [address] [place] [address] 248 [facility] [address] [place] [address] Benign Hypertension (Primary Dx) Social History Tobacco Use Types Packs/Day Years Used Date Smoking Tobacco: Never Assessed Comments Unknown Sex and Gender Information Value Date Recorded Sex Assigned at Not on file Legal Sex Female 3:22 AM FIGHTING VEHICLE 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
--- OUTSIDE RECORDS SUMMARY | 2025-02-25 03:28 | XMS_ITS | Encounter Summary ---
Author Organization [facility] Address [address] [place] [address] Care Team Providers Care Digital Operations Analyst Name Role Phone Chema Padilla MD Primary Care Provider [phone] Encounter Details Date Type Department Care Team (Latest Contact Info) Description 04/19/2005 Outpatient [facility] Family Medicine [place] [id number] [phone] Dewayne Fagan Jr., MD [address] [place] [address] 248 [facility] [address] [place] [address] MYALGIA AND MYOSITIS NOS (Primary Dx); Benign hypertension; SYNOVIAL CYST NOS Social History Tobacco Use Types Packs/Day Years Used Date Smoking Tobacco: Never Assessed Comments Unknown Sex and Gender Information Value Date Recorded Sex Assigned at Not on file Legal Sex Female 3:22 AM MANAGER GROUP Gender Identity Not on file Sexual Orientation Not on file documented as of this encounter Plan of Treatment Not on file documented as of this encounter Visit Diagnoses Diagnosis Myalgia and myositis, unspecified- Primary Mylagia and myositis, unspecified Benign hypertension Essential hypertension, benign Synovial cyst, unspecified documented in this encounter Care Teams Digital Operations Analyst Relationship Specialty Start Date End Date Chema Padilla MD [employer] [phone] PCP - General Family Practice 03/24/19 documented as of this encounter
--- OUTSIDE RECORDS SUMMARY | 2025-02-25 03:28 | XMS_ITS | Encounter Summary ---
Author Organization [facility] Address [address] [place] [address] Care Team Providers Care Recycle Worker Name Role Phone Chema Padilla MD Primary Care Provider [phone] Reason for Referral * Radiology Services (Routine) [...] Expiration Date Visits Re quested Visits Authorized [id number] Closed 03/05/2018 04/05/2019 1 1 O NEWS ANCHOR Encounter Details Date Type Department Care Team (Latest Contact Info) Description 03/05/2018 Ancillary Orders [facility] [employer] [facility] [address] [facility] [address] [place] [phone] Kayla Sung DO NO ADDRESS ON FILE [...] on file Legal Sex Female 3:22 AM RADIO NEWS ANCHOR Gender Identity Not on file Sexual Orientation [...] Total Score: 2 03/05/20 13 8:00 AM RADIO NEWS ANCHOR documented as of this encounter Care Teams Recycle Worker Relationship Specialty Start Date End Date Chema Padilla MD [address] [place] [phone] PCP - General Family Practice 03/24/19 documented as of this encounter
--- OUTSIDE RECORDS SUMMARY | 2025-02-25 03:28 | XMS_ITS | Encounter Summary ---
Author Organization [facility] Address [address] [place] [address] Care Team Providers Care Lastex Thread Winder Name Role Phone Chema Padilla MD Primary Care Provider [phone] Encounter Details Date Type Department Care Team (Late st Contact Info) Description 05/18/2004 Emergency [facility] Emergency Department [address] [place] [phone] Senia Angel NP NO ADDRESS ON FILE [place] (Primary Dx) Social History Tobacco Use Types Packs/Day Years Used Date Smoking Tobacco: Never Assessed Comments Unknown Sex and Gender Information Value Date Recorded Sex Assigned at Not on file Legal Sex Female 3:22 AM SYSTEMS ANALYST DEVELOPER Gender Identity Not on file Sexual Orientation Not on file documented as of this encounter Plan of Treatment Not on file documented as of this encounter Visit Diagnoses Diagnosis Sprain of thoracic region- Primary documented in this encounter Care Teams Lastex Thread Winder Relationship Specialty Start Date End Date Chema Padilla MD [address] [place] [phone] PCP - General Family Practice 03/24/19 documented as of this encounter
--- OUTSIDE RECORDS SUMMARY | 2025-02-25 03:28 | XMS_ITS | Encounter Summary ---
Author Organization [facility] Address [address] [place] [address] Care Team Providers Care Deportation Examiner Name Role Phone Chema Padilla MD Primary Care Provider [phone] Encounter Details Date Type Department Care Team (Latest Contact Info) Description 05/09/2005 Outpatient [facility] Breast Center [facility] [address] [place] [address] Dewayne Fagan Jr., MD [address] [place] [address] 248 [facility] [address] [place] [address] SCREENING MAMM-MAILG NEOPL NEC (Primary Dx) Social History Tobacco Use Types Packs/Day Years Used Date Smoking Tobacco: Never Assessed Comments Unknown Sex and Gender Information Value Date Recorded Sex Assigned at Not on file Legal Sex Female 3:22 AM ELECTRICIAN RESEARCH Gender Identity Not on file Sexual Orientation Not on file documented as of this encounter Plan of Treatment Not on file documented as of this encounter Visit Diagnoses Diagnosis Other screening mammogram- Primary documented in this encounter Care Teams Deportation Examiner Relationship Specialty Start Date End Date Chema Padilla MD [address] [place] [phone] PCP - General Family Practice 03/24/19 documented as of this encounter
--- OUTSIDE RECORDS SUMMARY | 2025-02-25 03:28 | XMS_ITS | Encounter Summary ---
Author Organization [facility] Address 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 Patient advised to call [facility] for paperwork. Patient provided with [facility]'s phone number. Patient verbalized understanding. Note routed to primary care office pool. Visit was completed by phone unless otherwise noted with video/screen capture within the note. Agnes Sandoval RN [facility] 365 NAE SECRETARY documented in this encounter Plan of Treatment Upcoming Encounters Date Type Department Care Team (Late st Contact Info) Description 05/01/2025 9:20 AM ALUMNAE SECRETARY Office Visit [address] [phone] Racquel Reynolds FNP [address] [facility] [address] [place] [address] 07/09/2025 10:40 AM CDT Office Visit [address] [address] Dennis Vines MD [address] [place] [phone] documented as of this encounter Visit Diagnoses Not on filedocumented in this encounter Additional Health Concerns Assessment Noted Time PHQ-9 Depression Total Score: 2 10/30/19 3:56 PM CDT documented as of this encounter Care Teams Office Clinician Relationship Specialty Start Date End Date Dennis Vines MD [address] [place] [phone] PCP - General Family Practice 10/23/24 documented as of this encounter
--- OUTSIDE RECORDS SUMMARY | 2025-02-25 03:28 | XMS_ITS | Encounter Summary ---
Author Organization [facility] Address [address] [place] [address] Care Team Providers Care Sound Designer Name Role Phone Chema Padilla MD Primary Care Provider [phone] Encounter Details Date Type Department Care Team (Latest Contact Info) Description 08/09/2015 Ancillary Orders [facility] [facility] [address] 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
--- OUTSIDE RECORDS SUMMARY | 2025-02-25 03:28 | XMS_ITS | Encounter Summary ---
Author Organization [facility] Address [address] [place] [address] Care Team Providers Care Trimmer And Reinforcer Name Role Phone Chema Padilla MD Primary Care Provider [phone] Encounter Details Date Type Department Care Team (Latest Contact Info) Description 04/06/2020 Ancillary Orders [facility] [address] [facility] [address] [place] [address] Jazzy Zimmerman FNP NO ADDRESS [...] often do you attend chur ch or gnosticism services? Never 02/12/2020 Do you belong to any clubs o r organizations such as confucianist groups, unions, fraternal or athletic groups, or [...] on file Legal Sex Female 3:22 AM DIRECTOR OF BUSINESS SERVICES Gender Identity Not on file Sexual Orientation [...] COVID-19? No / Unsure 03/31/2020 8:58 AM DIRECTOR OF BUSINESS SERVICES documented as of this encounter Plan of Treatment Not on file documented as of this encounter Visit Diagnoses Diagnosis Inconclusive mammography Inconclusive mammogram documented in this encounter Care Teams Trimmer And Reinforcer Relationship Specialty Start Date End Date Chema Padilla MD [address] [place] [phone] PCP - General Family Practice 03/24/19 documented as of this encounter
--- OUTSIDE RECORDS SUMMARY | 2025-02-25 03:28 | XMS_ITS | Encounter Summary ---
Author Organization [facility] Address [address] [place] [address] Care Team Providers Care Manager Material Name Role Phone Chema Padilla MD Primary Care Provider [phone] Reason for Referral * Outpatient Services (Routine) - Closed Specialty Diagnoses / Procedures Referred By Contac t Referred To Contact Radiology Diagnoses Other (abnormal) findings on radiological examination of breast Procedures MAMMO BREAST US RT Kayla Sung DO NO ADDRESS ON FILE [facility] [address] [place] [phone] Phone: tel: fax: Referral ID Status Reason Start Date Expiration Date Visits Requested Visits Authorized [id number] Closed Performing Department To Schedule (SGF) 03/27/2013 04/27/2014 1 1 ICAL EQUIPMENT CONTROLLER * Outpatient Services (Routine) - Closed Specialty Diagnoses / Procedures Referred By Contac t Referred To Contact Radiology Diagnoses Other (abnormal) findings on radiological examination of breast Procedures MAMMO DIGITAL DIAG UNI RIGHT Kayla Sung DO NO ADDRESS ON FILE [facility] [address] [address] Phone: tel: fax: Referral ID Status Reason Start Date Expiration Date Visits Requested Visits Authorized [id number] Closed Ordering Department To Schedule 03/27/2013 04/27/2014 1 1 ICAL EQUIPMENT CONTROLLER Encounter Details Date Type Department Care Team (Latest Contact Info) Description 03/27/2013 Ancillary Orders [facility] [place] [address] [facility] [address] [place] [address] Kayla Sung DO NO ADDRESS ON FILE [...] on file Legal Sex Female 3:22 AM CHEMICAL EQUIPMENT CONTROLLER Gender Identity Not on file Sexual Orientation [...] DIGITAL DIAG UNI RIGHT (04/11/2013 9:59 AM CHEMICAL EQUIPMENT CONTROLLER) Anatomical Region Laterality Modality Breast Right Mammography 04/11/2013 9:16 AM CHEMICAL EQUIPMENT CONTROLLER Impressions 04/11/2013 12:10 PM CHEMICAL EQUIPMENT CONTROLLER IMPRESSION: Large lymph node on the right is confirmed on additional images, and ultrasound reveals what appears to be a benign lymph node. This should be of no clinical significance. I would recommend routine annual screening mammogram. Patient received a result/recommendation letter. CASSI/lanny 0956 AM - uploaded from [employer] - Narrative 04/11/2013 12:10 PM CHEMICAL EQUIPMENT CONTROLLER Right Digital Diagnostic Mammogram and Right Breast [...] letter. CASSI/lanny 0956 AM - uploaded from [employer] - us Kayla Sung DO MAMMO ORDERABLES Kellie corral Result * MAMMO BREAST US RT (04/11/2013 9:58 AM CHEMICAL EQUIPMENT CONTROLLER) Anatomical Region Laterality Modality Breast Right Ultrasound 04/11/2013 9:40 AM CHEMICAL EQUIPMENT CONTROLLER Impressions 04/11/2013 12:10 PM CHEMICAL EQUIPMENT CONTROLLER IMPRESSION: Large lymph node on the right is confirmed on additional images, and ultrasound reveals what appears to be a benign lymph node. This should be of no clinical significance. I would recommend routine annual screening mammogram. Patient received a result/recommendation letter. CASSI/lanny 0956 AM - uploaded from [employer] - Narrative 04/11/2013 12:10 PM CHEMICAL EQUIPMENT CONTROLLER Right Digital Diagnostic Mammogram and Right Breast [...] letter. CASSI/lanny 0956 AM - uploaded from [employer] - us Kayla Sung DO MAMMO ORDERABLES Kellie l Result documented in this encounter Visit Diagnoses Diagnosis Other (abnormal) findings on radiological examination of breast- Primary Other (abnormal) findings on radiological examination of breast Other (abnormal) findings on radiological examination of breast documented in this encounter Additional Health Concerns Assessment Noted Time PHQ-9 Depression Total Score: 2 03/05/20 13 8:00 AM CHEMICAL EQUIPMENT CONTROLLER documented as of this encounter Care Teams Manager Material Relationship Specialty Start Date End Date Chema Padilla MD [address] [place] [phone] PCP - General Family Practice 03/24/19 documented as of this encounter
--- OUTSIDE RECORDS SUMMARY | 2025-02-25 03:28 | XMS_ITS | Encounter Summary ---
Author Organization [facility] Address [address] [place] [address] Care Team Providers Care Grain Picker Name Role Phone Chema Padilla MD Primary Care Provider [phone] Encounter Details Date Type Department Care Team (Latest Contact Info) Description 09/11/2005 Outpatient Historical [facility] 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
--- OUTSIDE RECORDS SUMMARY | 2025-02-25 03:28 | XMS_ITS | Encounter Summary ---
Author Organization [facility] Address [address] [place] [address] Care Team Providers Care Snuff Blender Name Role Phone Chema Padilla MD Primary Care Provider [phone] Encounter Details Date Type Department Care Team (Latest Contact Info) Description 05/10/2005 Outpatient [facility] Family Medicine Kristin [facility] [address] [address] Dewayne Fagan Jr., MD [address] [place] [address] 248 [facility] [address] [place] [address] Benign hypertension (Primary Dx) Social History Tobacco Use Types Packs/Day Years Used Date Smoking Tobacco: Never Assessed Comments Unknown Sex and Gender Information Value Date Recorded Sex Assigned at Not on file 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
--- OUTSIDE RECORDS SUMMARY | 2025-02-25 03:28 | XMS_ITS | Clinical Summary ---
Author Organization [facility] Address [address] [address] Care Team Providers Care Daily Sales Audit Clerk Name Role Phone Dennis Vines MD Primary Care Provider [phone] Allergies Active Allergy Reactions Criticality Noted Date Comments Morphine Nausea and Vomiting Low 11/26/2009 Medications triamcinolone acetonide (KENALOG-40) 40 mg/mL Suspension 40 mg by Intra-arTICular route one time only. 08/16/19 19 Active Nebulizer Accessories Kit Use 3-4 times daily with nebulized solution. Change tubing/mask every 2 weeks. 7 Kit 4 12/15/19 23 Active carvediloL (COREG) 25 mg tabletIndications :Essential hypertension Take 1 Tablet (25 mg) by mouth 2 times daily with meals. 200 Tablet 3 06/04/19 25 Active cyclobenzaprine (FLEXERIL) 10 mg tabletIndications :Fibromyalgia Take 1 Tablet (10 mg) by mouth 3 times daily as needed for Spasm. 270 Tablet 2 06/11/19 25 Active simvastatin (ZOCOR) 10 mg tabletIndications :Hyperlipidemia, unspecified hyperlipidemia type Take 1 Tablet (10 mg) by mouth daily at bedtime. PATIENT NEEDS AN APPOINTMENT FOR FUTURE REFILLS 100 Tablet 2 06/14/19 25 Active levothyroxine 75 mcg tabletIndications :Primary hypothyroidism Take 1 Tablet (75 mcg) by mouth daily. PATIENT NEEDS AN APPOINTMENT FOR FUTURE REFILLS. 100 Tablet 2 07/02/19 25 Active albuterol sulfate HFA 90 mcg/actuation aerosol inhalerIndication s:Chronic obstructive pulmonary disease, unspecified COPD type (CMS/HCC) Take 2 Puffs by inhalation every 6 hours as needed for Shortness of Breath. 18 Gram 08/22/19 25 Active ipratropium-albut Ranulfo (DUONEB) 0.5 mg-3 mg(2.5 [...] FUTURE REFILLS 100 Capsule 11/07/19 25 Active cefdinir (OMNICEF) 300 mg capsule Take 300 mg by mouth every 12 hours. 01/07/20 25 Active levoFLOXacin (LEVAQUIN) 750 mg tablet Take 750 mg by mouth daily. Take daily for 7 days 01/07/20 25 Active predniSONE (DELTASONE) 50 mg tablet Take 50 mg by mouth daily with breakfast. Take 1/2 tablet by mouth daily for 5 days 01/07/20 25 Active dilTIAZem (CARDIZEM CD, CARTIA XT) 240 mg Controlled Delivery 24 hour capsule Take 240 mg by mouth daily. 01/07/20 25 Active traZODone (DESYREL) 50 mg tabletIndications :Primary insomnia Take 1 Tablet (50 mg) by mouth daily at bedtime. 30 Tablet 01/17/20 25 Active sertraline (ZOLOFT) 50 mg tabletIndications :CAROL ANN (generalized anxiety disorder) Take 1 Tablet (50 mg) by mouth daily. 100 Tablet 1 01/27/20 25 Active Eliquis 5 mg tablet Take 5 mg by mouth 2 times daily. 02/12/20 25 Active nystatin (NYSTOP) 100,000 unit/gram powder Apply to affected area see administration instructions. 02/12/20 25 Active pantoprazole (PROTONIX) 40 mg Tablet, Delayed Release (E.C.) Take 40 mg by mouth daily. 02/12/20 25 Active budesonide-glycop yrrolate-formoter ol 160-9-4.8 mcg/actuation HFA Aerosol InhalerIndication s:Chronic obstructive pulmonary disease, unspecified COPD type (CMS/HCC) Take 2 Puffs by inhalation 2 times daily. 10.7 Gram 11 02/13/20 25 Active meloxicam (MOBIC) 15 mg tabletIndications :Chronic pain of left knee Take 1 Tablet (15 mg) by mouth daily at bedtime. 100 Tablet 2 02/14/20 25 Active meloxicam (MOBIC) 15 mg tabletIndications :Chronic pain of left knee Take 1 Tablet (15 mg) by mouth daily at bedtime. PATIENT NEEDS AN APPOINTMENT FOR FUTURE REFILLS 100 Tablet 2 06/12/19 25 025 Linmichael bradford(Reo rder) Active Problems Problem Noted Date Diagnosed Date Hip pain, chronic, left 02/17/2021 Prediabetes 06/04/2019 Primary hypothyroidism 06/04/2019 Vitamin D deficiency 08/15/2018 Family history of breast cancer 01/29/2018 Chronic obstructive pulmonary disease 01/29/2018 Assessment & Plan (02/13/2025 11:51 AM INSTRUCTIONAL SYSTEMS DESIGN CONSULTANT): Partly controlled. Addition of Breztri for maintenance [...] be explored. Orders: AMB REFERRAL TO PULMONARY uyfqmyylbg-wwfokddvqqwklu-auqemrzeph 160-9-4.8 mcg/actuation HFA Aerosol Inhaler; Take 2 [...] Department Care Team Description 02/13/2025 Results Follow-Up [address] [phone] Racquel Reynolds FNP CBC WITH DIFFERENTIAL 02/13/[address] [phone] Dennis Vines MD Chronic pain of left knee 02/12/2025 10:20 AM INSTRUCTIONAL SYSTEMS DESIGN CONSULTANT Office Visit [address] [phone] Racquel Reynolds FNP Hospital discharge follow-up (Primary Dx); New onset a-fib (CMS/HCC); Paroxysmal atrial fibrillation with rapid ventricular response (CMS/HCC); Chronic obstructive pulmonary disease, unspecified COPD type (CMS/HCC); Multiple lung nodules; Acute respiratory failure with hypoxia (CMS/HCC); ACP (advance care planning) 02/12/2025 Abstract [facility] [address] [address] Dennis Vines MD 02/11/2025 Orders Only [facility] [address] [place] [address] Provider, Abstract 02/10/2025 Nurse Triage [facility] [address] [place] [address] Agnes Sandoval RN 01/26/[address] [phone] Krishna Padilla DO CAROL ANN (generalized anxiety disorder) 01/19/2025 1:00 PM CDT Office Visit [address] [phone] Racquel Reynolds FNP Laceration of other part of head without foreign body, sequela (Primary Dx); Visit for suture removal; Primary insomnia 01/16/2025 Orders Only [address] [phone] Racquel Reynolds FNP Primary insomnia (Primary Dx) 01/16/[address] [phone] Racquel Reynolds FNP Remote Monitoring 01/10/[address] [phone] Krishna Padilla DO Fibromyalgia 01/08/2025 10:20 AM CDT Office Visit [address] [phone] Racquel Reynolds FNP Hospital discharge follow-up (Primary Dx); New onset a-fib (CMS/HCC); Pneumonia of left lower lobe due to infectious organism; Laceration of other part of head without foreign body, sequela; ACP (advance care planning); Encounter for colorectal cancer screening; Full code status 01/08/[address] [phone] Dennis Vines MD 01/08/2025 Orders Only [address] [place] [phone] Provider, Abstract 12/16/2024 External Device Data STL ABSTRACTION Provider, Abstract 12/16/2024 External Device Data STL ABSTRACTION Provider, Abstract from Last 3 Months Immunizations Immunization Administration Dates Next Due (PNEUMOVAX 23)(50 YRS UP) PN EUMOCOCCAL POLYSACCHARIDE (PPV23) 0.5 ML, IM 06/04/2019 (PREVNAR 13)(6 WKS UP) PNEUM OCOCCAL CONJUGATE (PCV13) 0.5 ML, IM 11/27/2018 (PREVNAR 20)(6 WKS UP) PNEUM OCOCCAL CONJUGATE VACCINE 20-VALENT (PCV20), POLYSACCHARIDE [id number] CONJUGATE, ADJUVANT 0.5 ML (PF) IM 10/29/2024 [...] Tri Split 4+ Pf Im 02/09/2017 Novel [id number], All Formulations 02/12/2009 Family History Medical History [...] on file Legal Sex Female 10:01 AM INSTRUCTIONAL SYSTEMS DESIGN CONSULTANT Gender Identity Not on file Sexual Orientation Not on file Last Filed Vital Signs Vital Sign Reading Time Taken Comments Blood Pressure 128/88 02/12/2025 10:36 AM INSTRUCTIONAL SYSTEMS DESIGN CONSULTANT Pulse 100 02/12/2025 10:36 AM INSTRUCTIONAL SYSTEMS DESIGN CONSULTANT Temperature 36.3 C (97.4 F) 02/12/2025 10:36 AM INSTRUCTIONAL SYSTEMS DESIGN CONSULTANT Respiratory Rate 19 02/12/2025 10:36 AM INSTRUCTIONAL SYSTEMS DESIGN CONSULTANT Oxygen Saturation 90% 02/12/2025 10:36 AM INSTRUCTIONAL SYSTEMS DESIGN CONSULTANT Inhaled Oxygen Concentration - - Weight 69.1 kg (152 lb 6.4 oz) 02/12/2025 10:36 AM INSTRUCTIONAL SYSTEMS DESIGN CONSULTANT Height 157.5 cm (5' 2 ) 02/12/2025 10:36 AM INSTRUCTIONAL SYSTEMS DESIGN CONSULTANT Body Mass Index 27.87 02/12/2025 10:36 AM INSTRUCTIONAL SYSTEMS DESIGN CONSULTANT Plan of Treatment Upcoming Encounters Date Type Department Care Team (Late st Contact Info) Description 05/01/2025 9:20 AM INSTRUCTIONAL SYSTEMS DESIGN CONSULTANT Office Visit [address] [phone] Racquel Reynolds, BEN [address] [place] [phone] 07/09/2025 10:40 AM CDT Office Visit [address] [place] [phone] Dennis Vines MD [address] [phone] Health Maintenance Due Date Last Done Comments DTAP/TDAP/TD VACCINES (1 - Tdap) 1977 Flex Sig/CT Colonography Q 5 years 06/26/2003 RSV VACCINE (60+ or ) (1 - Risk 50-74 years 1-dose series) 2008 ZOSTER VACCINE (1 of 2) 2008 COLORECTAL SCREENING 03/15/2016 03/15/2011 BREAST CANCER SCREENING 03/31/2021 03/31/20, 03/31/2020, 08/31/2015, Additional history exists OSTEOPOROSIS SCREENING 06/26/2023 Colorectal Cancer Screening 07/24/2023 FIT-DNA Q 3 years 09/23/2023 09/22/2020 FIT/FOBT Q 1 year 07/22/2024 07/23/2023 Pre-Diabetes and Diabetes Screening 10/06/2024 10/06/2021, 02/14/2021, 08/06/2020, Additional history exists INFLUENZA VACCINE (#1) 2024 , 02/17/2021, 01/01/2020, Additional history exists [place] Preventative Visit/Annual Wellness Visit Completed 10/29/2024, 06/21/2023, 12/14/2022 PNEUMOCOCCAL VACCINE 50+ YEARS Completed 0 10/29/2024, 06/04/2019, 11/27/2018 Procedures Procedure Name Priority Date/Time Associated Diagnosis Comments CBC WITH DIFFERENTIAL Routine 02/12/2025 11:10 AM INSTRUCTIONAL SYSTEMS DESIGN CONSULTANT Paroxysmal atrial fibrillation with rapid ventricular response (CMS/HCC) BASIC METABOLIC PANEL Routine 02/10/2025 3:19 PM INSTRUCTIONAL SYSTEMS DESIGN CONSULTANT COMPREHENSIVE METABOLIC PANEL Routine 02/09/2025 3:21 PM INSTRUCTIONAL SYSTEMS DESIGN CONSULTANT COMPREHENSIVE METABOLIC PANEL Routine 02/08/2025 3:20 PM INSTRUCTIONAL SYSTEMS DESIGN CONSULTANT ECHO COMPLETE Routine 02/08/2025 3:18 PM INSTRUCTIONAL SYSTEMS DESIGN CONSULTANT COMPREHENSIVE METABOLIC PANEL Routine 02/07/2025 3:20 PM INSTRUCTIONAL SYSTEMS DESIGN CONSULTANT PROTIME-INR Routine 02/07/2025 OK REMOVAL OF SUTURES Routine 01/19/2025 1:00 PM [...] SCREEN BILATERAL MOBILE Routine 03/31/2020 9:04 AM INSTRUCTIONAL SYSTEMS DESIGN CONSULTANT Encounter for screening mammogram for malignant neoplasm of breast from Last 3 Months or Most Recently Relevant to Health Maintenance Results * (ABNORMAL) CBC WITH DIFFERENTIAL (02/12/2025 11:10 AM INSTRUCTIONAL SYSTEMS DESIGN CONSULTANT) WBC 11.0(H) 3.8 - 10.8 Thousand/u L [...] [facility] Comment: Test Performed at: [facility] [address] [address] Hallie Peres MD Blood 02/12/2025 11:1 0 AM INSTRUCTIONAL SYSTEMS DESIGN CONSULTANT 02/13/2025 2:55 AM INSTRUCTIONAL SYSTEMS DESIGN CONSULTANT Racquel DILLARDP HEMATOLOGY ORDERABLES Final Result [facility] [phone] [facility] [address] [address] * BASIC METABOLIC PANEL (02/10/2025 3:19 PM INSTRUCTIONAL SYSTEMS DESIGN CONSULTANT) Blood us Abstract Provider CHEMISTRY ORDERABLES Final Res ult * COMPREHENSIVE METABOLIC PANEL (02/09/2025 3:21 PM INSTRUCTIONAL SYSTEMS DESIGN CONSULTANT) Only the most recent of5 resultswithin the time period is included. Blood us Abstract Provider CHEMISTRY ORDERABLES Final Res ult * ECHO COMPLETE - CONTRAST AND STRAIN IF INDICATED (02/08/2025 3:18 PM INSTRUCTIONAL SYSTEMS DESIGN CONSULTANT) Only the most recent of2 resultswithin the time period is included. us Abstract Provider US ORDERABLES Final Result * PROTIME-INR (02/07/2025) Only the most recent of2 resultswithin the time period is included. ABSTRACTED PROTIME 15.4 ABSTRACTED INR 1.14 Blood 02/07/2025 us Abstract Provider HEMATOLOGY ORDERABLES Final Re sult * OK REMOVAL OF SUTURES (01/19/2025 1:00 PM CDT) Narrative [facility] - 01/19/2025 1:00 PM CDT Racquel Reynolds [...] activity. Discussed safety. Return PRN. us Racquel Reynolds FINISHER [employer] PROCEDURE/MINOR SURGI CLARISSA ORDERABLES Final Result [facility] CLIA# [id number] [facility] [address] [address] * OCCULT BLOOD IMMUNOASSAY, COLORECTAL SCREEN (07/23/2023 12:00 AM CDT) FECAL GLOBIN SEE NOTE [facility] Comment: FECAL GLOBIN BY IMMUNOCHEMISTRY Micro Number: [id number] Test Status: Final Specimen Source: Stool Specimen Quality: Adequate Fecal Globin: Not Detected Test Performed at: [facility] [address] [facility] [place] [address] Hallie Peres MD Stool STOOL SPECIMEN / Unknown 07/23/2023 07/26/2023 11:19 AM CDT Jazzy Zimmerman FINISHER [employer] BODY FLUIDS AND STOOLS Fin al Result [facility] [phone] [facility] [address] [place] [address] * HEMOGLOBIN A1C (10/06/2021 9:24 AM CDT) HEMOGLOBIN A1C 5.6 <5.7 % of total Hgb [facility] Comment: For the purpose of screening for the presence of diabetes: <5.7% Consistent with the absence of diabetes 5.7-6.4% Consistent with increased risk for diabetes (prediabetes) > or =6.5% Consistent with diabetes This assay result is consistent with a decreased risk of diabetes. Currently, no consensus exists regarding use of hemoglobin A1c for diagnosis of diabetes in children. According to [place] Diabetes Association (ADA) guidelines, hemoglobin A1c <7.0% represents optimal control in non- diabetic patients. Different metrics may apply to specific patient populations. Standards of Medical Care in Diabetes(ADA). ESTIMATED AVERAGE GLUCOSE (MG/DL) 114 mg/dL [facility] ESTIMATED AVERAGE GLUCOSE (MMOL/L) 6.3 mmol/L [facility] Comment: Test Performed at: [facility] [address] [address] Landry Pelayo D.O., MPH Blood 10/06/2021 9:24 AM CDT 10/07/2021 1:21 AM CDT Jazzy Zimmerman [facility] CHEMISTRY ORDERABLES Final Result [facility] [phone] [facility] [address] [facility] [place] [address] * COLON CANCER SCREEN, STOOL DNA (09/22/2020 5:08 PM CDT) COLOGUARD RESULT Negative Negative 09/29/19 9:35 AM CDT [facility] Comment: NEGATIVE TEST RESULT. A negative Cologuard [...] Chang et al, N Engl J Med 2014;370(14):7525-1784) The normal value (reference range) for this assay is negative. COLOGUARD RE-SCREENING RECOMMENDATION: Periodic colorectal cancer screening is an important part of preventive healthcare for asymptomatic individuals at average risk for colorectal cancer. Following a negative Cologuard result, the [place] Cancer Society and U.S. Multi-Society Task Force screening guidelines recommend a Cologuard re-screening interval of 3 years. References: [place] Cancer Society Guideline for Colorectal Cancer Screening: https://www.cancer.org/cancer/znqva-cuwhqh-rspebs/windzctml-bzymjoqys-zdsfzxf/ac s-rec ommendations.html.; Billy DK, Edwin SAMUEL, Alfa JEONG, Colorectal Cancer Screening: Recommendations for Physicians and Patients from the U.S. Multi-Society Task Force on Colorectal Cancer Screening , Am J Gastroenterology 2017; 112:8363-6200. TEST DESCRIPTION: Composite algorithmic analysis of stool [...] Morris. et al, N Engl J Med 2014;370(14):4960-6786.) Cologuard may produce a false negative or false positive result (no colorectal cancer or precancerous polyp present at colonoscopy follow up). A negative Cologuard test result does not guarantee the absence of CRC or advanced adenoma (pre-cancer). The current Cologuard screening interval is every 3 years. ([place] Cancer Society and U.S. Multi-Society Task Force). Cologuard performance data in a 10,000 patient pivotal study using colonoscopy as the reference method can be accessed at the following location: [email or web address]/results. Additional description of the Cologuard test process, warnings and precautions can be found at [email or web address]. Stool STOOL SPECIMEN / Unknown 09/22/2020 5:08 PM CDT 09/24/2020 7:08 PM CDT Jazzy Murphy Elsie FINISHER [employer] BODY FLUIDS AND STOOLS Fin al Result [facility] CLIA # [id number] [address] , [address] [place] [address] * MAMMO 3D SCREEN BILATERAL MOBILE (03/31/2020 9:04 AM INSTRUCTIONAL SYSTEMS DESIGN CONSULTANT) Anatomical Region Laterality Modality Breast Bilateral Other Narrative 04/01/2020 3:47 PM INSTRUCTIONAL SYSTEMS DESIGN CONSULTANT BILATERAL SCREENING MAMMOGRAM 03/31/2020 PATIENT COMPLAINT: No [...] Center to schedule the recommended follow-up appointment. [id number] Procedure Note Nikia Escamilla MD - 09/01/2020 [...] Center to schedule the recommended follow-up appointment. [id number] [facility] MAMMO ORDERABLES Final Res ult from Last 3 Months or Most Recently Relevant to Health Maintenance Insurance [facility] MEDICARE HMO Advance Directives For more information, please contact: [phone] * Full Code (Latest Code Status on File) Date Activated Date Inactivated Comments 01/08/2025 10:52 AM Care Teams Daily Sales Audit Clerk Relationship Specialty Start Date End Date Dennis Vines MD [address] [place] [phone] PCP - General Family Practice 10/23/24
[2025-02-25 07:11] LABS: Hematocrit 35.2 % (36-47); Hemoglobin 10.30 g/dL (11.27-16.99); Mean Corpuscular HGB Conc 29.3 g/dL (30-55); Mean Corpuscular Hemoglobin 21.1 pg (27-33); Mean Corpuscular Volume 72.3 fl (85-98); Nucleated Red Blood Cells % 0 %; Platelet Count 258 10^3/cmm (157-399); Red Blood Count 4.87 10^6/uL (3.85-5.65); White Blood Count 10.19 10^3/uL (3.29-11.43)
[2025-02-25 07:28] LABS: Anion Gap 9.7 (5-19); Blood Urea Nitrogen 28 mg/dL (8-23); Calcium 8.9 mg/dL (8.5-10.5); Carbon Dioxide 38 mmol/L (22-29); Chloride 97 mmol/L (98-107); Glucose 132 mg/dL (65-115); Magnesium 1.6 mg/dL (1.7-2.3); Osmolality Calculated 299 mOsm/kg (285-295); Potassium 3.7 mmol/L (3.5-5.1); Sodium 141 mmol/L (136-145)
[2025-02-25 08:02] LABS: Troponin(5th) Baseline 91 ng/L (0-10)
[2025-02-25] MEDS: FUROsemide 10 mg/mL SDV 10mL 60 MG IVP ×2 (08:36→17:27)
[2025-02-25] MEDS: magnesium sulfate premix 2 GM/50 ML PIGGYBACK IV (08:36)
[2025-02-25 10:01] LABS: Troponin 5 2HR 96.30 ng/L (0-10); Troponin 5 2HR Delta 5.30 ABS# (0-10)
--- NOTE | 2025-02-25 10:03 | ECG_ITS ---
[facility] Test Date: 2025-02-25 Pat Name: Marie Vann Department: Room: ICU04 Gender: Female Legal Practice Manager: : 1960 Requested By: Errol Hernandez Order Number: [id number] Grazyna MD: Gracia Francisco M.D. Measurements Intervals [place] Rate: 59 P: 0 MN: 0 QRS: 73 QRSD: 90 T: 137 QT: 494 QTc: 491 Interpretive Statements ATRIAL FIBRILLATION WITH SLOW VENTRICULAR RESPONSE ST DEVIATION AND MODERATE T-WAVE ABNORMALITY, CONSIDER ANTEROLATERAL ISCHEMIA [-0.1+ mV T-WAVE IN V3-V6] Compared to ECG 02/24/2025 21:29:30 Possible ischemia now present T-wave abnormality still present Electronically Signed On 02-26-2025 18:04:37 TUFTER OPERATOR by Gracia Francisco M.D. [email or web address]
[2025-02-25 13:34] LABS: Troponin 5 6HR 91.22 ng/L (0-10); Troponin 5 6HR Delta 0.22 ng/L (0-12)
--- NOTE | 2025-02-25 13:39 | ECG_ITS ---
[facility] Date: 2025-02-25 Pat Name: Marie Vann Department: Room: [facility] Gender: Female Gore Inserter: : 1960 Requested By: Errol Hernandez Order Number: [id number] Grazyna MD: Gracia Francisco M.D. Measurements Intervals [place] Rate: 75 P: 0 NH: 0 QRS: 70 QRSD: 97 T: 149 QT: 427 QTc: 477 Interpretive Statements ATRIAL FIBRILLATION ST DEVIATION AND MODERATE T-WAVE ABNORMALITY, CONSIDER ANTEROLATERAL ISCHEMIA [-0.1+ mV T-WAVE IN V3-V6] Compared to ECG 02/25/2025 10:03:14 No significant changes Electronically Signed On 02-26-2025 18:01:57 WINDOWS VMWARE ENGINEER by Gracia Francisco M.D. [email or web address]
[2025-02-25] MEDS: ATORVASTATIN 20 MG TABLET PO (17:27)
[2025-02-25 18:32] LABS: ABG PCO2 55.4 mmHg (35-45); ABG PH Result 7.43 (7.35-7.45); Arterial Blood Gas Hematocrit 34.4 % (37-47); Blood Gas Allen Test Pos; Blood Gas LPM 12.0 %; Blood Gas Operator Identificat WALCCI; Blood Gas Sample Site Radial, right; Blood Gas Sample Type Arterial; Carboxyhemoglobin 1.9 %THgb (0.4-20.1); Glucose Level-ABG 162.0 mg/dL (70-115); HCO3 ABG 36.6 mmol/L (22-26); Ionized Calcium Level - ABG 1.1 mmol/L (1.1-1.4); Methemoglobin 0.8 % (0.4-1.5); Oxygen Saturation ABG > 99.1; PO2 ABG 228.0 mmHg (80.0-100.0); Potassium Level - ABG 3.3 mmol/L (3.5-5.0); Sodium Level - ABG 140.0 mmol/L (131-143)
[2025-02-25] MEDS: etomidate 2 mg/mL INJ SDV 10 mL 5 MG IVP (18:41)
[2025-02-25] MEDS: succinylcholine 20 mg/mL SDV 10mL IVP (18:41)
--- NOTE | 2025-02-25 18:44 | CTR_ITS ---
PROCEDURE INFORMATION: Exam: CT Head Without Contrast Exam date and time: 02/25/2025 9:00 PM Age: 64 years old Clinical indication: Altered mental status/memory loss; Additional info: Unresponsive TECHNIQUE: Imaging protocol: Computed tomography of the head without contrast. Radiation optimization: All CT scans at this facility use at least one of these dose optimization techniques: automated exposure control; mA and/or kV adjustment per patient size (includes targeted exams where dose is matched to clinical indication); or iterative reconstruction. COMPARISON: CT head wo con* [id number] 01/03/2025 8:04 AM RADIATION DOSE METRICS: Total DLP (mGy-cm): 1070.14 FINDINGS: Brain: Moderate diffuse white matter disease likely reflecting chronic microvascular ischemic changes. Cerebral ventricles: No ventriculomegaly. Paranasal sinuses: Visualized sinuses are unremarkable. No fluid levels. Mastoid air cells: Visualized mastoid air cells are well aerated. Bones: Unremarkable. No acute fracture. Soft tissues: Unremarkable. CT/CT head wo con* [id number] IMPRESSION: 1. Negative for intracranial hemorrhage or mass effect. 2. Moderate diffuse white matter disease likely reflecting chronic microvascular ischemic changes.
--- NOTE | 2025-02-25 18:46 | CTR_ITS ---
PROCEDURE INFORMATION: Exam: CTA Chest With Contrast Exam date and time: 02/25/2025 9:07 PM Age: 64 years old Clinical indication: Shortness of breath; Additional info: Possible pe TECHNIQUE: Imaging protocol: Computed tomographic angiography of the chest with contrast. Exam focused on the arteries. 3D rendering (Not supervised by radiologist): MIP and/or 3D reconstructed images were created by the technologist. Radiation optimization: All CT scans at this facility use at least one of these dose optimization techniques: automated exposure control; mA and/or kV adjustment per patient size (includes targeted exams where dose is matched to clinical indication); or iterative reconstruction. Contrast material: OMNI 350; Contrast volume: 100 ml; Contrast route: INTRAVENOUS (IV); COMPARISON: CT angio chest PE protcl [id number] 02/08/2025 12:50 AM RADIATION DOSE METRICS: Total DLP (mGy-cm): 421.12 FINDINGS: Tubes, catheters and devices: Endotracheal tube is present and terminates above the sriram. Enteric tube reaches the stomach. Pulmonary arteries: Normal. No pulmonary emboli. Aorta: Unremarkable. No aortic aneurysm. No aortic dissection. Lungs: Mosaic ground-glass opacities bilaterally. Compressive atelectasis and consolidative opacity within right lower lung. Peripheral nodules in the lingula, not significantly changed. 5 mm nodule left upper lobe. Pleural spaces: Small to moderate loculated right pleural effusion. Heart: Unremarkable. No cardiomegaly. No pericardial effusion. Lymph nodes: Prominent mediastinal lymph nodes. Example includes 11 x 15 mm AP window lymph node. These are not significantly changed in comparison to prior study. Bones/joints: Unremarkable. No acute fracture. Soft tissues: Unremarkable. CT/CT angio chest [id number] IMPRESSION: 1. Negative for pulmonary emboli. 2. Pulmonary ground-glass opacities which could represent infectious disease or mosaic perfusion pattern, not significantly changed. 3. Lingular nodules not significantly changed. Suggest follow-up CT scan in 3-6 months per Fleischner society guidelines. 4. Persistent mild mediastinal lymphadenopathy. 5. Loculated right pleural effusion with compressive atelectasis of portions of the right lower lobe and middle lobe. There are air bronchograms within this region, therefore possibility of pneumonia superimposed on atelectasis is not entirely excluded.
--- NOTE | 2025-02-25 18:47 | XRR_ITS ---
PROCEDURE INFORMATION: Exam: XR Chest Exam date and time: 02/25/2025 8:15 PM Age: 64 years old Clinical indication: Device placement; Other: Ett and og tube; Additional info: Post intubation, et tube placement, og tube placement TECHNIQUE: Imaging protocol: Radiologic exam of the chest. Views: 1 view. COMPARISON: CR (CHEST, ) 02/24/2025 9:28 PM FINDINGS: Tubes, catheters and devices: Endotracheal tube tip 6.1 mm above the sriram can be withdrawn 1-2 cm. Enteric tube tip extending below the diaphragm inferiorly off the field of view. Lungs: Right mid to lower lung field atelectasis versus infiltrate. Pleural spaces: Moderate right trace left pleural effusion. Heart/Mediastinum: Moderate cardiomegaly and pulmonary vascular congestion. Bones/joints: Unremarkable. XR/XR chest 1V portable [id number] IMPRESSION: 1. Endotracheal tube tip 6.1 mm above the sriram can be withdrawn 1-2 cm. 2. Enteric tube tip extending below the diaphragm inferiorly off the field of view. 3. Moderate right trace left pleural effusion. 4. Moderate cardiomegaly and pulmonary vascular congestion. 5. Right mid to lower lung field atelectasis versus infiltrate.
--- NOTE | 2025-02-25 18:48 | CTR_ITS ---
PROCEDURE INFORMATION: Exam: CTA Neck With Contrast Exam date and time: 02/25/2025 9:02 PM Age: 64 years old Clinical indication: Other: Dr ethan TECHNIQUE: Imaging protocol: Computed tomographic angiography of the neck with contrast. Exam focused on the cervical segments of the vasculature. 3D rendering (Not supervised by radiologist): MIP and/or 3D reconstructed images were created by the technologist. Radiation optimization: All CT scans at this facility use at least one of these dose optimization techniques: automated exposure control; mA and/or kV adjustment per patient size (includes targeted exams where dose is matched to clinical indication); or iterative reconstruction. Contrast material: OMNI 350; Contrast volume: 100 ml; Contrast route: INTRAVENOUS (IV); COMPARISON: CT angio chest PE protcl [id number] 02/08/2025 12:50 AM RADIATION DOSE METRICS: Total DLP (mGy-cm): 342.89 FINDINGS: Tubes, catheters and devices: Partially visualized enteric tube and endotracheal tube. Right common carotid artery: No stenosis. No dissection or occlusion. Right internal carotid artery: Moderate stenosis of the extracranial segment. No dissection or occlusion. Right external carotid artery: No occlusion or stenosis of the origin. Left common carotid artery: No stenosis. No dissection or occlusion. Left internal carotid artery: No stenosis of the extracranial segment. No dissection or occlusion. Left external carotid artery: No occlusion or stenosis of the origin. Right vertebral artery: No stenosis. No dissection or occlusion. Left vertebral artery: No stenosis. No dissection or occlusion. Soft tissues: Normal. No significant soft tissue swelling. Bones/joints: No acute fracture. CT/CT angio neck [id number] IMPRESSION: 1. Moderate stenosis within right internal carotid artery extracranial segment due to atherosclerosis. 2. No large vessel occlusion. REFERENCES: NASCET CRITERIA. The degree of stenosis in the cervical segment of the internal carotid artery is based on NASCET criteria. Normal is no stenosis. Mild is less than 50% stenosis. Moderate is 50-69% stenosis. Severe is 70% to 99% stenosis. Total occlusion is no detectable patent lumen.
[2025-02-25] MEDS: propofol 1,000 MG/100 ML INJ 4.14 MG IV (18:50)
[2025-02-25 18:56] LABS: Hematocrit 36.1 % (36-47); Hemoglobin 10.70 g/dL (11.27-16.99); Mean Corpuscular HGB Conc 29.6 g/dL (30-55); Mean Corpuscular Hemoglobin 21.1 pg (27-33); Mean Corpuscular Volume 71.1 fl (85-98); Nucleated Red Blood Cells % 0.2 %; Platelet Count 281 10^3/cmm (157-399); Red Blood Count 5.08 10^6/uL (3.85-5.65); White Blood Count 11.63 10^3/uL (3.29-11.43)
[2025-02-25 19:08] LABS: Add RBC Morph Yes; Hypochromasia 1+; Poikilocytosis 1+; Polychromasia 1+; RBC Morph Comp No; Slide Review Slide Review Perform
--- NOTE | 2025-02-25 19:08 | PC.NURSE ---
approximately 1820 icu nurse in room called for help upon entering room found patietn in room unresponsive to all stimuli vs wnl palable pulse Dr. Brownlee came to bedside orders for narcan per may and scans ordered, responsiveness did not improve decision to intubate to protect airway med see mar. Dr. Brownlee contacted family
[2025-02-25 19:09] LABS: Anisocytosis 2+; Microcytosis 1+; Pathology Refferal No
[2025-02-25] MEDS: levETIRAcetam 2,000 MG/200 ML PREMIX 400 MG IV (19:21)
--- NOTE | 2025-02-25 19:27 | PC.NURSE ---
Patient was found laying on their bed unresponsive with shallow breathing. Sternal rub was applied multiple times with no response. Pain stimuli was applied with no response. CRISTÓBAL Alvarez was called into the room where they started bagging the patient while this nurse got Dr. Hernandez. Dr. Hernandez came into the room to assess the patient.
--- NOTE | 2025-02-25 19:34 | P.PN_ITS ---
Subjective 2 Subjective: This morning doing well. Heart rate improving. No difficulty breathing. No chest pain or pressure. Reports at home has been using oxygen about 2 L. This evening became unresponsive requiring emergent intervention. Vitals/I&O/Wt Last Vital Signs Temp 971 F H 02/25/25 05:33 Pulse 75 02/25/25 17:30 Resp 17 02/25/25 17:30 BP 121/78 02/25/25 17:00 Pulse Ox 94 02/25/25 15:30 O2 Del Method Nasal Cannula 02/25/25 05:33 O2 Flow Rate 2 02/25/25 05:33 02/25/25 02/25/25 02/25/25 06:59 14:59 22:59 Intake Total 30.417 / 30.417 301.542 / 301.542 53.795 / 355.337 Output Total 500 / 500 Balance 30.417 / 30.417 -198.458 / -198.458 53.795 / -144.663 Weight last 48 hrs Weight 69 kg Weight 67.132 kg Physical Exam 2 Narrative: Accompanied by her this morning. Const: COMMON NORMALS: patient oriented x3 and alert GENERAL APPEARANCE: c ooperative ORIENTATION/CONSCIOUSNESS: Yes awake HENMT: COMMON NORMALS: oropharynx normal Neck/C-Spine: COMMON NORMALS: no JVD Resp: COMMON NORMALS: normal respiratory effort and clear to auscultation bilaterally AUSCULTATION: clear to auscultation bilaterally Cardio: COMMON NORMALS: no JVD, regular rhythm, S1 normal heart sound present, S2 normal heart sound present and No murmurs present (Cardio) RHYTHM: regular rhythm HEART SOUNDS: S1 normal heart sound present and S2 normal heart sound present GI: COMMON NORMALS: Normal to inspection, nondistended, normoactive bowel sounds present, Soft to palpation and non-tender PALPATION: Yes Soft to palpation Extremity: COMMON NORMALS: no joint enlargement and no pedal edema Neuro: COMMON NORMALS: patient oriented x3 and moves all extremities S ENSORIUM/ORIENTATION: Yes alert Skin: COMMON NORMALS: no rashes or lesions noted GENERAL SKIN EXAM: no rashes or lesions noted Urinary Catheter Management: Giraldo: Cath Placed During This Visit: yes Reason for Continuing Indwelling Catheter: Acute Urinary Retention or Obstruction Urinary Catheter Date of Insertion: 02/08/25 Urinary Catheter Time of Insertion: 03:25 Data 02/25/25 18:35 02/25/25 07:06 A&P Assessment and plan 1. Acute encephalopathy: Unresponsive episode, unclear etiology, possible syncope, versus possible seizure, other possible including intracranial hemorrhage, versus brainstem ischemia. found unresponsive around 6:30 PM this evening, requiring bag mask ventilation. On vitals noted hypertensive blood pressures 170s/120s. Maintaining heart rate in the 70s. Oxygen saturation in 90s. After several minutes of ventilation noted to have spontaneous respirations, but without improvement in mental status. Pupils symmetrical. Keeping eyelids close, but otherwise flaccid, not responding to pain. Without response to Narcan. Blood close 153, ABG with pCO2 55, but compensated pH 7.43. After additional ventilation, still unresponsive, intubated urgently with RSI. Loaded with Keppra. Plans to proceed to head CT and head and neck CTA. As per discussion with her son they are not aware of any history of seizure disorder, although she has had multiple episodes of prior head trauma. Recently with some lightheaded episodes, possibly syncopal episodes, with falls, additional head trauma several weeks back when she fell and hit her head on the fridge. They are not aware of any substance use history. She did not receive any sedating medications earlier. Telemetry reviewed, with atrial fibrillation, intermittent heart rates down into the 50s-60s, but without any obvious prolonged pauses otherwise. After about 15 minutes discussion with her family, return to ICU she is waking up, sitting up in bed, dazed, but responding, following directions, uncomfortable with the ventilator. Discussed with her events, and need for additional imaging with CT head as well as requested CTA head and neck. Further discussed with her . At this started her on sedation to allow for tolerance of mechanical insulation and to obtain the studies. and family agreeable with additional assessment and plan. Hypertension improving with propofol. She will be proceeding to her studies. Discussed with nighttime provider. CBC, CMP, lactate, D-dimer obtained. D-dimer with mild abnormality 1.7, but she is anticoagulated currently. Would suspect secondary to atrial fibrillation. 2. Respiratory arrest: With becoming unresponsive, requiring bag mask with deletion, emergent RSI. 3. Atrial fibrillation with RVR: This morning improving heart rate, weaning down and off of Cardizem drip. Has been resumed on her home Cardizem and carvedilol. Eventually able to wean off Cardizem drip. Has been continued on Eliquis. Noted hypomagnesemia, requested magnesium replacement. Recheck level. 4. Swelling of right foot: - Noted with elevated BNP at 7331 - IV lasix provided in the ED. Continue this BID - Reviewed echocardiogram. Noted moderately reduced LV function with global hypokinesis. Estimated LVEF 40 to 45%. - Daily weight, I/Os qShift 5. Chronic hypoxic respiratory failure: - With know right pleural effusion - Continue PRN O2 6. Chronic obstructive pulmonary disease, unspecified COPD type: - Without acute exacerbation. Plan as above PDMP PDMP Reviewed: Not Reviewed Attestations 2 Medical Necessity Statement*: Continue admission for assessment management after an unresponsive episode, further assessment of acute encephalopathy, and after respiratory arrest. Coding Level of Care Code Critical Care >/= 30 minutes Critical care time (in minutes): 50 The high probability of a clinically significant, sudden or life threatening deterioration, as referenced in this documentation, required my full and direct attention, intervention and personal management. The critical care time shown is in addition to time spent performing any reported separately billable procedures and includes the following: [x] Data and vital sign review and interpretation [x ] Patient assessment, examination and intervention [x] Medication orders and management [x] Patient/Family updates as able [x] Care Coordination and Documentation. Diagnoses Acute encephalopathy G93.40 Respiratory arrest R09.2 Atrial fibrillation with RVR I48.91 Swelling of right foot M79.89 Chronic hypoxic respiratory failure J96.11 Chronic obstructive pulmonary disease, unspecified COPD type J44.9 COPD type: unspecified COPD
[2025-02-25 19:43] LABS: Alanine Aminotransferase 35 U/L (0-33); Albumin Level 3.5 g/dL (3.5-5.2); Alkaline Phosphatase 109 U/L (35-105); Anion Gap 19.5 (5-19); Aspartate Amino Transferase 31 U/L (0-32); Blood Urea Nitrogen 27 mg/dL (8-23); Calcium 8.6 mg/dL (8.5-10.5); Carbon Dioxide 28 mmol/L (22-29); Chloride 94 mmol/L (98-107); Globulin 3.2 g/dL (1.3-4.6); Glucose 149 mg/dL (65-115); Osmolality Calculated 294 mOsm/kg (285-295); Potassium 3.5 mmol/L (3.5-5.1); Sodium 138 mmol/L (136-145); Total Protein 6.7 g/dL (6.6-8.7)
[2025-02-25 19:44] LABS: Lactate (Lactic Acid level) 1.8 mmol/L (0.5-2.2)
--- NOTE | 2025-02-25 20:01 | PM.ACPR ---
Procedure/Consent Procedure Narrative: Emergent RSI Acute Procedures Intubation: Sedative: etomidate Paralytic: succinylcholine Tube secured depth (cm): 22 Tube secured location: lips Tube placement confirmation: visualized tube passing through cords, equal breath sounds bilaterally and color change noted Patient tolerated procedure: no complications
[2025-02-25] MEDS: iohexol 350 mg/mL 500 mL Btl (per mL) IV ×2 (21:16→21:21)
[2025-02-25] MEDS: propofol 1,000 MG/100 ML INJ 24.84 MG IV (21:43)
[2025-02-25] MEDS: dilTIAZem ER (24HR) 240 mg Capsule PO (21:50)
[2025-02-26] VITALS (56 sets, daily range): BP systolic 85–147; BP diastolic 53–90; PULSE 61–105; RESP 12–38; TEMP 35.9–36.6; O2SAT 86–100
[2025-02-26] MEDS: propofol 1,000 MG/100 ML INJ 20.7 MG IV (01:22)
[2025-02-26 03:31] LABS: Hematocrit 34.5 % (36-47); Hemoglobin 10.10 g/dL (11.27-16.99); Mean Corpuscular HGB Conc 29.3 g/dL (30-55); Mean Corpuscular Hemoglobin 20.9 pg (27-33); Mean Corpuscular Volume 71.4 fl (85-98); Nucleated Red Blood Cells % 0 %; Platelet Count 235 10^3/cmm (157-399); Red Blood Count 4.83 10^6/uL (3.85-5.65); White Blood Count 10.42 10^3/uL (3.29-11.43)
[2025-02-26 03:54] LABS: Magnesium 1.6 mg/dL (1.7-2.3)
[2025-02-26 03:55] LABS: Alanine Aminotransferase 28 U/L (0-33); Albumin Level 3.0 g/dL (3.5-5.2); Alkaline Phosphatase 92 U/L (35-105); Aspartate Amino Transferase 24 U/L (0-32); Blood Urea Nitrogen 22 mg/dL (8-23); Calcium 8.2 mg/dL (8.5-10.5); Carbon Dioxide 33 mmol/L (22-29); Chloride 95 mmol/L (98-107); Globulin 2.5 g/dL (1.3-4.6); Glucose 104 mg/dL (65-115); Osmolality Calculated 292 mOsm/kg (285-295); Sodium 139 mmol/L (136-145); Total Protein 5.5 g/dL (6.6-8.7)
[2025-02-26 04:00] LABS: ABG PCO2 50.3 mmHg (35-45); ABG PH Result 7.51 (7.35-7.45); Arterial Blood Gas Hematocrit 34.0 % (37-47); Blood Gas Allen Test Pos; Blood Gas Operator Identificat BD; Blood Gas Sample Site Brachial, right; Blood Gas Sample Type Arterial; Blood Gas Tidal Volume 0.32; HCO3 ABG 40.2 mmol/L (22-26); PEEP 5.0 cmH20; PO2 ABG 73.8 mmHg (80.0-100.0); PO2 FiO2 Ratio Arterial Blood 184
[2025-02-26 04:02] LABS: Anion Gap 13.8 (5-19)
[2025-02-26 04:08] LABS: Potassium 2.8 mmol/L (3.5-5.1)
[2025-02-26] MEDS: lidocaine 1% 5 ML in potassium chloride premix 100 ML 52.5 ML IV ×2 (04:46→06:36)
[2025-02-26] MEDS: magnesium sulfate premix 2 GM/50 ML PIGGYBACK IV (04:49)
[2025-02-26] MEDS: potassium chloride oral liq 20 mEq/15 mL UDC 80 MEQ PO (04:51)
--- NOTE | 2025-02-26 05:22 | PC.NURSE ---
Addendum entered by Racquel Hensley RN 02/26/25 06:23: also received orders at this time to hold 0500 dose of IVP Lasix Original Note: Hypokalemia Patient had a potassium of 2.[address] [facility] Dr. Tam and received orders at this time for 40 meq p.o. potassium via OG tube, 40 meq IV Potassium, and 2mg Mag IV x1 MAR reflected to show orders
[2025-02-26] MEDS: propofol 1,000 MG/100 ML INJ 10.35 MG IV (07:31)
[2025-02-26] MEDS: cefTRIAXone 1,000 mg SDV 1000 MG IVP (07:50)
[2025-02-26] MEDS: doxycycline 100 MG in sodium chloride 0.9% (plus) 100 ML IV ×2 (07:51→20:27)
[2025-02-26] MEDS: water for injection-sterile 10 ML 10000 ML (07:57)
--- NOTE | 2025-02-26 09:53 | PC.NURSE ---
weaned off sedation and extubated this am is somewhat confused and occasionally agitated , taken po intake small amt, requesting family called , and daughter in law called aware that she is extubated now
--- NOTE | 2025-02-26 09:57 | P.PN_ITS ---
Subjective 2 Subjective: Weaning down sedation this morning, subsequently waking up, sitting up in bed, trying to pull on ET tube. Appears to be answering appropriately. Wanting to be extubated. Vitals/I&O/Wt Last Vital Signs Temp 96.6 F L 02/26/25 06:08 Pulse 64 02/26/25 08:30 Resp 23 H 02/26/25 08:19 BP 96/60 02/26/25 08:30 Pulse Ox 96 02/26/25 08:30 O2 Del Method Mechanical Ventilation 02/26/25 05:00 O2 Flow Rate 2 02/25/25 05:33 FiO2 40 02/26/25 08:19 02/25/25 02/26/25 02/26/25 22:59 06:59 14:59 Intake Total 322.243 / 623.785 319.303 / 943.088 226.385 / 226.385 Output Total 1000 / 1500 1200 / 2700 Balance -677.757 / -876.215 -880.697 / -1756.912 226.385 / 226.385 Weight last 48 hrs Weight 63 kg Weight 69 kg Weight 67.132 kg Physical Exam 2 Const: COMMON NORMALS: alert GENERAL APPEARANCE: cooperative O RIENTATION/CONSCIOUSNESS: Yes awake HENMT: COMMON NORMALS: oropharynx normal Neck/C-Spine: COMMON NORMALS: no JVD Resp: COMMON NORMALS: normal respiratory effort and clear to auscultation bilaterally AUSCULTATION: clear to auscultation bilaterally Cardio: COMMON NORMALS: no JVD, regular rhythm, S1 normal heart sound present, S2 normal heart sound present and No murmurs present (Cardio) RHYTHM: regular rhythm HEART SOUNDS: S1 normal heart sound present and S2 normal heart sound present GI: COMMON NORMALS: Normal to inspection, nondistended, normoactive bowel sounds present, Soft to palpation and non-tender PALPATION: Yes Soft to palpation Extremity: COMMON NORMALS: no joint enlargement and no pedal edema Neuro: COMMON NORMALS: moves all extremities SENSORIUM/ORIENTATION: Yes alert Skin: COMMON NORMALS: no rashes or lesions noted GENERAL SKIN EXAM: no rashes or lesions noted Urinary Catheter Management: Giraldo: Cath Placed During This Visit: yes Reason for Continuing Indwelling Catheter: Accurate Measurement of Urinary Output in Critically Ill Patients Urinary Catheter Date of Insertion: 02/25/25 Urinary Catheter Time of Insertion: 23:31 Data 02/26/25 03:18 02/26/25 03:18 A&P Assessment and plan 1. Acute encephalopathy: Waking up with weaning off of sedation today. Appears to be answering appropriately. Proceeding to extubation. Reviewed CT head, CTA head and neck. No bleeding or major abnormality on CT. Noted moderate right ICA stenosis. Will increase statin intensity, start low- dose aspirin. With possible seizure episode with protracted postictal period, hypertensive during the episode, without any sources of obvious global hypoperfusion, heart rates 50s-60s occasionally, but otherwise in the 70s without any obvious prolonged pauses, ventricular arrhythmias. Was needing airway support, will continue Keppra for now 500 mg twice daily. Will benefit from further follow-up after discharge with outpatient EEG, follow-up with neurology. Will further assess with stress test. Reviewed vitals, CBC, morning ABG, CMP, magnesium, troponin series (noted without significant rise, moderate elevation). 2. Respiratory arrest: Reviewed CTA chest, without noted PE. Continues on anticoagulation. Noted area of loculated effusion, with some atelectasis, air bronchograms with some degree of pneumonia not excluded. Empirically started on ceftriaxone, doxycycline for now. Will obtain MBS with question of possible recurrent/chronic aspiration. On 40% FiO2 this morning, overbreathing the vent, waking up well from sedation. Discussed with RT, proceed to extubation. On a couple liters of nasal cannula oxygen at baseline. Monitor oxygenation, avoid hyperoxia, target O2 saturation 88-92%. 3. Atrial fibrillation with RVR: Continue Cardizem and carvedilol. Monitor for risk of hypotension with combination calcium channel mary lou and beta-mary lou. Has weaned off Cardizem drip. Has been continued on Eliquis. Noted additional hypomagnesemia this morning, received replacement. Recheck level again in the morning. 4. Chronic hypoxic respiratory failure: - With know right pleural effusion - Continue PRN O2 5. Chronic obstructive pulmonary disease, unspecified COPD type: - Without acute exacerbation. Plan as above 6. Acute systolic CHF (congestive heart failure): Possible acute CHF on presentation, was treated with IV diuretics, for now held due to severe hypokalemia and hypomagnesemia. In negative balance. Hold off additional diuretic for now. Reassess volume status. Reassess electrolytes PDMP PDMP Reviewed: Not Reviewed Attestations 2 Medical Necessity Statement*: Continue admission for further assessment management following unresponsive episode, with respiratory arrest, requiring transient airway protection and mechanical ventilation, extubation, continued optimization after A-fib with RVR, electrolyte replacement. Coding Level of Care Code Critical Care >/= 30 minutes Critical care time (in minutes): 35 The high probability of a clinically significant, sudden or life threatening deterioration, as referenced in this documentation, required my full and direct attention, intervention and personal management. The critical care time shown is in addition to time spent performing any reported separately billable procedures and includes the following: [x] Data and vital sign review and interpretation [x ] Patient assessment, examination and intervention [x] Medication orders and management [x] Patient/Family updates as able [x] Care Coordination and Documentation. Diagnoses Acute encephalopathy G93.40 Respiratory arrest R09.2 Atrial fibrillation with RVR I48.91 Chronic hypoxic respiratory failure J96.11 Chronic obstructive pulmonary disease, unspecified COPD type J44.9 COPD type: unspecified COPD Acute systolic CHF (congestive heart failure) I50.21
[2025-02-26 10:49] LABS: Potassium 4.8 mmol/L (3.5-5.1)
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
[2025-02-26] MEDS: haloperidol inj 5 mg/mL INJ 1 mL 1 MG IM (11:59)
[2025-02-26] MEDS: ATORVASTATIN 20 MG TABLET PO (16:48)
--- NOTE | 2025-02-26 17:12 | PC.NURSE ---
less paronoid this am aware of place and time still does not want males in room . urine emptied all meds taken ate small amt fruit and pie
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
--- NOTE | 2025-02-26 21:51 | PC.NURSE ---
gave one time order of 2mg Lorazepam for patients anxiety. Order placed See MAR
[2025-02-26] MEDS: dilTIAZem ER (24HR) 240 mg Capsule PO (21:55)
[2025-02-27] VITALS (38 sets, daily range): BP systolic 109–148; BP diastolic 67–96; PULSE 65–106; RESP 14–29; TEMP 36.2–36.8; O2SAT 87–97
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
[2025-02-27 04:46] LABS: Hematocrit 35.3 % (36-47); Hemoglobin 10.10 g/dL (11.27-16.99); Mean Corpuscular HGB Conc 28.6 g/dL (30-55); Mean Corpuscular Hemoglobin 20.8 pg (27-33); Mean Corpuscular Volume 72.8 fl (85-98); Nucleated Red Blood Cells % 0.2 %; Platelet Count 251 10^3/cmm (157-399); Red Blood Count 4.85 10^6/uL (3.85-5.65); White Blood Count 10.89 10^3/uL (3.29-11.43)
[2025-02-27 04:58] LABS: Slide Review Slide Review Perform
[2025-02-27 05:15] LABS: Magnesium 2.1 mg/dL (1.7-2.3)
[2025-02-27 05:16] LABS: Alanine Aminotransferase 32 U/L (0-33); Albumin Level 3.4 g/dL (3.5-5.2); Alkaline Phosphatase 98 U/L (35-105); Anion Gap 10.0 (5-19); Aspartate Amino Transferase 27 U/L (0-32); Blood Urea Nitrogen 20 mg/dL (8-23); Calcium 8.4 mg/dL (8.5-10.5); Carbon Dioxide 36 mmol/L (22-29); Chloride 100 mmol/L (98-107); Globulin 2.6 g/dL (1.3-4.6); Glucose 93 mg/dL (65-115); Osmolality Calculated 296 mOsm/kg (285-295); Potassium 4.0 mmol/L (3.5-5.1); Sodium 142 mmol/L (136-145); Total Protein 6.0 g/dL (6.6-8.7)
[2025-02-27] MEDS: cefTRIAXone 1,000 mg SDV 1000 MG IVP (08:16)
[2025-02-27] MEDS: doxycycline 100 MG in sodium chloride 0.9% (plus) 100 ML IV ×2 (08:16→20:03)
--- NOTE | 2025-02-27 10:33 | PC.NURSE ---
Py very drowsy difficulty to wake for morning Elquis table. When she finally woke, took tablet with ease. She is ness and cooperative. She was able to state her name, and she was at [facility]. at the bedside. She was unable to tell me who and what relationship he was but she did smile at him and wanted him nearer to her. At the time of this note, the are having a conversation. She is very intent on what he is saying. They have looked at something on hs phone together. She is smiling. When he leans over the bed she leans into him, they occasionally hold hands.
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
--- NOTE | 2025-02-27 11:57 | PC.SOCIAL ---
IMM Updated Updated pt's on IMM. No questions voiced. Provided pt a copy. Initialed, dated, & timed a copy & placed in chart.
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
[2025-02-27] MEDS: ATORVASTATIN 20 MG TABLET PO (17:30)
--- NOTE | 2025-02-27 19:15 | PC.NURSE ---
Shift summary: Pt had a good day. She rested with her closed , hard this am. When she woke she was oriented to self, place, . As the day progressed she could name month and year. She sat up in a chair from lunch to past dinner. She transferred well with walker. She is utilizing 2lpm/NC. She has an excellent appetite, eating everything on her trays, then asking for additional. Urine output of 300ml. She had a med/large BM today.
[2025-02-27] MEDS: dilTIAZem ER (24HR) 240 mg Capsule PO (21:49)
[2025-02-28] VITALS (9 sets, daily range): BP systolic 127–144; BP diastolic 71–86; PULSE 68–88; RESP 14–18; TEMP 36.4–36.9; O2SAT 91–98
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
[2025-02-28 04:42] LABS: Hematocrit 36.0 % (36-47); Hemoglobin 10.10 g/dL (11.27-16.99); Mean Corpuscular HGB Conc 28.1 g/dL (30-55); Mean Corpuscular Hemoglobin 20.7 pg (27-33); Mean Corpuscular Volume 73.9 fl (85-98); Nucleated Red Blood Cells % 0 %; Platelet Count 279 10^3/cmm (157-399); Red Blood Count 4.87 10^6/uL (3.85-5.65); White Blood Count 10.68 10^3/uL (3.29-11.43)
[2025-02-28 05:12] LABS: Alanine Aminotransferase 28 U/L (0-33); Albumin Level 3.5 g/dL (3.5-5.2); Alkaline Phosphatase 98 U/L (35-105); Anion Gap 7.9 (5-19); Aspartate Amino Transferase 24 U/L (0-32); Blood Urea Nitrogen 19 mg/dL (8-23); Calcium 8.4 mg/dL (8.5-10.5); Carbon Dioxide 37 mmol/L (22-29); Chloride 99 mmol/L (98-107); Creatinine Clr Calc Pharmacy 60.3661; Globulin 2.6 g/dL (1.3-4.6); Glucose 106 mg/dL (65-115); Osmolality Calculated 291 mOsm/kg (285-295); Potassium 4.9 mmol/L (3.5-5.1); Sodium 139 mmol/L (136-145); Total Protein 6.1 g/dL (6.6-8.7)
[2025-02-28] MEDS: cefTRIAXone 1,000 mg SDV 1000 MG IVP (06:33)
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
[2025-02-28] MEDS: ATORVASTATIN 20 MG TABLET PO (18:05)
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
[2025-02-28] MEDS: dilTIAZem ER (24HR) 240 mg Capsule PO (22:53)
[2025-03-01] VITALS (9 sets, daily range): BP systolic 130–159; BP diastolic 72–89; PULSE 70–89; RESP 16–18; TEMP 36.4–37.1; O2SAT 91–94
[2025-03-01] MEDS: cefTRIAXone 1,000 mg SDV 1000 MG IVP (08:43)
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
[2025-03-01] MEDS: ATORVASTATIN 20 MG TABLET PO (16:23)
[2025-03-01] MEDS: dilTIAZem ER (24HR) 240 mg Capsule PO (21:36)
[2025-03-02] VITALS (7 sets, daily range): BP systolic 122–161; BP diastolic 70–91; PULSE 68–91; RESP 18–19; TEMP 36.4–37; O2SAT 90–96
--- NOTE | 2025-03-02 | ECG_ITS ---
[facility] Test Date: 2025-03-02 Pat Name: Marie Vann Department: Room: 264 Gender: Female Meter Changes Records Clerk: : 1960 Requested By: Errol Hernandez Order Number: [id number] Grazyna MD: Mary Cam M.D. Interpretive Statements Lung unchanged pre/post procedure; Intraprocedure shortess of breath; Symptoms resoled by discharge PROCEDURE: At the baseline, the EKG revealed atrial fibrillation with a controlled ventricular response rate. Some diffuse nonspecific ST-T changes. The baseline heart was 82 bpm with a blood pressue of 136/94 mm of Hg Lexiscan was infused over a period of 20 seconds. A total of 0.4 milligrams of Lexiscan was infused. The stress phase was continued for a total of 5 minutes. Heart rate at the end of the stress phase was 78 bpm with a blood pressure 141/90 mm of Hg. The EKG at the peak infusion revealed no significant changes. Sestamibi was injected 20 seconds after the Lexiscan infusion. Heart rate at the end of the recovery phase was 84 bpm with a blood pressure of 142/89 mm of Hg. CONCLUSION: 1. No significant EKG changes with the LexiScan infusion 2. No LexiScan induced chest pain or cardiac arrhythmia 3. Normal blood pressure and heart rate response 4. Sestamibi/sestamibi perfusion scan pending; see separate report. Electronically Signed On 03-03-2025 09:19:17 PROFESSOR OF [employer]IT[employer] SCIENCE by Mary Cam M.D. [email or web address]
--- NOTE | 2025-03-02 07:32 | NMCV_ITS ---
NM kecia perf SPECT r/s* [id number] Marie Vann Age: 64 Gender: F : 1960 Exam Date: 03/02/2025 07:44 Ordering Phys: Errol Hernandez MD Technologist: OSWALDO Espinoza Exam Location: [facility] Indications: cp STRESS TEST [facility] IMAGE PROTOCOL Rest/Stress 1 Lexiscan Day Radiopharmaceutical Dose (mCi) Administration Site Administered by Rest: Tc-99m 10.7 IV Magaly Tsai, MANAGER [employer]GRITY Sestamibi Stress:Tc-99m 32.6 IV Magaly Eulalio, MANAGER [employer] Sestamibi Rest: 02-Mar-2025 60 Discovery 630 Stress: 02-Mar-2025 30 Discovery 630 0.4mg Lexiscan. Supine position only as patient was unable to lay prone. SPECT RESULTS Technical Quality: Good Raw Data Analysis: Normal Image Corrections: Patient motion artifact - motion correction applied Summed Stress Score: 2 Summed Rest Score: 7 Summed Difference Score: 0 PERFUSION FINDINGS Small area of slightly decreased tracer uptake involving the apical septal and LV apex. No significant reversibility was noted in this area. FUNCTIONAL RESULTS (calculated via Gated SPECT) Stress Image LV EF (%): 68 Stress EDV (mL):95 TID: 0.97 Stress ESV (mL):30 FUNCTIONAL FINDINGS: Segmental wall motion analysis revealing no gross wall motion abnormalities IMPRESSIONS 1. Myocardial perfusion imaging revealing small area of slightly decreased persistent tracer uptake in the apical septum and LV apex suggestive of myocardial scarring versus attenuation artifact. 2. Normal LV ejection fraction of 60% 3. LV wall motion analysis revealing no gross wall motion abnormalities. 4. Normal LV volume Low probability for coronary ischemia, based on the above findings Dr Mary Cam MD FACC (Electronically Signed) Final Date: 02 March 2025 11:46 S
[2025-03-02] MEDS: cefTRIAXone 1,000 mg SDV 1000 MG IVP (10:31)
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
== END 2025-03-02 15:18 | disposition home or self-care (01) | DRG 291 ==
LOC: ER 02-25 00:39 → ICU 02-25 03:11 → MEDSURG 02-27 22:12
PROVIDERS: Admitting Provider Family Medicine; Emergency Provider Family Medicine; PCP Family Medicine; Visit Provider Internal Medicine
DX: I11.0 Hypertensive heart disease with heart failure (principal); I50.21 Acute systolic (congestive) heart failure; T74.11XA Adult physical abuse, confirmed, initial encounter; G93.40 Encephalopathy, unspecified; J96.11 Chronic respiratory failure with hypoxia; I48.91 Unspecified atrial fibrillation; Y07.010 Husband, current, perpetrator of maltreatment and neglect; F41.1 Generalized anxiety disorder; F32.A Depression, unspecified; E03.9 Hypothyroidism, unspecified; J44.9 Chronic obstructive pulmonary disease, unspecified; M79.89 Other specified soft tissue disorders; I08.1 Rheumatic disorders of both mitral and tricuspid valves; F22 Delusional disorders; R40.4 Transient alteration of awareness; Z99.81 Dependence on supplemental oxygen; Z79.01 Long term (current) use of anticoagulants
CPT/HCPCS: 36415; 36416; 36600; 51702; 70450; 70498; 71045; 71275; 78452; 80048; 80051; 80053; 82330; 82803; 82805; 82962; 83605; 83735; 83880; 84132; 84484; 85025; 85378; 93005; 93017; 93306; 94003; 94799; 96372; 96375; 97161; A9500; G0378; J0330; J0696; J1630; J1938; J1953; J2312; J2704; J2785; J3475; J3480; J3490; J9999

== ENCOUNTER → 2025-03-05 16:20 | Outpatient (BNVA) | payer MEDICARE, SELFPAY | PROVIDERS: PCP Family Medicine; Visit Provider Nurse Practitioner Family | DX: I48.20 Chronic atrial fibrillation, unspecified (principal); Z79.01 Long term (current) use of anticoagulants; Z51.89 Encounter for other specified aftercare; I50.21 Acute systolic (congestive) heart failure; E78.5 Hyperlipidemia, unspecified; J90 Pleural effusion, not elsewhere classified; Z87.891 Personal history of nicotine dependence; I48.91 Unspecified atrial fibrillation | CPT/HCPCS: 71046; 99214 ==

== ENCOUNTER → 2025-03-12 08:51 | Outpatient (BNVA) | payer MEDICARE, SELFPAY | PROVIDERS: PCP Family Medicine; Referring Provider Student in an Organized Health Care Education/Training Program; Visit Provider Internal Medicine | DX: J44.9 Chronic obstructive pulmonary disease, unspecified (principal); R91.1 Solitary pulmonary nodule; I48.91 Unspecified atrial fibrillation; Z79.01 Long term (current) use of anticoagulants; I50.9 Heart failure, unspecified; Z99.81 Dependence on supplemental oxygen; Z87.01 Personal history of pneumonia (recurrent); Z87.891 Personal history of nicotine dependence | CPT/HCPCS: 99204; Q3014 ==

== ENCOUNTER 2025-03-19 08:28 | Observation (INO) | payer MEDICARE, SELFPAY ==
[2025-03-19] VITALS (29 sets, daily range): BP systolic 108–189; BP diastolic 59–158; PULSE 63–132; RESP 13–28; TEMP 36.6–36.9; O2SAT 86–97; BMI 25.8
--- OUTSIDE RECORDS SUMMARY | 2025-03-19 08:40 | XMS_ITS | Encounter Summary ---
Author Organization [facility] Address 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 Gender Identity Not on file Sexual Orientation Not on file documented as of this encounter Plan of Treatment Upcoming Encounters Date Type Department Care Team (Late st Contact Info) Description 05/01/2025 9:20 AM MUTUEL CASHIER Office Visit [address] [phone] Racquel Reynolds FNP [address] [place] [phone] 07/09/2025 10:40 AM CDT Office Visit [address] [phone] Dennis Vines MD [address] [place] [address] [phone] documented as of this encounter Visit Diagnoses Not on filedocumented in this encounter Additional Health Concerns Assessment Noted Time PHQ-9 Depression Total Score: 2 10/30/19 25 3:56 PM CDT documented as of this encounter Care Teams Paperhanger Relationship Specialty Start Date End Date Dennis Vines MD [address] [place] [phone] PCP - General Family Practice 10/23/24 documented as of this encounter
--- OUTSIDE RECORDS SUMMARY | 2025-03-19 08:40 | XMS_ITS | Encounter Summary ---
Author Organization [facility] Address [address] [place] [address] Care Team Providers Care Group Director Experience Name Role Phone Chema Padilla MD Primary Care Provider Encounter Details Date Type Department Care Team (Latest Contact Info) Description 09/11/2005 Outpatient Historical [facility] 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
--- OUTSIDE RECORDS SUMMARY | 2025-03-19 08:40 | XMS_ITS | Encounter Summary ---
Author Organization [facility] Address [address] [place] [address] Care Team Providers Care Tobacco Warehouse Agent Name Role Phone Chema Padilla MD Primary Care Provider [phone] Encounter Details Date Type Department Care Team (Latest Contact Info) Description 05/09/2005 Outpatient [facility] [address] [place] [address] Dewayne Fagan Jr., MD [address] [place] [address] 248 [facility] [address] [place] [address] SCREENING MAMM-MAILG NEOPL NEC (Primary Dx) Social History Tobacco Use Types Packs/Day Years Used Date Smoking Tobacco: Never Assessed Comments Unknown Sex and Gender Information Value Date Recorded Sex Assigned at Not on file 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
--- OUTSIDE RECORDS SUMMARY | 2025-03-19 08:40 | XMS_ITS | Encounter Summary ---
Author Organization [facility] Address [address] [place] [address] Care Team Providers Care Roustabout Hand Name Role Phone Chema Padilla MD Primary Care Provider [phone] Encounter Details Date Type Department Care Team (Late st Contact Info) Description 07/29/2005 Emergency [facility] Emergency Department [address] [place] [phone] Beata Gonzalez MD Headache (Primary Dx) Social History Tobacco Use Types Packs/Day Years Used Date Smoking Tobacco: Never Assessed Comments Unknown Sex and Gender Information Value Date Recorded Sex Assigned at Not on file 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
--- OUTSIDE RECORDS SUMMARY | 2025-03-19 08:40 | XMS_ITS | Encounter Summary ---
Author Organization [facility] Address [address] [place] [address] Care Team Providers Care Video Game Creator Name Role Phone Chema Padilla MD Primary Care Provider [phone] Reason for Referral * Outpatient Services (Routine) - Closed Specialty Diagnoses / Procedures Referred By Contac t Referred To Contact Radiology Diagnoses Other (abnormal) findings on radiological examination of breast Procedures MAMMO BREAST US RT Kayla Sung DO NO ADDRESS ON FILE [facility] [address] [place] [phone] Phone: tel: fax: Referral ID Status Reason Start Date Expiration Date Visits Requested Visits Authorized [id number] Closed Performing Department To Schedule (SGF) 03/27/2013 04/27/2014 1 1 HAT LINUX ENGINEER * Outpatient Services (Routine) - Closed Specialty Diagnoses / Procedures Referred By Contac t Referred To Contact Radiology Diagnoses Other (abnormal) findings on radiological examination of breast Procedures MAMMO DIGITAL DIAG UNI RIGHT Kayla Sung DO NO ADDRESS ON FILE [facility] [address] [address] Phone: tel: fax: Referral ID Status Reason Start Date Expiration Date Visits Requested Visits Authorized [id number] Closed Ordering Department To Schedule 03/27/2013 04/27/2014 1 1 HAT LINUX ENGINEER Encounter Details Date Type Department Care Team (Latest Contact Info) Description 03/27/2013 Ancillary Orders [facility] [place] [address] [facility] [address] [place] [address] Kayla Sung DO NO ADDRESS ON FILE [...] on file Legal Sex Female 3:22 AM RED HAT LINUX ENGINEER Gender Identity Not on file Sexual [...] DIGITAL DIAG UNI RIGHT (04/11/2013 9:59 AM RED HAT LINUX ENGINEER) Anatomical Region Laterality Modality Breast Right Mammography 04/11/2013 9:16 AM RED HAT LINUX ENGINEER Impressions 04/11/2013 12:10 PM RED HAT LINUX ENGINEER IMPRESSION: Large lymph node on the right is confirmed on additional images, and ultrasound reveals what appears to be a benign lymph node. This should be of no clinical significance. I would recommend routine annual screening mammogram. Patient received a result/recommendation letter. CASSI/lanny 0956 AM - uploaded from [employer] - Narrative 04/11/2013 12:10 PM RED HAT LINUX ENGINEER Right Digital Diagnostic Mammogram and Right Breast [...] letter. CASSI/lanny 0956 AM - uploaded from [employer] - us Kayla Sung DO MAMMO ORDERABLES Kellie corral Result * MAMMO BREAST US RT (04/11/2013 9:58 AM RED HAT LINUX ENGINEER) Anatomical Region Laterality Modality Breast Right Ultrasound 04/11/2013 9:40 AM RED HAT LINUX ENGINEER Impressions 04/11/2013 12:10 PM RED HAT LINUX ENGINEER IMPRESSION: Large lymph node on the right is confirmed on additional images, and ultrasound reveals what appears to be a benign lymph node. This should be of no clinical significance. I would recommend routine annual screening mammogram. Patient received a result/recommendation letter. CASSI/lanny 0956 AM - uploaded from [employer] - Narrative 04/11/2013 12:10 PM RED HAT LINUX ENGINEER Right Digital Diagnostic Mammogram and Right Breast [...] letter. CASSI/lanny 0956 AM - uploaded from [employer] - us Kayla Sung DO MAMMO ORDERABLES Kellie l Result documented in this encounter Visit Diagnoses Diagnosis Other (abnormal) findings on radiological examination of breast- Primary Other (abnormal) findings on radiological examination of breast Other (abnormal) findings on radiological examination of breast documented in this encounter Additional Health Concerns Assessment Noted Time PHQ-9 Depression Total Score: 2 03/05/20 13 8:00 AM RED HAT LINUX ENGINEER documented as of this encounter Care Teams Video Game Creator Relationship Specialty Start Date End Date Chema Padilla MD [address] [place] [phone] PCP - General Family Practice 03/24/19 documented as of this encounter
--- OUTSIDE RECORDS SUMMARY | 2025-03-19 08:40 | XMS_ITS | Clinical Summary ---
Author Organization [facility] Address [address] [place] [address] Care Team Providers Care Supervisor Public Health Nursing Name Role Phone Chema Padilla MD Primary Care Provider [phone] Allergies Active Allergy Reactions Criticality Noted Date [...] often do you attend chur ch or judaism services? Never 02/12/2020 Do you belong to any clubs o r organizations such as islam groups, unions, fraternal or athletic groups, or [...] on file Legal Sex Female 3:22 AM STONE OPERATOR Gender Identity Not on file Sexual [...] Q 3 years 09/23/2023 09/22/2020 [place] Preventative Visit/Annual Wellness Visit 04/02/2024 08/11/2020, 02/12/2020 [...] SCREEN BILATERAL MOBILE Routine 03/31/2020 9:04 AM STONE OPERATOR Visit for screening mammogram ENDOSCOPY, COLON, SCREENING Routine 03/15/2011 10:04 AM STONE OPERATOR Screen for colon cancer from Last 3 Months or Most Recently Relevant to Health Maintenance Results * COLON CANCER SCREEN, STOOL DNA (09/22/2020 5:08 PM CDT) COLOGUARD RESULT Negative Negative [employer] Comment: NEGATIVE TEST RESULT. A negative Cologuard [...] Chang et al, N Engl J Med 2014;370(14):0158-5265) The normal value (reference range) for this assay is negative. COLOGUARD RE-SCREENING RECOMMENDATION: Periodic colorectal cancer screening is an important part of preventive healthcare for asymptomatic individuals at average risk for colorectal cancer. Following a negative Cologuard result, the [place] Cancer Society and U.S. Multi-Society Task Force screening guidelines recommend a Cologuard re-screening interval of 3 years. References: [place] Cancer Society Guideline for Colorectal Cancer Screening: https://www.cancer.org/cancer/siach-slhaic-hoakhd/nujrjtfvb-gbgrocavm-gvjyeir/ac s-rec ommendations.html.; Billy TRAN, Edwin CR, Alfa CotaK, Colorectal Cancer Screening: Recommendations for Physicians and Patients from the U.S. Multi-Society Task Force on Colorectal Cancer Screening , Am J Gastroenterology 2017; 112:2930-4576. TEST DESCRIPTION: Composite algorithmic analysis of stool [...] Morris. et al, N Engl J Med 2014;370(14):4207-6438.) Cologuard may produce a false negative or false positive result (no colorectal cancer or precancerous polyp present at colonoscopy follow up). A negative Cologuard test result does not guarantee the absence of CRC or advanced adenoma (pre-cancer). The current Cologuard screening interval is every 3 years. ([place] Cancer Society and U.S. Multi-Society Task Force). Cologuard performance data in a 10,000 patient pivotal study using colonoscopy as the reference method can be accessed at the following location: www.BookingPal/results. Additional description of the Cologuard test process, warnings and precautions can be found at www.Gruburgoguard.com. Stool STOOL SPECIMEN / Unknown 09/22/2020 5:08 PM CDT 09/24/2020 7:08 PM CDT us Jazzy Zimmerman CLOTHING MANAGER BODY FLUIDS AND STOOLS Fin al Result [facility] CLIA # [id number] [address], [address] [place] [address] * (ABNORMAL) HEMOGLOBIN A1C (08/06/2020 8:53 AM CDT) HEMOGLOBIN A1C 5.9(H) See Comment % 08/06/2020 8:31 PM CDT [facility] EST. AVG GLUCOSE, A1C 123 mg/dL 08/06/2020 8:31 PM CDT [facility] Blood Venipuncture / Unknown 08/06/2020 8:53 AM CDT 08/06/2020 7:58 PM CDT Narrative [facility] - 08/06/2020 8:31 PM CDT HGB A1C INTERPRETATION NORMAL: <5.7% PRE-DIABETES: 5.7 - 6.4% DIABETES: 6.5% OR GREATER Falsely low A1C measurements can occur when: 1. Anemia and/or hemolytic anemia is present. 2. Hemoglobin variants present. 3. Renal failure. 4. Transfusion of blood product in the last 120 days. We recommend ordering a fructosamine test([id number]) to more accurately assess glycemic status if any of the above conditions are present. Jazzy Zimmerman CLOTHING MANAGER CHEMISTRY ORDERABLES Final Result [facility] CLIA# [id number] [facility] [place] [address] * MAMMO 3D SCREEN BILATERAL MOBILE (03/31/2020 9:04 AM STONE OPERATOR) Anatomical Region Laterality Modality Breast Bilateral Mammography 03/31/2020 9:04 AM STONE OPERATOR Narrative 04/01/2020 3:47 PM STONE OPERATOR BILATERAL SCREENING MAMMOGRAM 03/31/2020 PATIENT COMPLAINT: No [...] Center to schedule the recommended follow-up appointment. [id number] Jazzy Chapacayetano CLOTHING MANAGER MAMMO ORDERABLES Final Res ult from Last 3 Months or Most Recently Relevant to Health Maintenance Insurance [facility] Advance Directives For more information, please contact: [phone] * Full Code (Latest Code Status on File) Date Activated Date Inactivated Comments 11/24/2013 1:00 PM 11/24/2013 6:57 PM * Full Code Date Activated Date Inactivated Comments 11/24/2013 12:18 PM 11/24/2013 1:00 PM * Full Code Date Activated Date Inactivated Comments 03/15/2011 10:04 AM 03/15/2011 1:31 PM * Full Code Date Activated Date Inactivated Comments 11/26/2009 9:33 AM 11/26/2009 7:02 PM Care Teams Supervisor Public Health Nursing Relationship Specialty Start Date End Date Chema Padilla MD [address] [place] [phone] PCP - General Family Practice 03/24/19
--- OUTSIDE RECORDS SUMMARY | 2025-03-19 08:40 | XMS_ITS | Clinical Summary ---
Author Organization [facility] Address [address] [place] [address] Care Team Providers Care Electronic Die Maker Name Role Phone Dennis Vines MD Primary Care Provider [phone] Allergies Active Allergy Reactions Criticality Noted Date [...] for Spasm. 270 Tablet 2 025 Active albuterol sulfate HFA 90 mcg/actuation aerosol inhalerIndicatio ns:Chronic obstructive pulmonary disease, unspecified COPD type (CMS/HCC) Take 2 Puffs by inhalation every 6 hours as needed for Shortness of Breath. 18 Gram 025 Active ipratropium-albu teroL (DUONEB) 0.5 mg-3 mg(2.5 mg base)/3 mL Solution for NebulizationIndi cations:Chronic obstructive pulmonary disease, unspecified COPD type (CMS/HCC) [...] inhalation 2 times daily. 10.7 Gram 11 Active meloxicam (MOBIC) 15 mg tabletIndication s:Chronic pain of left knee Take 1 Tablet (15 mg) by mouth daily at bedtime. 100 Tablet 2 025 Active Synthroid 75 mcg tabletIndication s:Primary hypothyroidism TAKE 1 TABLET BY MOUTH DAILY. 100 Tablet 2 025 Active simvastatin (ZOCOR) 10 mg tabletIndication s:Hyperlipidemia , unspecified hyperlipidemia type Take 1 Tablet (10 mg) by mouth daily at bedtime. 100 Tablet 3 025 Active simvastatin (ZOCOR) 10 mg tabletIndication s:Hyperlipidemia , unspecified hyperlipidemia type Take 1 Tablet (10 mg) by mouth daily at bedtime. PATIENT NEEDS AN APPOINTMENT FOR FUTURE REFILLS 100 Tablet 2 025 2024 Discontinued(R eorder) levothyroxine 75 mcg tabletIndication s:Primary hypothyroidism Take 1 Tablet (75 mcg) by mouth daily. PATIENT NEEDS AN APPOINTMENT FOR FUTURE REFILLS. 100 Tablet 2 025 2024 Discontinued Active Problems Problem Noted Date Diagnosed Date Hip pain, chronic, left 02/17/2021 Prediabetes 06/04/2019 Primary hypothyroidism 06/04/2019 Vitamin D deficiency 08/15/2018 Family history of breast cancer 01/29/2018 Chronic obstructive pulmonary disease 01/29/2018 Assessment & Plan (02/13/2025 11:51 AM CORPORATE CLAIMS EXAMINER): Partly controlled. Addition of Breztri for maintenance [...] be explored. Orders: AMB REFERRAL TO PULMONARY qrgcnvukgo-vujekpqwqbadrc-pezmvvylvz 160-9-4.8 mcg/actuation HFA Aerosol Inhaler; Take 2 [...] Encounters Date Type Department Care Team Description 03/06/2025 Refill [facility] [address] [phone] Racquel Reynolds FNP Hyperlipidemia, unspecified hyperlipidemia type 03/04/2025 Orders Only [address] [address] Provider, Abstract 02/28/2025 [facility] Medicine [address] [phone] Krishna Padilla DO Primary hypothyroidism 02/13/2025 Results Follow-Up [address] [phone] Racquel Reynolds FNP CBC WITH DIFFERENTIAL 02/13/[address] [phone] Dennis Vines MD Chronic pain of left knee 02/12/2025 10:20 AM CORPORATE CLAIMS EXAMINER Office Visit [address] [phone] Racquel Reynolds FNP Hospital discharge follow-up (Primary Dx); New onset a-fib (CMS/HCC); Paroxysmal atrial fibrillation with rapid ventricular response (CMS/HCC); Chronic obstructive pulmonary disease, unspecified COPD type (CMS/HCC); Multiple lung nodules; Acute respiratory failure with hypoxia (CMS/HCC); ACP (advance care planning) 02/12/2025 Abstract [facility] [address] [phone] Dennis Vines MD 02/11/2025 Orders Only [facility] [place] [address] [place] [address] Provider, Abstract 02/10/2025 Nurse Triage [facility] [address] [place] [address] Agnes Sandoval RN 01/26/[address] [phone] Krishna Padilla DO CAROL ANN (generalized anxiety disorder) 01/19/2025 1:00 PM CDT Office Visit [address] [phone] Racquel Reynolds FNP Laceration of other part of head without foreign body, sequela (Primary Dx); Visit for suture removal; Primary insomnia 01/16/2025 Orders Only [place] [id number] [phone] Racquel Reynolds FNP Primary insomnia (Primary Dx) 01/16/2025 Telephone [place] [id number] [address] [phone] Racquel Reynolds FNP Remote Monitoring 01/10/2025 Refill [facility] Kristin [address] [phone] Krishna Padilla DO Fibromyalgia 01/08/2025 10:20 AM CDT Office Visit [facility] [address] [place] [phone] Racquel Reynolds FNP Hospital discharge follow-up (Primary Dx); New onset a-fib (CMS/HCC); Pneumonia of left lower lobe due to infectious organism; Laceration of other part of head without foreign body, sequela; ACP (advance care planning); Encounter for colorectal cancer screening; Full code status 01/08/2025 Abstract [facility] [address] [phone] Dennis Vines MD 01/08/2025 Orders Only [facility] [address] [place] [phone] Provider, Abstract from Last 3 Months Immunizations Immunization Administration Dates Next Due (PNEUMOVAX 23)(50 YRS UP) PN EUMOCOCCAL POLYSACCHARIDE (PPV23) 0.5 ML, IM 06/04/2019 (PREVNAR 13)(6 WKS UP) PNEUM OCOCCAL CONJUGATE (PCV13) 0.5 ML, IM 11/27/2018 (PREVNAR 20)(6 WKS UP) PNEUM OCOCCAL CONJUGATE VACCINE 20-VALENT (PCV20), POLYSACCHARIDE [id number] CONJUGATE, ADJUVANT 0.5 ML (PF) IM 10/29/2024 [...] Tri Split 4+ Pf Im 02/09/2017 Novel [id number], All Formulations 02/12/2009 Family History Medical History [...] on file Legal Sex Female 10:01 AM CORPORATE CLAIMS EXAMINER Gender Identity Not on file Sexual Orientation Not on file Last Filed Vital Signs Vital Sign Reading Time Taken Comments Blood Pressure 128/88 02/12/2025 10:36 AM CORPORATE CLAIMS EXAMINER Pulse 100 02/12/2025 10:36 AM CORPORATE CLAIMS EXAMINER Temperature 36.3 C (97.4 F) 02/12/2025 10:36 AM CORPORATE CLAIMS EXAMINER Respiratory Rate 19 02/12/2025 10:36 AM CORPORATE CLAIMS EXAMINER Oxygen Saturation 90% 02/12/2025 10:36 AM CORPORATE CLAIMS EXAMINER Inhaled Oxygen Concentration - - Weight 69.1 kg (152 lb 6.4 oz) 02/12/2025 10:36 AM CORPORATE CLAIMS EXAMINER Height 157.5 cm (5' 2 ) 02/12/2025 10:36 AM CORPORATE CLAIMS EXAMINER Body Mass Index 27.87 02/12/2025 10:36 AM CORPORATE CLAIMS EXAMINER Plan of Treatment Upcoming Encounters Date Type Department Care Team (Late st Contact Info) Description 05/01/2025 9:20 AM CORPORATE CLAIMS EXAMINER Office Visit [facility] [address] [phone] Racquel Reynolds, MACHINE REPAIRER [address] [phone] 07/09/2025 10:40 AM CDT Office Visit [facility] [address] [phone] Dennis Vines MD [address] [place] [phone] Health Maintenance Due Date Last Done [...] Procedure Name Priority Date/Time Associated Diagnosis Comments COMPREHENSIVE METABOLIC PANEL Routine 02/28/2025 10:31 AM CORPORATE CLAIMS EXAMINER CBC WITH DIFFERENTIAL Routine 02/12/2025 11:10 AM CORPORATE CLAIMS EXAMINER Paroxysmal atrial fibrillation with rapid ventricular response (CMS/HCC) BASIC METABOLIC PANEL Routine 02/10/2025 3:19 PM CORPORATE CLAIMS EXAMINER COMPREHENSIVE METABOLIC PANEL Routine 02/09/2025 3:21 PM CORPORATE CLAIMS EXAMINER COMPREHENSIVE METABOLIC PANEL Routine 02/08/2025 3:20 PM CORPORATE CLAIMS EXAMINER ECHO COMPLETE Routine 02/08/2025 3:18 PM CORPORATE CLAIMS EXAMINER COMPREHENSIVE METABOLIC PANEL Routine 02/07/2025 3:20 PM CORPORATE CLAIMS EXAMINER PROTIME-INR Routine 02/07/2025 CO REMOVAL OF SUTURES Routine 01/19/2025 1:00 PM [...] SCREEN BILATERAL MOBILE Routine 03/31/2020 9:04 AM CORPORATE CLAIMS EXAMINER Encounter for screening mammogram for malignant neoplasm of breast from Last 3 Months or Most Recently Relevant to Health Maintenance Results * COMPREHENSIVE METABOLIC PANEL (02/28/2025 10:31 AM CORPORATE CLAIMS EXAMINER) Only the most recent of6 resultswithin the time period is included. Blood us Abstract Provider CHEMISTRY ORDERABLES Final Res ult * (ABNORMAL) CBC WITH DIFFERENTIAL (02/12/2025 11:10 AM CORPORATE CLAIMS EXAMINER) WBC 11.0(H) 3.8 - 10.8 Thousand/u L [...] [facility] Comment: Test Performed at: [facility] [address] [place] [address] Hallie Peres MD Blood 02/12/2025 11:1 0 AM CORPORATE CLAIMS EXAMINER 02/13/2025 2:55 AM CORPORATE CLAIMS EXAMINER us Racquel Reynodls MACHINE REPAIRER HEMATOLOGY ORDERABLES Final Result [facility] [phone] [facility] [phone] * BASIC METABOLIC PANEL (02/10/2025 3:19 PM CORPORATE CLAIMS EXAMINER) Blood us Abstract Provider CHEMISTRY ORDERABLES Final Res ult * ECHO COMPLETE - CONTRAST AND STRAIN IF INDICATED (02/08/2025 3:18 PM CORPORATE CLAIMS EXAMINER) Only the most recent of2 resultswithin the time period is included. us Abstract Provider US ORDERABLES Final Result * PROTIME-INR (02/07/2025) Only the most recent of2 resultswithin the time period is included. ABSTRACTED PROTIME 15.4 ABSTRACTED INR 1.14 Blood 02/07/2025 us Abstract Provider HEMATOLOGY ORDERABLES Final Re sult * CO REMOVAL OF SUTURES (01/19/2025 1:00 PM CDT) Narrative [facility] - 01/19/2025 1:00 PM CDT Racquel [...] CONTRERAS PROCEDURE/MINOR SURGI CLARISSA ORDERABLES Final Result Performing Organization Address City/[facility]/ZIP Co de Phone Number [facility] CLIA# [id number] [address] [place] [address] * OCCULT BLOOD IMMUNOASSAY, COLORECTAL SCREEN (07/23/2023 12:00 AM CDT) FECAL GLOBIN SEE NOTE [facility] Comment: FECAL GLOBIN BY IMMUNOCHEMISTRY Micro Number: [id number] Test Status: Final Specimen Source: Stool Specimen Quality: Adequate Fecal Globin: Not Detected Test Performed at: [facility] [address] [place] [address] Hallie Peres MD Stool STOOL SPECIMEN / Unknown 07/23/2023 07/26/2023 11:19 AM CDT us Jazzy Zimmerman MACHINE REPAIRER BODY FLUIDS AND STOOLS Fin al Result [facility] [phone] [facility] [address] [place] [address] * HEMOGLOBIN A1C (10/06/2021 9:24 AM CDT) HEMOGLOBIN A1C 5.6 <5.7 % of total Hgb [facility] Comment: For the purpose of screening for the presence of diabetes: <5.7% Consistent with the absence of diabetes 5.7-6.4% Consistent with increased risk for diabetes (prediabetes) > or =6.5% Consistent with diabetes This assay result is consistent with a decreased risk of diabetes. Currently, no consensus exists regarding use of hemoglobin A1c for diagnosis of diabetes in children. According to [place] Diabetes Association (ADA) guidelines, hemoglobin A1c <7.0% represents optimal control in non- diabetic patients. Different metrics may apply to specific patient populations. Standards of Medical Care in Diabetes(ADA). ESTIMATED AVERAGE GLUCOSE (MG/DL) 114 mg/dL [facility] ESTIMATED AVERAGE GLUCOSE (MMOL/L) 6.3 mmol/L [facility] Comment: Test Performed at: [facility] [address] [place] [address] Landry Pelayo D.O., MPH Blood 10/06/2021 9:24 AM CDT 10/07/2021 1:21 AM CDT Jazzy Zimmerman [facility] CHEMISTRY ORDERABLES Final Result [facility] [phone] [facility] [address] [place] [address] * COLON CANCER SCREEN, STOOL DNA (09/22/2020 5:08 PM CDT) COLOGUARD RESULT Negative Negative 09/29/19 9:35 AM CDT [facility] Comment: NEGATIVE TEST RESULT. A negative Cologuard [...] screened with both Cologuard and colonoscopy. (Christine Garcia, N Engl J Med 2014;370(14):3410-8718) The normal value (reference range) for this assay is negative. COLOGUARD RE-SCREENING RECOMMENDATION: Periodic colorectal cancer screening is an important part of preventive healthcare for asymptomatic individuals at average risk for colorectal cancer. Following a negative Cologuard result, the [place] Cancer Society and U.S. Multi-Society Task Force screening guidelines recommend a Cologuard re-screening interval of 3 years. References: [place] Cancer Society Guideline for Colorectal Cancer Screening: https://www.cancer.org/cancer/raqco-abcevz-ybjcvy/asqksehjo-lztrjwcnj-usmxxar/ac s-rec ommendations.html.; Billy DK, Edwin SAMUEL, Alfa CotaK, Colorectal Cancer Screening: Recommendations for Physicians and Patients from the U.S. Multi-Society Task Force on Colorectal Cancer Screening , Am J Gastroenterology 2017; 112:1334-1704. TEST DESCRIPTION: Composite algorithmic analysis of stool [...] screened with both Cologuard and colonoscopy. (Christine Garcia, N Engl J Med 2014;370(14):8347-7817.) Cologuard may produce a false negative or false positive result (no colorectal cancer or precancerous polyp present at colonoscopy follow up). A negative Cologuard test result does not guarantee the absence of CRC or advanced adenoma (pre-cancer). The current Cologuard screening interval is every 3 years. ([place] Cancer Society and U.S. Multi-Society Task Force). Cologuard performance data in a 10,000 patient pivotal study using colonoscopy as the reference method can be accessed at the following location: www.SmarterShade[employer] Cream/results. Additional description of the Cologuard test process, warnings and precautions can be found at www.Door [employer]rd.com. Stool STOOL SPECIMEN / Unknown 09/22/2020 5:08 PM CDT 09/24/2020 7:08 PM CDT us Jazzy Zimmerman MACHINE REPAIRER BODY FLUIDS AND STOOLS Fin al Result [facility] CLIA # [id number] [address] [facility], [address] [place] [address] * MAMMO 3D SCREEN BILATERAL MOBILE (03/31/2020 9:04 AM CORPORATE CLAIMS EXAMINER) Anatomical Region Laterality Modality Breast Bilateral Other Narrative 04/01/2020 3:47 PM CORPORATE CLAIMS EXAMINER BILATERAL SCREENING MAMMOGRAM 03/31/2020 PATIENT COMPLAINT: No [...] Center to schedule the recommended follow-up appointment. [id number] Procedure Note Nikia Escamilla MD - 09/01/2020 [...] Center to schedule the recommended follow-up appointment. [id number] Jazzy Zimmerman MACHINE REPAIRER MAMMO ORDERABLES Final Res ult from Last 3 Months or Most Recently Relevant to Health Maintenance Insurance [facility] MEDICARE HMO Advance Directives For more information, please contact: [phone] * Full Code (Latest Code Status on File) Date Activated Date Inactivated Comments 01/08/2025 10:52 AM Care Teams Electronic Die Maker Relationship Specialty Start Date End Date Dennis Vines MD [address] [place] [address] AMRIK Foster [phone] PCP - General Family Practice 10/23/24
--- OUTSIDE RECORDS SUMMARY | 2025-03-19 08:40 | XMS_ITS | Encounter Summary ---
Author Organization [facility] Address [address] [place] [address] Care Team Providers Care Government Auditor Name Role Phone Chema Padilla MD Primary Care Provider [phone] Encounter Details Date Type Department Care Team (Latest Contact Info) Description 05/10/2005 Outpatient [facility] Family Medicine Kristin [facility] [address] [phone] Dewayne Fagan Jr., MD [address] [place] [address] 248 [facility] 140 [place] [address] Benign hypertension (Primary Dx) Social History Tobacco Use Types Packs/Day Years Used Date Smoking Tobacco: Never Assessed Comments Unknown Sex and Gender Information Value Date Recorded Sex Assigned at Not on file Legal Sex Female 3:22 AM SPECIAL DELIVERY CARRIER Gender Identity Not on file Sexual Orientation Not on file documented as of this encounter Plan of Treatment Not on file documented as of this encounter Visit Diagnoses Diagnosis Benign hypertension- Primary Essential hypertension, benign documented in this encounter Care Teams Government Auditor Relationship Specialty Start Date End Date Chema Padilla MD [address] [place] [phone] PCP - General Family Practice 03/24/19 documented as of this encounter
--- OUTSIDE RECORDS SUMMARY | 2025-03-19 08:40 | XMS_ITS | Encounter Summary ---
Author Organization [facility] Address [address] [place] [address] Care Team Providers Care Academic Interventionist Name Role Phone Chema Padilla MD Primary Care Provider [phone] Encounter Details Date Type Department Care Team (Latest Contact Info) Description 09/06/2005 Outpatient [facility] Family Medicine Kristin [facility] [address] [phone] Dewayne Fagan Jr., MD [address] [place] [address] 248 [facility] 140 [place] [address] Benign Hypertension (Primary Dx) Social History Tobacco Use Types Packs/Day Years Used Date Smoking Tobacco: Never Assessed Comments Unknown Sex and Gender Information Value Date Recorded Sex Assigned at Not on file Legal Sex Female 3:22 AM SUPERVISOR CUSTOMER COMPLAINT SERVICE Gender Identity Not on file Sexual Orientation Not on file documented as of this encounter Plan of Treatment Not on file documented as of this encounter Visit Diagnoses Diagnosis Benign hypertension- Primary Essential hypertension, benign documented in this encounter Care Teams Academic Interventionist Relationship Specialty Start Date End Date Chema Padilla MD [address] [place] [phone] PCP - General Family Practice 03/24/19 documented as of this encounter
--- OUTSIDE RECORDS SUMMARY | 2025-03-19 08:40 | XMS_ITS | Encounter Summary ---
Author Organization [facility] Address [address] [place] [address] Care Team Providers Care Health And Wellness Advisor Name Role Phone Dennis Vines MD Primary Care Provider [phone] Reason for Visit * Reason Onset Date Comments [facility] Primary Care After Hours 02/10/2025 Encounter Details Date Type Department Care Team (Late st Contact Info) Description 02/10/2025 Nurse Triage [facility] [address] [place] [address] Agnes Sandoval RN Social History Tobacco Use [...] on file Legal Sex Female 10:01 AM FORM TAMPING MACHINE OPERATOR Gender Identity Not on file Sexual Orientation Not on file documented as of this encounter Miscellaneous Notes * Telephone Encounter - Agnes Sandoval RN - 02/10/2025 7:40 PM FORM TAMPING MACHINE OPERATOR [facility] PRIMARY CARE AFTER HOURS DOCUMENTATION Chief Complaint: Prescription Questions PCP: Dennis Vines MD Patient Statement/HPI/Review of Systems: Patient reports she was discharged yesterday from [facility] and she was on the cardiac step [...] informed that admission is not noted in [facility]'s chart. Patient advised to call [facility] for paperwork. Patient provided with [facility]'s phone number. Patient verbalized understanding. Note routed to primary care office pool. Visit was completed by phone unless otherwise noted with video/screen capture within the note. Agnes Sandoval RN [facility] 365 TAMPING MACHINE OPERATOR documented in this encounter Plan of Treatment Upcoming Encounters Date Type Department Care Team (Late st Contact Info) Description 05/01/2025 9:20 AM FORM TAMPING MACHINE OPERATOR Office Visit [address] [phone] Racquel Reynolds FNP [address] [facility] [address] [place] [address] 07/09/2025 10:40 AM CDT Office Visit [address] [address] Dennis Vines MD [address] [place] [phone] documented as of this encounter Visit Diagnoses Not on filedocumented in this encounter Additional Health Concerns Assessment Noted Time PHQ-9 Depression Total Score: 2 10/30/19 3:56 PM CDT documented as of this encounter Care Teams Health And Wellness Advisor Relationship Specialty Start Date End Date Dennis Vines MD [address] [place] [phone] PCP - General Family Practice 10/23/24 documented as of this encounter
--- OUTSIDE RECORDS SUMMARY | 2025-03-19 08:40 | XMS_ITS | Encounter Summary ---
Author Organization [facility] Address [address] [place] [address] Care Team Providers Care Linux Vmware Administrator Name Role Phone Chema Padilla MD Primary Care Provider Reason for Referral * Radiology Services (Routine) - Closed Specialty Diagnoses / Procedures Referred By Beau antony Referred To Contact Diagnoses Visit for screening mammogram Procedures MAMMO 3D SCREEN BILATERAL MOBILE Jazzy Zimmerman FNP Referral ID Status Reason Start Date Expiration Date Visits Re quested Visits Authorized [id number] Closed 09/03/2019 10/03/2020 1 1 Encounter Details Date Type Department Care Team (Latest Contact Info) Description 09/03/2019 [facility] [place] [address] [facility] [address] [place] [address] Jazzy Zimmerman FNP NO ADDRESS ON FILE [...] on file Legal Sex Female 3:22 AM HOSPICE SUPERINTENDENT Gender Identity Not on file Sexual Orientation [...] 3D SCREEN BILATERAL MOBILE (03/31/2020 9:04 AM HOSPICE SUPERINTENDENT) Anatomical Region Laterality Modality Breast Bilateral Mammography 03/31/2020 9:04 AM HOSPICE SUPERINTENDENT Narrative 04/01/2020 3:47 PM HOSPICE SUPERINTENDENT BILATERAL SCREENING MAMMOGRAM 03/31/2020 PATIENT COMPLAINT: No [...] Center to schedule the recommended follow-up appointment. [id number] Jazzy Zimmerman APARTMENT COMMUNITY MANAGER MAMMO ORDERABLES Final Res ult documented in this encounter Visit Diagnoses Diagnosis Visit for screening mammogram Other screening mammogram documented in this encounter Additional Health Concerns Assessment Noted Time PHQ-9 Depression Total Score: 1 06/04/19 20 1:00 PM HOSPICE SUPERINTENDENT documented as of this encounter Care Teams Linux Vmware Administrator Relationship Specialty Start Date End Date Chema Padilla MD [address] [place] [phone] PCP - General Family Practice 03/24/19 documented as of this encounter
--- OUTSIDE RECORDS SUMMARY | 2025-03-19 08:41 | XMS_ITS | Encounter Summary ---
Author Organization [facility] Address [address] [place] [address] Care Team Providers Care Tin Tie Machine Operator Automatic Name Role Phone Chema Padilla MD Primary Care Provider [phone] Reason for Referral * Radiology Services (Routine) [...] Expiration Date Visits Re quested Visits Authorized [id number] Closed 03/05/2018 04/05/2019 1 1 SPECIALIST Encounter Details Date Type Department Care Team (Latest Contact Info) Description 03/05/2018 Ancillary Orders [facility] Guide [facility] [address] [facility] [address] [place] [phone] Kayla Sung DO NO ADDRESS ON FILE [...] on file Legal Sex Female 3:22 AM MIS SPECIALIST Gender Identity Not on file Sexual [...] Total Score: 2 03/05/20 13 8:00 AM MIS SPECIALIST documented as of this encounter Care Teams Tin Tie Machine Operator Automatic Relationship Specialty Start Date End Date Chema Padilla MD [address] [place] [phone] PCP - General Family Practice 03/24/19 documented as of this encounter
--- OUTSIDE RECORDS SUMMARY | 2025-03-19 08:41 | XMS_ITS | Encounter Summary ---
Author Organization [facility] Address [address] [place] [address] Care Team Providers Care Nutrition Partner Name Role Phone Chema Padilla MD Primary Care Provider [phone] Encounter Details Date Type Department Care Team (Latest Contact Info) Description 04/19/2005 Outpatient [facility] Family Medicine [place] [id number] [address] Dewayne Fagan Jr., MD [address] [place] [address] [address] [facility] [address] [place] [address] MYALGIA AND MYOSITIS NOS (Primary Dx); Benign hypertension; SYNOVIAL CYST NOS Social History Tobacco Use Types Packs/Day Years Used Date Smoking Tobacco: Never Assessed Comments Unknown Sex and Gender Information Value Date Recorded Sex Assigned at Not on file Legal Sex Female 3:22 AM 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
--- OUTSIDE RECORDS SUMMARY | 2025-03-19 08:41 | XMS_ITS | Encounter Summary ---
Author Organization [facility] Address [address] [place] [address] Care Team Providers Care Land Acquisition Manager Name Role Phone Chema Padilla MD Primary Care Provider Encounter Details Date Type Department Care Team (Late st Contact Info) Description 05/18/2004 Emergency [facility] Emergency Department [address] [place] [phone] Senia Angel NP NO ADDRESS ON FILE [place] (Primary Dx) Social History Tobacco Use Types Packs/Day Years Used Date Smoking Tobacco: Never Assessed Comments Unknown Sex and Gender Information Value Date Recorded Sex Assigned at Not on file Legal Sex Female 3:22 AM INDUSTRIAL RELATIONS COUNSELOR Gender Identity Not on file Sexual Orientation Not on file documented as of this encounter Plan of Treatment Not on file documented as of this encounter Visit Diagnoses Diagnosis Sprain of thoracic region- Primary documented in this encounter Care Teams Land Acquisition Manager Relationship Specialty Start Date End Date Chema Padilla MD [address] [place] [phone] PCP - General Family Practice 03/24/19 documented as of this encounter
--- OUTSIDE RECORDS SUMMARY | 2025-03-19 08:41 | XMS_ITS | Encounter Summary ---
Author Organization [email or web address] [facility] Address [address] [place] [address] Care Team Providers Care System Planning Engineer Name Role Phone Chema Padilla MD Primary Care Provider [phone] Encounter Details Date Type Department Care Team (Latest Contact Info) Description 08/09/2015 Ancillary Orders [facility] [address] [facility] [address] [place] [address] Kayla Sung DO NO ADDRESS [...] on file Legal Sex Female 3:22 AM PRIMARY SCHOOL TEACHER Gender Identity Not on file Sexual [...] Total Score: 2 03/05/20 13 8:00 AM PRIMARY SCHOOL TEACHER documented as of this encounter Care Teams System Planning Engineer Relationship Specialty Start Date End Date Chema Padilla MD [address] [place] [address], [place] [phone] PCP - General Family Practice 03/24/19 documented as of this encounter
--- OUTSIDE RECORDS SUMMARY | 2025-03-19 08:41 | XMS_ITS | Encounter Summary ---
Author Organization [facility] Address [address] [facility] [place] [address] Care Team Providers Care Reinsurance Clerk Name Role Phone Chema Padilla MD Primary Care Provider [phone] Encounter Details Date Type Department Care Team (Latest Contact Info) Description 04/06/2020 Ancillary Orders [facility] [address] [facility] [address] [place] [address] Jazzy Zimmerman FNP NO ADDRESS [...] often do you attend chur ch or presybeterian services? Never 02/12/2020 Do you belong to any clubs o r organizations such as baptism groups, unions, fraternal or athletic groups, or [...] on file Legal Sex Female 3:22 AM PROGRAM MANAGER SLP Gender Identity Not on file Sexual Orientation [...] COVID-19? No / Unsure 03/31/2020 8:58 AM PROGRAM MANAGER SLP documented as of this encounter Plan of Treatment Not on file documented as of this encounter Visit Diagnoses Diagnosis Inconclusive mammography Inconclusive mammogram documented in this encounter Care Teams Reinsurance Clerk Relationship Specialty Start Date End Date Chema Padilla MD [address] [place] [phone] PCP - General Family Practice 03/24/19 documented as of this encounter
--- OUTSIDE RECORDS SUMMARY | 2025-03-19 08:41 | XMS_ITS | Encounter Summary ---
Author Organization [facility] Address [address] [place] [address] Care Team Providers Care Goods Layer Name Role Phone Chema Padilla MD Primary Care Provider [phone] Encounter Details Date Type Department Care Team (Late st Contact Info) Description 06/14/2010 Ancillary Orders [facility] [address] [facility] [address] [place] [phone] Kayla Sung DO NO ADDRESS ON FILE Other screening mammogram Social History Tobacco Use Types Packs/Day Years Used Date Smoking Tobacco: Former Cigarettes 22 Comments:quit 1998 Alcohol Use Standard Drinks/Week Comments No 0 (1 standard drink = 0.6 oz pur e alcohol) Comments No Sex and Gender Information Value Date Recorded Sex Assigned at Not on file Legal Sex Female 3:22 AM SHERIFFS DETECTIVE Gender Identity Not on file Sexual Orientation Not on file documented as of this encounter Plan of Treatment Not on file documented as of this encounter Visit Diagnoses Diagnosis Other screening mammogram documented in this encounter Care Teams Goods Layer Relationship Specialty Start Date End Date Chema Padilla MD [address] [place] [address] [place] [phone] PCP - General Family Practice 03/24/19 documented as of this encounter
--- NOTE | 2025-03-19 08:43 | XR_ITS ---
WS: [id number] Portable AP upright chest, 03/19/2025 Clinical Data: dyspnea/cough Comparison: Two-view chest, 03/05/2025 Findings: The moderate right pleural effusion remains the same. The heart is enlarged. The pulmonary vascularity is mildly increased. No nodules or masses are seen. There is no pneumothorax. The aortic arch and descending thoracic aorta show tortuosity. Monitor leads are on the chest wall. XR/XR chest 1V portable [id number] Impression: 1. Cardiomegaly and right pleural effusion unchanged. 2. Mild pulmonary vascular congestion and atherosclerosis.
--- NOTE | 2025-03-19 08:43 | ECG_ITS ---
[facility] Test Date: 2025-03-19 Pat Name: Marie Vann Department: Room: Gender: Female Associate Genetics Professor: : 1960 Requested By: Gus Wallace Order Number: [id number] Reading MD: KARLO KELLEY Measurements Intervals [place] Rate: 131 P: 0 AK: 0 QRS: 74 QRSD: 83 T: -10 QT: 303 QTc: 448 Interpretive Statements ATRIAL FIBRILLATION WITH RAPID VENTRICULAR RESPONSE NONSPECIFIC ST & T-WAVE ABNORMALITY Compared to ECG 02/25/2025 13:53:55 Possible ischemia no longer present T-wave abnormality still present Electronically Signed On 03-25-2025 20:29:31 ACCOUNTING PROFESSIONAL by KARLO KELLEY [id number]
[2025-03-19] MEDS: dilTIAZem 5 mg/mL SDV 5 mL 20 MG IVP (08:49)
[2025-03-19 08:52] LABS: Hematocrit 40.1 % (36-47); Hemoglobin 11.70 g/dL (11.27-16.99); Mean Corpuscular HGB Conc 29.2 g/dL (30-55); Mean Corpuscular Hemoglobin 21.3 pg (27-33); Mean Corpuscular Volume 72.9 fl (85-98); Nucleated Red Blood Cells % 0 %; Platelet Count 271 10^3/cmm (157-399); Red Blood Count 5.50 10^6/uL (3.85-5.65); White Blood Count 11.70 10^3/uL (3.29-11.43)
--- NOTE | 2025-03-19 09:01 | W.ED.CHESTPA ---
HPI - Chest Pain General: Chief Complaint: Chest Pain Stated Complaint: chest pain Time Seen by Provider: 03/19/25 08:43 History of Present Illness: 64-year-old female with a history of atrial fibrillation congestive heart failure and COPD who presents to the emergency room with complaint of rapid heart rate and shortness of breath some mild chest discomfort. She relates chest pain at 5 out of 10. She does not believe she took her regular morning medications she did use her albuterol inhaler a couple of times this morning. She denies any hemoptysis. She thinks she may have also forgotten to take her Lasix. Chest pain is in the left side of her chest and radiates up into her left shoulder. Associated symptoms: Reports dyspnea and palpitations; Deny abdominal pain or fever(s) Related Data Home Medications ?Medication ?Instructions ?Recorded ?Confirmed cyclobenzaprine 10 mg tablet 10 mg PO TID PRN muscle spasms 01/03/25 03/19/25 levothyroxine 75 mcg tablet 75 mcg PO QAM 01/03/25 03/19/25 (Synthroid) sertraline 50 mg tablet 50 mg PO DAILY 01/03/25 03/19/25 levalbuterol HCl 1.25 mg/3 mL 1.25 mg inhalation Q6H x14 days 02/25/25 03/19/25 solution for nebulization only apixaban 5 mg tablet (Eliquis) 5 mg PO BID 03/12/25 03/19/25 budesonide 160 mcg-glycopyr 9 2 inh inhalation BID PRN Shortness 03/19/25 03/19/25 mcg-formot 4.8 mcg/actuation HFA Of Breath inhaler (Breztri AiCurisphere) Previous Rx's ?Medication ?Instructions ?Recorded atorvastatin 40 mg tablet (Lipitor) 40 mg PO QPM #90 tabs 02/26/25 albuterol sulfate 2.5 mg/3 mL 2.5 mg (3 mL) inhalation QID PRN 03/12/25 (0.083 %) solution for nebulization shortness of breath or wheezing #90 mL carvedilol 25 mg tablet 25 mg PO BID 90 days #180 tabs 03/21/25 diltiazem HCl 240 mg 240 mg PO Q24H 90 days #90 caps 03/21/25 capsule,extended release 24 hr furosemide 40 mg tablet 40 mg PO DAILY@0800 90 days #90 03/21/25 tabs pantoprazole 40 mg tablet,delayed 40 mg PO DAILY 30 days #30 tabs 03/21/25 release Allergies Allergy/AdvReac Type Severity Reaction Status Date / Time morphine Allergy Intermediate ADR-Agitate Verified 03/12/25 08:57 d Review of Systems Const: Denies: fever(s) or chills Card: Reports: chest pain, palpitations, irregular heart rhythm, edema and swelling of feet/ankles Resp: Reports: dyspnea GI: Denies: abdominal pain : Denies: dysuria, urinary frequency or urinary urgency Musc: Denies: neck pain or back pain Skin/Breast: Denies: rash PFSH ED PFSH: Medical History Chronic hypoxic respiratory failure Chronic obstructive pulmonary disease, unspecified COPD type Pleural effusion Pulmonary edema Atrial fibrillation with RVR Social History Smoking and tobacco/nicotine status: former use of tobacco/nicotine (1 ppd X 25 years. Quit in 1999) Physical Exam Const: COMMON NORMALS: no acute distress GENERAL APPEARANCE: cooperative and comfortable ORIENTATION/CONSCIOUSNESS: Yes awake, Yes oriented to person, Yes oriented to place and Yes oriented to time HENMT: COMMON NORMALS: normocephalic, atraumatic and hearing grossly normal bilaterally HEAD & SCALP: normocephalic and atraumatic Resp: COMMON NORMALS: normal respiratory effort, No retractions and No use of accessory muscles AUSCULTATION: crackles Cardio: COMMON NORMALS: No murmurs present (Cardio) RATE: tachycardic RHYTHM: abnormal rhythm irregularly irregular GI: COMMON NORMALS: Soft to palpation and No hepatosplenomegaly present AUSCULTATION: Yes normoactive bowel sounds PALPATION: Yes Soft to palpation, No Tenderness to palpation present (GI), No Guarding due to palpation present (GI) and Yes No hepatosplenomegaly present Extremity: COMMON NORMALS: normal to inspection, capillary refill normal, no clubbing, cyanosis or edema, no calf tenderness and no pedal edema Neuro: SENSORIUM/ORIENTATION: Yes oriented to person, Yes oriented to place and Yes oriented to time Skin: COMMON NORMALS: no rashes or lesions noted GENERAL SKIN EXAM: no rashes or lesions noted Course Vital Signs: Vital signs: Vital Signs Temperature 97.9 F 03/21/25 08:00 Pulse Rate 83 03/21/25 08:00 Respiratory Rate 18 03/21/25 08:00 Blood Pressure 133/103 03/21/25 08:00 Pulse Oximetry 90 03/21/25 08:00 Oxygen Delivery Me thod Room Air 03/21/25 08:30 Oxygen Flow Rate 3 03/20/25 17:14 MDM - Chest Pain Medical Decision Making Medical decision making Social determinants: Age ability to access healthcare I reviewed the patient's medical record. I reviewed the patient's current home meds. Alternate historians: None Differential diagnosis: Acute coronary syndrome, acute on chronic congestive heart failure, atrial fibrillation with ventricular response Lab Review: Labs reviewed. Patient is a white count of 11.7 hemoglobin stable at 10.7. Troponins do not show significant delta BUN/creatinine normal range slight elevation of carbon dioxide sodium potassium are normal. Alk phos mildly elevated. BNP elevated at 6772. Imaging: Right pleural effusion moderate congestive heart failure Assessment of risk Level of risk: High Hospitalization considerations: Patient admitted for rate control for atrial fibrillation except which is also exacerbating her underlying congestive heart failure Reexamination: Rate improved with medications Assessment and plan: Admitted for A-fib with RVR with exacerbation of underlying congestive heart failure. Rate control improved with medications given discussed with hospitalist orders written. Of also given patient's regular home medications. Continue anticoagulation. Medical Records Lexiscan sestamibi stress test 02/25/2025 CONCLUSION: 1. No significant EKG changes with the LexiScan infusion 2. No LexiScan induced chest pain or cardiac arrhythmia 3. Normal blood pressure and heart rate response 4. Sestamibi/sestamibi perfusion scan pending; see separate report. Electronically Signed On 03-03-2025 09:19:17 [facility] by Mary Cam M.D. [id number] Dictated By: Mary Cam MD Signed By: Mary Cam MD Signed Date/Time 03/03/2519 Lab Data 03/21/25 02:38 03/21/25 02:38 Radiology Impressions Chest X-Ray 03/19/25 08:43 Impression: 1. Cardiomegaly and right pleural effusion unchanged. 2. Mild pulmonary vascular congestion and atherosclerosis. Laboratory Results WBC 11.70 10^3/uL (3.29-11.43) H 03/19/25 08:39 RBC 5.50 10^6/uL (3.85-5.65) 03/19/25 08:39 Hgb 11.70 g/dL (11.27-16.99) 03/19/25 08:39 Hct 40.1 % (36-47) 03/19/25 08:39 MCV 72.9 fl (85-98) L 03/19/25 08:39 MCH 21.3 pg (27-33) L 03/19/25 08:39 MCHC 29.2 g/dL (30-55) L 03/19/25 08:39 RDW 25.7 % (12.1-15.1) H 03/19/25 08:39 Plt Count 271 10^3/cmm (157-399) 03/19/25 08:39 MPV TNP 03/19/25 08:39 Neut % (Auto) 76.9 % 03/19/25 08:39 Lymph % (Auto) 14.7 % 03/19/25 08:39 Jerome % (Auto) 5.8 % 03/19/25 08:39 Eos % (Auto) 1.7 % 03/19/25 08:39 Baso % (Auto) 0.5 % 03/19/25 08:39 Neut # (Auto) 8.99 10^3/uL (1.8-7.7) H 03/19/25 08:39 Lymph # (Auto) 1.7 10^3/uL (0.8-4.8) 03/19/25 08:39 Jerome # (Auto) 0.7 10^3/uL (0.2-0.9) 03/19/25 08:39 Eos # (Auto) 0.2 10^3/uL (0.0-0.8) 03/19/25 08:39 Baso # (Auto) 0.1 10^3/uL (0.0-0.1) 03/19/25 08:39 Nucleated RBC % (auto) 0 % 03/19/25 08:39 Nucleated RBCs # 0.0 /100WBC 03/19/25 08:39 Sodium 139 mmol/L (136-145) 03/19/25 08:39 Potassium 4.3 mmol/L (3.5-5.1) 03/19/25 08:39 Chloride 97 mmol/L (98-107) L 03/19/25 08:39 Carbon Dioxide 34 mmol/L (22-29) H 03/19/25 08:39 Anion Gap 12.3 (5-19) 03/19/25 08:39 BUN 19 mg/dL (8-23) 03/19/25 08:39 Creatinine 0.8 mg/dL (0.5-0.9) 03/19/25 08:39 GFR Calculation 71.8 mL/min (90-130) L 03/19/25 08:39 Glucose 124 mg/dL (65-115) H 03/19/25 08:39 Calculated Osmolality 292 mOsm/kg (285-295) 03/19/25 08:39 Calcium 9.6 mg/dL (8.5-10.5) 03/19/25 08:39 Magnesium 1.8 mg/dL (1.7-2.3) 03/19/25 09:37 Total Bilirubin 1.2 mg/dL (0.15-1.2) 03/19/25 08:39 AST 28 U/L (0-32) 03/19/25 08:39 ALT 21 U/L (0-33) 03/19/25 08:39 Alkaline Phosphatase 145 U/L (35-105) H 03/19/25 08:39 Troponin T Baseline 16 ng/L (0-10) H 03/19/25 08:39 Troponin T 60 Minute 14.51 ng/L (0-10) H 03/19/25 09:37 Delta Troponin T -1.49 ABS# (0-10) L 03/19/25 09:37 NT-Pro-B Natriuret Pep 6772 pg/mL (0-125) H 03/19/25 08:39 Total Protein 7.4 g/dL (6.6-8.7) 03/19/25 08:39 Albumin 4.3 g/dL (3.5-5.2) 03/19/25 08:39 Globulin 3.1 g/dL (1.3-4.6) 03/19/25 08:39 TSH 3.05 uIU/mL (0.27-4.20) 03/19/25 09:37 All radiology interpretation(s) finalized by discharge EKG Data EKG 1: I personally reviewed and interpreted this EKG as follows: Interpretation: EKG 03/19/2025 8:35 AM atrial fibrillation with rapid ventricular sponsor rate of 131 QTc 380. Nonspecific rate related ST changes no acute ST elevation. Compared to EKG from 02/25/2025 atrial fibrillation is still present rate has increased on today's EKG. Discharge Plan Discharge Patient Disposition: Admitted As Inpatient Admit Provider: Errol Hernandez Clinical Impression: Atrial fibrillation with RVR, Acute systolic CHF (congestive heart failure), Pleural effusion Condition: Stable Discharge Diet: Cardiac Discharge Activity: Resume usual activity Coding Level of Care Code ED Preparation Plant Supervisor for Chg Fwd Heart Score HEART Score Components History: Moderately Suspicious EKG: Non-specific Changes Age: 65 or more yrs Risk Factors: 1 or 2 Risk Factors Troponin: Baseline Trop <16 ng/L HEART Score RESULT HEART Score: 5
[2025-03-19 09:03] LABS: Alanine Aminotransferase 21 U/L (0-33); Albumin Level 4.3 g/dL (3.5-5.2); Alkaline Phosphatase 145 U/L (35-105); Anion Gap 12.3 (5-19); Aspartate Amino Transferase 28 U/L (0-32); Blood Urea Nitrogen 19 mg/dL (8-23); Calcium 9.6 mg/dL (8.5-10.5); Carbon Dioxide 34 mmol/L (22-29); Chloride 97 mmol/L (98-107); Globulin 3.1 g/dL (1.3-4.6); Glucose 124 mg/dL (65-115); Osmolality Calculated 292 mOsm/kg (285-295); Potassium 4.3 mmol/L (3.5-5.1); Sodium 139 mmol/L (136-145); Total Protein 7.4 g/dL (6.6-8.7)
[2025-03-19 09:10] LABS: Slide Review Slide Review Perform
[2025-03-19] MEDS: DILTIAZEM HCL/D5W 125 MG/125 ML BAG IV (09:13)
[2025-03-19] MEDS: dilTIAZem ER (24HR) 240 mg Capsule PO (09:14)
[2025-03-19 09:29] LABS: Troponin(5th) Baseline 16 ng/L (0-10)
[2025-03-19 09:38] LABS: NT Pro B Type Natriuretic Pept 6772 pg/mL (0-125)
--- NOTE | 2025-03-19 09:59 | ECG_ITS ---
[facility] Date: 2025-03-19 Pat Name: Marie Vann Department: Room: Gender: Female Ginger Farmer: : 1960 Requested By: Gus Wallace Order Number: [id number] Reading MD: KARLO KELLEY Measurements Intervals [place] Rate: 125 P: 0 VT: 0 QRS: 90 QRSD: 81 T: 99 QT: 311 QTc: 449 Interpretive Statements ATRIAL FIBRILLATION WITH RAPID VENTRICULAR RESPONSE NONSPECIFIC ST & T-WAVE ABNORMALITY ABNORMAL RHYTHM ECG Compared to ECG 03/19/2025 08:35:39 No significant changes Electronically Signed On 03-25-2025 21:09:05 IMMERSION METALCLEANER by KARLO KELLEY [email or web address] [id number]
--- NOTE | 2025-03-19 10:43 | PM.HP ---
Providers/Chief Complaint Admitting Physician: Dr. Hernandez Chief Complaint: chest pain History of Present Illness Marie Vann is a 64 year old female w/ pmhx of HTN, COPD, Afib w RVR- on long-term anticoagulation eliquis presents to c/o increased HR w/ associated s/s of SOB, and mild chest discomfort radiating on the left side and up to the left shoulder. Patient reports she was unable to sleep overnight, could not get comfortable. at bedside, states her HR was 120s on 03/18 but patient was not experiencing any symptoms at this time. Patient woke up this morning at 0700 experiencing palpitations, significant chest pain w/ shortness of breath. Patient describes chest pain as intermittent and sharp. She is currently denying chest pain during my evaluation. Patient on baseline 2L NC, reports she increased her oxygen to 3L NC. Patient states she is unsure whether she has been taking the home medication-Lasix. Patient denies headache, fever, N/V/D/C, changes in bowel and bladder habits, recent medication changes. Patient to be admitted as inpatient under hospitalist services for further medical management and care. While in ED a CBC, CMP, Troponin series, BNP was obtained, reviewed, and results as followings: WBC 11.7, Neut 8.99, RBC 5.50, Hgb 11.70, HCT 40.1, MCV 72.9, MCH 21.3, MCHC 29.9, RDW 25.7. Na 139, K 4.3, [id number]. Fourdrinier Machine Tender 0.8, BUN 19, alk phos 145. Baseline 16, 2-hour troponin 14.51, delta troponin -1.49, BNP 6772 While in ED patient received following medications: Cardizem 240 mg p.o., Cardizem 20 mg IVP bolus, subsequently started on Cardizem IV drip, carvedilol 25 mg PO. Review of Systems General: Reports: 10 or more systems reviewed and unremarkable except in HPI and below Medications/Allergies Home Medications ?Medication ?Instructions ?Recorded ?Confirmed ?Last Taken ?Type carvedilol 25 mg tablet 25 mg PO BID 01/03/25 03/19/25 03/18/25 History cyclobenzaprine 10 mg tablet 10 mg PO TID PRN muscle spasms 01/03/25 03/19/25 Unknown History levothyroxine 75 mcg tablet 75 mcg PO QAM 01/03/25 03/19/25 03/18/25 History (Synthroid) sertraline 50 mg tablet 50 mg PO DAILY 01/03/25 03/19/25 03/18/25 History diltiazem HCl 240 mg 240 mg PO Q24H #30 caps 01/06/25 03/19/25 Unknown Rx capsule,extended release 24 hr (Cardizem CD) furosemide 40 mg tablet 40 mg PO DAILY@0800 #30 tabs 02/10/25 03/19/25 Unknown Rx levalbuterol HCl 1.25 mg/3 mL 1.25 mg inhalation Q6H x14 days 02/25/25 03/19/25 Unknown History solution for nebulization only atorvastatin 40 mg tablet (Lipitor) 40 mg PO QPM #90 tabs 02/26/25 03/19/25 03/18/25 Rx albuterol sulfate 2.5 mg/3 mL 2.5 mg (3 mL) inhalation QID PRN 03/12/25 03/19/25 Unknown Rx (0.083 %) solution for nebulization shortness of breath or wheezing #90 mL apixaban 5 mg tablet (Eliquis) 5 mg PO BID 03/12/25 03/19/25 03/18/25 History budesonide 160 mcg-glycopyr 9 2 inh inhalation BID PRN Shortness 03/19/25 03/19/25 Unknown History mcg-formot 4.8 mcg/actuation HFA Of Breath inhaler (Breztri MOLIphere) Allergies Allergy/AdvReac Type Severity Reaction Status Date / Time morphine Allergy Intermediate ADR-Agitate Verified 03/12/25 08:57 d PFSH Acute PFSH: Medical History Chronic hypoxic respiratory failure Chronic obstructive pulmonary disease, unspecified COPD type Pleural effusion Pulmonary edema Atrial fibrillation with RVR Social History Smoking and tobacco/nicotine status: former use of tobacco/nicotine (1 ppd X 25 years. Quit in 1999) Vitals/I&O/Wt Last Vital Signs Temp 97.8 F 03/19/25 08:37 Pulse 113 H 03/19/25 09:25 Resp 18 03/19/25 09:25 BP 189/158 03/19/25 08:37 Pulse Ox 90 03/19/25 08:37 O2 Del Method Room Air 03/19/25 08:37 03/18/25 03/19/25 03/19/25 22:59 06:59 14:59 Intake Total 5.708 / 5.708 Balance 5.708 / 5.708 Weight last 48 hrs Weight 67.132 kg Physical Exam Narrative: General: A&Ox4, sitting up in bed, no apparent distress. HEENT: Normo-cephalic, atraumatic, grossly unremarkable exam Cardio: NSR, normal S1-S2 without any murmurs, rubs, or gallops and JVD normal Respiratory: Diminished to bilateral upper and lower lobes breathing on auscultation GI: Abd soft, non-tender, non-distended, normo-active bowel sounds present Neuro: Moves all extremities, no sensory deficits, Normal speech Behavior: Appropriate and cooperative Extremities: Adequate palpable pulses. No clubbing, cyanosis or edema, Full ROM Data 03/19/25 08:39 03/19/25 08:39 Other Labs: 03/19: EKG 0959: A-fib RVR, no ST changes noted, QRS 81, QTc 449, HR 125 03/19: EKG 0843: A-fib RVR, no ST changes noted, QRS 83, QTc 448, HR 131 03/19: CXR: reviewed and results as follows: Cardiomegaly and right pleural effusion unchanged. Mild pulmonary vascular congestion and atherosclerosis. A&P Assessment and plan 1. Atrial fibrillation with RVR: 2. Acute systolic CHF (congestive heart failure): 3. Pleural effusion: 4. Hyperlipidemia: 5. Anxiety and depression: Plan: Afib/RVR Hx Afib w RVR- on long-term anticoagulation eliquis ? 03/19: EKG 0959: A-fib RVR, no ST changes noted, QRS 81, QTc 449, HR 125 ?03/19: EKG 0843: A-fib RVR, no ST changes noted, QRS 83, QTc 448, HR 131 ?03/19: CXR: Cardiomegaly and right pleural effusion unchanged. Mild pulmonary vascular congestion and atherosclerosis. ? 02/25/25: Echo reviewed and results as followed: Patient is in atrial fibrillation at the time of this echo study. Mild concentric LVH. Moderately reduced LV systolic function with global hypokinesis. Estimated LVEF 40 to 45%. Mildly reduced RV systolic function. Dilated right and left atria. Mild mitral regurgitation and moderately severe tricuspid regurgitation. Moderately elevated right heart and pulmonary pressures (45-50 mmHg). ?03/19: Cardiac enzymes: Baseline 16, 2-hour troponin 14.51, delta troponin -1.49, BNP 6772 ? Keep electrolytes replaced: K, Mag. Ordered Mag, 1.8. ? CHADS VASc score: 4 points, on home medication Eliquis 5mg PO ? Cardizem bolus given in the ED then subsequently started on Cardizem IV drip. Initiate PO home medication dose Cardizem-titrate off Cardizem drip. ? Continue home medication carvedilol PO 25mg ? Continue home anticoagulant with Eliquis 5 mg PO BID ? Continuous cardiac monitoring Acute Systolic CHF Right Pleural Effusion ? Patient unsure if she missed Lasix dose last few days ? BNP 6772 ? 03/19: CXR : Cardiomegaly and right pleural effusion unchanged. Mild pulmonary vascular congestion and atherosclerosis. ? See echo as per above ? Continue home medication carvedilol 25 mg dly PO ? Lasix IVP 40mg IVP x1, monitor then consider restarted home dose ? Daily CMP, replete K and mag as indicated. Electrolyte management goal: K>4, Mag>2 ? Stict I&Os, Dly Wts ? Cardiac diet COPD ? Without acute exacerbation ? Continue home inhalers/nebulizers. ? Oxygen per protocol HTN ? Continue home medications carvedilol 25mg PO ? Monitor vital signs as per protocol Hypothyroidism ? Continue home medication levothyroxine 75mcg PO ? TSH ordered, reviewed, 3.05 Depression Anxiety ? Continue home medication Sertraline 50mg PO dly CODE STATUS: Full Code GI prophylaxis: Protonix 40mg PO dly VTE prophylaxis: SCDs, continue home medication Eliquis 5 mg PO BID PDMP PDMP Reviewed: Not Reviewed Attestations Medical Necessity Statement*: Admitted under inpatient status. Given complexity of patient's presentation, Afib RVR, co-morbid conditions, and required intensity of treatment, a hospitalization exceeding two midnights is anticipated. and High Time for a total of 77 minutes, includes reviewing past or interval history, examining/interviewing patient, placing orders, counseling patient/family/other support, updating patient/family/other support, discussing plan of care with staff, communicating with other healthcare providers, documenting encounter and coordinating care Diagnoses Atrial fibrillation with RVR I48.91 Acute systolic CHF (congestive heart failure) I50.21 Pleural effusion J90 Hyperlipidemia E78.5 Anxiety and depression F41.9; F32.A
[2025-03-19 11:42] LABS: Thyroid Stimulating Hormone 3.05 uIU/mL (0.27-4.20)
[2025-03-19 12:54] LABS: Magnesium 1.8 mg/dL (1.7-2.3)
[2025-03-19 15:00] LABS: Troponin 5 6HR 14.77 ng/L (0-10); Troponin 5 6HR Delta -1.23 ng/L (0-12)
[2025-03-19] MEDS: FUROsemide 10 mg/mL SDV 4mL 40 MG IVP (16:03)
--- NOTE | 2025-03-19 18:41 | PC.NURSE ---
Received from er in to room 106 at 1500.report received.pt is alert and oriented x 4.denies pain at present.afib on monitor at controlled rate.cardizem drip decreased to 5 mg.oriented to room environment.instructed to notify staff if needs to get up,if has chest pain,sob,or for any concerns at all.pt verb understanding of instructions.
[2025-03-20] VITALS (10 sets, daily range): BP systolic 112–139; BP diastolic 68–96; PULSE 65–102; RESP 16–24; TEMP 36.6–36.9; O2SAT 90–94
[2025-03-20] MEDS: dilTIAZem ER (24HR) 240 mg Capsule PO (04:10)
[2025-03-20 04:48] LABS: Hematocrit 34.8 % (36-47); Hemoglobin 10.10 g/dL (11.27-16.99); Mean Corpuscular HGB Conc 29.0 g/dL (30-55); Mean Corpuscular Hemoglobin 21.4 pg (27-33); Mean Corpuscular Volume 73.6 fl (85-98); Nucleated Red Blood Cells % 0 %; Platelet Count 304 10^3/cmm (157-399); Red Blood Count 4.73 10^6/uL (3.85-5.65); White Blood Count 9.42 10^3/uL (3.29-11.43)
[2025-03-20 05:13] LABS: Alanine Aminotransferase 21 U/L (0-33); Albumin Level 3.9 g/dL (3.5-5.2); Alkaline Phosphatase 131 U/L (35-105); Anion Gap 10.9 (5-19); Aspartate Amino Transferase 25 U/L (0-32); Blood Urea Nitrogen 26 mg/dL (8-23); Calcium 9.2 mg/dL (8.5-10.5); Carbon Dioxide 37 mmol/L (22-29); Chloride 97 mmol/L (98-107); Globulin 2.7 g/dL (1.3-4.6); Glucose 116 mg/dL (65-115); Magnesium 1.8 mg/dL (1.7-2.3); Osmolality Calculated 298 mOsm/kg (285-295); Potassium 3.9 mmol/L (3.5-5.1); Sodium 141 mmol/L (136-145); Total Protein 6.6 g/dL (6.6-8.7)
--- NOTE | 2025-03-20 08:24 | PC.SOCIAL ---
IMM Updated Updated pt on IMM. No questions voiced. Provided pt a copy. Initialed, dated, & timed a copy & placed in chart.
--- NOTE | 2025-03-20 10:44 | P.PN_ITS ---
Subjective 2 Subjective: Patient is a very pleasant 64-year-old female seen and examined at bedside on hospital rounds today. Patient sitting up in bed stating that she no longer feels chest palpitations. Patient stated that she had been out of her Lasix and her Cardizem and would need these refilled at discharge. Concerned that patient has been noncompliant with medications but she says that if she has them at home she does take them. Patient denies current chest pain or shortness of breath, any new or worsening symptoms. Vital signs are stable blood pressure 112/86, pulse 77, respirations 17, temperature 97.8, O2 sat 91% with oxygen via nasal cannula supplementation 2 L/min. In review of labs normal WBC 9.42, hemoglobin 10.10, BUN 26, creatinine 1.0, alk phos 131, troponins remain flat-suspect mild elevation secondary to A- fib RVR. Cardizem drip weaned, will discontinue and resume oral cardizem. Continue cardiac monitoring and work towards discharge in the next 24 hours. Vitals/I&O/Wt Last Vital Signs Temp 97.8 F 03/20/25 08:00 Pulse 77 03/20/25 08:00 Resp 17 03/20/25 08:00 BP 112/86 03/20/25 08:00 Pulse Ox 91 03/20/25 07:59 O2 Del Method Nasal Cannula 03/20/25 07:59 O2 Flow Rate 3 03/19/25 13:44 03/19/25 03/20/25 03/20/25 22:59 06:59 14:59 Intake Total 973.958 / 1016.999 480 / 1496.999 360 / 360 Balance 973.958 / 1016.999 480 / 1496.999 360 / 360 Weight last 48 hrs Weight 65.136 kg Weight 64.127 kg Weight 67.132 kg Physical Exam 2 Narrative: General: A&Ox4, sitting up in bed, no apparent distress. HEENT: Normo-cephalic, atraumatic, grossly unremarkable exam Cardio: Regularly irregular rate rhythm, without any murmurs, rubs, or gallops and JVD normal Respiratory: Diminished to bilateral upper and lower lobes breathing on auscultation, oxygen supplementation via n/c GI: Abd soft, non-tender, non-distended, normo-active bowel sounds present Neuro: Moves all extremities, no sensory deficits, Normal speech Behavior: Appropriate and cooperative Extremities: Adequate palpable pulses. No clubbing, cyanosis or edema, Full ROM Data 03/20/25 04:24 03/20/25 04:24 A&P Assessment and plan 1. Atrial fibrillation with RVR: 2. Acute systolic CHF (congestive heart failure): 3. Pleural effusion: 4. Hyperlipidemia: 5. Anxiety and depression: Plan: Afib/RVR Hx Afib w RVR- on long-term anticoagulation eliquis, no longer in RVR ? 03/19: EKG 0959: A-fib RVR, no ST changes noted, QRS 81, QTc 449, HR 125 ?03/19: EKG 0843: A-fib RVR, no ST changes noted, QRS 83, QTc 448, HR 131 ?03/19: CXR: Cardiomegaly and right pleural effusion unchanged. Mild pulmonary vascular congestion and atherosclerosis. ? 02/25/25: Echo reviewed and results as followed: Patient is in atrial fibrillation at the time of this echo study. Mild concentric LVH. Moderately r educed LV systolic function with global hypokinesis. Estimated LVEF 40 to 45%. Mildly reduced RV systolic function. Dilated right and left atria. Mild mitral regurgitation and moderately severe tricuspid regurgitation. Moderately elevated right heart and pulmonary pressures (45-50 mmHg). ?03/19: Cardiac enzymes: Baseline 16, 2-hour troponin 14.51, delta troponin - 1.49, BNP 6772 ? Keep electrolytes replaced: K, Mag. Ordered Mag, 1.8. ? CHADS VASc score: 4 points, on home medication Eliquis 5mg PO ? Cardizem bolus given in the ED then subsequently started on Cardizem IV drip. Initiate PO home medication dose today and monitor ? Continue home medication carvedilol PO 25mg ? Continue home anticoagulant with Eliquis 5 mg PO BID ? Continuous cardiac monitoring Acute Systolic CHF Right Pleural Effusion ? Patient unsure if she missed Lasix dose last few days ? BNP 6772 ? 03/19: CXR : Cardiomegaly and right pleural effusion unchanged. Mild pulmonary vascular congestion and atherosclerosis. ? See echo as per above ? Continue home medication carvedilol 25 mg dly PO ? Lasix IVP 40mg IVP x1, continue oral lasix 40mg PO Daily ? Daily CMP, replete K and mag as indicated. Electrolyte management goal: K>4, Mag>2 ? Stict I&Os, Dly Wts ? Cardiac diet COPD ? Without acute exacerbation ? Continue home inhalers/nebulizers. ? Oxygen per protocol HTN ? Continue home medications carvedilol 25mg PO ? Monitor vital signs as per protocol Hypothyroidism ? Continue home medication levothyroxine 75mcg PO ? TSH ordered, reviewed, 3.05 Depression Anxiety ? Continue home medication Sertraline 50mg PO dly CODE STATUS: Full Code GI prophylaxis: Protonix 40mg PO dly VTE prophylaxis: SCDs, continue home medication Eliquis 5 mg PO BID PDMP PDMP Reviewed: Not Reviewed Attestations 2 Medical Necessity Statement*: Admitted under inpatient status. Given complexity of patient's presentation, Afib weaning cardizem gt, co-morbid conditions, and required intensity of treatment, a hospitalization exceeding two midnights is anticipated. Coding Level of Care Code 38826 Diagnoses Atrial fibrillation with RVR I48.91 Acute systolic CHF (congestive heart failure) I50.21 Pleural effusion J90 Hyperlipidemia E78.5 Anxiety and depression F41.9; F32.A
[2025-03-21] VITALS: BP 107/86; PULSE 89; RESP 17; TEMP 36.8; O2SAT 92
[2025-03-21 03:26] LABS: Hematocrit 33.6 % (36-47); Hemoglobin 9.80 g/dL (11.27-16.99); Mean Corpuscular HGB Conc 29.2 g/dL (30-55); Mean Corpuscular Hemoglobin 21.5 pg (27-33); Mean Corpuscular Volume 73.8 fl (85-98); Nucleated Red Blood Cells % 0 %; Platelet Count 240 10^3/cmm (157-399); Red Blood Count 4.55 10^6/uL (3.85-5.65); White Blood Count 11.14 10^3/uL (3.29-11.43)
[2025-03-21 03:42] LABS: Alanine Aminotransferase 20 U/L (0-33); Albumin Level 3.8 g/dL (3.5-5.2); Alkaline Phosphatase 125 U/L (35-105); Anion Gap 11.6 (5-19); Aspartate Amino Transferase 20 U/L (0-32); Blood Urea Nitrogen 28 mg/dL (8-23); Calcium 9.0 mg/dL (8.5-10.5); Carbon Dioxide 35 mmol/L (22-29); Chloride 97 mmol/L (98-107); Globulin 2.7 g/dL (1.3-4.6); Glucose 140 mg/dL (65-115); Magnesium 1.9 mg/dL (1.7-2.3); Osmolality Calculated 298 mOsm/kg (285-295); Potassium 3.6 mmol/L (3.5-5.1); Sodium 140 mmol/L (136-145); Total Protein 6.5 g/dL (6.6-8.7)
[2025-03-21 04:00] VITALS: BP 155/83; PULSE 84; RESP 19; TEMP 36.6; O2SAT 90
[2025-03-21] MEDS: dilTIAZem ER (24HR) 240 mg Capsule PO (05:56)
--- NOTE | 2025-03-21 07:25 | PM.DCS ---
Discharge Providers Date of Admission: 03/19/25 10:18 Date of Discharge: March 21, 2025 Attending Provider at Admission: Errol Hernandez Attending Provider at Discharge: Marilyn Hutchinson NP Diagnoses at Discharge Discharge Diagnosis 1. Atrial fibrillation with RVR: 2. Acute systolic CHF (congestive heart failure): 3. Pleural effusion: 4. Hyperlipidemia: 5. Anxiety and depression: Reason for Visit Reason for Visit: chest pain Brief History: Admission: Marie Vann is a 64 year old female w/ pmhx of HTN, COPD, Afib w RVR- on long-term anticoagulation eliquis presents to c/o increased HR w/ associated s/s of SOB, and mild chest discomfort radiating on the left side and up to the left shoulder. Patient reports she was unable to sleep overnight, could not get comfortable. at bedside, states her HR was 120s on 03/18 but patient was not experiencing any symptoms at this time. Patient woke up this morning at 0700 experiencing palpitations, significant chest pain w/ shortness of breath. Patient describes chest pain as intermittent and sharp. She is currently denying chest pain during my evaluation. Patient on baseline 2L NC, reports she increased her oxygen to 3L NC. Patient states she is unsure whether she has been taking the home medication-Lasix. Patient denies headache, fever, N/V/D/C, changes in bowel and bladder habits, recent medication changes. Patient to be admitted as inpatient under hospitalist services for further medical management and care. While in ED a CBC, CMP, Troponin series, BNP was obtained, reviewed, and results as followings: WBC 11.7, Neut 8.99, RBC 5.50, Hgb 11.70, HCT 40.1, MCV 72.9, MCH 21.3, MCHC 29.9, RDW 25.7. Na 139, K 4.3, [id number]. Model Technician 0.8, BUN 19, alk phos 145. Baseline 16, 2-hour troponin 14.51, delta troponin -1.49, BNP 6772. While in ED patient received following medications: Cardizem 240 mg p.o., Cardizem 20 mg IVP bolus, subsequently started on Cardizem IV drip, carvedilol 25 mg PO. Hospital Course Hospital Course Afib/RVR Hx Afib w RVR- on long-term anticoagulation eliquis, no longer in RVR ? 03/19: EKG 0959: A-fib RVR, no ST changes noted, QRS 81, QTc 449, HR 125 ?03/19: EKG 0843: A-fib RVR, no ST changes noted, QRS 83, QTc 448, HR 131 ?03/19: CXR: Cardiomegaly and right pleural effusion unchanged. Mild pulmonary vascular congestion and atherosclerosis. ? 02/25/25: Echo reviewed and results as followed: Patient is in atrial fibrillation at the time of this echo study. Mild concentric LVH. Moderately reduced LV systolic function with global hypokinesis. Estimated LVEF 40 to 45%. Mildly reduced RV systolic function. Dilated right and left atria. Mild mitral regurgitation and moderately severe tricuspid regurgitation. Moderately elevated right heart and pulmonary pressures (45-50 mmHg). ?03/19: Cardiac enzymes: Baseline 16, 2-hour troponin 14.51, delta troponin -1.49, BNP 6772 ? Keep electrolytes replaced: K, Mag. Ordered Mag, 1.8. ? CHADS VASc score: 4 points, on home medication Eliquis 5mg PO ? Cardizem bolus given in the ED then subsequently started on Cardizem IV drip. Initiate PO home medication dose today and monitor ? Continue home medication carvedilol PO 25mg ? Continue home anticoagulant with Eliquis 5 mg PO BID ? Continuous cardiac monitoring Acute Systolic CHF Right Pleural Effusion ? Patient unsure if she missed Lasix dose last few days ? BNP 6772 ? 03/19: CXR : Cardiomegaly and right pleural effusion unchanged. Mild pulmonary vascular congestion and atherosclerosis. ? See echo as per above ? Continue home medication carvedilol 25 mg dly PO ? Lasix IVP 40mg IVP x1, continue oral lasix 40mg PO Daily ? Daily CMP, replete K and mag as indicated. Electrolyte management goal: K>4, Mag>2 ? Stict I&Os, Dly Wts ? Cardiac diet COPD ? Without acute exacerbation ? Continue home inhalers/nebulizers. ? Oxygen per protocol HTN ? Continue home medications carvedilol 25mg PO ? Monitor vital signs as per protocol Hypothyroidism ? Continue home medication levothyroxine 75mcg PO ? TSH ordered, reviewed, 3.05 Depression Anxiety ? Continue home medication Sertraline 50mg PO dly Discharge: Discharge in stable condition in care of family, patient denies chest pain or palpitations. Meds to bed prescribed for medications she did not have filled at home. Advised follow up with PCP in 1-3 days and cardiology at the next available appointment. All questions and concerns addressed at time of discharge. Physical Exam Narrative: General: A&Ox4, sitting up in bed, no apparent distress. HEENT: Normo-cephalic, atraumatic, grossly unremarkable exam Cardio: Regularly irregular rate rhythm, without any murmurs, rubs, or gallops and JVD normal Respiratory: Diminished to bilateral upper and lower lobes breathing on auscultation, oxygen supplementation via n/c GI: Abd soft, non-tender, non-distended, normo-active bowel sounds present Neuro: Moves all extremities, no sensory deficits, Normal speech Behavior: Appropriate and cooperative Extremities: Adequate palpable pulses. No clubbing, cyanosis or edema, Full ROM Discharge Data Studies Completed and Pending Completed Studies During Hospitalization Category Date Time Status XR chest 1V portable [id number] Stat Exams 03/19/25 08:43 Completed Pending at discharge Category Date Time Status Complete Blood Count w/Auto AM LABS Lab 03/22/25 04:00 Ordered Comprehensive Metabolic Panel AM LABS Lab 03/22/25 04:00 Ordered Magnesium AM LABS Lab 03/22/25 04:00 Ordered Radiology Impressions Chest X-Ray 03/19/25 08:43 Impression: 1. Cardiomegaly and right pleural effusion unchanged. 2. Mild pulmonary vascular congestion and atherosclerosis. Laboratory Results WBC 11.14 10^3/uL (3.29-11.43) 03/21/25 02:38 RBC 4.55 10^6/uL (3.85-5.65) 03/21/25 02:38 Hgb 9.80 g/dL (11.27-16.99) L 03/21/25 02:38 Hct 33.6 % (36-47) L 03/21/25 02:38 MCV 73.8 fl (85-98) L 03/21/25 02:38 MCH 21.5 pg (27-33) L 03/21/25 02:38 MCHC 29.2 g/dL (30-55) L 03/21/25 02:38 RDW 25.8 % (12.1-15.1) H 03/21/25 02:38 Plt Count 240 10^3/cmm (157-399) 03/21/25 02:38 MPV Not Reportable 03/21/25 02:38 Neut % (Auto) 71.8 % 03/21/25 02:38 Lymph % (Auto) 16.2 % 03/21/25 02:38 [place] % (Auto) 7.5 % 03/21/25 02:38 Eos % (Auto) 3.4 % 03/21/25 02:38 Baso % (Auto) 0.5 % 03/21/25 02:38 Neut # (Auto) 7.98 10^3/uL (1.8-7.7) H 03/21/25 02:38 Lymph # (Auto) 1.8 10^3/uL (0.8-4.8) 03/21/25 02:38 [place] # (Auto) 0.8 10^3/uL (0.2-0.9) 03/21/25 02:38 Eos # (Auto) 0.4 10^3/uL (0.0-0.8) 03/21/25 02:38 Baso # (Auto) 0.1 10^3/uL (0.0-0.1) 03/21/25 02:38 Nucleated RBC % (auto) 0 % 03/21/25 02:38 Nucleated RBCs # 0.0 /100WBC 03/21/25 02:38 Sodium 140 mmol/L (136-145) 03/21/25 02:38 Potassium 3.6 mmol/L (3.5-5.1) 03/21/25 02:38 Chloride 97 mmol/L (98-107) L 03/21/25 02:38 Carbon Dioxide 35 mmol/L (22-29) H 03/21/25 02:38 Anion Gap 11.6 (5-19) 03/21/25 02:38 BUN 28 mg/dL (8-23) H 03/21/25 02:38 Creatinine 0.9 mg/dL (0.5-0.9) 03/21/25 02:38 GFR Calculation 62.6 mL/min (90-130) L 03/21/25 02:38 Glucose 140 mg/dL (65-115) H 03/21/25 02:38 Calculated Osmolality 298 mOsm/kg (285-295) H 03/21/25 02:38 Calcium 9.0 mg/dL (8.5-10.5) 03/21/25 02:38 Magnesium 1.9 mg/dL (1.7-2.3) 03/21/25 02:38 Total Bilirubin 0.7 mg/dL (0.15-1.2) 03/21/25 02:38 AST 20 U/L (0-32) 03/21/25 02:38 ALT 20 U/L (0-33) 03/21/25 02:38 Alkaline Phosphatase 125 U/L (35-105) H 03/21/25 02:38 Troponin T Baseline 16 ng/L (0-10) H 03/19/25 08:39 Troponin T 60 Minute 14.51 ng/L (0-10) H 03/19/25 09:37 Delta Troponin T -1.49 ABS# (0-10) L 03/19/25 09:37 Troponin T Hi Sens 6Hr 14.77 ng/L (0-10) H 03/19/25 14:31 Troponin T Hi Sens 6Hr Delta -1.23 ng/L (0-12) L 03/19/25 14:31 NT-Pro-B Natriuret Pep 6772 pg/mL (0-125) H 03/19/25 08:39 Total Protein 6.5 g/dL (6.6-8.7) L 03/21/25 02:38 Albumin 3.8 g/dL (3.5-5.2) 03/21/25 02:38 Globulin 2.7 g/dL (1.3-4.6) 03/21/25 02:38 TSH 3.05 uIU/mL (0.27-4.20) 03/19/25 09:37 Vitals Last Vital Signs Temp 97.8 F 03/21/25 04:00 Pulse 84 03/21/25 04:00 Resp 19 H 03/21/25 04:00 BP 155/83 03/21/25 04:00 Pulse Ox 90 03/21/25 04:00 O2 Del Method Nasal Cannula 03/21/25 04:00 O2 Flow Rate 3 03/20/25 17:14 Discharge Plan Discharge Patient Disposition: Home Condition: Stable Prescriptions: New furosemide 40 mg Tablet 40 mg PO DAILY@0800 90 Days Qty: 90 0RF carvedilol 25 mg Tablet 25 mg PO BID 90 Days Qty: 180 0RF diltiazem HCl 240 mg Capsule,Extended Release 24hr 240 mg PO Q24H 90 Days Qty: 90 0RF pantoprazole 40 mg Tablet,Delayed Release (Dr/Ec) 40 mg PO DAILY 30 Days Qty: 30 0RF Continued Eliquis 5 mg tablet 5 mg PO BID albuterol sulfate 2.5 mg /3 mL (0.083 %) solution for nebulization 2.5 mg inhalation QID PRN (Reason: shortness of breath or wheezing) Qty: 90 6RF cyclobenzaprine 10 mg tablet 10 mg PO TID PRN (Reason: muscle spasms) levothyroxine [Synthroid] 75 mcg tablet 75 mcg PO QAM sertraline 50 mg tablet 50 mg PO DAILY levalbuterol HCl 1.25 mg/3 mL solution for nebulization 1.25 mg INHALATION Q6H atorvastatin [Lipitor] 40 mg tablet 40 mg PO QPM Qty: 90 0RF Breztri Aerosphere 160-9-4.8 mcg/actuation HFA aerosol inhaler 2 inh inhalation BID PRN (Reason: Shortness Of Breath) Discontinued carvedilol 25 mg tablet 25 mg PO BID diltiazem HCl [Cardizem CD] 240 mg capsule,extended release 24hr 240 mg PO Q24H Qty: 30 2RF furosemide 40 mg Tablet 40 mg PO DAILY@0800 Qty: 30 0RF Discharge Order = DC NOW: Discharge Order (Routine); Ordered 03/21/25 Ordered By: Marilyn Hutchinson Referrals: Yuri Anaya DO [Physician, Family Practice] - 03/31/25 10:00 am Criss Haas NP [Nurse Practitioner, Cardiology] - 04/08/25 3:00 pm Discharge Diet: Cardiac Discharge Activity: Resume usual activity Patient Instructions: Generalized Anxiety Disorder, Atrial Fibrillation, Diltiazem (By mouth), Furosemide (By injection), Carvedilol (By mouth), Pantoprazole (By mouth), Heart Failure (DC), Hyperlipidemia (DC), Opioid Safety, Patient Portal & [facility] Instructions Discharge Attestations Time Spent in Discharge Care*: greater than 30 min Quality Metrics Clinical Quality Measures [ No reported AMI, CVA or VTE this stay] Coding Level of Care Code 06427 Diagnoses Atrial fibrillation with RVR I48.91 Acute systolic CHF (congestive heart failure) I50.21 Pleural effusion J90 Hyperlipidemia E78.5 Anxiety and depression F41.9; F32.A
[2025-03-21 08:00] VITALS: BP 133/103; PULSE 83; RESP 18; TEMP 36.6; O2SAT 90
[2025-03-21 10:55] VITALS: BP 155/83; PULSE 99; RESP 17; TEMP 36.8; O2SAT 94
--- OUTSIDE RECORDS SUMMARY | 2025-03-30 12:30 | XMS_ITS | Encounter Summary ---
Author Organization [facility] Address 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 Patient advised to call [facility] for paperwork. Patient provided with [facility]'s phone number. Patient verbalized understanding. Note routed to primary care office pool. Visit was completed by phone unless otherwise noted with video/screen capture within the note. Agnes Sandoval RN [facility] 365 NG MACHINE OPERATOR documented in this encounter Plan of Treatment Upcoming Encounters Date Type Department Care Team (Late st Contact Info) Description 05/01/2025 9:20 AM FACING MACHINE OPERATOR Office Visit [address] [address] Racquel Reynolds FNP [address] [facility] [address] [place] [address] 07/09/2025 10:40 AM CDT Office Visit [address] [phone] Dennis Vines MD [address] [place] [phone] documented as of this encounter Visit Diagnoses Not on filedocumented in this encounter Additional Health Concerns Assessment Noted Time PHQ-9 Depression Total Score: 2 10/30/19 3:56 PM CDT documented as of this encounter Care Teams Clinical Data Assistant Relationship Specialty Start Date End Date Dennis Vines MD [address] [place] [phone] PCP - General Family Practice 10/23/24 documented as of this encounter
--- OUTSIDE RECORDS SUMMARY | 2025-03-30 12:30 | XMS_ITS | Encounter Summary ---
Author Organization [facility] Address [address] [place] [address] Care Team Providers Care Scenic Designer Name Role Phone Dennis Vines MD Primary Care Provider [phone] Encounter Details Date Type Department Care Team (Late st Contact Info) Description 02/13/2025 Results Follow-Up [facility] Medicine [place] [address] [address] Racquel Reynolds, [facility] [address] [address] CBC WITH DIFFERENTIAL Social History [...] on file Legal Sex Female 10:01 AM TUFTER OPERATOR Gender Identity Not on file Sexual Orientation Not on file documented as of this encounter Plan of Treatment Upcoming Encounters Date Type Department Care Team (Late st Contact Info) Description 05/01/2025 9:20 AM TUFTER OPERATOR Office Visit [address] [address] Racquel Reynolds FNP [address] [place] [phone] 07/09/2025 10:40 AM CDT Office Visit [address] [address] Dennis Vines MD [address] [place] [phone] documented as of this encounter Visit Diagnoses Not on filedocumented in this encounter Additional Health Concerns Assessment Noted Time PHQ-9 Depression Total Score: 2 10/30/19 25 3:56 PM CDT documented as of this encounter Care Teams Scenic Designer Relationship Specialty Start Date End Date Dennis Vines MD [address] [place] [phone] PCP - General Family Practice 10/23/24 documented as of this encounter
--- OUTSIDE RECORDS SUMMARY | 2025-03-30 12:30 | XMS_ITS | Clinical Summary ---
Author Organization [facility] Address [address] [place] [address] Care Team Providers Care Drawing Kiln Supervisor Name Role Phone Chema Padilla MD Primary Care Provider [phone] Allergies Active Allergy Reactions Criticality Noted Date [...] often do you attend chur ch or gnosticist services? 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 A negative Cologuard [...] Chang et al, N Engl J Med 2014;370(14):6361-6514) The normal value (reference range) for this assay is negative. COLOGUARD RE-SCREENING RECOMMENDATION: Periodic colorectal cancer screening is an important part of preventive healthcare for asymptomatic individuals at average risk for colorectal cancer. Following a negative Cologuard result, the [place] [employer] Cancer Society and U.S. Multi-Society Task Force screening guidelines recommend a Cologuard re-screening interval of 3 years. References: [place] [employer] Guideline for Colorectal Cancer Screening: https://www.cancer.org/cancer/ieucf-bveihx-egzcfl/cgfpcjhdk-pcgcsphsw-hkhoqbb/ac s-rec ommendations.html.; Billy TRAN, Edwin CR, Alfa CotaK, Colorectal Cancer Screening: Recommendations for Physicians and Patients from the U.S. Multi-Society Task Force on Colorectal Cancer Screening , Am J Gastroenterology 2017; 112:5982-8559. TEST DESCRIPTION: Composite algorithmic analysis of stool [...] Morris. et al, N Engl J Med 2014;370(14):2331-1281.) Cologuard may produce a false negative or false positive result (no colorectal cancer or precancerous polyp present at colonoscopy follow up). A negative Cologuard test result does not guarantee the absence of CRC or advanced adenoma (pre-cancer). The current Cologuard screening interval is every 3 years. ([place] [employer] Society and U.S. Multi-Society Task Force). Cologuard performance data in a 10,000 patient pivotal study using colonoscopy as the reference method can be accessed at the following location: www.Eurotri/results. Additional description of the Cologuard test process, warnings and precautions can be found at www.Spicy Horse Gamesoguard.com. Stool STOOL SPECIMEN / Unknown 09/22/2020 5:08 PM CDT 09/24/2020 7:08 PM CDT us Jazzy Zimmerman TEACHER ADVISOR BODY FLUIDS AND STOOLS Fin al Result [employer] CLIA # [id number] [address], [address] [place] [address] * (ABNORMAL) HEMOGLOBIN A1C (08/06/2020 8:53 AM CDT) HEMOGLOBIN A1C 5.9(H) See Comment % 08/06/2020 8:31 PM CDT [facility] EST. AVG GLUCOSE, A1C 123 mg/dL 08/06/2020 8:31 PM CDT [facility] Blood Venipuncture / Unknown 08/06/2020 8:53 AM CDT 08/06/2020 7:58 PM CDT Narrative [facility] - 08/06/2020 8:31 PM CDT HGB A1C INTERPRETATION NORMAL: <5.7% PRE-DIABETES: 5.7 - 6.4% DIABETES: 6.5% OR GREATER Falsely low A1C measurements can occur when: 1. Anemia and/or hemolytic anemia is present. 2. Hemoglobin variants present. 3. Renal failure. 4. Transfusion of blood product in the last 120 days. We recommend ordering a fructosamine test([id number]) to more accurately assess glycemic status if any of the above conditions are present. Jazzy Zimmerman TEACHER ADVISOR CHEMISTRY ORDERABLES Final Result [facility] CLIA# [id number] [facility] [place] [address] * MAMMO 3D SCREEN BILATERAL MOBILE (03/31/2020 9:04 AM SALES DRIVER) Anatomical Region Laterality Modality Breast Bilateral Mammography 03/31/2020 9:04 AM SALES DRIVER Narrative 04/01/2020 3:47 PM SALES DRIVER BILATERAL SCREENING MAMMOGRAM 03/31/2020 PATIENT COMPLAINT: [...] Center to schedule the recommended follow-up appointment. [id number] Jazzy Chapacayetano TEACHER ADVISOR MAMMO ORDERABLES Final Res ult from Last 3 Months or Most Recently Relevant to Health Maintenance Insurance [facility] Advance Directives For more information, please contact: [phone] * Full Code (Latest Code Status on File) Date Activated Date Inactivated Comments 11/24/2013 1:00 PM 11/24/2013 6:57 PM * Full Code Date Activated Date Inactivated Comments 11/24/2013 12:18 PM 11/24/2013 1:00 PM * Full Code Date Activated Date Inactivated Comments 03/15/2011 10:04 AM 03/15/2011 1:31 PM * Full Code Date Activated Date Inactivated Comments 11/26/2009 9:33 AM 11/26/2009 7:02 PM Care Teams Drawing Kiln Supervisor Relationship Specialty Start Date End Date Chema Padilla MD [address] [place] [phone] PCP - General Family Practice 03/24/19
--- OUTSIDE RECORDS SUMMARY | 2025-03-30 12:30 | XMS_ITS | Encounter Summary ---
Author Organization [facility] Address [address] [place] [address] Care Team Providers Care Ticker Wirer Name Role Phone Chema Padilla MD Primary Care Provider [phone] Reason for Referral * Radiology Services (Routine) - Closed Specialty Diagnoses / Procedures Referred By Beau antony Referred To Contact Diagnoses Visit for screening mammogram Procedures MAMMO 3D SCREEN BILATERAL MOBILE Jazzy Zimmerman FNP Referral ID Status Reason Start Date Expiration Date Visits Re quested Visits Authorized [id number] Closed 09/03/2019 10/03/2020 1 1 Encounter Details Date Type Department Care Team (Latest Contact Info) Description 09/03/2019 [facility] [place] [address] [facility] [address] [place] [address] Jazzy Zimmerman FNP NO ADDRESS ON FILE [...] on file Legal Sex Female 3:22 AM KIER TENDER Gender Identity Not on file Sexual [...] 3D SCREEN BILATERAL MOBILE (03/31/2020 9:04 AM KIER TENDER) Anatomical Region Laterality Modality Breast Bilateral Mammography 03/31/2020 9:04 AM KIER TENDER Narrative 04/01/2020 3:47 PM KIER TENDER BILATERAL SCREENING MAMMOGRAM 03/31/2020 PATIENT COMPLAINT: No [...] Center to schedule the recommended follow-up appointment. [id number] Jazzy Zimmerman HISTOLOGICAL ILLUSTRATOR MAMMO ORDERABLES Final Res ult documented in this encounter Visit Diagnoses Diagnosis Visit for screening mammogram Other screening mammogram documented in this encounter Additional Health Concerns Assessment Noted Time PHQ-9 Depression Total Score: 1 06/04/19 20 1:00 PM KIER TENDER documented as of this encounter Care Teams Ticker Wirer Relationship Specialty Start Date End Date Chema Padilla MD [address] [place] [phone] PCP - General Family Practice 03/24/19 documented as of this encounter
--- OUTSIDE RECORDS SUMMARY | 2025-03-30 12:31 | XMS_ITS | Encounter Summary ---
Author Organization [facility] Address [address] [place] [address] Care Team Providers Care Seasonal Clerk Name Role Phone Chema Padilla MD Primary Care Provider [phone] Encounter Details Date Type Department Care Team (Late st Contact Info) Description 06/14/2010 Ancillary Orders [facility] [address] [facility] [address] [place] [phone] Kayla Sung DO NO ADDRESS ON FILE Other screening mammogram Social History Tobacco Use Types Packs/Day Years Used Date Smoking Tobacco: Former Cigarettes 22 Comments:quit 1998 Alcohol Use Standard Drinks/Week Comments No 0 (1 standard drink = 0.6 oz pur e alcohol) Comments No Sex and Gender Information Value Date Recorded Sex Assigned at Not on file 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
--- OUTSIDE RECORDS SUMMARY | 2025-03-30 12:31 | XMS_ITS | Encounter Summary ---
Author Organization [facility] Address [address] [place] [address] Care Team Providers Care Bulk Sealer Operator Name Role Phone Chema Padilla MD Primary Care Provider [phone] Encounter Details Date Type Department Care Team (Latest Contact Info) Description 05/09/2005 Outpatient [facility]3] Breast Center [facility] [address] [place] [address] Dewayne Fagan Jr., MD [address] [place] [address] [facility] [address] [place] [address] SCREENING MAMM-MAILG NEOPL NEC (Primary Dx) Social History Tobacco Use Types Packs/Day Years Used Date Smoking Tobacco: Never Assessed Comments Unknown Sex and Gender Information Value Date Recorded Sex Assigned at Not on file Legal Sex Female 3:22 AM BLEACHING MACHINE OPERATOR Gender Identity Not on file Sexual Orientation Not on file documented as of this encounter Plan of Treatment Not on file documented as of this encounter Visit Diagnoses Diagnosis Other screening mammogram- Primary documented in this encounter Care Teams Bulk Sealer Operator Relationship Specialty Start Date End Date Chema Padilla MD [address] [place] [phone] PCP - General Family Practice 03/24/19 documented as of this encounter
--- OUTSIDE RECORDS SUMMARY | 2025-03-30 12:31 | XMS_ITS | Encounter Summary ---
Author Organization [facility] Address [address] [place] [address] Care Team Providers Care Dowel Machine Operator Name Role Phone Chema Padilla MD Primary Care Provider [phone] Reason for Referral * Outpatient Services (Routine) - Closed Specialty Diagnoses / Procedures Referred By Contac t Referred To Contact Radiology Diagnoses Other (abnormal) findings on radiological examination of breast Procedures MAMMO BREAST US RT Kayla Sung DO NO ADDRESS ON FILE [facility] [address] [place] [phone] Phone: tel: fax: Referral ID Status Reason Start Date Expiration Date Visits Requested Visits Authorized [id number] Closed Performing Department To Schedule (SGF) 03/27/2013 04/27/2014 1 1 PULLER * Outpatient Services (Routine) - Closed Specialty Diagnoses / Procedures Referred By Contac t Referred To Contact Radiology Diagnoses Other (abnormal) findings on radiological examination of breast Procedures MAMMO DIGITAL DIAG UNI RIGHT Kayla Sung DO NO ADDRESS ON FILE [facility] [address] [address] Phone: tel: fax: Referral ID Status Reason Start Date Expiration Date Visits Requested Visits Authorized [id number] Closed Ordering Department To Schedule 03/27/2013 04/27/2014 1 1 PULLER Encounter Details Date Type Department Care Team (Latest Contact Info) Description 03/27/2013 Ancillary Orders [facility] [place] [address] [facility] [address] [place] [address] Kayla Sung DO NO ADDRESS ON FILE [...] on file Legal Sex Female 3:22 AM SLAB PULLER Gender Identity Not on file Sexual Orientation [...] DIGITAL DIAG UNI RIGHT (04/11/2013 9:59 AM SLAB PULLER) Anatomical Region Laterality Modality Breast Right Mammography 04/11/2013 9:16 AM SLAB PULLER Impressions 04/11/2013 12:10 PM SLAB PULLER IMPRESSION: Large lymph node on the right is confirmed on additional images, and ultrasound reveals what appears to be a benign lymph node. This should be of no clinical significance. I would recommend routine annual screening mammogram. Patient received a result/recommendation letter. CASSI/lanny 0956 AM - uploaded from [employer] - Narrative 04/11/2013 12:10 PM SLAB PULLER Right Digital Diagnostic Mammogram and Right Breast [...] letter. CASSI/lanny 0956 AM - uploaded from [employer] Business Plan - us Kayla Sung DO MAMMO ORDERABLES Kellie corral Result * MAMMO BREAST US RT (04/11/2013 9:58 AM SLAB PULLER) Anatomical Region Laterality Modality Breast Right Ultrasound 04/11/2013 9:40 AM SLAB PULLER Impressions 04/11/2013 12:10 PM SLAB PULLER IMPRESSION: Large lymph node on the right is confirmed on additional images, and ultrasound reveals what appears to be a benign lymph node. This should be of no clinical significance. I would recommend routine annual screening mammogram. Patient received a result/recommendation letter. CASSI/lanny 0956 AM - uploaded from [employer] - Narrative 04/11/2013 12:10 PM SLAB PULLER Right Digital Diagnostic Mammogram and Right Breast [...] letter. CASSI/lanny 0956 AM - uploaded from [employer] Business Plan - us Kayla Sung DO MAMMO ORDERABLES Kellie l Result documented in this encounter Visit Diagnoses Diagnosis Other (abnormal) findings on radiological examination of breast- Primary Other (abnormal) findings on radiological examination of breast Other (abnormal) findings on radiological examination of breast documented in this encounter Additional Health Concerns Assessment Noted Time PHQ-9 Depression Total Score: 2 03/05/20 13 8:00 AM SLAB PULLER documented as of this encounter Care Teams Dowel Machine Operator Relationship Specialty Start Date End Date Chema Padilla MD [address] [place] [phone] PCP - General Family Practice 03/24/19 documented as of this encounter
--- OUTSIDE RECORDS SUMMARY | 2025-03-30 12:31 | XMS_ITS | Encounter Summary ---
Author Organization [facility] Address [address] [place] [address] Care Team Providers Care Mailroom Assistant Name Role Phone Chema Padilla MD Primary Care Provider [phone] Encounter Details Date Type Department Care Team (Latest Contact Info) Description 09/11/2005 Outpatient Historical [facility] 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
--- OUTSIDE RECORDS SUMMARY | 2025-03-30 12:31 | XMS_ITS | Clinical Summary ---
Author Organization [facility] Address [address] [place] [address] Care Team Providers Care Electrical Cad Technician Name Role Phone Dennis Vines MD Primary Care Provider [phone] Allergies Active Allergy Reactions Criticality Noted Date [...] 01/29/2018 Assessment & Plan (02/13/2025 11:51 AM OFFAL WORKER): Partly controlled. Addition of Breztri for maintenance [...] be explored. Orders: AMB REFERRAL TO PULMONARY [id number]-[id number]-mygzmpfhaw 160-9-4.8 mcg/actuation HFA Aerosol Inhaler; Take 2 [...] Encounters Date Type Department Care Team Description 03/24/2025 External Device Data ST[facility] ABSTRACTION Provider, Abstract 03/06/[address] [address] Racquel Reynolds FNP Hyperlipidemia, unspecified hyperlipidemia type 03/04/2025 Orders Only [address] [phone] Provider, Abstract 02/28/[address] [address] Krishna Padilla DO Primary hypothyroidism 02/13/2025 Results Follow-Up [address] [address] Racquel Reynolds FNP CBC WITH DIFFERENTIAL 02/13/[address] [place] [address] Dennis Vines MD Chronic pain of left knee 02/12/2025 10:20 AM OFFAL WORKER Office Visit [address] [address] Racquel Reynolds FNP Hospital discharge follow-up (Primary Dx); New onset a-fib (CMS/HCC); Paroxysmal atrial fibrillation with rapid ventricular response (CMS/HCC); Chronic obstructive pulmonary disease, unspecified COPD type (CMS/HCC); Multiple lung nodules; Acute respiratory failure with hypoxia (CMS/HCC); ACP (advance care planning) 02/12/2025 Abstract [facility] [address] [address] Dennis Vines MD 02/11/2025 Orders Only [facility] Health Information Management [place] [address] [place] [address] Provider, Abstract 02/10/2025 Nurse Triage [facility] [address] [place] [address] Agnes Sandoval RN 01/26/[address] [phone] Krishna Padilla DO CAROL ANN (generalized anxiety disorder) 01/19/2025 1:00 PM CDT Office Visit [address] [phone] Racquel Reynolds FNP Laceration of other part of head without foreign body, sequela (Primary Dx); Visit for suture removal; Primary insomnia 01/16/2025 Orders Only [address] [phone] Racquel Reynolds FNP Primary insomnia (Primary Dx) 01/16/[address] [phone] Racquel Reynolds FNP Remote Monitoring 01/10/[address] [phone] Krishna Padilla DO Fibromyalgia 01/08/2025 10:20 AM CDT Office Visit [facility] [address] [phone] Racquel Reynolds FNP Hospital discharge follow-up (Primary Dx); New onset a-fib (CMS/HCC); Pneumonia of left lower lobe due to infectious organism; Laceration of other part of head without foreign body, sequela; ACP (advance care planning); Encounter for colorectal cancer screening; Full code status 01/08/2025 Abstract [facility] [address] [address] Dennis Vines MD 01/08/2025 Orders Only [facility] [address] [place] [phone] Provider, Abstract from Last 3 Months Immunizations Immunization Administration Dates Next Due (PNEUMOVAX 23)(50 YRS UP) PN EUMOCOCCAL POLYSACCHARIDE (PPV23) 0.5 ML, IM 06/04/2019 (PREVNAR 13)(6 WKS UP) PNEUM OCOCCAL CONJUGATE (PCV13) 0.5 ML, IM 11/27/2018 (PREVNAR 20)(6 WKS UP) PNEUM OCOCCAL CONJUGATE VACCINE 20-VALENT (PCV20), POLYSACCHARIDE [id number] CONJUGATE, ADJUVANT 0.5 ML (PF) IM 10/29/2024 [...] Tri Split 4+ Pf Im 02/09/2017 Novel [id number], All Formulations 02/12/2009 Family History Medical History [...] on file Legal Sex Female 10:01 AM OFFAL WORKER Gender Identity Not on file Sexual Orientation Not on file Last Filed Vital Signs Vital Sign Reading Time Taken Comments Blood Pressure 128/88 02/12/2025 10:36 AM OFFAL WORKER Pulse 100 02/12/2025 10:36 AM OFFAL WORKER Temperature 36.3 C (97.4 F) 02/12/2025 10:36 AM OFFAL WORKER Respiratory Rate 19 02/12/2025 10:36 AM OFFAL WORKER Oxygen Saturation 90% 02/12/2025 10:36 AM OFFAL WORKER Inhaled Oxygen Concentration - - Weight 69.1 kg (152 lb 6.4 oz) 02/12/2025 10:36 AM OFFAL WORKER Height 157.5 cm (5' 2 ) 02/12/2025 10:36 AM OFFAL WORKER Body Mass Index 27.87 02/12/2025 10:36 AM OFFAL WORKER Plan of Treatment Upcoming Encounters Date Type Department Care Team (Late st Contact Info) Description 05/01/2025 9:20 AM OFFAL WORKER [facility] [address] [address] Racquel Reynolds, BEN [address] [address] 07/09/2025 10:40 AM CDT Office Visit [facility] [address] [address] Dennis Vines MD [address] [place] [phone] Health Maintenance Due Date Last Done [...] COMPREHENSIVE METABOLIC PANEL Routine 02/28/2025 10:31 AM OFFAL WORKER CBC WITH DIFFERENTIAL Routine 02/12/2025 11:10 AM OFFAL WORKER Paroxysmal atrial fibrillation with rapid ventricular response (CMS/HCC) BASIC METABOLIC PANEL Routine 02/10/2025 3:19 PM OFFAL WORKER COMPREHENSIVE METABOLIC PANEL Routine 02/09/2025 3:21 PM OFFAL WORKER COMPREHENSIVE METABOLIC PANEL Routine 02/08/2025 3:20 PM OFFAL WORKER ECHO COMPLETE Routine 02/08/2025 3:18 PM OFFAL WORKER COMPREHENSIVE METABOLIC PANEL Routine 02/07/2025 3:20 PM OFFAL WORKER PROTIME-INR Routine 02/07/2025 TX REMOVAL OF SUTURES Routine 01/19/2025 1:00 PM [...] SCREEN BILATERAL MOBILE Routine 03/31/2020 9:04 AM OFFAL WORKER Encounter for screening mammogram for malignant neoplasm of breast from Last 3 Months or Most Recently Relevant to Health Maintenance Results * COMPREHENSIVE METABOLIC PANEL (02/28/2025 10:31 AM OFFAL WORKER) Only the most recent of6 resultswithin the time period is included. Blood us Abstract Provider CHEMISTRY ORDERABLES Final Res ult * (ABNORMAL) CBC WITH DIFFERENTIAL (02/12/2025 11:10 AM OFFAL WORKER) WBC 11.0(H) 3.8 - 10.8 Thousand/u L [...] [facility] Comment: Test Performed at: [facility] [address] [place] [address] Hallie Peres MD Blood 02/12/2025 11:1 0 AM OFFAL WORKER 02/13/2025 2:55 AM OFFAL WORKER us Racquel Reynolds STRUCTURAL FITTER HEMATOLOGY ORDERABLES Final Result [facility] [phone] [facility] [address] [address] * BASIC METABOLIC PANEL (02/10/2025 3:19 PM OFFAL WORKER) Blood us Abstract Provider CHEMISTRY ORDERABLES Final Res ult * ECHO COMPLETE - CONTRAST AND STRAIN IF INDICATED (02/08/2025 3:18 PM OFFAL WORKER) Only the most recent of2 resultswithin the time period is included. us Abstract Provider US ORDERABLES Final Result * PROTIME-INR (02/07/2025) Only the most recent of2 resultswithin the time period is included. ABSTRACTED PROTIME 15.4 ABSTRACTED INR 1.14 Blood 02/07/2025 us Abstract Provider HEMATOLOGY ORDERABLES Final Re sult * TX REMOVAL OF SUTURES (01/19/2025 1:00 PM CDT) Narrative [facility] - 01/19/2025 1:00 PM CDT Racquel [...] CLARISSA ORDERABLES Final Result Performing Organization Address City/[facility]/ZIP Co de Phone Number [facility] CLIA# [id number] [address] [place] [address] * OCCULT BLOOD IMMUNOASSAY, COLORECTAL SCREEN (07/23/2023 12:00 AM CDT) FECAL GLOBIN SEE NOTE [facility] Comment: FECAL GLOBIN BY IMMUNOCHEMISTRY Micro Number: [id number] Test Status: Final Specimen Source: Stool Specimen Quality: Adequate Fecal Globin: Not Detected Test Performed at: [facility] [address] [place] [address] Hallie Peres MD Stool STOOL SPECIMEN / Unknown 07/23/2023 07/26/2023 11:19 AM CDT us Jazzy Zimmerman STRUCTURAL FITTER BODY FLUIDS AND STOOLS Fin al Result [facility] [phone] [place] [address] [facility] [address] * HEMOGLOBIN A1C (10/06/2021 9:24 AM CDT) HEMOGLOBIN A1C 5.6 <5.7 % of total Hgb [facility] Comment: For the purpose of screening for the presence of diabetes: <5.7% Consistent with the absence of diabetes 5.7-6.4% Consistent with increased risk for diabetes (prediabetes) > or =6.5% Consistent with diabetes This assay result is consistent with a decreased risk of diabetes. Currently, no consensus exists regarding use of hemoglobin A1c for diagnosis of diabetes in children. According to [place] Diabetes Association (ADA) guidelines, hemoglobin A1c <7.0% represents optimal control in non- diabetic patients. Different metrics may apply to specific patient populations. Standards of Medical Care in Diabetes(ADA). ESTIMATED AVERAGE GLUCOSE (MG/DL) 114 mg/dL [facility] ESTIMATED AVERAGE GLUCOSE (MMOL/L) 6.3 mmol/L [facility] Comment: Test Performed at: [facility] [address] [address] [facility] [place] [address] Landry Pelayo D.O., MPH Blood 10/06/2021 9:24 AM CDT 10/07/2021 1:21 AM CDT Jazzy Zimmerman [facility] CHEMISTRY ORDERABLES Final Result [facility] [phone] [facility] [address] [place] [address] * COLON CANCER SCREEN, STOOL DNA (09/22/2020 5:08 PM CDT) COLOGUARD RESULT Negative Negative 09/29/19 9:35 AM CDT [facility] Comment: NEGATIVE TEST RESULT. A negative [...] (Christine Dennis al, N Engl J Med 2014;370(14):5188-9820) The normal value (reference range) for this assay is negative. COLOGUARD RE-SCREENING RECOMMENDATION: Periodic colorectal cancer screening is an important part of preventive healthcare for asymptomatic individuals at average risk for colorectal cancer. Following a negative Cologuard result, the [place] Cancer Society and U.S. Multi-Society Task Force screening guidelines recommend a Cologuard re-screening interval of 3 years. References: [place] Cancer Society Guideline for Colorectal Cancer Screening: https://www.cancer.org/cancer/vgusz-pmpsoc-ohaxqm/gjupcoays-boqdjvmqk-xltiytm/ac s-rec ommendations.html.; Billy TRAN, Edwin SAMUEL, Alfa CotaK, Colorectal Cancer Screening: Recommendations for Physicians and Patients from the U.S. Multi-Society Task Force on Colorectal Cancer Screening , Am J Gastroenterology 2017; 112:1058-9021. TEST DESCRIPTION: Composite algorithmic analysis of stool [...] colonoscopy. (Christine Garcia, N Engl J Med 2014;370(14):1079-8742.) Cologuard may produce a false negative or false positive result (no colorectal cancer or precancerous polyp present at colonoscopy follow up). A negative Cologuard test result does not guarantee the absence of CRC or advanced adenoma (pre-cancer). The current Cologuard screening interval is every 3 years. ([place] Cancer Society and U.S. Multi-Society Task Force). Cologuard performance data in a 10,000 patient pivotal study using colonoscopy as the reference method can be accessed at the following location: www.Dayforce/results. Additional description of the Cologuard test process, warnings and precautions can be found at www.Archevosrd.com. Stool STOOL SPECIMEN / Unknown 09/22/2020 5:08 PM CDT 09/24/2020 7:08 PM CDT us Jazzy Zimmerman STRUCTURAL FITTER BODY FLUIDS AND STOOLS Fin al Result [facility] IA # [id number] [address], [address] [place] [address] * MAMMO 3D SCREEN BILATERAL MOBILE (03/31/2020 9:04 AM OFFAL WORKER) Anatomical Region Laterality Modality Breast Bilateral Other Narrative 04/01/2020 3:47 PM OFFAL WORKER BILATERAL SCREENING MAMMOGRAM 03/31/2020 PATIENT COMPLAINT: No [...] Center to schedule the recommended follow-up appointment. [id number] Procedure Note Nikia Escamilla MD - 09/01/2020 [...] Center to schedule the recommended follow-up appointment. [id number] Jazzy Chapacayetano STRUCTURAL FITTER MAMMO ORDERABLES Final Res ult from Last 3 Months or Most Recently Relevant to Health Maintenance Insurance BCBS MEDICARE HMO Advance Directives For more information, please contact: [phone] * Full Code (Latest Code Status on File) Date Activated Date Inactivated Comments 01/08/2025 10:52 AM Care Teams Electrical Cad Technician Relationship Specialty Start Date End Date Dennis Vines MD [address] [place] [address] AMRIK Foster [phone] PCP - General Family Practice 10/23/24
--- OUTSIDE RECORDS SUMMARY | 2025-03-30 12:31 | XMS_ITS | Encounter Summary ---
Author Organization [facility] Address [address] [place] [address] Care Team Providers Care Manufacturing Manager Name Role Phone Chema Padilla MD Primary Care Provider [phone] Encounter Details Date Type Department Care Team (Latest Contact Info) Description 04/19/[address] [facility] Family Medicine [place] [id number] [address] Dewayne Fagan Jr., MD [address] [place] [address] 248 [facility] [address] [place] [address] MYALGIA AND MYOSITIS NOS (Primary Dx); Benign hypertension; SYNOVIAL CYST NOS Social History Tobacco Use Types Packs/Day Years Used Date Smoking Tobacco: Never Assessed Comments Unknown Sex and Gender Information Value Date Recorded Sex Assigned at Not on file Legal Sex Female 3:22 AM HOME CARE MANAGER Gender Identity Not on file Sexual Orientation Not on file documented as of this encounter Plan of Treatment Not on file documented as of this encounter Visit Diagnoses Diagnosis Myalgia and myositis, unspecified- Primary Mylagia and myositis, unspecified Benign hypertension Essential hypertension, benign Synovial cyst, unspecified documented in this encounter Care Teams Manufacturing Manager Relationship Specialty Start Date End Date Chema Padilla MD [facility] [address] [address] PCP - General Family Practice 03/24/19 documented as of this encounter
--- OUTSIDE RECORDS SUMMARY | 2025-03-30 12:31 | XMS_ITS | Encounter Summary ---
Author Organization [facility] Address [address] [place] [address] Care Team Providers Care Policy Loan Calculator Name Role Phone Chema Padilla MD Primary Care Provider [phone] Reason for Referral * Radiology Services (Routine) [...] Expiration Date Visits Re quested Visits Authorized [id number] Closed 03/05/2018 04/05/2019 1 1 ER GUARD Encounter Details Date Type Department Care Team (Latest Contact Info) Description 03/05/2018 Ancillary Orders [facility] [address] Res[address] FACC Fund I [facility] [address] [facility] [address] [place] [phone] Kayla Sung DO NO ADDRESS ON FILE [...] on file Legal Sex Female 3:22 AM DRIVER GUARD Gender Identity Not on file Sexual Orientation [...] Total Score: 2 03/05/20 13 8:00 AM DRIVER GUARD documented as of this encounter Care Teams Policy Loan Calculator Relationship Specialty Start Date End Date Chema Padilla MD [address] [place] [address] PCP - General Family Practice 03/24/19 documented as of this encounter
--- OUTSIDE RECORDS SUMMARY | 2025-03-30 12:31 | XMS_ITS | Encounter Summary ---
Author Organization [facility] Address [address] [place] [address] Care Team Providers Care Carpenter Assistant Name Role Phone Chema Padilla MD Primary Care Provider [phone] Encounter Details Date Type Department Care Team (Latest Contact Info) Description 08/09/2015 Ancillary Orders [facility] [facility] [address] [facility] [address] [place] [address] Kayla Sung DO NO ADDRESS [...] file Legal Sex Female 3:22 AM SAFETY AND SKILL BASED PAY MANAGER Gender Identity Not on file Sexual [...] Total Score: 2 03/05/20 13 8:00 AM SAFETY AND SKILL BASED PAY MANAGER documented as of this encounter Care Teams Carpenter Assistant Relationship Specialty Start Date End Date Chema Padilla MD [address] [place] [address], [place] [phone] PCP - General Family Practice 03/24/19 documented as of this encounter
--- OUTSIDE RECORDS SUMMARY | 2025-03-30 12:31 | XMS_ITS | Encounter Summary ---
Author Organization [facility] Address [address] [place] [address] Care Team Providers Care Alarm Installer Name Role Phone Chema Padilla MD Primary Care Provider [phone] Encounter Details Date Type Department Care Team (Late st Contact Info) Description 05/18/2004 Emergency [facility] Emergency Department [address] [place] [phone] Senia Angel NP NO ADDRESS ON FILE [place]OR[place] (Primary Dx) Social History Tobacco Use Types Packs/Day Years Used Date Smoking Tobacco: Never Assessed Comments Unknown Sex and Gender Information Value Date Recorded Sex Assigned at Not on file Legal Sex Female 3:22 AM BILLET HEATER Gender Identity Not on file Sexual Orientation Not on file documented as of this encounter Plan of Treatment Not on file documented as of this encounter Visit Diagnoses Diagnosis Sprain of thoracic region- Primary documented in this encounter Care Teams Alarm Installer Relationship Specialty Start Date End Date Chema Padilla MD [address] [place] [phone] PCP - General Family Practice 03/24/19 documented as of this encounter
--- OUTSIDE RECORDS SUMMARY | 2025-03-30 12:31 | XMS_ITS | Encounter Summary ---
Author Organization [facility] Address [address] [place] [address] Care Team Providers Care Small Battery Plate Assembler Name Role Phone Chema Padilla MD Primary Care Provider [phone] Encounter Details Date Type Department Care Team (Latest Contact Info) Description 09/06/2005 Outpatient [facility] Family Medicine [place] [facility] [address] [address] Dewayne Fagan Jr., MD [address] [place] [address] 248 [facility] [address] [place] [address] Benign Hypertension (Primary Dx) Social History Tobacco Use Types Packs/Day Years Used Date Smoking Tobacco: Never Assessed Comments Unknown Sex and Gender Information Value Date Recorded Sex Assigned at Not on file Legal Sex Female 3:22 AM MIXER DRIVER Gender Identity Not on file Sexual Orientation Not on file documented as of this encounter Plan of Treatment Not on file documented as of this encounter Visit Diagnoses Diagnosis Benign hypertension- Primary Essential hypertension, benign documented in this encounter Care Teams Small Battery Plate Assembler Relationship Specialty Start Date End Date Chema Padilla MD [address] [place] [phone] PCP - General Family Practice 03/24/19 documented as of this encounter
--- OUTSIDE RECORDS SUMMARY | 2025-03-30 12:31 | XMS_ITS | Encounter Summary ---
Author Organization [facility] Address [address] [place] [address] Care Team Providers Care Box Closing Machine Operator Name Role Phone Dennis Vines MD Primary Care Provider [phone] Encounter Details Date Type Department Care Team (Late Contact Info) Description 03/24/2025 External Device Data [facility] ABSTRACTION Provider, Abstract NO ADDRESS ON FILE Social [...] on file Legal Sex Female 10:01 AM RAG INSPECTOR Gender Identity Not on file Sexual Orientation Not on file documented as of this encounter Plan of Treatment Upcoming Encounters Date Type Department Care Team (Late Contact Info) Description 05/01/2025 9:20 AM RAG INSPECTOR [facility] [address] [place] [address] Racquel Reynolds FNP [address] [place] [address] 07/09/2025 10:40 AM CDT Office Visit [place] [id number] [place] [address] Dennis Vines MD [address] [place] [phone] documented as of this encounter Visit Diagnoses Not on filedocumented in this encounter Additional Health Concerns Assessment Noted Time PHQ-9 Depression Total Score: 2 10/30/19 25 3:56 PM CDT documented as of this encounter Care Teams Box Closing Machine Operator Relationship Specialty Start Date End Date Dennis Vines MD [address] [place] [address], [place] [address] PCP - General Family Practice 10/23/24 documented as of this encounter
--- OUTSIDE RECORDS SUMMARY | 2025-03-30 12:31 | XMS_ITS | Encounter Summary ---
Author Organization [facility] Address [address] [place] [address] Care Team Providers Care Nursing Information Systems Coordinator Name Role Phone Chema Padilla MD Primary Care Provider [phone] Encounter Details Date Type Department Care Team (Late st Contact Info) Description 07/29/2005 Emergency [facility] Emergency Department [address] [place] [phone] Beata Gonazlez MD Headache (Primary Dx) Social History Tobacco Use Types Packs/Day Years Used Date Smoking Tobacco: Never Assessed Comments Unknown Sex and Gender Information Value Date Recorded Sex Assigned at Not on file Legal Sex Female 3:22 AM INCOMING FREIGHT CLERK Gender Identity Not on file Sexual [...] Headache documented in this encounter Care Teams Nursing Information Systems Coordinator Relationship Specialty Start Date End Date Chema Padilla MD [address] [place] [address] [place] [phone] PCP - General Family Practice 03/24/19 documented as of this encounter
--- OUTSIDE RECORDS SUMMARY | 2025-03-30 12:31 | XMS_ITS | Encounter Summary ---
Author Organization [facility] Address [address] [place] [address] Care Team Providers Care Bruise Trimmer Name Role Phone Chema Padilla MD Primary Care Provider [phone] Encounter Details Date Type Department Care Team (Latest Contact Info) Description 05/10/2005 Outpatient [facility] Family Medicine [place] [facility] [address] [address] Dewayne Fagan Jr., MD [address] [place] [address] 248 [facility] [address] [place] [address] Benign hypertension (Primary Dx) Social History Tobacco Use Types Packs/Day Years Used Date Smoking Tobacco: Never Assessed Comments Unknown Sex and Gender Information Value Date Recorded Sex Assigned at Not on file Legal Sex Female 3:22 AM AGRICULTURAL PRODUCE SORTER Gender Identity Not on file Sexual Orientation Not on file documented as of this encounter Plan of Treatment Not on file documented as of this encounter Visit Diagnoses Diagnosis Benign hypertension- Primary Essential hypertension, benign documented in this encounter Care Teams Bruise Trimmer Relationship Specialty Start Date End Date Chema Padilla MD [address] [place] [phone] PCP - General Family Practice 03/24/19 documented as of this encounter
--- OUTSIDE RECORDS SUMMARY | 2025-03-30 12:31 | XMS_ITS | Encounter Summary ---
Author Organization [facility] Address [address] [facility] [place] [address] Care Team Providers Care Compensation Programs Manager Name Role Phone Chema Padilla MD Primary Care Provider [phone] Encounter Details Date Type Department Care Team (Latest Contact Info) Description 04/06/2020 Ancillary Orders [facility] [address] [facility] [address] [place] [address] Jazzy Zimmerman FNP NO ADDRESS [...] often do you attend chur ch or jewish services? Never 02/12/2020 Do you belong to any clubs o r organizations such as uatsdin groups, unions, fraternal or athletic groups, or [...] on file Legal Sex Female 3:22 AM LAMINATING MACHINE OPERATOR HELPER Gender Identity Not on file Sexual [...] COVID-19? No / Unsure 03/31/2020 8:58 AM LAMINATING MACHINE OPERATOR HELPER documented as of this encounter Plan of Treatment Not on file documented as of this encounter Visit Diagnoses Diagnosis Inconclusive mammography Inconclusive mammogram documented in this encounter Care Teams Compensation Programs Manager Relationship Specialty Start Date End Date Chema Padilla MD [address] [place] [phone] PCP - General Family Practice 03/24/19 documented as of this encounter
== END 2025-03-21 10:56 | disposition home or self-care (01) ==
LOC: ER 11:58 → CSU 13:39
PROVIDERS: Admitting Provider Internal Medicine; Emergency Provider Family Medicine; Visit Provider Registered Nurse
DX: I48.91 Unspecified atrial fibrillation (principal); I50.21 Acute systolic (congestive) heart failure; J90 Pleural effusion, not elsewhere classified; E78.5 Hyperlipidemia, unspecified; F41.8 Other specified anxiety disorders; Z79.01 Long term (current) use of anticoagulants; E03.9 Hypothyroidism, unspecified; J44.9 Chronic obstructive pulmonary disease, unspecified; Z99.81 Dependence on supplemental oxygen; Z87.891 Personal history of nicotine dependence
CPT/HCPCS: 36415; 71045; 80053; 83735; 83880; 84443; 84484; 85025; 93005; 94640; 96365; 96375; 99285; G0378; J1938; J3490; J7626; J9999